=== PATIENT | male | born 1930 | race Caucasian/White ===

== ENCOUNTER 2018-11-22 23:44 | Emergency (ER) | payer OTHER, BC ==
[2018-11-22 23:51] VITALS: BP 132/62; PULSE 66; TEMP 97.7; BMI 22.1
[2018-11-23] MEDS ORDERED: BACITRACIN 0.9 GM PACKET ONE (00:47)
--- NOTE | 2018-11-23 00:58 | PDOC ---
Attending Attestation - Resident Resident Name: ByrondinaLan - ED Attending Attestation I have performed the following: I have examined & evaluated the patient, The case was reviewed & discussed with the resident, I agree w/resident's findings & plan, Exceptions are as noted - HPI HPI: 11/23/18 00:57 88-year-old male with a history of peripheral vascular disease who is followed by Dr. Dumont for wound care presents with bleeding to his chronic left medial -This evening he started to have bleeding at the site and a pressure dressing was applied, and called for an ambulance -There was no active bleeding at the site when the dressing was removed. The dressing was replaced and patient will follow-up at the wound care - Physicial Exam PE: 11/23/18 00:58 tall thin 88 yo male BIBA for bleeding at the site of a chronic wound head ncat neck supple lungs cta b/l cvs [id number] abd flat extremity: right leg has chronic edema( referred to wound care notes from Dr Dumont) ,no deformity ,there is small wound at medial malleolus neuro alert and conversant - Medical Decision Making 11/23/18 01:16 the wound was dressed, the bleeding stopped, no sign of local infection pt d/c home to follow up with wound care
--- NOTE | 2018-11-23 00:59 | PDOC ---
History of Present Illness - General Chief Complaint: Wound Stated Complaint: HEMORRAHAGE Time Seen by Provider: 11/23/18 00:21 History Source: Patient, Family Exam Limitations: No Limitations - History of Present Illness Initial Comments: 11/23/18 00:54 The patient is an 88M with a PMH of CHF and chronic R LE wound who presents to the ER after having bleeding from his wound. The patient states that he was sitting down watching tv when his wound started "shooting blood". He called EMS. He currently complains of shooting pain in his R leg. Past History - Past Medical History Allergies/Adverse Reactions: Allergies Allergy/AdvReac Type Severity Reaction Status Date / Time No Known Allergies Allergy Verified 01/14/18 18:32 Home Medications: Ambulatory Orders Metoprolol Succinate [Toprol XL] 50 mg PO BID 12/31/11 Warfarin Na [Coumadin] 5 mg PO HS 12/31/11 Ranitidine [Zantac -] 150 mg PO DAILY #0 tablet 08/23/13 Cholecalciferol (Vitamin D3) [Vitamin D3] 2,000 unit PO DAILY 10/31/13 Digoxin 125 mcg PO DAILY 11/02/13 Furosemide [Lasix -] 60 mg PO DAILY 01/14/18 Atorvastatin Ca [Lipitor] 10 mg PO HS 08/04/18 Cyclobenzaprine HCl 5 mg PO DAILY 08/04/18 Gabapentin 100 mg PO DAILY 08/04/18 Spironolactone 25 mg PO DAILY 08/04/18 Anemia: No Asthma: No Cancer: No Cardiac Disorders: Yes (IRREGULAR HEARTBEAT, PACEMAKER IN PLACE) 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) COPD: No CHF: No Dementia: No Diabetes: No GI Disorders: Yes (CONSTIPATION) Disorders: No HTN: Yes Hypercholesterolemia: Yes Liver Disease: No Seizures: No Thyroid Disease: No - Surgical History Abdominal Surgery: Yes (RIGHT INGUINAL HERNIA REPAIR) Appendectomy: No Cardiac Surgery: Yes (aortic valve replacement, single bypass 1999) Cholecystectomy: No Lung Surgery: No Neurologic Surgery: No Orthopedic Surgery: Yes (BILATERAL HAND SURGERY) - Immunization History Immunization Up to Date: Yes - Suicide/Smoking/Psychosocial Hx Smoking Status: Yes Smoking History: Unknown if ever smoked Have you smoked in the past 12 months: No Number of Cigarettes Smoked Daily: 0 If you are a former smoker, when did you quit?: 40-50yr ago Information on smoking cessation initiated: No Hx Alcohol Use: No Drug/Substance Use Hx: No Substance Use Type: None Hx Substance Use Treatment: No Review of Systems - Review of Systems Able to Perform ROS?: Yes Is the patient limited Yi proficient: No Constitutional: No: Chills, Fever Cardiac (ROS): No: Chest Pain Musculoskeletal: Yes: Other (R leg pain) Integumentary: Yes: Other (1cm wound on medial aspect of R malleolus) *Physical Exam - Vital Signs Last Vital Signs Temp Pulse Resp BP Pulse Ox 97.7 F 66 20 132/62 100 11/22/18 23:47 11/22/18 23:47 11/22/18 23:47 11/22/18 23:47 11/22/18 23:47 - Physical Exam General Appearance: Yes: Nourished, Appropriately Dressed HEENT: positive: Normal Voice, Hearing Grossly Normal Integumentary: positive: Other (1cm nonbleeding chronic wound on R medial malleolus) Moderate Sedation - Procedure Monitoring Vital Signs: Procedure Monitoring Vital Signs Temperature 97.7 F 11/22/18 23:47 Pulse Rate 66 11/22/18 23:47 Respiratory Rate 20 11/22/18 23:47 Blood Pressure 132/62 11/22/18 23:47 O2 Sat by Pulse Oximetry (%) 100 11/22/18 23:47 Medical Decision Making - Medical Decision Making 11/23/18 00:57 The patient is an 88M with a PMH of chronic R LE wound seen by Dr. Dumont. Wound was not bleeding on my examination. Wound covered with pressure dressing. Will give instructions for f/u with wound clinic. *DC/Admit/Observation/Transfer Diagnosis at time of Disposition: Bleeding from wound - Discharge Dispostion Disposition: HOME Condition at time of disposition: Stable Decision to Admit order: No - Referrals - Patient Instructions Printed Discharge Instructions: Skin Wound Additional Instructions: Please follow up with Dr. Dumont in 1-2 days for your wound. Please return to the ER if you have any signs or symptoms of chest pain, shortness of breath, uncontrollable fever, chills, nausea, vomiting, numbness, tingling, or weakness in any part of your body, changes in vision, or slurred speech. Please take your medications as prescribed. Please return to the ER if symptoms persist, worsen, or new symptoms arise. - Post Discharge Activity
== END 2018-11-23 01:29 | disposition home or self-care (01) ==
LOC: JER 23:44
DX: S91.001A Unspecified open wound, right ankle, initial encounter (principal); S81.801A Unspecified open wound, right lower leg, initial encounter; I25.10 Atherosclerotic heart disease of native coronary artery without angina pectoris; I11.0 Hypertensive heart disease with heart failure; Z95.1 Presence of aortocoronary bypass graft; Z79.01 Long term (current) use of anticoagulants; Z95.2 Presence of prosthetic heart valve; Z95.0 Presence of cardiac pacemaker; E78.00 Pure hypercholesterolemia, unspecified; I69.854 Hemiplegia and hemiparesis following other cerebrovascular disease affecting left non-dominant side; Z87.19 Personal history of other diseases of the digestive system
CPT/HCPCS: 99281-25

== ENCOUNTER 2019-02-13 22:02 | Inpatient (IN) | payer OTHER, BC ==
[2019-02-13 23:59] LABS: BASO % 0.6 % (0-2.0); EOS % 4.5 % (0-4.5); HEMATOCRIT 27.7 % (35.4-49); HEMOGLOBIN 9.1 GM/dL (11.7-16.9); LYMPH % 19.3 % (8-40); MCH 29.2 pg (25.7-33.7); MCHC 32.7 g/dl (32.0-35.9); MEAN CELL VOLUME 89.4 fl (80-96); MEAN PLT VOLUME 9.8 fl (7.5-11.1); NEUT % 61.6 % (42.8-82.8); PLATELET COUNT 55 K/MM3 (134-434); RDW 16.9 % (11.9-15.9)
--- NOTE | 2019-02-14 00:12 | PDOC ---
History of Present Illness - General Chief Complaint: Revisit, Lab Variance Stated Complaint: ABNORMAL LIVER ENZYMES Time Seen by Provider: 02/13/19 22:30 - History of Present Illness Initial Comments: 02/14/19 00:04 Jero Melchor is an 88yo man with a PMH of CHF, s/p pacemaker, s/p cardiac valve replacement, ?a-fib?, on warfarin, and recent ICU admission who presents with report of significantly elevated BUN, Cr and potassium on morning labs today. Per his daughter, Mr Melchor was recently admitted to [place] for evaluatation of groin pain. His hospital course was c/b aspiration pneumonia, he required intubation and transfer to ICU. He went to rehab for a month following his discharge and recently returned home on Wednesday. He is now significantly decontitioned and has a 24hr caregiver for help with ADL's. Per his daughter, he had labs through [facility] today for his INR check and routine tests. They were called this afternoon with the report that his BUN was 129, potassium was 7.4, Cr was also elevated, and they were told to present to the hospital for evaluation. Mr Melchor denies any recent symptoms including chest pain, SOB, nausea/vomiting , or diarrhea. He has been taking his meds with assistance of the home health nurse licensed practical. His daughter reports that he has not been eating much, and he seems sort of "dazed" and not at his baseline mental status. Past History - Past Medical History Allergies/Adverse Reactions: Allergies Allergy/AdvReac Type Severity Reaction Status Date / Time No Known Allergies Allergy Verified 02/13/19 22:12 Home Medications: Ambulatory Orders Metoprolol Succinate [Toprol XL] 50 mg PO BID 12/31/11 Warfarin Na [Coumadin] 5 mg PO HS 12/31/11 Ranitidine [Zantac -] 150 mg PO DAILY #0 tablet 08/23/13 Cholecalciferol (Vitamin D3) [Vitamin D3] 2,000 unit PO DAILY 10/31/13 Digoxin 125 mcg PO DAILY 11/02/13 Atorvastatin Ca [Lipitor] 10 mg PO HS 08/04/18 Cyclobenzaprine HCl 5 mg PO DAILY 08/04/18 Gabapentin 100 mg PO DAILY 08/04/18 Spironolactone 25 mg PO DAILY 08/04/18 Ferrous Sulfate 325 mg PO DAILY 11/29/18 Sacubitril/Valsartan [Entresto 24 mg-26 mg Tablet] 1 tab PO BID 11/29/18 Torsemide 20 mg PO BID 11/29/18 Anemia: No Asthma: No Cancer: No Cardiac Disorders: Yes (IRREGULAR HEARTBEAT, PACEMAKER IN PLACE) 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) COPD: No CHF: No Dementia: No Diabetes: No GI Disorders: Yes (CONSTIPATION) Disorders: No HTN: Yes Hypercholesterolemia: Yes Liver Disease: No Seizures: No Thyroid Disease: No - Surgical History Abdominal Surgery: Yes (RIGHT INGUINAL HERNIA REPAIR) Appendectomy: No Cardiac Surgery: Yes (aortic valve replacement, single bypass 1999) Cholecystectomy: No Lung Surgery: No Neurologic Surgery: No Orthopedic Surgery: Yes (BILATERAL HAND SURGERY) - Immunization History Immunization Up to Date: Yes - Suicide/Smoking/Psychosocial Hx Smoking Status: Yes Smoking History: Never smoked Have you smoked in the past 12 months: No Number of Cigarettes Smoked Daily: 0 If you are a former smoker, when did you quit?: 40-50yr ago Information on smoking cessation initiated: No Hx Alcohol Use: Yes (social) Drug/Substance Use Hx: No Substance Use Type: None Hx Substance Use Treatment: No Review of Systems - Review of Systems Comments:: Could not obtain *Physical Exam - Vital Signs Last Vital Signs Temp Pulse Resp BP Pulse Ox 97.7 F 67 16 116/71 97 02/13/19 22:08 02/13/19 22:08 02/13/19 22:08 02/13/19 22:08 02/13/19 22:08 - Physical Exam Comments: General: In no acute distress HEENT: Atraumatic, PERRL, EOMI, dry mouth. Cards: RRR, no murmur appreciated Pulm: Comfortable on room air, clear to auscultation bilaterally Abd: Soft, nontender, nondistended Ext: Atraumatic. 2+ pitting edema, R>L. Multiple small wound c/w chronic vascular disease on BLE; no significant drainage or erythema appreciated. Moves all extremities Neuro: A&Ox3 but slow to respond, CN grossly intact, normal speech, motor/ sensory grossly intact and symmetric Psych: Flattened affect; staring off, not attending conversation ED Treatment Course - LABORATORY CBC & Chemistry Diagram: 02/13/19 23:45 02/13/19 23:45 - ADDITIONAL ORDERS Additional order review: 02/13/19 23:45 RBC 3.10 L MCV 89.4 MCHC 32.7 RDW 16.9 H MPV 9.8 Neutrophils % 61.6 Lymphocytes % 19.3 Monocytes % 14.0 H Eosinophils % 4.5 D Basophils % 0.6 - RADIOLOGY Radiology Studies Ordered: Category Date Time Status CHEST X-RAY PORTABLE* [RAD] Stat Radiology 02/13/19 23:22 Ordered Medical Decision Making - Medical Decision Making 02/14/19 00:04 Jero Melchor is an 88yo man with a PMH of CHF, s/p pacemaker, s/p cardiac valve replacement, ?a-fib?, on warfarin, and recent ICU admission who presents with report of significantly elevated BUN, Cr and potassium on morning labs today. Per his daughter, Mr Melchor was recently admitted to [place] for evaluation of groin pain. His hospital course was c/b aspiration pneumonia, he required intubation and transfer to ICU. He went to rehab for a month following his discharge and recently returned home on Wednesday. He is now significantly decontitioned and has a 24hr caregiver for help with ADL's. Per his daughter, he had labs through [facility] today for his INR check and routine tests. They were called this afternoon with the report that his BUN was 129, potassium was 7.4, Cr was also elevated, and they were told to present to the hospital for evaluation. Mr Melchor denies any recent symptoms including chest pain, SOB, nausea/vomiting , or diarrhea. He has been taking his meds with assistance of the home health nurse licensed practical. His daughter reports that he has not been eating much, and he seems sort of "dazed" and not at his baseline mental status. - CBC, CMP, mag, phos, trop, EKG, CXR, cardiac monitoring, UA ordered - Starting IVF. Given CHF will not bolus; 1L to run over several hours - Will evaluate current kidney function and potassium. Will treat as indicated 02/14/19 00:12 - EKG with ventricular paced rhythm, HR 70. Nonspecific t-wave changes. No ST elevations. No grossly peaked t-waves - Pt signed out to Dr West for the remainder of his ED management. Seen with Dr Muro. Araceli Ruiz PGY1 *DC/Admit/Observation/Transfer Diagnosis at time of Disposition: SANDIE (acute kidney injury), Altered mental status - Discharge Dispostion Condition at time of disposition: Fair - Referrals Referrals: Carrillo Roldan MD [Primary Care Provider] - - Patient Instructions - Post Discharge Activity
[2019-02-14 00:47] LABS: ALBUMIN 2.8 g/dl (3.4-5.0); ALK PHOS 118 U/L (45-117); ANION GAP 8 MMOL/L (8-16); BILIRUBIN,TOTAL 0.4 mg/dL (0.2-1); BLOOD UREA NITROGEN 104 mg/dL (7-18); CALCIUM 8.4 mg/dL (8.5-10.1); CHLORIDE 100 mmol/L (98-107); CO2 21 mmol/L (21-32); CREATININE 3.6 mg/dL (0.55-1.3); GLUCOSE,RANDOM 92 mg/dL (74-106); MAGNESIUM 2.9 mg/dL (1.8-2.4); PHOSPHOROUS 4.6 mg/dL (2.5-4.9); SGOT/AST 18 U/L (15-37); SGPT/ALT 21 U/L (13-61); SODIUM 130 mmol/L (136-145); TOT PROT 6.5 g/dl (6.4-8.2)
[2019-02-14] MEDS ORDERED: SODIUM BICARBONATE 8.4% 50 MEQ/50 ML DISP.SYRIN IVPUSH ONE (00:47)
[2019-02-14] MEDS ORDERED: DEXTROSE 50%-WATER - 25 GM/50 ML VIAL IVPUSH ONE (00:47)
[2019-02-14] MEDS ORDERED: SODIUM POLYSTYRENE SULFONATE 15 GM/60 ML BOTTLE PO ONE (00:47)
[2019-02-14 00:51] LABS: POTASSIUM 7.2 mmol/L (3.5-5.1)
[2019-02-14] MEDS ORDERED: ALBUTEROL SO4 0.083% IH SOL 2.5 MG/3 ML VIAL.NEB. NEB ONE (00:59)
[2019-02-14] MEDS ORDERED: INSULIN REGULAR HUMAN 100 UNITS/ML *VIAL IVPUSH ONE (00:59)
[2019-02-14] MEDS ORDERED: CALCIUM GLUCONATE 10% - 1,000 MG/10 ML VIAL IVPUSH ONE (01:04)
--- NOTE | 2019-02-14 01:06 | PDOC ---
Documentation entered by Serg Toledo SCRIBE, acting as scribe for Laure Muro DO. Laure Muro DO: This documentation has been prepared by the Ter rizo Daniel, SCRIBE, under my direction and personally reviewed by me in its entirety. I confirm that the documentation accurately reflects all work , treatment, procedures, and medical decision making performed by me. Attending Attestation - Resident Resident Name: Araceli Ruiz - ED Attending Attestation I have performed the following: I have examined & evaluated the patient, The case was reviewed & discussed with the resident, I agree w/resident's findings & plan - HPI HPI: 02/13/19 23:31 The patient is an 88 year old male with a past medical history of CHF and peripheral vascular disease here today for evaluation of abnormal lab values. Patient reports that he was recently discharged from the ICU at [facility]. He was called today and was told that his BUN was 129 and his potassium was 7.4. Patient denies headache, lightheadedness. Denies fever, chills. Denies chest pain, shortness of breath. Denies nausea, vomiting, diarrhea, abdominal pain. Allergies: NKA PCP: Carrillo Roldan - Physicial Exam PE: 02/13/19 23:32 Agree with patient's physical exam. - Medical Decision Making 02/14/19 01:05 80-year-old male told to come in due to abnormal labs on outpatient testing Blood chemistries reviewed and are consistent with acute renal failure with a markedly elevated BUN creatinine and potassium Insulin, sodium bicarbonate, D50 as well as Kayexalate and calcium gluconate have been ordered Call placed for stat nephrology consult Patient to be admitted for further management
[2019-02-14] MEDS ORDERED: CALCIUM GLUCONATE 10% - 1,000 MG/10 ML VIAL ONE (01:30)
[2019-02-14] MEDS ORDERED: FUROSEMIDE 40 MG/4 ML INJECTABLE VIAL IVPUSH ONE (01:30)
[2019-02-14] MEDS ORDERED: DEXTROSE 50%-WATER 25 GM/50 ML DISP.SYRIN ONE ×2 (01:31→08:08)
[2019-02-14] MEDS ORDERED: SODIUM POLYSTYRENE SULFONATE 15 GM/60 ML BOTTLE ONE ×2 (01:32→08:41)
[2019-02-14] MEDS ORDERED: INSULIN REGULAR HUMAN 100 UNITS/ML *VIAL ONE (01:32)
--- NOTE | 2019-02-14 01:41 | PDOC ---
*Physical Exam - Vital Signs Last Vital Signs Temp Pulse Resp BP Pulse Ox 97.7 F 67 16 116/71 97 02/13/19 22:08 02/13/19 22:08 02/13/19 22:08 02/13/19 22:08 02/13/19 22:08 ED Treatment Course - LABORATORY CBC & Chemistry Diagram: 02/13/19 23:45 02/13/19 23:45 - ADDITIONAL ORDERS Additional order review: Laboratory Results 02/13/19 23:45 Sodium 130 L Potassium 7.2 H* Chloride 100 Carbon Dioxide 21 Anion Gap 8 BUN 104 H Creatinine 3.6 H Creat Clearance w eGFR 16.08 Random Glucose 92 Calcium 8.4 L Phosphorus 4.6 Magnesium 2.9 H Total Bilirubin 0.4 AST 18 ALT 21 Alkaline Phosphatase 118 H Creatine Kinase 57 Troponin I < 0.02 Total Protein 6.5 Albumin 2.8 L 02/13/19 23:45 RBC 3.10 L MCV 89.4 MCHC 32.7 RDW 16.9 H MPV 9.8 Neutrophils % 61.6 Lymphocytes % 19.3 Monocytes % 14.0 H Eosinophils % 4.5 D Basophils % 0.6 - RADIOLOGY Radiology Studies Ordered: Category Date Time Status KIDNEY / RENAL US [US] Stat Ultrasound 02/14/19 01:31 Ordered Medical Decision Making - Medical Decision Making 02/14/19 01:[address] Curran, renal US, lasix 40 mg IV, hold spironolactone and entresto. Monitor Is and Os, baltazar admit for SANDIE, elevated K, BUN, CR and low Ca 02/14/19 02:23 Hospitalist *DC/Admit/Observation/Transfer Diagnosis at time of Disposition: Altered mental status, SANDIE (acute kidney injury) - Discharge Dispostion Condition at time of disposition: Fair Decision to Admit order: Yes - Referrals - Patient Instructions - Post Discharge Activity
--- NOTE | 2019-02-14 02:14 | PN ---
Teaching Attending Note Name of Resident: Dwain Goodrich ATTENDING PHYSICIAN STATEMENT I saw and evaluated the patient. I reviewed the resident's note and discussed the case with the resident. I agree with the resident's findings and plan as documented. SUBJECTIVE: Seen and examined; please refer to resident note for further historical information. Briefly, this is a 88 y/o male with a PMH as documented who presents to the hospital today due to hyperkalemia and SANDIE. He was recently admitted to [facility] in their ICU for what their daughter describes to be Aspiration PNA, etc. and he went to rehab for a month following his discharge and recently returned home on Wednesday. He is now significantly decontitioned and has a 24hr caregiver for help with ADL's. Per his daughter, he had labs through [facility] today for his INR check and routine tests. They were called this afternoon with the report that his BUN was 129, potassium was 7.4, Cr was also elevated, and they were told to present to the hospital for evaluation. No EKG or tele changes. K did go down after treatment; ER spoke with Dr. Curran after treating the hyperK and he recommended holding spironolactone, entresto, and giving lasix. He will be monitored on telemetry on the medicine service. 10 sys ROS done and negative aside from HPI PMH, PSH, FH, SH reviewed Home Medications Medication Instructions Recorded Metoprolol Succinate [Toprol XL] 50 mg PO BID 12/31/11 Warfarin Na [Coumadin] 5 mg PO HS 12/31/11 Ranitidine [Zantac -] 150 mg PO DAILY #0 tablet 08/23/13 Cholecalciferol (Vitamin D3) 2,000 unit PO DAILY 10/31/13 [Vitamin D3] Digoxin 125 mcg PO DAILY 11/02/13 Atorvastatin Ca [Lipitor] 10 mg PO HS 08/04/18 Cyclobenzaprine HCl 5 mg PO DAILY 08/04/18 Gabapentin 100 mg PO DAILY 08/04/18 Spironolactone 25 mg PO DAILY 08/04/18 Ferrous Sulfate 325 mg PO DAILY 11/29/18 Sacubitril/Valsartan [Entresto 24 1 tab PO BID 11/29/18 mg-26 mg Tablet] Torsemide 20 mg PO BID 11/29/18 OBJECTIVE: VS, labs, imaging reviewed NAD, AAO, resting comfortably in bed NC AT EOMI PERRLA RRR s1/2 no mgr Lungs CTAB, w/ sym exp NT ND +BS CN2-12 wnl, no fnd Normal mood, appropriate affect EKG reviewed Telemetry reviewed ASSESSMENT AND PLAN: Patient presents with acute hyperkalemia and SANDIE; Dr. Curran is following. 1) Hyperkalemia -Dr. Curran consulted; ER events noted. Repeat still mid-6 range so will repeat insulin/D50 and monitor for improvement. -Montioring on telemetry; will defer further management to nephrology 2) SANIDE -Will call pharmacy to verify his diuretics as there was a question. Furthermore, holding spironolactone and entresto. Will resume when clinically appropriate. We will monitor BMP and UOP and followup FeUrea and LEONARD. Would like to get the recent trend of his creatinine from [facility], etc. 3) Hx CHF; echo unknown -Will call [facility] in AM for DC summary and any studies; holding SL and entresto. Got 40 IV lasix; doesn't appear to be in any exacerbation with no acute cardiopulmonary complaints. Will renew his meds when clinically appropriate. Would like to get his DC weight, etc. from their facility as well. 4) Hx Afib on Warfarin -Continue metoprolol, dig (checking level) -Pharmacy to dose warfarin 5) Hx HLD -Continue statin 6) Recent ICU admission/deconditioning -Consider prealbumin -Was just DC from rehab but if family has any concern can call PT
--- NOTE | 2019-02-14 02:42 | HP ---
CHIEF COMPLAINT: abnormal labs PCP: Dr. Roldan HISTORY OF PRESENT ILLNESS: Patient is an 88 yo M with a PMHx of CHF, A-fib (on coumadin), s/p pacemaker, s/p cardiac valve replacement, recent admission (@ [facility] , complicated by Asp PNA, intubated), was sent by his PCP because of abnormal lab work. Per his daughter, he had labs through [facility] today for his INR check and routine tests. They were called this afternoon with the report that his BUN was 129, potassium was 7.4, Cr was also elevated, and they were told to present to the hospital for evaluation. Patient says he has no history of kidney disease. 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 He has no complaints. He denies SOB, chest pain , nausea, vomiting, abdominal pain, urinary changes, diarrhea, dizziness. ER course was notable for: (1) K 7.2, 104 BUN, 3.6 Cr. (2) d50, insulin, calcium given in ER (3) 1x 40mg IV lasix per nephro request Recent Travel: denies PAST MEDICAL HISTORY: per HPI Social History: Smoking: denies Alcohol: denies Drugs: denies Family History: Allergies No Known Allergies Allergy (Verified 02/13/19 22:12) HOME MEDICATIONS: Home Medications Medication Instructions Recorded Metoprolol Succinate [Toprol XL] 50 mg PO BID 12/31/11 Warfarin Na [Coumadin] 5 mg PO HS 12/31/11 Ranitidine [Zantac -] 150 mg PO DAILY #0 tablet 08/23/13 Cholecalciferol (Vitamin D3) 2,000 unit PO DAILY 10/31/13 [Vitamin D3] Digoxin 125 mcg PO DAILY 11/02/13 Atorvastatin Ca [Lipitor] 10 mg PO HS 08/04/18 Cyclobenzaprine HCl 5 mg PO DAILY 08/04/18 Gabapentin 100 mg PO DAILY 08/04/18 Spironolactone 25 mg PO DAILY 08/04/18 Ferrous Sulfate 325 mg PO DAILY 11/29/18 Sacubitril/Valsartan [Entresto 24 1 tab PO BID 11/29/18 mg-26 mg Tablet] Torsemide 20 mg PO BID 11/29/18 REVIEW OF SYSTEMS CONSTITUTIONAL: Absent: fever, chills, diaphoresis, generalized weakness, malaise, loss of appetite, weight change HEENT: Absent: rhinorrhea, nasal congestion, throat pain, throat swelling, difficulty swallowing, mouth swelling, ear pain, eye pain, visual changes CARDIOVASCULAR: Absent: chest pain, syncope, palpitations, irregular heart rate, lightheadedness , peripheral edema RESPIRATORY: Absent: cough, shortness of breath, dyspnea with exertion, orthopnea, wheezing, stridor, hemoptysis GASTROINTESTINAL: Absent: abdominal pain, abdominal distension, nausea, vomiting, diarrhea, constipation, melena, hematochezia GENITOURINARY: Absent: dysuria, frequency, urgency, hesitancy, hematuria, flank pain, genital pain MUSCULOSKELETAL: Absent: myalgia, arthralgia, joint swelling, back pain, neck pain SKIN: Absent: rash, itching, pallor HEMATOLOGIC/IMMUNOLOGIC: Absent: easy bleeding, easy bruising, lymphadenopathy, frequent infections ENDOCRINE: Absent: unexplained weight gain, unexplained weight loss, heat intolerance, cold intolerance NEUROLOGIC: Absent: headache, focal weakness or paresthesias, dizziness, unsteady gait, seizure, mental status changes, bladder or bowel incontinence PSYCHIATRIC: Absent: anxiety, depression, suicidal or homicidal ideation, hallucinations. PHYSICAL EXAMINATION Vital Signs - 24 hr 02/13/19 22:08 Temperature 97.7 F Pulse Rate 67 Respiratory 16 Rate Blood Pressure 116/71 O2 Sat by Pulse 97 Oximetry (%) GENERAL: A/o x 3, comfortable HEAD: Normal with no signs of trauma. EYES: Pupils equal, round and reactive to light, extraocular movements intact, sclera anicteric, conjunctiva clear. EARS, NOSE, THROAT: oropharynx clear without exudates. Moist mucous membranes. NECK: supple without lymphadenopathy, JVD, or masses. LUNGS: Breath sounds equal, clear to auscultation bilaterally. No wheezes, and no crackles. HEART: RRR, S1, s2, no murmurs appreciated ABDOMEN: Soft, nontender, not distended, normoactive bowel sounds, no guarding, no rebound, no masses. LOWER EXTREMITIES: 2+ pulses, 2+ pitting edema b/l. multiple small wounds, no discarge, erythema NEUROLOGICAL: Cranial nerves II-XII intact Laboratory Results - last 24 hr 02/13/19 02/13/19 23:45 23:45 WBC 6.0 RBC 3.10 L Hgb 9.1 L Hct 27.7 L MCV 89.4 MCH 29.2 MCHC 32.7 RDW 16.9 H Plt Count 55 L D MPV 9.8 Absolute Neuts (auto) 3.7 Neutrophils % 61.6 Lymphocytes % 19.3 Monocytes % 14.0 H Eosinophils % 4.5 D Basophils % 0.6 Nucleated RBC % 0 Sodium 130 L Potassium 7.2 H* Chloride 100 Carbon Dioxide 21 Anion Gap 8 BUN 104 H Creatinine 3.6 H Creat Clearance w eGFR 16.08 Random Glucose 92 Calcium 8.4 L Phosphorus 4.6 Magnesium 2.9 H Total Bilirubin 0.4 AST 18 ALT 21 Alkaline Phosphatase 118 H Creatine Kinase 57 Troponin I < 0.02 Total Protein 6.5 Albumin 2.8 L ASSESSMENT/PLAN: 88 yo M with a PMHx of CHF, A-fib (on coumadin), s/p pacemaker, s/p cardiac valve replacement, recent admission (@ [facility], complicated by Asp PNA, intubated), was sent by his PCP because of abnormal lab work. #SANDIE -etiology unknown at this time -Renal U/S -urine electrolytes -Hold Torsemide, Entresto, Spironolactone -Neprho consulted: Dr. Curran -1x 40mg IV lasix -I/O's -monitor BMP #Hyperkalemia -likely from SANDIE -D50, calcium gluc, insulin given in ED -Follow BMP -EKG: paced rhythm, no peaked T waves -Spironolactone Held #CHF -echo ordered -BNP -entresto held #Hx of A-fib -on coumadin, held -FU PT/INR -Digoxin -FU dig level -Toprol 50mg BID #Thrombocytopenia -Platelet 55 -Repeat in AM -transfuse <10,000 #FEN -no iv fluids -monitor BMP -sodium controlled #Dvt -no AC. low platelets Tele Obs Visit type - Emergency Visit Emergency Visit: Yes ED Registration Date: 02/14/19 Care time: The patient presented to the Emergency Department on the above date and was hospitalized for further evaluation of their emergent condition. - New Patient This patient is new to me today: Yes Date on this admission: 02/14/19 - Critical Care Critical Care patient: No
[2019-02-14] MEDS ORDERED: SODIUM BICARBONATE 8.4% 50 MEQ/50 ML VIAL ONE (03:09)
[2019-02-14 03:14] LABS: INR 2.93 (0.83-1.09)
[2019-02-14 03:58] LABS: ALBUMIN 2.5 g/dl (3.4-5.0); ALK PHOS 106 U/L (45-117); ANION GAP 7 MMOL/L (8-16); BILIRUBIN,TOTAL 0.3 mg/dL (0.2-1); BLOOD UREA NITROGEN 98 mg/dL (7-18); CALCIUM 7.9 mg/dL (8.5-10.1); CHLORIDE 104 mmol/L (98-107); CO2 22 mmol/L (21-32); CREATININE 3.4 mg/dL (0.55-1.3); GLUCOSE,RANDOM 86 mg/dL (74-106); SGOT/AST 18 U/L (15-37); SGPT/ALT 19 U/L (13-61); SODIUM 132 mmol/L (136-145); TOT PROT 5.9 g/dl (6.4-8.2)
[2019-02-14 04:00] LABS: POTASSIUM 6.6 mmol/L (3.5-5.1)
[2019-02-14] MEDS ORDERED: FUROSEMIDE 40 MG/4 ML INJECTABLE VIAL ONE (06:12)
[2019-02-14 06:29] LABS: HEMOGLOBIN 7.6 GM/dL (11.7-16.9); MCH 29.5 pg (25.7-33.7); MCHC 33.2 g/dl (32.0-35.9); MEAN CELL VOLUME 88.8 fl (80-96); MEAN PLT VOLUME 9.1 fl (7.5-11.1); PLATELET COUNT 43 K/MM3 (134-434); RBC 2.59 M/mm3 (4.00-5.60); RDW 16.5 % (11.9-15.9); WHITE BLOOD COUNT 4.5 K/mm3 (4.0-10.0)
[2019-02-14 07:34] LABS: ALBUMIN 2.3 g/dl (3.4-5.0); ALK PHOS 97 U/L (45-117); ANION GAP 7 MMOL/L (8-16); BILIRUBIN,TOTAL 0.3 mg/dL (0.2-1); BLOOD UREA NITROGEN 94 mg/dL (7-18); CALCIUM 8.2 mg/dL (8.5-10.1); CHLORIDE 104 mmol/L (98-107); CO2 22 mmol/L (21-32); CREATININE 3.3 mg/dL (0.55-1.3); GLUCOSE,RANDOM 68 mg/dL (74-106); MAGNESIUM 2.8 mg/dL (1.8-2.4); PHOSPHOROUS 4.2 mg/dL (2.5-4.9); SGOT/AST 17 U/L (15-37); SGPT/ALT 17 U/L (13-61); SODIUM 133 mmol/L (136-145); TOT PROT 5.4 g/dl (6.4-8.2)
[2019-02-14 07:37] LABS: POTASSIUM 6.2 mmol/L (3.5-5.1)
[2019-02-14 08:14] LABS: URINE APPEARANCE CLEAR; URINE BILIRUBIN NEGATIVE (NEGATIVE); URINE COLOR YELLOW; URINE GLUCOSE (UA) NEGATIVE (NEGATIVE); URINE KETONE NEGATIVE (NEGATIVE); URINE LEUK ESTERASE NEGATIVE (NEGATIVE); URINE NITRITE NEGATIVE (NEGATIVE); URINE PROTEIN NEGATIVE (NEGATIVE); URINE UROBILINOGEN 0.2 mg/dL (0.2-1.0)
[2019-02-14] MEDS: ALBUTEROL SO4 0.083% IH SOL 2.5 MG/3 ML VIAL.NEB. NEB ONE ×2 (08:19→08:20)
[2019-02-14] MEDS: INSULIN REGULAR HUMAN 100 UNITS/ML *VIAL IVPUSH ONE ×2 (08:19→08:20)
[2019-02-14] MEDS: DEXTROSE 50%-WATER - 25 GM/50 ML VIAL IVPUSH ONE ×2 (08:19→08:20)
[2019-02-14 09:34] LABS: BASO % 0.7 % (0-2.0); EOS % 3.6 % (0-4.5); HEMATOCRIT 24.7 % (35.4-49); HEMOGLOBIN 8.1 GM/dL (11.7-16.9); LYMPH % 28.4 % (8-40); MCH 29.4 pg (25.7-33.7); MCHC 32.6 g/dl (32.0-35.9); MEAN CELL VOLUME 90.2 fl (80-96); MEAN PLT VOLUME 8.9 fl (7.5-11.1); MONO % 14.6 % (3.8-10.2); NEUT % 52.7 % (42.8-82.8); PLATELET COUNT 45 K/MM3 (134-434); RBC 2.74 M/mm3 (4.00-5.60); RDW 16.6 % (11.9-15.9)
[2019-02-14] MEDS ORDERED: SODIUM CHLORIDE 1,000 ML IV SCH (10:00)
[2019-02-14] MEDS: CHOLECALCIFEROL (VITAMIN D3) 1,000 UNIT TABLET (FP) PO SCH (10:04)
[2019-02-14] MEDS: metoPROLOL SUCCINATE 25 MG TAB.SR.24H (FP) PO SCH ×2 (10:04→10:19)
[2019-02-14] MEDS: FERROUS SO4 325 MG TABLET (FP) PO SCH (10:05)
[2019-02-14 10:42] LABS: ANION GAP 8 MMOL/L (8-16); BLOOD UREA NITROGEN 92 mg/dL (7-18); CALCIUM 8.5 mg/dL (8.5-10.1); CHLORIDE 105 mmol/L (98-107); CO2 24 mmol/L (21-32); CREATININE 3.5 mg/dL (0.55-1.3); GLUCOSE,RANDOM 76 mg/dL (74-106); POTASSIUM 5.6 mmol/L (3.5-5.1); SODIUM 136 mmol/L (136-145)
--- NOTE | 2019-02-14 10:44 | PN ---
Teaching Attending Note Name of Resident: Brandon Dumont ATTENDING PHYSICIAN STATEMENT I saw and evaluated the patient. I reviewed the resident's note and discussed the case with the resident. I agree with the resident's findings and plan as documented. SUBJECTIVE: Mr Melchor complains of bilateral heel burning. Denies cp, sob, n/v. Had decreased intake since home from SNF. OBJECTIVE: Last Vital Signs Temp Pulse Resp BP Pulse Ox 36.7 C 70 16 93/48 L 98 02/14/19 09:21 02/14/19 10:20 02/14/19 10:20 02/14/19 10:20 02/14/19 10:20 Gen: nad, slow speech Pulm: ctab w/o w/r/r CV: rrr w/o m/r/g Abd: +bs, s/nt/nd Ext: no edema, changes of chronic venous stasis CBC, BMP 02/14/19 09:18 ASSESSMENT AND PLAN: Problem List - Problems (1) Hyperkalemia Assessment/Plan: -secondary to dehydration from poor po intake and medication -hold aldactone and entresto -case d/w Dr Curran -medical treatment, does not need HD -telemetry monitoring -currently improving Code(s): E87.5 - HYPERKALEMIA (2) SANDIE (acute kidney injury) Assessment/Plan: -secondary to dehydration and multiple diuretics -hold diuretics -gentle hydration -close monitoring as has significant valvular disease Code(s): N17.9 - ACUTE KIDNEY FAILURE, UNSPECIFIED (3) Toxic metabolic encephalopathy Assessment/Plan: -improving with hydration and potassium control -will also renally dose gabapentin while with SANDIE Code(s): G92 - TOXIC ENCEPHALOPATHY (4) Valvular heart disease Assessment/Plan: -severe -d/w cardiology who will see in consultation since he will be receiving IVF Code(s): I38 - ENDOCARDITIS, VALVE UNSPECIFIED (5) Atrial fibrillation Assessment/Plan: -continue anticoagulation -continue toprol xl with hold parameters Code(s): I48.91 - UNSPECIFIED ATRIAL FIBRILLATION Qualifiers: Atrial fibrillation type: chronic Qualified Code(s): I48.2 - Chronic atrial fibrillation (6) Neuropathy Assessment/Plan: -continue gabapentin, renal dosing Code(s): G62.9 - POLYNEUROPATHY, UNSPECIFIED
--- NOTE | 2019-02-14 11:37 | EKG ---
Test Reason : Blood Pressure : / mmHG Vent. Rate : 070 BPM Atrial Rate : 077 BPM P-R Int : 000 ms QRS Dur : 196 ms QT Int : 444 ms P-R-T Axes : 000 268 055 degrees QTc Int : 479 ms Ventricular-paced rhythm ABNORMAL ECG Confirmed by Pawan eL MD ([id number]) on 02/14/2019 11:37:28 AM Referred By: Confirmed By:Pawan Le MD
--- NOTE | 2019-02-14 11:47 | CON.CARD ---
Consult Consult Specialty:: Cardiology Referred by:: Medicine Reason for Consultation:: CHF - History of Present Illness Chief Complaint: hyperkalemia History of Present Illness: 88M h/o afib on coumadin, s/p PPM, s/p valve replacement p/w abnormal labs. Recently admitted to [facility], had aspiration PNA and was intubated. Has a history of systolic HF, sees Dr. Wayne for CHF at [facility]. Recently spironolactone may have been stopped and entresto dose was lowered, but family not sure. These changes were made during his prior admission at [facility]. Reportedly has been stable from cardiac perspective, has not had recent HF admission. Was not feeling well yesterday, labs done which showed K 7.4, BUN 129, Cr 4. No h/o CKD. No chest pain, palps, edema, dyspnea. - Alcohol/Substance Use Hx Alcohol Use: Yes (social) - Smoking History Smoking history: Never smoked Have you smoked in the past 12 months: No Aproximately how many cigarettes per day: 0 If you are a former smoker, when did you quit?: 40-50yr ago Home Medications - Allergies Allergies/Adverse Reactions: Allergies Allergy/AdvReac Type Severity Reaction Status Date / Time No Known Allergies Allergy Verified 02/13/19 22:12 - Home Medications Home Medications: Ambulatory Orders Metoprolol Succinate [Toprol XL] 25 mg PO DAILY 12/31/11 Warfarin Na [Coumadin] 5 mg PO HS 12/31/11 Cholecalciferol (Vitamin D3) [Vitamin D3] 1,000 unit PO DAILY 10/31/13 Gabapentin 200 mg PO BID 08/04/18 Spironolactone 25 mg PO DAILY 08/04/18 Ferrous Sulfate 325 mg PO DAILY 11/29/18 Sacubitril/Valsartan [Entresto 24 mg-26 mg Tablet] 1 tab PO DAILY 11/29/18 Torsemide 20 mg PO DAILY 11/29/18 Acetaminophen 650 mg PO Q6H PRN 02/14/19 Atorvastatin Ca [Lipitor] 10 mg PO DAILY 02/14/19 Cyclobenzaprine HCl 5 mg PO DAILY 02/14/19 Digoxin [Lanoxin -] 0.125 mg PO DAILY 02/14/19 Metolazone 2.5 mg PO DAILY PRN 02/14/19 Oxycodone HCl/Acetaminophen [Percocet 5-325 mg Tablet] 1 tab PO Q4H PRN Ranitidine [Zantac -] 150 mg PO DAILY 02/14/19 Family Disease History - Family Disease History Family History: Unremarkable Review of Systems - Review of Systems Constitutional: reports: No Symptoms Eyes: reports: No Symptoms HENT: reports: No Symptoms Neck: reports: No Symptoms Cardiovascular: reports: No Symptoms Respiratory: reports: No Symptoms Gastrointestinal: reports: No Symptoms Genitourinary: reports: No Symptoms Musculoskeletal: reports: No Symptoms Integumentary: reports: No Symptoms Neurological: reports: No Symptoms Endocrine: reports: No Symptoms Hematology/Lymphatic: reports: No Symptoms Psychiatric: reports: No Symptoms Vital Signs: Vital Signs Temperature 98.0 F 02/14/19 09:21 Pulse Rate 70 02/14/19 10:20 Respiratory Rate 16 02/14/19 10:20 Blood Pressure 93/48 L 02/14/19 10:20 O2 Sat by Pulse Oximetry (%) 98 02/14/19 10:20 Constitutional: Yes: No Distress, Calm Eyes: Yes: Conjunctiva Clear, EOM Intact HENT: Yes: Atraumatic, Normocephalic Neck: Yes: Supple, Trachea Midline Respiratory: Yes: Regular, CTA Bilaterally Gastrointestinal: Yes: Normal Bowel Sounds, Soft Cardiovascular: Yes: Regular Rate and Rhythm JVD: No Carotid Bruit: No PMI: Non-Displaced Heart Sounds: Yes: S1, S2 Musculoskeletal: No: Back Pain Extremities: No: Cold Edema: No Peripheral Pulses WNL: Yes Peripheral Pulses: 2+ Left Doralis Pedis, 2+ Right Dorsalis Pedis Integumentary: No: Jaundice Neurological: Yes: Alert, Oriented Psychiatric: No: Agitated - Other Data Labs, Other Data: CBC, BMP 02/14/19 09:18 02/14/19 09:18 INR, PTT INR 2.93 (0.83-1.09) H 02/14/19 02:35 Troponin, BNP 02/13/19 02/14/19 23:45 05:30 Troponin I < 0.02 B-Natriuretic Peptide 3315.5 H Troponin, BNP 02/13/19 02/14/19 23:45 05:30 Troponin I < 0.02 B-Natriuretic Peptide 3315.5 H Assessment/Plan EKG: [employer] CXR: no acute process tele: [employer] SANDIE, hyperkalemia - received D50, calcium gluconate, insulin, lasix - nephrology following - holding torsemide, entresto, spironolactone Chronic systolic HF, h/o bioprosthetic valve - echo pending - holding entresto, torsemide, spironolactone as above - appears euvolemic, holding diuresis (received lasix and IVF for hyperkalemia) - continue metoprolol Afib - holding coumadin in setting of thrombocytopenia - continue digoxin, toprol, monitoring digoxin level in setting of SANDIE s/p PPM - stable on EKG, outpatient monitoring h/o cardiac valve - patient not sure which valve, bioprosthetic - echo pending HLD - cont statin
--- NOTE | 2019-02-14 12:26 | CONSULT ---
Admitting History and Physical - Primary Care Physician PCP: Abhijit Gomez - Admission History of Present Illness: 88 yo M with a PMHx of CHF, A-fib (on coumadin), s/p pacemaker, s/p cardiac valve replacement, recent admission @ [facility], initially admitted for groin pain, complicated by Asp PNA. @ [facility] exams revealed aspiration and pt was d/c'd to [facility] rehab on puree/honey thick liquid. At [facility], pt was upgraded to nectar thick liquids with a few isolated soft solids allows such as albanian toast and blackberries. Pt was referred for an opd MBS, pending the test. Pt has a h/o a cva with left sided weakness x 20 years ago. His daughter said his speech was generally clear and he always tolerated a reg diet/thin liquids. She noticed recently some gurgly wet voice while eating, before [facility] admission. Pt's daughter also reports some cough/congestion at NH and at home while eating. Family deny that he was intubated at [facility] but say he aspirated while eating there and needed w/u by [facility] and downgraded diet. This is my first consult with this pt. History Source: Patient, Family Member Limitations to Obtaining History: No Limitations, Clinical Condition - Smoking History Smoking history: Never smoked Have you smoked in the past 12 months: No Aproximately how many cigarettes per day: 0 If you are a former smoker, when did you quit?: 40-50yr ago - Alcohol/Substance Use Hx Alcohol Use: Yes (social) History - Admission Reason For Visit: ACUTE KIDNEY INJURY - Diagnostics X-ray: Report Reviewed - General Mental Status: Alert and Oriented, Awake and Alert, Able to Follow Commands Attention: Intact Ability to Follow Directions: Good Head/Neck Control: Good - Hearing Hearing: Impaired Speech Evaluation - Communication Primary Language: TURKMEN Oral Expression Ability: Yes: Mild Impairment - Speech Production Able to Make Needs Known: Yes: WNL Intelligibility: Yes: Mildly Impaired - Speech Characteristics Voice Loudness: Normal Voice Pitch: Yes: Normal Voice Phonatory-based Quality: Yes: Normal Nasal Resonance: Normal Articulation: Yes: Imprecise (mild. Missing dentition. Mild left facial) - Language/Auditory Comprehension Follows: Yes: 2 Stage Simple Commands Observation: Able to respond to yes/no queries: Yes, Yes/No Confusion: No, Comprehends Conversational Speech: Yes - Language/Verbal Expression Able to Respond to Simple Queries: Yes: WNL Able to Communicate Wants and Needs: Yes: WNL - Swallow Evaluation/Bedside Assessment Dentition: Yes: Missing Teeth Facial Symmetry at Rest: Facial Droop Left Facial Symmetry on Retraction: Symmetrical Against Resistance Opening: Normal Against Resistance Closing: Normal Pucker Lips: Normal Lingual Movement: Normal, Symmetric Lingual Speed of Movement: Normal Lingual Movement Strgth Against Opposition: Normal Lingual Movement Characteristics: Normal Laryngeal Movement: Able to Palpate, Labored,delay initiation Rate of Intake: WFL Labial Seal: WFL Oral Prep Time: WFL A-P Transit: WFL Pocketing: None Timing of Swallow: Delayed Coughing/Throat Clear: No (with puree/nectar. Thin liquid not assessed) Recommendations - Speech Evaluation, Impression/Plan Impression: Pt with recent dx of aspiration at [facility], received swallowing tx at [facility], d/c'd of puree/nectar, some soft solids. Weight loss.Quite weak.Language/cognition intact. Recent intermittent cough/congestion while eating. - Dysphagia Impressions/Plan Swallowing Skills: Impaired Dysphagia Impressions: Risk of Aspiration, Ongoing Evaluation *Silent aspiration: cannot be R/O at bedside Dysphagia Treatment Plan: Small Bites, Chin Tuck/Down, Safe Rate, 1/2 tsp. at a time, Elevate HOB during feed Recommendations: MBS w Esophagus - Recommendations Diet Consistency: Dysphagia Pureed Medication Administration: Crushed with applesauce Liquids: [place] Thick Supplement: Magic Cup, Ensure Pudding, Other (2 lynda hn)
--- NOTE | 2019-02-14 12:44 | PN ---
Progress Note (short form) - Note Progress Note: Patient admitted with tremors, myoclonus type tremors left side and acute on chronic heart failure. 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 Hypertension Patient wants all supportive care.
--- NOTE | 2019-02-14 13:05 | PN ---
Physical Exam: SUBJECTIVE: Patient seen and examined at bedside. According to daughter at bedside he came back from SNF (s/p hospitalization at [facility]) on Wednesday. He has been deconditioned and has difficulty walking and was able to walk before he went to the hospital and he can fall asleep more easily than before. The pt reports feeling well currently though. No CP, SOB, muscle pain. Has some soreness at his L heel. OBJECTIVE: Vital Signs Temperature 98.0 F 02/14/19 09:21 Pulse Rate 70 02/14/19 11:43 Respiratory Rate 16 02/14/19 11:43 Blood Pressure 124/51 L 02/14/19 11:43 O2 Sat by Pulse Oximetry (%) 98 02/14/19 11:43 GENERAL: The patient is awake, alert, and fully oriented, in no acute distress. EYES: extraocular movements intact, sclera anicteric, conjunctiva clear. LUNGS: Breath sounds equal, clear to auscultation bilaterally HEART: Regular rate and rhythm, S1, S2 ABDOMEN: Soft, nontender, nondistended, normoactive bowel sounds. +Abdominal bruit. EXTREMITIES: warm, well-perfused, no edema. No ulceration or erythema or skin breaks noted on L heel. NEUROLOGICAL: Cranial nerves II through XII grossly intact. Normal speech, gait not observed. PSYCH: Normal mood, normal affect. SKIN: Warm, dry Laboratory Results - last 24 hr 02/13/19 02/13/19 02/14/19 23:45 23:45 02:35 WBC 6.0 RBC 3.10 L Hgb 9.1 L Hct 27.7 L MCV 89.4 MCH 29.2 MCHC 32.7 RDW 16.9 H Plt Count 55 L D MPV 9.8 Absolute Neuts (auto) 3.7 Neutrophils % 61.6 Lymphocytes % 19.3 Monocytes % 14.0 H Eosinophils % 4.5 D Basophils % 0.6 Nucleated RBC % 0 PT with INR INR PTT (Actin FS) 54.0 H Sodium 130 L Potassium 7.2 H* Chloride 100 Carbon Dioxide 21 Anion Gap 8 BUN 104 H Creatinine 3.6 H Creat Clearance w eGFR 16.08 POC Glucometer Random Glucose 92 Calcium 8.4 L Phosphorus 4.6 Magnesium 2.9 H Total Bilirubin 0.4 AST 18 ALT 21 Alkaline Phosphatase 118 H Creatine Kinase 57 Troponin I < 0.02 B-Natriuretic Peptide Total Protein 6.5 Albumin 2.8 L Urine Color Urine Appearance Urine pH Ur Specific [place] Urine Protein Urine Glucose (UA) Urine Ketones Urine Blood Urine Nitrite Urine Bilirubin Urine Urobilinogen Ur Leukocyte Esterase Ur Random Creatinine Ur Random Sodium Ur Random Potassium Ur Random Chloride Digoxin 02/14/19 02/14/19 02/14/19 02:35 02:35 05:30 WBC RBC Hgb Hct MCV MCH MCHC RDW Plt Count MPV Absolute Neuts (auto) Neutrophils % Lymphocytes % Monocytes % Eosinophils % Basophils % Nucleated RBC % PT with INR 35.00 H INR 2.93 H PTT (Actin FS) Sodium 132 L 133 L Potassium 6.6 H* 6.2 H* Chloride 104 104 Carbon Dioxide 22 22 Anion Gap 7 L 7 L BUN 98 H 94 H Creatinine 3.4 H 3.3 H Creat Clearance w eGFR 17.18 17.78 POC Glucometer Random Glucose 86 68 L Calcium 7.9 L 8.2 L Phosphorus 4.2 Magnesium 2.8 H Total Bilirubin 0.3 0.3 AST 18 17 ALT 19 17 Alkaline Phosphatase 106 97 Creatine Kinase Troponin I B-Natriuretic Peptide Total Protein 5.9 L 5.4 L Albumin 2.5 L 2.3 L Urine Color Urine Appearance Urine pH Ur Specific [place] Urine Protein Urine Glucose (UA) Urine Ketones Urine Blood Urine Nitrite Urine Bilirubin Urine Urobilinogen Ur Leukocyte Esterase Ur Random Creatinine Ur Random Sodium Ur Random Potassium Ur Random Chloride Digoxin 1.52 02/14/19 02/14/19 02/14/19 05:30 05:30 07:20 WBC 4.5 RBC 2.59 L Hgb 7.6 L Hct 23.0 L D MCV 88.8 MCH 29.5 MCHC 33.2 RDW 16.5 H Plt Count 43 L D MPV 9.1 Absolute Neuts (auto) Neutrophils % Lymphocytes % Monocytes % Eosinophils % Basophils % Nucleated RBC % PT with INR INR PTT (Actin FS) Sodium Potassium Chloride Carbon Dioxide Anion Gap BUN Creatinine Creat Clearance w eGFR POC Glucometer Random Glucose Calcium Phosphorus Magnesium Total Bilirubin AST ALT Alkaline Phosphatase Creatine Kinase Troponin I B-Natriuretic Peptide 3315.5 H Total Protein Albumin Urine Color Yellow Urine Appearance Clear Urine pH 7.0 D Ur Specific [place] 1.013 Urine Protein Negative Urine Glucose (UA) Negative Urine Ketones Negative Urine Blood Negative Urine Nitrite Negative Urine Bilirubin Negative Urine Urobilinogen 0.2 Ur Leukocyte Esterase Negative Ur Random Creatinine Ur Random Sodium Ur Random Potassium Ur Random Chloride Digoxin 02/14/19 02/14/19 02/14/19 07:20 07:20 07:52 WBC RBC Hgb Hct MCV MCH MCHC RDW Plt Count MPV Absolute Neuts (auto) Neutrophils % Lymphocytes % Monocytes % Eosinophils % Basophils % Nucleated RBC % PT with INR INR PTT (Actin FS) Sodium Potassium Chloride Carbon Dioxide Anion Gap BUN Creatinine Creat Clearance w eGFR POC Glucometer 74 Random Glucose Calcium Phosphorus Magnesium Total Bilirubin AST ALT Alkaline Phosphatase Creatine Kinase Troponin I B-Natriuretic Peptide Total Protein Albumin Urine Color Urine Appearance Urine pH Ur Specific [place] Urine Protein Urine Glucose (UA) Urine Ketones Urine Blood Urine Nitrite Urine Bilirubin Urine Urobilinogen Ur Leukocyte Esterase Ur Random Creatinine 58.0 Ur Random Sodium 35 L Ur Random Potassium 49.8 Ur Random Chloride 34 L Digoxin 02/14/19 02/14/19 09:18 09:18 WBC 5.0 RBC 2.74 L Hgb 8.1 L Hct 24.7 L MCV 90.2 MCH 29.4 MCHC 32.6 RDW 16.6 H Plt Count 45 L MPV 8.9 Absolute Neuts (auto) 2.6 Neutrophils % 52.7 Lymphocytes % 28.4 D Monocytes % 14.6 H Eosinophils % 3.6 Basophils % 0.7 Nucleated RBC % 0 PT with INR INR PTT (Actin FS) Sodium 136 Potassium 5.6 H Chloride 105 Carbon Dioxide 24 Anion Gap 8 BUN 92 H Creatinine 3.5 H Creat Clearance w eGFR 16.61 POC Glucometer Random Glucose 76 Calcium 8.5 Phosphorus Magnesium Total Bilirubin AST ALT Alkaline Phosphatase Creatine Kinase Troponin I B-Natriuretic Peptide Total Protein Albumin Urine Color Urine Appearance Urine pH Ur Specific [place] Urine Protein Urine Glucose (UA) Urine Ketones Urine Blood Urine Nitrite Urine Bilirubin Urine Urobilinogen Ur Leukocyte Esterase Ur Random Creatinine Ur Random Sodium Ur Random Potassium Ur Random Chloride Digoxin Active Medications Generic Name Dose Route Start Last Admin Trade Name Freq PRN Reason Stop Dose Admin Atorvastatin Calcium 10 mg 02/14/19 22:00 Lipitor - PO [facility] Cholecalciferol 2,000 unit 02/14/19 10:00 02/14/19 10:04 Vitamin D3 - PO 2,000 unit DAILY COUNTS INCLUDE 234 BEDS AT THE [facility] Administration Digoxin 0.125 mg 02/15/19 10:00 Lanoxin - PO MoWeFr COUNTS INCLUDE 234 BEDS AT THE [facility] Ferrous Sulfate 325 mg 02/14/19 10:00 02/14/19 10:05 Feosol - PO 325 mg DAILY DARSHAN Administration Sodium Chloride 1,000 mls @ 50 mls/hr 02/14/19 10:00 02/14/19 10:04 Normal Saline - IV 02/15/19 09:50 50 mls/hr ASDIR DARSHAN Administration Metoprolol Succinate 50 mg 02/14/19 10:41 Toprol Xl - PO DAILY DARSHAN ASSESSMENT/PLAN: 88 y/o M w/PMH of CHF, AFib on coumadin, s/p pacemaker placement, s/p cardiac valve replacement and recently discharged from [facility] with complicated hospital course and recently came home from SNF s/p hospitalization at [facility] presented to ER for abnormal labs from PCPs office. He was found to have elevated BUN/Cr and K+. -Hyperkalemia -Improving. Likely secondary to SANDIE from dehydration compounded with use diuretics. -Spironolactone and entresto held. -given insulin, albuterol, kayexelate. Has not had BM yet. -NS @ 50 ml/hr -Will continue to monitor -SANDIE on CKD -likely secondary to dehydration further worsened with diuretic medication use -baseline Cr 1.6, currently 3.5 -Torsemide held -IVF NS @ 50 ml/hr -CK 57 -CHF -does not appear to be in acute exacerbation -dig levels 1.52. c/w digoxin, toprol xl -torsemide held with kidney failure -Afib -c/w coumadin, toprol xl -Thrombocytopenia -has a history of chronic thrombocytopenia -FEN -NS @ 50ml/hr -Hyperkalemia. Trending down. Continue to monitor -Speech and swallow eval -Dispo: Monitor on tele Visit type - Emergency Visit Emergency Visit: Yes ED Registration Date: 02/14/19 Care time: The patient presented to the Emergency Department on the above date and was hospitalized for further evaluation of their emergent condition. - New Patient This patient is new to me today: Yes Date on this admission: 02/14/19 - Critical Care Critical Care patient: No
--- NOTE | 2019-02-14 14:25 | CONSULT ---
Consult Consult Specialty:: Nephrology Reason for Consultation:: SANDIE and hypernatremia - History of Present Illness Chief Complaint: sent in for abnormal labs History of Present Illness: Pt is an 88 year old male with pmhx of CHF, a-fib, and CAD who was sent in for abnormal labs. He was found to be in SANDIE and found to be hyperkalemic. I was called to evaluate him. He was recently in [facility] for aspiration PNA. He was intubated. He was sent to rehab after that. He was on entresto and spironolactone for CHF. He denies shortness of breath. He feels that his lower extremities are not swollen. He normally has much more edema. He denies palpitations. His potassium responded to medical therapy. - History Source History Provided By: Patient, Family Member, Medical Record - Past Medical History Cardio/Vascular: Yes: CHF, HTN, Hyperlipdemia Renal/: Yes: Renal Inusuff - Alcohol/Substance Use Hx Alcohol Use: Yes (social) - Smoking History Smoking history: Never smoked Have you smoked in the past 12 months: No Aproximately how many cigarettes per day: 0 If you are a former smoker, when did you quit?: 40-50yr ago Home Medications - Allergies Allergies/Adverse Reactions: Allergies Allergy/AdvReac Type Severity Reaction Status Date / Time No Known Allergies Allergy Verified 02/13/19 22:12 - Home Medications Home Medications: Ambulatory Orders Metoprolol Succinate [Toprol XL] 25 mg PO DAILY 12/31/11 Warfarin Na [Coumadin] 5 mg PO HS 12/31/11 Cholecalciferol (Vitamin D3) [Vitamin D3] 1,000 unit PO DAILY 10/31/13 Gabapentin 200 mg PO BID 08/04/18 Spironolactone 25 mg PO DAILY 08/04/18 Ferrous Sulfate 325 mg PO DAILY 11/29/18 Sacubitril/Valsartan [Entresto 24 mg-26 mg Tablet] 1 tab PO DAILY 11/29/18 Torsemide 20 mg PO DAILY 11/29/18 Acetaminophen 650 mg PO Q6H PRN 02/14/19 Atorvastatin Ca [Lipitor] 10 mg PO DAILY 02/14/19 Cyclobenzaprine HCl 5 mg PO DAILY 02/14/19 Digoxin [Lanoxin -] 0.125 mg PO DAILY 02/14/19 Metolazone 2.5 mg PO DAILY PRN 02/14/19 Oxycodone HCl/Acetaminophen [Percocet 5-325 mg Tablet] 1 tab PO Q4H PRN Ranitidine [Zantac -] 150 mg PO DAILY 02/14/19 Family Disease History - Family Disease History Family History: Denies Review of Systems - Review of Systems Constitutional: reports: Malaise. denies: Chills, Fever Eyes: reports: No Symptoms HENT: reports: No Symptoms Neck: reports: No Symptoms Cardiovascular: reports: Edema Respiratory: reports: SOB on Exertion Gastrointestinal: reports: No Symptoms Genitourinary: reports: Incontinence Musculoskeletal: reports: Muscle Weakness Neurological: reports: No Symptoms Endocrine: reports: No Symptoms Hematology/Lymphatic: reports: No Symptoms Psychiatric: reports: No Symptoms Physical Exam Vital Signs: Vital Signs Temperature 98.4 F 02/14/19 13:59 Pulse Rate 72 02/14/19 13:59 Respiratory Rate 16 02/14/19 13:59 Blood Pressure 122/57 L 02/14/19 13:59 O2 Sat by Pulse Oximetry (%) 98 02/14/19 13:59 Constitutional: Yes: Calm Eyes: Yes: Conjunctiva Clear HENT: Yes: Atraumatic Neck: Yes: Supple Cardiovascular: Yes: S1, S2 Respiratory: Yes: CTA Bilaterally Gastrointestinal: Yes: Normal Bowel Sounds, Soft Renal/: Yes: Elise Present Musculoskeletal: Yes: Muscle Weakness Edema: No Integumentary: Yes: Venous Stasis Changes Neurological: Yes: Oriented Psychiatric: Yes: Oriented Labs: CBC, BMP 02/14/19 09:18 02/14/19 09:18 Laboratory Tests 02/13/19 02/13/19 02/14/19 23:45 23:45 02:35 Hgb 9.1 L Sodium Potassium 7.2 H* 6.6 H* Creatinine 3.4 H Urine Protein Urine Blood Ur Random Sodium Digoxin 1.52 02/14/19 02/14/19 02/14/19 05:30 05:30 07:20 Hgb 7.6 L Sodium 133 L Potassium 6.2 H* Creatinine 3.3 H Urine Protein Negative Urine Blood Negative Ur Random Sodium Digoxin 02/14/19 02/14/19 02/14/19 07:20 09:18 09:18 Hgb 8.1 L Sodium 136 Potassium 5.6 H Creatinine 3.5 H Urine Protein Urine Blood Ur Random Sodium 35 L Digoxin Imaging - Results Chest X-ray: Report Reviewed Ultrasound: Report Reviewed Problem List - Problems (1) SANDIE (acute kidney injury) Code(s): N17.9 - ACUTE KIDNEY FAILURE, UNSPECIFIED (2) Atrial fibrillation Code(s): I48.91 - UNSPECIFIED ATRIAL FIBRILLATION (3) Hyperkalemia Code(s): E87.5 - HYPERKALEMIA Assessment/Plan Current Medications Generic Name Dose Route Start Last Admin Trade Name Freq PRN Reason Stop Dose Admin Atorvastatin Calcium 10 mg 02/14/19 22:00 Lipitor - PO HS DARSHAN Cholecalciferol 2,000 unit 02/14/19 10:00 02/14/19 10:04 Vitamin D3 - PO 2,000 unit DAILY DARSHAN Administration Digoxin 0.125 mg 02/15/19 10:00 Lanoxin - PO MoWeFr DARSHAN Ferrous Sulfate 325 mg 02/14/19 10:00 02/14/19 10:05 Feosol - PO 325 mg DAILY DARSHAN Administration Sodium Chloride 1,000 mls @ 50 mls/hr 02/14/19 10:00 02/14/19 10:04 Normal Saline - IV 02/15/19 09:50 50 mls/hr ASDIR DARSHAN Administration Metoprolol Succinate 50 mg 02/14/19 10:41 Toprol Xl - PO DAILY DARSHAN Impression 1. SANDIE 2. hyperkalemia 3. CHF 4. anemia 5. a-fib Plan - potassium is improving - hold entresto - hold aldactone - torsemide on hold as well - cont to monitor renal function - likely sandie from volume contraction - discussed with medical team Dr Curran
[2019-02-14] MEDS ORDERED: ACETAMINOPHEN 325 MG TABLET (FP) PO ONE (21:52)
[2019-02-14] MEDS: ATORVASTATIN CA 10 MG TABLET (FP) PO SCH (22:40)
[2019-02-14 22:42] LABS: ANION GAP 8 MMOL/L (8-16); BLOOD UREA NITROGEN 85 mg/dL (7-18); CALCIUM 8.2 mg/dL (8.5-10.1); CHLORIDE 105 mmol/L (98-107); CO2 24 mmol/L (21-32); CREATININE 2.9 mg/dL (0.55-1.3); GLUCOSE,RANDOM 115 mg/dL (74-106); POTASSIUM 5.3 mmol/L (3.5-5.1); SODIUM 137 mmol/L (136-145)
[2019-02-15 06:40] LABS: HEMOGLOBIN 7.6 GM/dL (11.7-16.9); MCH 29.7 pg (25.7-33.7); MCHC 33.3 g/dl (32.0-35.9); MEAN CELL VOLUME 89.2 fl (80-96); MEAN PLT VOLUME 9.3 fl (7.5-11.1); PLATELET COUNT 45 K/MM3 (134-434); RBC 2.58 M/mm3 (4.00-5.60); RDW 16.9 % (11.9-15.9); WHITE BLOOD COUNT 4.4 K/mm3 (4.0-10.0)
[2019-02-15 08:21] LABS: CALCIUM 8.1 mg/dL (8.5-10.1); MAGNESIUM 2.6 mg/dL (1.8-2.4); PHOSPHOROUS 3.9 mg/dL (2.5-4.9); POTASSIUM 4.9 mmol/L (3.5-5.1)
--- NOTE | 2019-02-15 08:55 | PN ---
Progress Note (short form) - Note Progress Note: Hospitalist to document today. Lab much improved except for Hb 7.6. For modified barium swallow. PT ordered. Baseline BUN 50; Creatinine 1.5 Will need some orf his heart/CHF Meds when those levels are reached. Also I reviewed office notes yesterday; he saw Dr. Gaitan who also dxed ; Neuropathy
--- NOTE | 2019-02-15 09:05 | PN ---
Progress Note, MEDICAL FRONT DESK SPECIALIST - Note Progress Note: Selected Entries 02/13/19 02/14/19 02/14/19 22:08 08:30 09:21 Temperature 97.7 F 98.6 F 98.0 F 02/14/19 02/14/19 02/14/19 13:59 18:00 20:41 Temperature 98.4 F 98 F 98.1 F 02/15/19 02/15/19 01:00 05:00 Temperature 98 F 98.2 F Laboratory Tests 02/13/19 02/14/19 02/14/19 23:45 02:35 05:30 WBC 6.0 4.5 BUN 98 H 02/15/19 05:30 WBC 4.4 BUN Dys puree/nectar ordered. H/o dysphagia/aspiration For MBS today.
[2019-02-15] MEDS: FERROUS SO4 325 MG TABLET (FP) PO SCH (09:34)
[2019-02-15] MEDS: DIGOXIN 0.125 MG TABLET (FP) PO SCH (09:34)
[2019-02-15] MEDS: CHOLECALCIFEROL (VITAMIN D3) 1,000 UNIT TABLET (FP) PO SCH (09:35)
--- NOTE | 2019-02-15 09:38 | PN ---
Teaching Attending Note Name of Resident: Brandon Dumont ATTENDING PHYSICIAN STATEMENT I saw and evaluated the patient. I reviewed the resident's note and discussed the case with the resident. I agree with the resident's findings and plan as documented with exceptions below. SUBJECTIVE: Patient seen and examined. Denies any dyspnea, abdominal or urinary symptoms. OBJECTIVE: Vital Signs Period Temp Pulse Resp BP Sys/Real Pulse Ox Last 24 Hr 98 F-98.4 F 70-73 16-20 93-124/40-57 96-99 Intake & Output 02/12/19 02/13/19 02/14/19 02/15/19 23:59 23:59 23:59 23:59 Intake Total 550 900 Output Total 2900 1250 Balance -2350 -350 Weight 150 lb General: lying in bed in no acute distress CVS: S1S2 regular Chest: decreased effort, no rales or wheezing appreciated Abdomen: soft, NT, ND, positive bowel sounds Extremities: trace pedal edema Home Medications Medication Instructions Recorded Metoprolol Succinate [Toprol XL] 25 mg PO DAILY 12/31/11 Warfarin Na [Coumadin] 5 mg PO HS 12/31/11 Cholecalciferol (Vitamin D3) 1,000 unit PO DAILY 10/31/13 [Vitamin D3] Gabapentin 200 mg PO BID 08/04/18 Spironolactone 25 mg PO DAILY 08/04/18 Ferrous Sulfate 325 mg PO DAILY 11/29/18 Sacubitril/Valsartan [Entresto 24 1 tab PO DAILY 11/29/18 mg-26 mg Tablet] Torsemide 20 mg PO DAILY 11/29/18 Acetaminophen 650 mg PO Q6H PRN 02/14/19 Atorvastatin Ca [Lipitor] 10 mg PO DAILY 02/14/19 Cyclobenzaprine HCl 5 mg PO DAILY 02/14/19 Digoxin [Lanoxin -] 0.125 mg PO DAILY 02/14/19 Metolazone 2.5 mg PO DAILY PRN 02/14/19 Oxycodone HCl/Acetaminophen 1 tab PO Q4H PRN 02/14/19 [Percocet 5-325 mg Tablet] Ranitidine [Zantac -] 150 mg PO DAILY 02/14/19 Active Medications Atorvastatin Calcium (Lipitor -) 10 mg PO HS [facility] Last Admin: 02/14/19 22:40 Dose: 10 mg Cholecalciferol (Vitamin D3 -) 2,000 unit PO DAILY [facility] Last Admin: 02/14/19 10:04 Dose: 2,000 unit Digoxin (Lanoxin -) 0.125 mg PO MoWeFr [facility] Ferrous Sulfate (Feosol -) 325 mg PO DAILY [facility] Last Admin: 02/14/19 10:05 Dose: 325 mg Sodium Chloride (Normal Saline -) 1,000 mls @ 50 mls/hr IV ASDIR [facility] Stop: 02/15/19 09:50 Last Admin: 02/14/19 10:04 Dose: 50 mls/hr Metoprolol Succinate (Toprol Xl -) 50 mg PO DAILY [facility] Laboratory Results - last 24 hr 02/14/19 02/14/19 02/14/19 07:20 07:20 09:18 WBC 5.0 RBC 2.74 L Hgb 8.1 L Hct 24.7 L MCV 90.2 MCH 29.4 MCHC 32.6 RDW 16.6 H Plt Count 45 L MPV 8.9 Absolute Neuts (auto) 2.6 Neutrophils % 52.7 Lymphocytes % 28.4 D Monocytes % 14.6 H Eosinophils % 3.6 Basophils % 0.7 Nucleated RBC % 0 Sodium Potassium Chloride Carbon Dioxide Anion Gap BUN Creatinine Creat Clearance w eGFR Est GFR (CKD-EPI)AfAm Est GFR (CKD-EPI)NonAf Random Glucose Calcium Phosphorus Magnesium Albumin Ur Random Creatinine 58.0 Ur Random Sodium 35 L Ur Random Chloride 34 L Digoxin 02/14/19 02/14/19 02/15/19 09:18 21:30 05:30 WBC RBC Hgb Hct MCV MCH MCHC RDW Plt Count MPV Absolute Neuts (auto) Neutrophils % Lymphocytes % Monocytes % Eosinophils % Basophils % Nucleated RBC % Sodium 136 137 137 Potassium 5.6 H 5.3 H 4.9 Chloride 105 105 108 H Carbon Dioxide 24 24 23 Anion Gap 8 8 6 L BUN 92 H 85 H 74 H Creatinine 3.5 H 2.9 H 2.5 H Creat Clearance w eGFR 16.61 Est GFR (CKD-EPI)AfAm No Result Required. Est GFR (CKD-EPI)NonAf 18.47 Random Glucose 76 115 H 81 Calcium 8.5 8.2 L 8.1 L Phosphorus 3.9 Magnesium 2.6 H Albumin Ur Random Creatinine Ur Random Sodium Ur Random Chloride Digoxin 1.05 02/15/19 02/15/19 05:30 05:30 WBC 4.4 RBC 2.58 L Hgb 7.6 L Hct 23.0 L MCV 89.2 MCH 29.7 MCHC 33.3 RDW 16.9 H Plt Count 45 L MPV 9.3 Absolute Neuts (auto) Neutrophils % Lymphocytes % Monocytes % Eosinophils % Basophils % Nucleated RBC % Sodium Potassium Chloride Carbon Dioxide Anion Gap BUN Creatinine Creat Clearance w eGFR Est GFR (CKD-EPI)AfAm Est GFR (CKD-EPI)NonAf Random Glucose Calcium Phosphorus Magnesium Albumin 2.3 L Ur Random Creatinine Ur Random Sodium Ur Random Chloride Digoxin ASSESSMENT AND PLAN: 88 yom with PMHx of Chronic systolic HF, Afib on coumadin, s/p PPM, bioprosthetic valve (?Aortic), CKD (baseline Cr 1.6), reported recent admission with Aspiration PNA requrinng intubation sent in with abnormal Labs, K 7.6 -SANDIE, suspect from aggressive diuresis/continuation of entresto/aldactone -Hyperkalemia, likely from above -Chronic systolic Heart failure -Acute on ?chronic thrombocytopenia -Atrial fibrillation on coumadin/s/p PPM -Bioprosthetic valve, ?Aortic -CKD stage II (baseline cr around 1.6) -Reported recent Aspiration PNA requiring intubation Plan: Nephrology input appreciated. K normalized. Lasix/entresto/aldactone on hold. Off IVF. Monitor volume status, will likely need to resume meds slowly as tolerated Coumadin on hold given thrombocytopenia/anemia, resume per cardiology. Speech/swallow input noted. Follow up MBS. Dysphagia pureed /nectar thick. Aspiration precautions PT eval Dispo pending clinical improvement. ?SNF, will follow up.
[2019-02-15 09:52] LABS: CREATININE 2.5 mg/dL (0.55-1.3)
--- NOTE | 2019-02-15 10:55 | PN ---
Progress Note (short form) - Note Progress Note: s: no chest pain, palps, dizziness Current Medications Atorvastatin Calcium (Lipitor -) 10 mg PO HS [facility] Last Admin: 02/14/19 22:40 Dose: 10 mg Cholecalciferol (Vitamin D3 -) 2,000 unit PO DAILY [facility] Last Admin: 02/15/19 09:35 Dose: 2,000 unit Digoxin (Lanoxin -) 0.125 mg PO MoWeFr [facility] Last Admin: 02/15/19 09:34 Dose: 0.125 mg Ferrous Sulfate (Feosol -) 325 mg PO DAILY [facility] Last Admin: 02/15/19 09:34 Dose: 325 mg Metoprolol Succinate (Toprol Xl -) 50 mg PO DAILY [facility] Last Admin: 02/15/19 09:34 Dose: 50 mg Vital Signs Period Temp Pulse Resp BP Sys/Real Pulse Ox Last 24 Hr 98 F-98.4 F 70-81 16-20 105-124/40-57 98-99 Constitutional: Yes: No Distress, Calm Eyes: Yes: Conjunctiva Clear, EOM Intact HENT: Yes: Atraumatic, Normocephalic Neck: Yes: Supple, Trachea Midline Respiratory: Yes: Regular, CTA Bilaterally Gastrointestinal: Yes: Normal Bowel Sounds, Soft Cardiovascular: Yes: Regular Rate and Rhythm JVD: No Carotid Bruit: No PMI: Non-Displaced Heart Sounds: Yes: S1, S2 Musculoskeletal: No: Back Pain Extremities: No: Cold Edema: No Peripheral Pulses WNL: Yes Peripheral Pulses: 2+ Left Doralis Pedis, 2+ Right Dorsalis Pedis Integumentary: No: Jaundice Neurological: Yes: Alert, Oriented Psychiatric: No: Agitated Assessment/Plan 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: CLOTH CLASSER CXR: no acute process tele: CLOTH CLASSER, PVCs SANDIE, hyperkalemia - received D50, calcium gluconate, insulin, lasix - nephrology following - holding torsemide, entresto, spironolactone Chronic systolic HF - holding entresto, torsemide, spironolactone as above - restart when able - appears euvolemic, holding diuresis - continue metoprolol Afib - holding coumadin in setting of thrombocytopenia, anemia - continue digoxin, toprol, monitoring digoxin level in setting of SANDIE CAD s/p CABG - continue statin, metoprolol s/p PPM - stable on EKG, outpatient monitoring h/o bioprosthetic MVR - outpatient follow up HLD - cont statin CVA - L hemiparesis - cont statin
--- NOTE | 2019-02-15 12:20 | PN ---
Physical Exam: SUBJECTIVE: Patient seen and examined at bedside. Appears more energetic today. He reports feeling well and offers no complaints. OBJECTIVE: Vital Signs Temperature 98.3 F 02/15/19 09:00 Pulse Rate 81 02/15/19 09:34 Respiratory Rate 20 02/15/19 09:00 Blood Pressure 115/86 02/15/19 09:00 O2 Sat by Pulse Oximetry (%) 98 02/14/19 20:44 GENERAL: The patient is awake, alert, and fully oriented, in no acute distress. EYES: extraocular movements intact, sclera anicteric, conjunctiva clear. LUNGS: Breath sounds equal, clear to auscultation bilaterally HEART: Regular rate and rhythm, S1, S2 ABDOMEN: Soft, nontender, nondistended, normoactive bowel sounds. +Abdominal bruit. EXTREMITIES: warm, well-perfused, no edema. No ulceration or erythema or skin breaks noted on L heel. NEUROLOGICAL: Cranial nerves II through XII grossly intact. Normal speech, gait not observed. PSYCH: Normal mood, normal affect. SKIN: Warm, dry Laboratory Results - last 24 hr 02/14/19 02/15/19 02/15/19 21:30 05:30 05:30 WBC 4.4 RBC 2.58 L Hgb 7.6 L Hct 23.0 L MCV 89.2 MCH 29.7 MCHC 33.3 RDW 16.9 H Plt Count 45 L MPV 9.3 Sodium 137 137 Potassium 5.3 H 4.9 Chloride 105 108 H Carbon Dioxide 24 23 Anion Gap 8 6 L BUN 85 H 74 H Creatinine 2.9 H 2.5 H Est GFR (CKD-EPI)AfAm No Result Required. 25.61 Est GFR (CKD-EPI)NonAf 18.47 22.10 Random Glucose 115 H 81 Calcium 8.2 L 8.1 L Phosphorus 3.9 Magnesium 2.6 H Albumin Digoxin 1.05 02/15/19 05:30 WBC RBC Hgb Hct MCV MCH MCHC RDW Plt Count MPV Sodium Potassium Chloride Carbon Dioxide Anion Gap BUN Creatinine Est GFR (CKD-EPI)AfAm Est GFR (CKD-EPI)NonAf Random Glucose Calcium Phosphorus Magnesium Albumin 2.3 L Digoxin Active Medications Generic Name Dose Route Start Last Admin Trade Name Freq PRN Reason Stop Dose Admin Atorvastatin Calcium 10 mg 02/14/19 22:00 02/14/19 22:40 Lipitor - PO 10 mg HS DARSHAN Administration Cholecalciferol 2,000 unit 02/14/19 10:00 02/15/19 09:35 Vitamin D3 - PO 2,000 unit DAILY DARSHAN Administration Digoxin 0.125 mg 02/15/19 10:00 02/15/19 09:34 Lanoxin - PO 0.125 mg MoWeFr DARSHAN Administration Ferrous Sulfate 325 mg 02/14/19 10:00 02/15/19 09:34 Feosol - PO 325 mg DAILY DARSHAN Administration Metoprolol Succinate 50 mg 02/14/19 10:41 02/15/19 09:34 Toprol Xl - PO 50 mg DAILY DARSHAN Administration ASSESSMENT/PLAN: 88 y/o M w/PMH of CHF, AFib on coumadin, s/p pacemaker placement, s/p cardiac valve replacement and recently discharged from [facility] with complicated hospital course and recently came home from SNF s/p hospitalization at [facility] presented to ER for abnormal labs from PCPs office. He was found to have elevated BUN/Cr and K+. -Hyperkalemia -Improving. Likely secondary to SANDIE from dehydration compounded with use diuretics. -Spironolactone and entresto held. -Will continue to monitor -SANDIE on CKD -likely secondary to dehydration further worsened with diuretic medication use -baseline Cr 1.5, currently 2.5, improving -Torsemide held -CHF -does not appear to be in acute exacerbation -dig levels 1.05. c/w digoxin, toprol xl -torsemide held with kidney failure -Afib -toprol xl -coumadin held as per cardio -Thrombocytopenia -has a history of chronic thrombocytopenia -FEN -NS @ 50ml/hr -Hyperkalemia. Trending down. Continue to monitor -For MBS -Dispo: Monitor on tele Visit type - Emergency Visit Emergency Visit: Yes ED Registration Date: 02/14/19 Care time: The patient presented to the Emergency Department on the above date and was hospitalized for further evaluation of their emergent condition. - New Patient This patient is new to me today: No - Critical Care Critical Care patient: No
--- NOTE | 2019-02-15 12:24 | PN ---
Progress Note, Physician History of Present Illness: Pt seen and examined at bedside. He is awake and alert. He denies shortness of breath. - Current Medication List Current Medications: Active Medications Atorvastatin Calcium (Lipitor -) 10 mg PO HS [facility] Last Admin: 02/14/19 22:40 Dose: 10 mg Cholecalciferol (Vitamin D3 -) 2,000 unit PO DAILY [facility] Last Admin: 02/15/19 09:35 Dose: 2,000 unit Digoxin (Lanoxin -) 0.125 mg PO MoWeFr [facility] Last Admin: 02/15/19 09:34 Dose: 0.125 mg Ferrous Sulfate (Feosol -) 325 mg PO DAILY [facility] Last Admin: 02/15/19 09:34 Dose: 325 mg Metoprolol Succinate (Toprol Xl -) 50 mg PO DAILY [facility] Last Admin: 02/15/19 09:34 Dose: 50 mg - Objective Vital Signs: Vital Signs Temperature 98.3 F 02/15/19 09:00 Pulse Rate 81 02/15/19 09:34 Respiratory Rate 20 02/15/19 09:00 Blood Pressure 115/86 02/15/19 09:00 O2 Sat by Pulse Oximetry (%) 98 02/14/19 20:44 Constitutional: Yes: Calm Eyes: Yes: Conjunctiva Clear HENT: Yes: Atraumatic Neck: Yes: Supple Cardiovascular: Yes: S1, S2 Respiratory: Yes: CTA Bilaterally Gastrointestinal: Yes: Soft Musculoskeletal: Yes: WNL Edema: No Integumentary: Yes: Venous Stasis Changes Neurological: Yes: Oriented Psychiatric: Yes: Oriented Labs: CBC, BMP 02/15/19 05:30 02/15/19 05:30 INR, PTT INR 2.93 (0.83-1.09) H 02/14/19 02:35 Problem List - Problems (1) SANDIE (acute kidney injury) Code(s): N17.9 - ACUTE KIDNEY FAILURE, UNSPECIFIED (2) Atrial fibrillation Code(s): I48.91 - UNSPECIFIED ATRIAL FIBRILLATION Qualifiers: Atrial fibrillation type: chronic Qualified Code(s): I48.2 - Chronic atrial fibrillation (3) Hyperkalemia Code(s): E87.5 - HYPERKALEMIA Assessment/Plan Current Medications Generic Name Dose Route Start Last Admin Trade Name Freq PRN Reason Stop Dose Admin Atorvastatin Calcium 10 mg 02/14/19 22:00 02/14/19 22:40 Lipitor - PO 10 mg HS DARSHAN Administration Cholecalciferol 2,000 unit 02/14/19 10:00 02/15/19 09:35 Vitamin D3 - PO 2,000 unit DAILY DARSHAN Administration Digoxin 0.125 mg 02/15/19 10:00 02/15/19 09:34 Lanoxin - PO 0.125 mg MoWeFr DARSHAN Administration Ferrous Sulfate 325 mg 02/14/19 10:00 02/15/19 09:34 Feosol - PO 325 mg DAILY DARSHAN Administration Metoprolol Succinate 50 mg 02/14/19 10:41 02/15/19 09:34 Toprol Xl - PO 50 mg DAILY DARSHAN Administration Impression 1. SANDIE 2. hyperkalemia 3. CHF 4. anemia 5. a-fib Plan - renal function is improving - potassium stable - hold entresto and aldactone - will assess for diuretics daily - discussed with cardio Dr Curran
--- NOTE | 2019-02-15 14:10 | CONSULT ---
Consult Consult Specialty:: PM&R Dr Pompa for Dr Fernandes Reason for Consultation:: PT program - History of Present Illness History of Present Illness: This is an 88 year old man with a medical history of CHF, A fib s/p PPM, s/p cardiac valve replacement, recent admission to [facility] c/b aspiration PNA, who was sent to the ED 02/13/19 with abnormal lab results including BUN 129 and K 7.4. CXR showed no change from prior 01/14/18, and he received fluids (D50) as well as Ca gluconate and insulin with improvement in K. Cardiology was consulted for CHF, who adjusted medications and recommended echo. Renal was consulted for SANDIE / hyperK, who felt SANDIE was due to volume contraction. Physiatry is being consulted for further recommendations. - Past Medical History Cardio/Vascular: Yes: CHF, HTN, Hyperlipdemia Renal/: Yes: Renal Inusuff - Alcohol/Substance Use Hx Alcohol Use: Yes (social) - Smoking History Smoking history: Never smoked Have you smoked in the past 12 months: No Aproximately how many cigarettes per day: 0 If you are a former smoker, when did you quit?: 40-50yr ago - Social History Usual Living Arrangement: With Spouse (house with 2 steps to enter then 1st floor set-up) ADL: Support Services (has 24 hour x 7 day [employer]IXER, ambulated with walker/ w/c) Home Medications - Allergies Allergies/Adverse Reactions: Allergies Allergy/AdvReac Type Severity Reaction Status Date / Time No Known Allergies Allergy Verified 02/13/19 22:12 - Home Medications Home Medications: Ambulatory Orders Metoprolol Succinate [Toprol XL] 25 mg PO DAILY 12/31/11 Warfarin Na [Coumadin] 5 mg PO HS 12/31/11 Cholecalciferol (Vitamin D3) [Vitamin D3] 1,000 unit PO DAILY 10/31/13 Gabapentin 200 mg PO BID 08/04/18 Spironolactone 25 mg PO DAILY 08/04/18 Ferrous Sulfate 325 mg PO DAILY 11/29/18 Sacubitril/Valsartan [Entresto 24 mg-26 mg Tablet] 1 tab PO DAILY 11/29/18 Torsemide 20 mg PO DAILY 11/29/18 Acetaminophen 650 mg PO Q6H PRN 02/14/19 Atorvastatin Ca [Lipitor] 10 mg PO DAILY 02/14/19 Cyclobenzaprine HCl 5 mg PO DAILY 02/14/19 Digoxin [Lanoxin -] 0.125 mg PO DAILY 02/14/19 Metolazone 2.5 mg PO DAILY PRN 02/14/19 Oxycodone HCl/Acetaminophen [Percocet 5-325 mg Tablet] 1 tab PO Q4H PRN Ranitidine [Zantac -] 150 mg PO DAILY 02/14/19 Review of Systems Findings/Remarks: Denies fevers, chills, changes in vision/ hearing/ mood, CP, SOB, abdominal pain , nausea, vomiting, constipation, diarrhea, numbness/ paresthesias. Notes Elise in place, chronic LBP into L hip unchanged Physical Exam Vital Signs: Vital Signs Temperature 98.3 F 02/15/19 09:00 Pulse Rate 81 02/15/19 09:34 Respiratory Rate 20 02/15/19 09:00 Blood Pressure 115/86 02/15/19 09:00 O2 Sat by Pulse Oximetry (%) 98 02/15/19 12:00 Musculoskeletal: Yes: Other (General: calm elderly M lying in bed NAD , AAO x3 N/M: B shoulder flexion to 140 degrees, 4/5 B HF then 5-/5 BUE/ BLE; Pinprick Intact BUE/ BLE Extremities: no BLE pitting edema, no B calf tenderness , +palpation over L GT reproduces his back pain) Labs: CBC, BMP 02/15/19 05:30 02/15/19 05:30 Imaging - Results Chest X-ray: Report Reviewed (as per HPI) Assessment/Plan Impression: 1) Deficits mobility/ ADLs 2) Gait abnormality 3) SANDIE, improving 4) HyperK, resolved 5) CHF, A fib s/p PPM, s/p cardiac valve replacement 6) BMI WNL 7) No documented flu shot/ pneumovax 8) Anemia 9) Thrombocytopenia 10) L GT bursitis Recommendations: 1) PT for stretching (especially L lateral hip) strengthening ROM and functional mobility 2) Falls, safety precautions 3) Cardiac precautions 4) Heat L hip prn 5) Monitor CBC given anemia/ thrombocytopenia 6) Monitor BMP given renal function 7) DVT ppx: off AC due to thrombocytopenia 8) Denies constipation on current bowel regimen 9) Skin protection: heel protectors in place 10) Discharge planning: depending on his progress with therapy, he may need to return to inpatient rehabilitation versus returning home with home services Thank you for this referral.
[2019-02-15] MEDS: ATORVASTATIN CA 10 MG TABLET (FP) PO SCH (21:29)
[2019-02-16] MEDS ORDERED: ACETAMINOPHEN 325 MG TABLET (FP) PO ONE (00:17)
[2019-02-16] MEDS ORDERED: traMADol HCL 50 MG TABLET PO ONE (03:48)
[2019-02-16 07:01] LABS: HEMATOCRIT 24.6 % (35.4-49); HEMOGLOBIN 8.2 GM/dL (11.7-16.9); MCH 29.7 pg (25.7-33.7); MCHC 33.2 g/dl (32.0-35.9); MEAN CELL VOLUME 89.6 fl (80-96); MEAN PLT VOLUME 9.6 fl (7.5-11.1); PLATELET COUNT 47 K/MM3 (134-434); RBC 2.75 M/mm3 (4.00-5.60); RDW 16.5 % (11.9-15.9); WHITE BLOOD COUNT 4.9 K/mm3 (4.0-10.0)
[2019-02-16 07:16] LABS: ALBUMIN 2.4 g/dl (3.4-5.0); CALCIUM 8.1 mg/dL (8.5-10.1); MAGNESIUM 2.3 mg/dL (1.8-2.4); PHOSPHOROUS 2.7 mg/dL (2.5-4.9); POTASSIUM 4.5 mmol/L (3.5-5.1)
[2019-02-16 07:37] LABS: INR 2.18 (0.83-1.09); PROTHROMBIN TIME (PATIENT) 25.9 SEC (9.7-13.0)
[2019-02-16] MEDS ORDERED: ONDANSETRON 4 MG/2 ML VIAL IVPB PRN ×2 (08:50→11:44)
--- NOTE | 2019-02-16 08:55 | PN ---
Progress Note (short form) - Note Progress Note: Hospitalist to document today. Periumbical abdominal pain and nausea today. Abd Xray; No acute finding. ABD: Markedly increased bowel sounds but soft. Dig level WNL; Renal lab much better. Zofran; Mylicon and observe.
[2019-02-16] MEDS: SIMETHICONE 80 MG TAB.CHEW (FP) PO PRN ×2 (09:04→21:40)
--- NOTE | 2019-02-16 10:33 | PN ---
Physical Exam: SUBJECTIVE: Patient seen and examined at bedside. Had difficulty sleeping last night due to "stomach pain" and has been dry heaving this AM. He denies any radiation of the pain or fevers or chills or having emesis. OBJECTIVE: Vital Signs Period Temp Pulse Resp BP Sys/Real Pulse Ox Last 24 Hr 98 F-98.6 F 70-80 18-20 109-149/46-72 97-98 GENERAL: The patient is awake, alert, and fully oriented, in no acute distress. EYES: extraocular movements intact, sclera anicteric, conjunctiva clear. LUNGS: Breath sounds equal, clear to auscultation bilaterally HEART: Regular rate and rhythm, S1, S2 ABDOMEN: Soft, nontender, nondistended, normoactive bowel sounds. EXTREMITIES: warm, well-perfused, no edema. NEUROLOGICAL: Cranial nerves II through XII grossly intact. Normal speech, gait not observed. PSYCH: Normal mood, normal affect. SKIN: Warm, dry Laboratory Results - last 24 hr 02/16/19 02/16/19 02/16/19 05:30 05:30 05:30 WBC 4.9 RBC 2.75 L Hgb 8.2 L Hct 24.6 L MCV 89.6 MCH 29.7 MCHC 33.2 RDW 16.5 H Plt Count 47 L MPV 9.6 PT with INR 25.90 H INR 2.18 H Sodium 138 Potassium 4.5 Chloride 110 H Carbon Dioxide 24 Anion Gap 5 L BUN 56 H Creatinine 2.0 H Est GFR (CKD-EPI)AfAm 33.54 Est GFR (CKD-EPI)NonAf 28.94 Random Glucose 80 Calcium 8.1 L Phosphorus 2.7 Magnesium 2.3 Albumin 2.4 L Blood Type Antibody Screen 02/16/19 05:30 WBC RBC Hgb Hct MCV MCH MCHC RDW Plt Count MPV PT with INR INR Sodium Potassium Chloride Carbon Dioxide Anion Gap BUN Creatinine Est GFR (CKD-EPI)AfAm Est GFR (CKD-EPI)NonAf Random Glucose Calcium Phosphorus Magnesium Albumin Blood Type A POSITIVE Antibody Screen Negative Active Medications Generic Name Dose Route Start Last Admin Trade Name Freq PRN Reason Stop Dose Admin Atorvastatin Calcium 10 mg 02/14/19 22:00 02/15/19 21:29 Lipitor - PO 10 mg HS DARSHAN Administration Cholecalciferol 2,000 unit 02/14/19 10:00 02/15/19 09:35 Vitamin D3 - PO 2,000 unit DAILY DARSHAN Administration Digoxin 0.125 mg 02/15/19 10:00 02/15/19 09:34 Lanoxin - PO 0.125 mg MoWeFr DARSHAN Administration Ferrous Sulfate 325 mg 02/14/19 10:00 02/15/19 09:34 Feosol - PO 325 mg DAILY DARSHAN Administration Metoprolol Succinate 50 mg 02/14/19 10:41 02/15/19 09:34 Toprol Xl - PO 50 mg DAILY DARSHAN Administration Ondansetron HCl 8 mg 02/16/19 08:50 02/16/19 09:04 Zofran Injection IVPB 8 mg Q8H PRN Administration NAUSEA Simethicone 80 mg 02/16/19 08:51 02/16/19 09:04 Mylicon - PO 80 mg QID PRN Administration DYSPEPSIA ASSESSMENT/PLAN: 88 y/o M w/PMH of CHF, AFib on coumadin, s/p pacemaker placement, s/p cardiac valve replacement and recently discharged from [facility] with complicated hospital course and recently came home from SNF s/p hospitalization at [facility] presented to ER for abnormal labs from PCPs office. He was found to have elevated BUN/Cr and K+. -Hyperkalemia -Improved. Likely secondary to SANDIE from dehydration compounded with use diuretics. -Spironolactone and entresto held. Nephrology on board. Recs on restarting diuretics/entresto appreciated. -Will continue to monitor -Abdominal pain and nausea -given zofran and mylicon by Dr. Roldan -will observe after medications -SANDIE on CKD -likely secondary to dehydration further worsened with diuretic medication use -baseline Cr 1.5, currently 2.0, improving -Torsemide held -Nephrology on board -CHF -does not appear to be in acute exacerbation -dig levels 1.05. c/w digoxin, toprol xl -torsemide held with kidney failure -Afib -toprol xl -coumadin held as per cardio -Thrombocytopenia -has a history of chronic thrombocytopenia -FEN -No fluids -Hyperkalemia. Trending down. Continue to monitor -Dysphagia puree w/nectar thickened liquids -Dispo: Monitor on tele Visit type - Emergency Visit Emergency Visit: Yes ED Registration Date: 02/14/19 Care time: The patient presented to the Emergency Department on the above date and was hospitalized for further evaluation of their emergent condition. - New Patient This patient is new to me today: No - Critical Care Critical Care patient: No
[2019-02-16] MEDS: CHOLECALCIFEROL (VITAMIN D3) 1,000 UNIT TABLET (FP) PO SCH (10:34)
[2019-02-16] MEDS: FERROUS SO4 325 MG TABLET (FP) PO SCH (10:34)
--- NOTE | 2019-02-16 12:19 | PN ---
Progress Note, [employer] AUDIT CLERK - Note Progress Note: Selected Entries 02/16/19 10:17 Breakfast 100% Pt reported dry heaves, unable to eat. He says he had 1 BM. MBS reviewed.
--- NOTE | 2019-02-16 12:25 | PN ---
Progress Note (short form) - Note Progress Note: s: no chest pain, palps, dizziness. n/v overnight, better now Current Medications Generic Name Dose Route Start Last Admin Trade Name Jose PRN Reason Stop Dose Admin Atorvastatin Calcium 10 mg 02/14/19 22:00 02/15/19 21:29 Lipitor - PO 10 mg HS DARSHAN Administration Cholecalciferol 2,000 unit 02/14/19 10:00 02/16/19 10:34 Vitamin D3 - PO 2,000 unit DAILY DARSHAN Administration Digoxin 0.125 mg 02/15/19 10:00 02/15/19 09:34 Lanoxin - PO 0.125 mg MoWeFr DARSHAN Administration Ferrous Sulfate 325 mg 02/14/19 10:00 02/16/19 10:34 Feosol - PO 325 mg DAILY DARSHAN Administration Metoprolol Succinate 50 mg 02/14/19 10:41 02/16/19 10:34 Toprol Xl - PO 50 mg DAILY DARSHAN Administration Ondansetron HCl 4 mg 02/16/19 11:44 Zofran Injection IVPB Q6H PRN NAUSEA Simethicone 80 mg 02/16/19 08:51 02/16/19 09:04 Mylicon - PO 80 mg QID PRN Administration DYSPEPSIA Vital Signs Period Temp Pulse Resp BP Sys/Real Pulse Ox Last 24 Hr 98 F-98.6 F 70-80 18-20 109-149/46-72 97-97 Constitutional: Yes: No Distress, Calm Eyes: Yes: Conjunctiva Clear, Respiratory: Yes: Regular, CTA Bilaterally Gastrointestinal: Yes: Normal Bowel Sounds, Soft Cardiovascular: Yes: Regular Rate and Rhythm JVD: No Carotid Bruit: No PMI: Non-Displaced Heart Sounds: Yes: S1, S2 Extremities: No: Cold Edema: No Peripheral Pulses: 2+ Left Doralis Pedis, 2+ Right Dorsalis Pedis Integumentary: No: Jaundice Neurological: Yes: Alert, Oriented Psychiatric: No: Agitated CBC, BMP 02/16/19 05:30 02/16/19 05:30 Assessment/Plan EKG: [employer]IATE CXR: no acute process tele: [employer]IATE, PVCs SANDIE, hyperkalemia - received D50, calcium gluconate, insulin, lasix - nephrology following - holding torsemide, entresto, spironolactone. - cr improving Chronic systolic HF - holding entresto, torsemide, spironolactone as above - restart when able - appears euvolemic, holding diuresis - continue metoprolol Afib - holding coumadin in setting of thrombocytopenia, anemia - continue digoxin, toprol, monitoring digoxin level in setting of SANDIE CAD s/p CABG - continue statin, metoprolol s/p PPM - stable on EKG, outpatient monitoring h/o bioprosthetic MVR - outpatient follow up HLD - cont statin CVA - L hemiparesis - cont statin
--- NOTE | 2019-02-16 14:16 | PN ---
Teaching Attending Note Name of Resident: Brandon Dumont ATTENDING PHYSICIAN STATEMENT I saw and evaluated the patient. I reviewed the resident's note and discussed the case with the resident. I agree with the resident's findings and plan as documented with exceptions below. SUBJECTIVE: Patient seen and examined. Working with PT, no nausea/vomiting currently. OBJECTIVE: Vital Signs Period Temp Pulse Resp BP Sys/Real Pulse Ox Last 24 Hr 98.1 F-98.6 F 70-80 18-20 111-149/46-72 97-97 Intake & Output 02/13/19 02/14/19 02/15/19 02/16/19 23:59 23:59 23:59 23:59 Intake Total 550 1380 Output Total 2900 2550 450 Balance -2350 -1170 -450 Weight 150 lb General: sitting at edge of bed, attempting to get up with PT Chest: decreased breath sounds at bases Abdomen;SOft, NT, positive bowel sounds Extremities: trace pedal edema Home Medications Medication Instructions Recorded Metoprolol Succinate [Toprol XL] 25 mg PO DAILY 12/31/11 Warfarin Na [Coumadin] 5 mg PO HS 12/31/11 Cholecalciferol (Vitamin D3) 1,000 unit PO DAILY 10/31/13 [Vitamin D3] Gabapentin 200 mg PO BID 08/04/18 Spironolactone 25 mg PO DAILY 08/04/18 Ferrous Sulfate 325 mg PO DAILY 11/29/18 Sacubitril/Valsartan [Entresto 24 1 tab PO DAILY 11/29/18 mg-26 mg Tablet] Torsemide 20 mg PO DAILY 11/29/18 Acetaminophen 650 mg PO Q6H PRN 02/14/19 Atorvastatin Ca [Lipitor] 10 mg PO DAILY 02/14/19 Cyclobenzaprine HCl 5 mg PO DAILY 02/14/19 Digoxin [Lanoxin -] 0.125 mg PO DAILY 02/14/19 Metolazone 2.5 mg PO DAILY PRN 02/14/19 Oxycodone HCl/Acetaminophen 1 tab PO Q4H PRN 02/14/19 [Percocet 5-325 mg Tablet] Ranitidine [Zantac -] 150 mg PO DAILY 02/14/19 Active Medications Atorvastatin Calcium (Lipitor -) 10 mg PO HS [facility] Last Admin: 02/15/19 21:29 Dose: 10 mg Cholecalciferol (Vitamin D3 -) 2,000 unit PO DAILY [facility] Last Admin: 02/16/19 10:34 Dose: 2,000 unit Digoxin (Lanoxin -) 0.125 mg PO MoWeFr [facility] Last Admin: 02/15/19 09:34 Dose: 0.125 mg Ferrous Sulfate (Feosol -) 325 mg PO DAILY [facility] Last Admin: 02/16/19 10:34 Dose: 325 mg Metoprolol Succinate (Toprol Xl -) 50 mg PO DAILY [facility] Last Admin: 02/16/19 10:34 Dose: 50 mg Ondansetron HCl (Zofran Injection) 4 mg IVPB Q6H PRN PRN Reason: NAUSEA Simethicone (Mylicon -) 80 mg PO QID PRN PRN Reason: DYSPEPSIA Last Admin: 02/16/19 09:04 Dose: 80 mg ASSESSMENT AND PLAN: 88 yom with PMHx of Chronic systolic HF, Afib on coumadin, s/p PPM, bioprosthetic valve (?Aortic), CKD (baseline Cr 1.6), reported recent admission with Aspiration PNA requrinng intubation sent in with abnormal Labs, K 7.6 -SANDIE, suspect from aggressive diuresis/continuation of entresto/aldactone -Hyperkalemia, likely from above -Nausea/vomiting this AM, resolved -Chronic systolic Heart failure -Acute on ?chronic thrombocytopenia -Atrial fibrillation on coumadin/s/p PPM -Bioprosthetic valve, ?Aortic -CKD stage II (baseline cr around 1.6) -Reported recent Aspiration PNA requiring intubation Plan: Nephrology input appreciated. K normalized. Lasix/entresto/aldactone on hold. Off IVF. Monitor volume status, will likely need to resume meds slowly as tolerated Coumadin on hold given thrombocytopenia/anemia, resume per cardiology. Speech/swallow input noted. Follow up MBS. Dysphagia pureed /nectar thick. Aspiration precautions N/v improved. Abdominal xray noted. Supportive treatment. PT eval Dispo plan for SNF in 24-48 hours if continues to improve and GI symptoms resolved.
--- NOTE | 2019-02-16 14:24 | PN ---
Progress Note, Physician History of Present Illness: Pt seen and examined at bedside. He is awake and alert. He denies shortness of breath. - Current Medication List Current Medications: Active Medications Atorvastatin Calcium (Lipitor -) 10 mg PO HS [facility] Last Admin: 02/15/19 21:29 Dose: 10 mg Cholecalciferol (Vitamin D3 -) 2,000 unit PO DAILY [facility] Last Admin: 02/16/19 10:34 Dose: 2,000 unit Digoxin (Lanoxin -) 0.125 mg PO MoWeFr [facility] Last Admin: 02/15/19 09:34 Dose: 0.125 mg Ferrous Sulfate (Feosol -) 325 mg PO DAILY [facility] Last Admin: 02/16/19 10:34 Dose: 325 mg Metoprolol Succinate (Toprol Xl -) 50 mg PO DAILY [facility] Last Admin: 02/16/19 10:34 Dose: 50 mg Ondansetron HCl (Zofran Injection) 4 mg IVPB Q6H PRN PRN Reason: NAUSEA Simethicone (Mylicon -) 80 mg PO QID PRN PRN Reason: DYSPEPSIA Last Admin: 02/16/19 09:04 Dose: 80 mg - Objective Vital Signs: Vital Signs Temperature 98.5 F 02/16/19 13:29 Pulse Rate 70 02/16/19 13:29 Respiratory Rate 18 02/16/19 13:29 Blood Pressure 111/53 L 02/16/19 13:29 O2 Sat by Pulse Oximetry (%) 97 02/16/19 12:00 Constitutional: Yes: Calm Eyes: Yes: Conjunctiva Clear HENT: Yes: Atraumatic Cardiovascular: Yes: S1, S2 Respiratory: Yes: CTA Bilaterally Gastrointestinal: Yes: Soft Genitourinary: Yes: Elise Present Musculoskeletal: Yes: WNL Edema: No Neurological: Yes: Oriented Psychiatric: Yes: Oriented Labs: CBC, BMP 02/16/19 05:30 02/16/19 05:30 INR, PTT INR 2.18 (0.83-1.09) H 02/16/19 05:30 Problem List - Problems (1) SANDIE (acute kidney injury) Code(s): N17.9 - ACUTE KIDNEY FAILURE, UNSPECIFIED (2) Atrial fibrillation Code(s): I48.91 - UNSPECIFIED ATRIAL FIBRILLATION Qualifiers: Atrial fibrillation type: chronic Qualified Code(s): I48.2 - Chronic atrial fibrillation (3) Hyperkalemia Code(s): E87.5 - HYPERKALEMIA Assessment/Plan Current Medications Generic Name Dose Route Start Last Admin Trade Name Freq PRN Reason Stop Dose Admin Atorvastatin Calcium 10 mg 02/14/19 22:00 02/15/19 21:29 Lipitor - PO 10 mg HS DARSHAN Administration Cholecalciferol 2,000 unit 02/14/19 10:00 02/16/19 10:34 Vitamin D3 - PO 2,000 unit DAILY DARSHAN Administration Digoxin 0.125 mg 02/15/19 10:00 02/15/19 09:34 Lanoxin - PO 0.125 mg MoWeFr DARSHAN Administration Ferrous Sulfate 325 mg 02/14/19 10:00 02/16/19 10:34 Feosol - PO 325 mg DAILY DARSHAN Administration Metoprolol Succinate 50 mg 02/14/19 10:41 02/16/19 10:34 Toprol Xl - PO 50 mg DAILY DARSHAN Administration Ondansetron HCl 4 mg 02/16/19 11:44 Zofran Injection IVPB Q6H PRN NAUSEA Simethicone 80 mg 02/16/19 08:51 02/16/19 09:04 Mylicon - PO 80 mg QID PRN Administration DYSPEPSIA Impression 1. SANDIE 2. hyperkalemia 3. CHF 4. anemia 5. a-fib Plan - potassium is normal - renal function improved - hold diuretics for now - cardiology follow up - entresto is still on hold Dr Curran
[2019-02-16] MEDS: ATORVASTATIN CA 10 MG TABLET (FP) PO SCH (21:45)
[2019-02-17 07:19] LABS: HEMATOCRIT 27.4 % (35.4-49); HEMOGLOBIN 8.9 GM/dL (11.7-16.9); MCH 29.6 pg (25.7-33.7); MCHC 32.7 g/dl (32.0-35.9); MEAN CELL VOLUME 90.6 fl (80-96); MEAN PLT VOLUME 9.4 fl (7.5-11.1); PLATELET COUNT 58 K/MM3 (134-434); RBC 3.02 M/mm3 (4.00-5.60); RDW 16.8 % (11.9-15.9); WHITE BLOOD COUNT 6.1 K/mm3 (4.0-10.0)
[2019-02-17 08:15] LABS: CALCIUM 8.6 mg/dL (8.5-10.1); CREATININE 1.8 mg/dL (0.55-1.3); MAGNESIUM 2.3 mg/dL (1.8-2.4); PHOSPHOROUS 2.4 mg/dL (2.5-4.9); POTASSIUM 4.8 mmol/L (3.5-5.1)
--- NOTE | 2019-02-17 09:55 | PN ---
Progress Note (short form) - Note Progress Note: Hospitalist to document today. Awful dry heaves continue. CT (No ciontrast) : No acute finding. Pancreas lesion not ruled out without contrast which he cant have. I would hold Atorvastatin, Vitamin D and Ferrous Sulfate for a few days AND add a CA 19.9
[2019-02-17] MEDS: FERROUS SO4 325 MG TABLET (FP) PO SCH (10:01)
[2019-02-17] MEDS: CHOLECALCIFEROL (VITAMIN D3) 1,000 UNIT TABLET (FP) PO SCH (10:01)
[2019-02-17] MEDS: DIGOXIN 0.125 MG TABLET (FP) PO SCH (10:01)
--- NOTE | 2019-02-17 10:16 | PN ---
Teaching Attending Note Name of Resident: Brandon Dumont ATTENDING PHYSICIAN STATEMENT I saw and evaluated the patient. I reviewed the resident's note and discussed the case with the resident. I agree with the resident's findings and plan as documented with exceptions below. SUBJECTIVE: Patient seen and examined. reports heaves "all night" and vague abdominal pain. No other complaints. OBJECTIVE: Vital Signs Period Temp Pulse Resp BP Sys/Real Pulse Ox Last 24 Hr 97.9 F-98.8 F 70-71 16-18 111-118/48-70 97-98 Intake & Output 02/14/19 02/15/19 02/16/19 02/17/19 23:59 23:59 23:59 23:59 Intake Total 550 1380 360 150 Output Total 2900 2550 850 Balance -2350 -1170 -490 150 General: sitting in bed in no acute distress Chest: decreased effort, decreased breath sounds at bases Abdomen:soft, mild vague per-umbilical tenderness, not appreciated when distracted, positive bowel sounds, no voluntary or involuntary guarding or rigidity Extremities: no edema Home Medications Medication Instructions Recorded Metoprolol Succinate [Toprol XL] 25 mg PO DAILY 12/31/11 Warfarin Na [Coumadin] 5 mg PO HS 12/31/11 Cholecalciferol (Vitamin D3) 1,000 unit PO DAILY 10/31/13 [Vitamin D3] Gabapentin 200 mg PO BID 08/04/18 Spironolactone 25 mg PO DAILY 08/04/18 Ferrous Sulfate 325 mg PO DAILY 11/29/18 Sacubitril/Valsartan [Entresto 24 1 tab PO DAILY 11/29/18 mg-26 mg Tablet] Torsemide 20 mg PO DAILY 11/29/18 Acetaminophen 650 mg PO Q6H PRN 02/14/19 Atorvastatin Ca [Lipitor] 10 mg PO DAILY 02/14/19 Cyclobenzaprine HCl 5 mg PO DAILY 02/14/19 Digoxin [Lanoxin -] 0.125 mg PO DAILY 02/14/19 Metolazone 2.5 mg PO DAILY PRN 02/14/19 Oxycodone HCl/Acetaminophen 1 tab PO Q4H PRN 02/14/19 [Percocet 5-325 mg Tablet] Ranitidine [Zantac -] 150 mg PO DAILY 02/14/19 Active Medications Atorvastatin Calcium (Lipitor -) 10 mg PO HS [facility] Last Admin: 02/16/19 21:45 Dose: 10 mg Cholecalciferol (Vitamin D3 -) 2,000 unit PO DAILY [facility] Last Admin: 02/17/19 10:01 Dose: 2,000 unit Digoxin (Lanoxin -) 0.125 mg PO MoWeFr [facility] Last Admin: 02/17/19 10:01 Dose: 0.125 mg Ferrous Sulfate (Feosol -) 325 mg PO DAILY [facility] Last Admin: 02/17/19 10:01 Dose: 325 mg Metoclopramide HCl (Reglan -) 10 mg PO TIDAC [facility] Metoprolol Succinate (Toprol Xl -) 50 mg PO DAILY [facility] Last Admin: 02/17/19 10:01 Dose: 50 mg Simethicone (Mylicon -) 80 mg PO QID PRN PRN Reason: DYSPEPSIA Last Admin: 02/16/19 21:40 Dose: 80 mg Laboratory Results - last 24 hr 02/17/19 02/17/19 06:00 06:00 WBC 6.1 RBC 3.02 L Hgb 8.9 L Hct 27.4 L MCV 90.6 MCH 29.6 MCHC 32.7 RDW 16.8 H Plt Count 58 L D MPV 9.4 Sodium 143 Potassium 4.8 Chloride 113 H Carbon Dioxide 21 Anion Gap 9 BUN 49 H Creatinine 1.8 H Est GFR (CKD-EPI)AfAm 38.10 Est GFR (CKD-EPI)NonAf 32.87 Random Glucose 84 Calcium 8.6 Phosphorus 2.4 L Magnesium 2.3 Digoxin 0.89 Microbiology 02/14/19 07:20 Urine - Urine Clean Catch Urine Culture - Final CT A/p results reviewed ASSESSMENT AND PLAN: 88 yom with PMHx of Chronic systolic HF, Afib on coumadin, s/p PPM, bioprosthetic valve (?Aortic), CKD (baseline Cr 1.6), reported recent admission with Aspiration PNA requrinng intubation sent in with abnormal Labs, K 7.6 -SANDIE, suspect from aggressive diuresis/continuation of entresto/aldactone -Hyperkalemia, likely from above -Nausea/heaving -Chronic systolic Heart failure -Acute on ?chronic thrombocytopenia -Atrial fibrillation on coumadin/s/p PPM -Bioprosthetic valve, ?Aortic -CKD stage II (baseline cr around 1.6) -Reported recent Aspiration PNA requiring intubation Plan: Ongoing heaving, tolerating diet, CT A/P. Add standing premeal reglan. Continue simethicone prn. Nephrology input appreciated. K normalized. Lasix/entresto/aldactone on hold. Off IVF. Monitor volume status, will likely need to resume meds slowly as tolerated Coumadin on hold given thrombocytopenia/anemia, resume per cardiology. Speech/swallow input noted. Dysphagia pureed /nectar thick. Aspiration precautions PT eval noted Dispo plan for SNF in 24 hours if continues to improve and GI symptoms resolved. Plan discussed with patient and nursing.
[2019-02-17] MEDS: METOCLOPRAMIDE HCL 10 MG TABLET (FP) PO SCH ×2 (11:37→17:44)
--- NOTE | 2019-02-17 12:00 | PN ---
Progress Note, Physician Chief Complaint: seen and examined on tele + Nausea TELE: V-paced, rare VPCs - Current Medication List Current Medications: Active Medications Atorvastatin Calcium (Lipitor -) 10 mg PO HS [facility] Last Admin: 02/16/19 21:45 Dose: 10 mg Cholecalciferol (Vitamin D3 -) 2,000 unit PO DAILY [facility] Last Admin: 02/17/19 10:01 Dose: 2,000 unit Digoxin (Lanoxin -) 0.125 mg PO MoWeFr [facility] Last Admin: 02/17/19 10:01 Dose: 0.125 mg Ferrous Sulfate (Feosol -) 325 mg PO DAILY [facility] Last Admin: 02/17/19 10:01 Dose: 325 mg Metoclopramide HCl (Reglan -) 10 mg PO TIDAC [facility] Last Admin: 02/17/19 11:37 Dose: 10 mg Metoprolol Succinate (Toprol Xl -) 50 mg PO DAILY [facility] Last Admin: 02/17/19 10:01 Dose: 50 mg Simethicone (Mylicon -) 80 mg PO QID PRN PRN Reason: DYSPEPSIA Last Admin: 02/16/19 21:40 Dose: 80 mg - Objective Vital Signs: Vital Signs Temperature 97.9 F 02/17/19 06:00 Pulse Rate 71 02/17/19 10:01 Respiratory Rate 18 02/17/19 06:00 Blood Pressure 115/56 L 02/17/19 06:00 O2 Sat by Pulse Oximetry (%) 98 02/17/19 04:00 Constitutional: Yes: Calm Eyes: Yes: Conjunctiva Clear Cardiovascular: Yes: Regular Rate and Rhythm Respiratory: Yes: CTA Bilaterally Gastrointestinal: Yes: Soft (nontender) Edema: No Neurological: Yes: Alert, Oriented Labs: CBC, BMP 02/17/19 06:00 02/17/19 06:00 INR, PTT INR 2.18 (0.83-1.09) H 02/16/19 05:30 Laboratory Tests 02/16/19 02/17/19 02/17/19 05:30 06:00 06:00 WBC 6.1 Hgb 8.9 L Plt Count 58 L D INR 2.18 H Sodium 143 Potassium 4.8 BUN 49 H Creatinine 1.8 H Magnesium 2.3 Digoxin 0.89 - ....Imaging EKG: Image Reviewed Assessment/Plan 1. SANDIE, hyperkalemia: - received D50, calcium gluconate, insulin, lasix - nephrology following - holding torsemide, entresto, spironolactone. - cr continues to improve 2. Chronic systolic HF: - holding entresto, torsemide, spironolactone as above - restart when able/ creatinine stable - appears euvolemic, holding diuresis - continue metoprolol 3. Afib: - holding coumadin in setting of thrombocytopenia, anemia - continue digoxin, toprol, monitoring digoxin level in setting of SANDIE (last level ok) 4. CAD s/p CABG : - continue statin, metoprolol 5. s/p PPM: - stable on EKG, outpatient monitoring 6. h/o bioprosthetic MVR: - outpatient follow up -ASA 7. HLD: - cont statin 8 CVA: - L hemiparesis - cont statin
--- NOTE | 2019-02-17 13:42 | PN ---
Physical Exam: SUBJECTIVE: Patient seen and examined at bedside. Continues to have dry heaving , nausea, and inability to tolerate food despite zofran and reglan trials. OBJECTIVE: Vital Signs Temperature 97.8 F 02/17/19 10:00 Pulse Rate 71 02/17/19 10:01 Respiratory Rate 18 02/17/19 12:00 Blood Pressure 142/64 02/17/19 10:00 O2 Sat by Pulse Oximetry (%) 98 02/17/19 12:00 GENERAL: The patient is awake, alert, and fully oriented, in no acute distress. EYES: extraocular movements intact, sclera anicteric, conjunctiva clear. LUNGS: Breath sounds equal, clear to auscultation bilaterally HEART: Regular rate and rhythm, S1, S2 ABDOMEN: Soft, nontender, nondistended, normoactive bowel sounds. EXTREMITIES: warm, well-perfused, no edema. NEUROLOGICAL: Cranial nerves II through XII grossly intact. Normal speech, gait not observed. PSYCH: Normal mood, normal affect. SKIN: Warm, dry Laboratory Results - last 24 hr 02/17/19 02/17/19 06:00 06:00 WBC 6.1 RBC 3.02 L Hgb 8.9 L Hct 27.4 L MCV 90.6 MCH 29.6 MCHC 32.7 RDW 16.8 H Plt Count 58 L D MPV 9.4 Sodium 143 Potassium 4.8 Chloride 113 H Carbon Dioxide 21 Anion Gap 9 BUN 49 H Creatinine 1.8 H Est GFR (CKD-EPI)AfAm 38.10 Est GFR (CKD-EPI)NonAf 32.87 Random Glucose 84 Calcium 8.6 Phosphorus 2.4 L Magnesium 2.3 Digoxin 0.89 Active Medications Generic Name Dose Route Start Last Admin Trade Name Freq PRN Reason Stop Dose Admin Atorvastatin Calcium 10 mg 02/14/19 22:00 02/16/19 21:45 Lipitor - PO 10 mg HS DARSHAN Administration Cholecalciferol 2,000 unit 02/14/19 10:00 02/17/19 10:01 Vitamin D3 - PO 2,000 unit DAILY DARSHAN Administration Digoxin 0.125 mg 02/15/19 10:00 02/17/19 10:01 Lanoxin - PO 0.125 mg MoWeFr DARSHAN Administration Ferrous Sulfate 325 mg 02/14/19 10:00 02/17/19 10:01 Feosol - PO 325 mg DAILY DARSHAN Administration Metoclopramide HCl 10 mg 02/17/19 11:00 02/17/19 11:37 Reglan - PO 10 mg TIDAC DARSHAN Administration Metoprolol Succinate 50 mg 02/14/19 10:41 02/17/19 10:01 Toprol Xl - PO 50 mg DAILY DARSHAN Administration Simethicone 80 mg 02/16/19 08:51 02/16/19 21:40 Mylicon - PO 80 mg QID PRN Administration DYSPEPSIA ASSESSMENT/PLAN: 88 y/o M w/PMH of CHF, AFib on coumadin, s/p pacemaker placement, s/p cardiac valve replacement and recently discharged from [facility] with complicated hospital course and recently came home from SNF s/p hospitalization at [facility] presented to ER for abnormal labs from PCPs office. He was found to have elevated BUN/Cr and K+. -Abdominal pain and nausea -given zofran and mylicon, reglan, no improvement. -CT abd/pelvis with no acute pathology in abdomen. -will get GI consult -SANDIE on CKD -likely secondary to dehydration further worsened with diuretic medication use -baseline Cr 1.5, currently 1.8, improving -Torsemide held -Nephrology on board -CHF -does not appear to be in acute exacerbation -dig levels 0.8. c/w digoxin, toprol xl -torsemide held with kidney failure -Afib -toprol xl -coumadin held as per cardio -Thrombocytopenia -has a history of chronic thrombocytopenia -FEN -No fluids -Monitor electrolytes -Dysphagia puree w/nectar thickened liquids -Dispo: Monitor on tele Visit type - Emergency Visit Emergency Visit: Yes ED Registration Date: 02/14/19 Care time: The patient presented to the Emergency Department on the above date and was hospitalized for further evaluation of their emergent condition. - New Patient This patient is new to me today: No - Critical Care Critical Care patient: No
--- NOTE | 2019-02-17 15:06 | PN ---
Progress Note, Physician History of Present Illness: Pt seen and examined at bedside. He is awake and alert. He denies shortness of breath. - Current Medication List Current Medications: Active Medications Atorvastatin Calcium (Lipitor -) 10 mg PO HS [facility] Last Admin: 02/16/19 21:45 Dose: 10 mg Cholecalciferol (Vitamin D3 -) 2,000 unit PO DAILY [facility] Last Admin: 02/17/19 10:01 Dose: 2,000 unit Digoxin (Lanoxin -) 0.125 mg PO MoWeFr [facility] Last Admin: 02/17/19 10:01 Dose: 0.125 mg Ferrous Sulfate (Feosol -) 325 mg PO DAILY [facility] Last Admin: 02/17/19 10:01 Dose: 325 mg Metoclopramide HCl (Reglan -) 10 mg PO TIDAC [facility] Last Admin: 02/17/19 11:37 Dose: 10 mg Metoprolol Succinate (Toprol Xl -) 50 mg PO DAILY [facility] Last Admin: 02/17/19 10:01 Dose: 50 mg Simethicone (Mylicon -) 80 mg PO QID PRN PRN Reason: DYSPEPSIA Last Admin: 02/16/19 21:40 Dose: 80 mg - Objective Vital Signs: Vital Signs Temperature 97.8 F 02/17/19 10:00 Pulse Rate 71 02/17/19 10:01 Respiratory Rate 18 02/17/19 12:00 Blood Pressure 142/64 02/17/19 10:00 O2 Sat by Pulse Oximetry (%) 98 02/17/19 12:00 Constitutional: Yes: Calm Eyes: Yes: Conjunctiva Clear HENT: Yes: Atraumatic Neck: Yes: Supple Cardiovascular: Yes: S1, S2 Respiratory: Yes: CTA Bilaterally Gastrointestinal: Yes: WNL, Soft Genitourinary: Yes: WNL Musculoskeletal: Yes: WNL Edema: No Integumentary: Yes: Venous Stasis Changes Neurological: Yes: Oriented Psychiatric: Yes: Oriented Labs: CBC, BMP 02/17/19 06:00 02/17/19 06:00 INR, PTT INR 2.18 (0.83-1.09) H 02/16/19 05:30 Problem List - Problems (1) SANDIE (acute kidney injury) Code(s): N17.9 - ACUTE KIDNEY FAILURE, UNSPECIFIED (2) Atrial fibrillation Code(s): I48.91 - UNSPECIFIED ATRIAL FIBRILLATION Qualifiers: Atrial fibrillation type: chronic Qualified Code(s): I48.2 - Chronic atrial fibrillation (3) Hyperkalemia Code(s): E87.5 - HYPERKALEMIA Assessment/Plan Current Medications Generic Name Dose Route Start Last Admin Trade Name Freq PRN Reason Stop Dose Admin Atorvastatin Calcium 10 mg 02/14/19 22:00 02/16/19 21:45 Lipitor - PO 10 mg HS DARSHAN Administration Cholecalciferol 2,000 unit 02/14/19 10:00 02/17/19 10:01 Vitamin D3 - PO 2,000 unit DAILY DARSHAN Administration Digoxin 0.125 mg 02/15/19 10:00 02/17/19 10:01 Lanoxin - PO 0.125 mg MoWeFr DARSHAN Administration Ferrous Sulfate 325 mg 02/14/19 10:00 02/17/19 10:01 Feosol - PO 325 mg DAILY [facility]AN Administration Metoclopramide HCl 10 mg 02/17/19 11:00 02/17/19 11:37 Reglan - PO 10 mg TIDAC [facility] Administration Metoprolol Succinate 50 mg 02/14/19 10:41 02/17/19 10:01 Toprol Xl - PO 50 mg DAILY [facility] Administration Simethicone 80 mg 02/16/19 08:51 02/16/19 21:40 Mylicon - PO 80 mg QID PRN Administration DYSPEPSIA Impression 1. SANDIE 2. hyperkalemia 3. CHF 4. anemia 5. a-fib Plan - renal function is stabilizng - cont to monitor lytes - repeat labs in am - diuretics on hold - entresto on hold for now - cardiology follow up Dr Curran
--- NOTE | 2019-02-17 15:17 | CON.GI ---
Consult Consult Specialty:: GI Referred by:: Hospitalist Service Reason for Consultation:: Nausea - History of Present Illness Chief Complaint: Nausea, dry heaves History of Present Illness: 88M Admitted to [facility] 02/13 after spending prolonged hospitalization at [facility]. Noted to be in renal failure. evaluated by renal and has a baltazar catheter. Called to evaluated dry heaves and nausea. He does not want to eat. He had a modified barium swallow that revealed brisk emptying of the esophagus and the patient denies abdominal pain or dysphagia. he had a colonosocpy in 2013 for follow-up of diverticulitis that led to the removal of 2 5mm polyps. There has been no vomiting today. He had an unrevealing CT scan of the A/P. on review it did reveal a significant amount of stool in the rectum. 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) History of Substance Use: reports: None - Smoking History Smoking history: Former smoker Have you smoked in the past 12 months: No Aproximately how many cigarettes per day: 0 If you are a former smoker, when did you quit?: 40-50yr ago - Social History Usual Living Arrangement: With Spouse (house with 2 steps to enter then 1st floor set-up) 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: 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, 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 with walker/ w/c) Place of : [facility] History of Recent Travel: No Home Medications - Allergies Allergies/Adverse Reactions: Allergies Allergy/AdvReac Type Severity Reaction Status Date / Time No Known Allergies Allergy Verified 02/13/19 22:12 - Home Medications Home Medications: Ambulatory Orders Metoprolol Succinate [Toprol XL] 25 mg PO DAILY 12/31/11 Warfarin Na [Coumadin] 5 mg PO HS 12/31/11 Cholecalciferol (Vitamin D3) [Vitamin D3] 1,000 unit PO DAILY 10/31/13 Gabapentin 200 mg PO BID 08/04/18 Spironolactone 25 mg PO DAILY 08/04/18 Ferrous Sulfate 325 mg PO DAILY 11/29/18 Sacubitril/Valsartan [Entresto 24 mg-26 mg Tablet] 1 tab PO DAILY 11/29/18 Torsemide 20 mg PO DAILY 11/29/18 Acetaminophen 650 mg PO Q6H PRN 02/14/19 Atorvastatin Ca [Lipitor] 10 mg PO DAILY 02/14/19 Cyclobenzaprine HCl 5 mg PO DAILY 02/14/19 Digoxin [Lanoxin -] 0.125 mg PO DAILY 02/14/19 Metolazone 2.5 mg PO DAILY PRN 02/14/19 Oxycodone HCl/Acetaminophen [Percocet 5-325 mg Tablet] 1 tab PO Q4H PRN Ranitidine [Zantac -] 150 mg PO DAILY 02/14/19 Family Disease History - Family Disease History Other Family History: No family history of colorectal cancer or other GI malignancy Review of Systems - Review of Systems Constitutional: reports: Unintentional Wgt. Loss. denies: Chills, Fever Cardiovascular: denies: Chest Pain Respiratory: denies: Cough Physical Exam-GI Vital Signs: Vital Signs Temperature 97.8 F 02/17/19 10:00 Pulse Rate 71 02/17/19 10:01 Respiratory Rate 18 02/17/19 12:00 Blood Pressure 142/64 02/17/19 10:00 O2 Sat by Pulse Oximetry (%) 98 02/17/19 12:00 Constitutional: Yes: Calm Eyes: No: Sclera Icterus Cardiovascular: Yes: Regular Rate and Rhythm, Murmur Respiratory: Yes: CTA Bilaterally Gastrointestinal Inspection: Yes: Scars (ruq). No: Distention ...Auscultate: Yes: Normoactive Bowel Sounds ...Palpate: Yes: Soft. No: Hepatomegaly, Splenomegaly, Tenderness Labs: CBC, BMP 02/17/19 06:00 02/17/19 06:00 INR, PTT INR 2.18 (0.83-1.09) H 02/16/19 05:30 Problem List - Problems (1) Nausea Assessment/Plan: Unclear etiology Benign abdominal exam today Spoke with Kristen Santillan: made recommendations regarding swallowing modifications given component of oropharyngeal dysphagia, however, that does not exaplin his nausea complaints. we discussed formal upper GI series but she felt he would be at a risk to aspirate the barium. Discontinued reglan as it would need to be dose adjusted anyways given renal insufficiency Zofran 4mg IVPB q 8 hours for nausea Medication elimination as feasible. Unclear if lipitor is essential. ? if digoxin can be discontinued to assess if Mr. Banerjee's complaints are medication related. If symptoms persist and patient amenable, EGD with coumadin held Code(s): R11.0 - NAUSEA
[2019-02-17] MEDS ORDERED: MINERAL OIL ENEMA 133 ML ENEMA PR ONE (15:21)
[2019-02-17] MEDS: POLYETHYLENE GLYCOL 3350 119 GM BTL PO SCH (17:44)
[2019-02-17] MEDS: ATORVASTATIN CA 10 MG TABLET (FP) PO SCH (22:25)
[2019-02-18] MEDS: METOCLOPRAMIDE HCL 10 MG TABLET (FP) PO SCH ×3 (06:17→17:13)
[2019-02-18 08:03] LABS: INR 2.05 (0.83-1.09); PROTHROMBIN TIME (PATIENT) 24.4 SEC (9.7-13.0)
[2019-02-18 08:04] LABS: HEMATOCRIT 30.8 % (35.4-49); HEMOGLOBIN 9.9 GM/dL (11.7-16.9); MCH 29.4 pg (25.7-33.7); MCHC 32.3 g/dl (32.0-35.9); MEAN CELL VOLUME 91.1 fl (80-96); MEAN PLT VOLUME 9.4 fl (7.5-11.1); PLATELET COUNT 75 K/MM3 (134-434); RBC 3.38 M/mm3 (4.00-5.60); RDW 16.9 % (11.9-15.9); WHITE BLOOD COUNT 7.9 K/mm3 (4.0-10.0)
[2019-02-18 08:13] LABS: ALBUMIN 2.7 g/dl (3.4-5.0); CALCIUM 8.6 mg/dL (8.5-10.1); CREATININE 1.8 mg/dL (0.55-1.3); MAGNESIUM 2.3 mg/dL (1.8-2.4); PHOSPHOROUS 2.5 mg/dL (2.5-4.9); POTASSIUM 4.2 mmol/L (3.5-5.1)
--- NOTE | 2019-02-18 09:35 | PN ---
Progress Note (short form) - Note Progress Note: RENAL Pt is awake and alert comfortable Last Vital Signs Temp Pulse Resp BP Pulse Ox 98.2 F 82 16 119/54 L 97 02/18/19 08:54 02/18/19 08:54 02/18/19 08:54 02/18/19 08:54 02/17/19 21:00 lugs clear cvs s1s2 rr pacemaker palpable abd soft ext no edema neuro a+ox3 CBC, BMP 02/18/19 05:15 02/18/19 05:15 Current Medications Generic Name Dose Route Start Last Admin Trade Name Freq PRN Reason Stop Dose Admin Atorvastatin Calcium 10 mg 02/14/19 22:00 02/17/19 22:25 Lipitor - PO Not Given HS DARSHAN Cholecalciferol 2,000 unit 02/14/19 10:00 02/17/19 10:01 Vitamin D3 - PO 2,000 unit DAILY DARSHAN Administration Digoxin 0.125 mg 02/15/19 10:00 02/17/19 10:01 Lanoxin - PO 0.125 mg MoWeFr DARSHAN Administration Ferrous Sulfate 325 mg 02/14/19 10:00 02/17/19 10:01 Feosol - PO 325 mg DAILY DARSHAN Administration Metoclopramide HCl 10 mg 02/17/19 11:00 02/18/19 06:17 Reglan - PO 10 mg TIDAC DARSHAN Administration Metoprolol Succinate 50 mg 02/14/19 10:41 02/17/19 10:01 Toprol Xl - PO 50 mg DAILY DARSHAN Administration Polyethylene Glycol 17 gm 02/17/19 15:30 02/17/19 17:44 Miralax (For Daily Use) - PO Not Given DAILY DARSHAN Impression 1. SANDIE 2. hyperkalemia 3. CHF 4. anemia 5. a-fib Plan - renal function is stabilizng - cont to monitor lytes - repeat labs in am - diuretics on hold - entresto on hold for now - cardiology follow up -anemia work up MV
[2019-02-18] MEDS: POLYETHYLENE GLYCOL 3350 119 GM BTL PO SCH (10:11)
[2019-02-18] MEDS: CHOLECALCIFEROL (VITAMIN D3) 1,000 UNIT TABLET (FP) PO SCH (10:11)
[2019-02-18] MEDS: FERROUS SO4 325 MG TABLET (FP) PO SCH (10:11)
--- NOTE | 2019-02-18 10:23 | PN ---
Progress Note (short form) - Note Progress Note: s: no chest pain, palps, dizziness. Current Medications Generic Name Dose Route Start Last Admin Trade Name Jose PRN Reason Stop Dose Admin Atorvastatin Calcium 10 mg 02/14/19 22:00 02/17/19 22:25 Lipitor - PO Not Given HS DARSHAN Cholecalciferol 2,000 unit 02/14/19 10:00 02/18/19 10:11 Vitamin D3 - PO 2,000 unit DAILY DARSHAN Administration Digoxin 0.125 mg 02/15/19 10:00 02/17/19 10:01 Lanoxin - PO 0.125 mg MoWeFr DARSHAN Administration Ferrous Sulfate 325 mg 02/14/19 10:00 02/18/19 10:11 Feosol - PO 325 mg DAILY DARSHAN Administration Metoclopramide HCl 10 mg 02/17/19 11:00 02/18/19 06:17 Reglan - PO 10 mg TIDAC DARSHAN Administration Metoprolol Succinate 50 mg 02/14/19 10:41 02/18/19 10:11 Toprol Xl - PO 50 mg DAILY DARSHAN Administration Polyethylene Glycol 17 gm 02/17/19 15:30 02/18/19 10:11 Miralax (For Daily Use) - PO 17 units DAILY DARSHAN Administration Vital Signs Period Temp Pulse Resp BP Sys/Real Pulse Ox Last 24 Hr 97.9 F-99.2 F 71-84 16-20 118-134/54-74 97-98 Constitutional: Yes: No Distress, Calm Eyes: Yes: Conjunctiva Clear, Respiratory: Yes: Regular, CTA Bilaterally Gastrointestinal: Yes: Normal Bowel Sounds, Soft Cardiovascular: Yes: Regular Rate and Rhythm JVD: No Carotid Bruit: No PMI: Non-Displaced Heart Sounds: Yes: S1, S2 Extremities: No: Cold Edema: No Peripheral Pulses: 2+ Left Doralis Pedis, 2+ Right Dorsalis Pedis Integumentary: No: Jaundice Neurological: Yes: Alert, Oriented Psychiatric: No: Agitated CBC, BMP 02/18/19 05:15 02/18/19 05:15 Assessment/Plan 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 - cr improving Chronic systolic HF - holding entresto, torsemide, spironolactone as above - restart when able - appears euvolemic, holding diuresis - continue metoprolol Afib - holding coumadin in setting of thrombocytopenia, anemia - continue digoxin, toprol CAD s/p CABG - continue statin, metoprolol s/p PPM - stable on EKG, outpatient monitoring h/o bioprosthetic MVR - outpatient follow up HLD - cont statin CVA - L hemiparesis - cont statin dc tele
--- NOTE | 2019-02-18 11:29 | PN ---
Physical Exam: SUBJECTIVE: Patient seen and examined, reports heaves but having breakfast currently, no new complaints. OBJECTIVE: Vital Signs Period Temp Pulse Resp BP Sys/Real Pulse Ox Last 24 Hr 97.9 F-99.2 F 71-84 16-20 118-134/54-74 96-98 Intake & Output 02/15/19 02/16/19 02/17/19 02/18/19 23:59 23:59 23:59 23:59 Intake Total 1380 360 270 250 Output Total 2550 850 400 250 Balance -1170 -490 -130 0 Weight 150 lb GENERAL: awake, oriented to self, place, no acute distress Chest: decreased breath sounds at bases, no rales or wheezing Abdomen:soft, NT throughout, nD, positive bowel sounds Extremities: no edema Neck: soft, supple, no JVD Laboratory Results - last 24 hr 02/18/19 02/18/19 02/18/19 02:00 05:15 05:15 WBC 7.9 RBC 3.38 L Hgb 9.9 L Hct 30.8 L MCV 91.1 MCH 29.4 MCHC 32.3 RDW 16.9 H Plt Count 75 L D MPV 9.4 PT with INR 24.40 H INR 2.05 H Sodium Potassium Chloride Carbon Dioxide Anion Gap BUN Creatinine Est GFR (CKD-EPI)AfAm Est GFR (CKD-EPI)NonAf Random Glucose Calcium Phosphorus Magnesium Albumin Stool Occult Blood Negative 02/18/19 05:15 WBC RBC Hgb Hct MCV MCH MCHC RDW Plt Count MPV PT with INR INR Sodium 146 H Potassium 4.2 Chloride 116 H Carbon Dioxide 21 Anion Gap 9 BUN 50 H Creatinine 1.8 H Est GFR (CKD-EPI)AfAm 38.10 Est GFR (CKD-EPI)NonAf 32.87 Random Glucose 91 Calcium 8.6 Phosphorus 2.5 Magnesium 2.3 Albumin 2.7 L Stool Occult Blood Active Medications Generic Name Dose Route Start Last Admin Trade Name Freq PRN Reason Stop Dose Admin Atorvastatin Calcium 10 mg 02/14/19 22:00 02/17/19 22:25 Lipitor - PO Not Given HS [facility] Cholecalciferol 2,000 unit 02/14/19 10:00 02/18/19 10:11 Vitamin D3 - PO 2,000 unit DAILY [facility] Administration Digoxin 0.125 mg 02/15/19 10:00 02/17/19 10:01 Lanoxin - PO 0.125 mg MoWeFr DARSHAN Administration Ferrous Sulfate 325 mg 02/14/19 10:00 02/18/19 10:11 Feosol - PO 325 mg DAILY [facility] Administration Metoclopramide HCl 10 mg 02/17/19 11:00 02/18/19 06:17 Reglan - PO 10 mg TIDAC DARSHAN Administration Metoprolol Succinate 50 mg 02/14/19 10:41 02/18/19 10:11 Toprol Xl - PO 50 mg DAILY D[facility] Administration Polyethylene Glycol 17 gm 02/17/19 15:30 02/18/19 10:11 Miralax (For Daily Use) - PO 17 units DAILY DARSHAN Administration CT A/P results reviewed ASSESSMENT/PLAN: 88 yom with PMHx of Chronic systolic HF, Afib on coumadin, s/p PPM, bioprosthetic valve (?Aortic), CKD (baseline Cr 1.6), reported recent admission with Aspiration PNA requrinng intubation sent in with abnormal Labs, K 7.6 -SANDIE, suspect from aggressive diuresis/continuation of entresto/aldactone -Hyperkalemia, likely from above -Nausea/heaving -Hypernatremia, suspect from poor free water intake -Chronic systolic Heart failure -Acute on ?chronic thrombocytopenia -Atrial fibrillation on coumadin/s/p PPM -Bioprosthetic valve, ?Aortic -CKD stage II (baseline cr around 1.6) -Reported recent Aspiration PNA requiring intubation Plan: GI symptoms better, PO as tolerated. CT A/P results reviewed. GI input noted. EGD if family agreable and patient fails to improve with conservative management. Simethicone/zofran prn. Nephrology input appreciated. K normalized. Lasix/entresto/aldactone on hold. Off IVF. Monitor volume status, will likely need to resume meds slowly as tolerated Coumadin on hold given thrombocytopenia/anemia, resume per cardiology. Speech/swallow input noted. Dysphagia pureed /nectar thick. Aspiration precautions Discuss with Speech/swallow if able to start some free water. PT eval noted Dispo plan for SNF if no concerns, in 24-48 hours if improved and family not wanting to pursue intervention. Plan discussed with nursing. Visit type - Emergency Visit Emergency Visit: Yes ED Registration Date: 02/14/19 Care time: The patient presented to the Emergency Department on the above date and was hospitalized for further evaluation of their emergent condition. - New Patient This patient is new to me today: No - Critical Care Critical Care patient: No - Discharge Referral Referred to [facility] No
[2019-02-18] MEDS ORDERED: ONDANSETRON 4 MG/2 ML VIAL IVPUSH ONE (21:37)
--- NOTE | 2019-02-18 21:40 | PN ---
Progress Note (short form) - Note Progress Note: Paged for Pt. noted to be nauseous despite Reglan therapy. GI latest note reviewed, advised the discontinuation of Reglan and advised Zofran. last EKG noted to have QTc of 478. Will order Zofran 4mg IV Once and order EKG after for QTc assessment.
[2019-02-18] MEDS: ATORVASTATIN CA 10 MG TABLET (FP) PO SCH (22:08)
[2019-02-19] MEDS: METOCLOPRAMIDE HCL 10 MG TABLET (FP) PO SCH ×3 (06:14→17:41)
[2019-02-19] MEDS ORDERED: ONDANSETRON 4 MG/2 ML VIAL IVPUSH PRN (07:33)
[2019-02-19 07:39] LABS: BASO % 0.7 % (0-2.0); EOS % 1.1 % (0-4.5); HEMATOCRIT 29.8 % (35.4-49); HEMOGLOBIN 9.7 GM/dL (11.7-16.9); LYMPH % 15.9 % (8-40); MCH 29.4 pg (25.7-33.7); MCHC 32.4 g/dl (32.0-35.9); MEAN CELL VOLUME 90.6 fl (80-96); MEAN PLT VOLUME 8.6 fl (7.5-11.1); NEUT % 71.3 % (42.8-82.8); PLATELET COUNT 96 K/MM3 (134-434); RBC 3.29 M/mm3 (4.00-5.60); RDW 16.7 % (11.9-15.9); WHITE BLOOD COUNT 7.9 K/mm3 (4.0-10.0)
[2019-02-19 07:53] LABS: INR 2.2 (0.83-1.09); PROTHROMBIN TIME (PATIENT) 26.2 SEC (9.7-13.0)
[2019-02-19 08:50] LABS: ALBUMIN 2.6 g/dl (3.4-5.0); BILIRUBIN,TOTAL 0.5 mg/dL (0.2-1); CALCIUM 8.8 mg/dL (8.5-10.1); CREATININE 1.8 mg/dL (0.55-1.3); TOT PROT 6.3 g/dl (6.4-8.2)
[2019-02-19] MEDS: FERROUS SO4 325 MG TABLET (FP) PO SCH (09:41)
[2019-02-19] MEDS: CHOLECALCIFEROL (VITAMIN D3) 1,000 UNIT TABLET (FP) PO SCH (09:41)
[2019-02-19] MEDS: POLYETHYLENE GLYCOL 3350 119 GM BTL PO SCH (09:42)
[2019-02-19 10:26] LABS: HEMATOCRIT 29.8 % (35.4-49); HEMOGLOBIN 9.7 GM/dL (11.7-16.9); MCH 29.5 pg (25.7-33.7); MCHC 32.5 g/dl (32.0-35.9); MEAN CELL VOLUME 90.8 fl (80-96); MEAN PLT VOLUME 8.9 fl (7.5-11.1); PLATELET COUNT 93 K/MM3 (134-434); RBC 3.29 M/mm3 (4.00-5.60); RDW 16.4 % (11.9-15.9); WHITE BLOOD COUNT 7.9 K/mm3 (4.0-10.0)
--- NOTE | 2019-02-19 10:36 | PN ---
Progress Note (short form) - Note Progress Note: RENAL Pt is awake and alert comfortable denies complaints had breakfast Last Vital Signs Temp Pulse Resp BP Pulse Ox 97.7 F 72 18 130/60 100 02/19/19 09:51 02/19/19 09:51 02/19/19 09:51 02/19/19 09:51 02/19/19 09:52 lugs clear cvs s1s2 rr pacemaker palpable abd soft ext no edema neuro a+ox3 CBC, BMP 02/18/19 05:15 02/18/19 05:15 Current Medications Generic Name Dose Route Start Last Admin Trade Name Freq PRN Reason Stop Dose Admin Atorvastatin Calcium 10 mg 02/14/19 22:00 02/18/19 22:08 Lipitor - PO 10 mg HS DARSHAN Administration Cholecalciferol 2,000 unit 02/14/19 10:00 02/19/19 09:41 Vitamin D3 - PO 2,000 unit DAILY [facility] Administration Digoxin 0.125 mg 02/15/19 10:00 02/17/19 10:01 Lanoxin - PO 0.125 mg MoWeFr DARSHAN Administration Ferrous Sulfate 325 mg 02/14/19 10:00 02/19/19 09:41 Feosol - PO 325 mg DAILY [facility] Administration Metoclopramide HCl 10 mg 02/17/19 11:00 02/19/19 06:14 Reglan - PO 10 mg TIDAC DARSHAN Administration Metoprolol Succinate 50 mg 02/14/19 10:41 02/19/19 09:41 Toprol Xl - PO 50 mg DAILY [facility] Administration Ondansetron HCl 4 mg 02/19/19 07:33 Zofran Injection IVPUSH Q8H PRN NAUSEA Polyethylene Glycol 17 gm 02/17/19 15:30 02/19/19 09:42 Miralax (For Daily Use) - PO Not Given DAILY D[facility] Impression 1. SANDIE 2. hyperkalemia 3. CHF 4. anemia 5. a-fib Plan - renal function is stabilizng - cont to monitor lytes - repeat labs in am - diuretics on hold - entresto on hold for now - cardiology follow up -anemia work up MV
--- NOTE | 2019-02-19 11:03 | PN ---
Physical Exam: SUBJECTIVE: Patient seen and examined, nausea better this AM. Eating breakfast. No abdominal pain, dyspnea or complaints otherwise. OBJECTIVE: Vital Signs Period Temp Pulse Resp BP Sys/Real Pulse Ox Last 24 Hr 97.7 F-98.8 F 72-99 15-18 115-154/51-71 95-100 Intake & Output 02/16/19 02/17/19 02/18/19 02/19/19 23:59 23:59 23:59 23:59 Intake Total 360 270 490 250 Output Total 850 400 650 300 Balance -490 -130 -160 -50 Weight 150 lb 133 lb GENERAL: The patient is awake, alert, no acute distress Neck; Soft, supple, no JVD Chest: decreased breath sounds as bases Abdomen:soft, NT throughout, ND, positive bowel souds Extremities: no edema Psych; appropriate, co-operative SKIN: Warm, dry, normal turgor, no rashes or lesions noted Laboratory Results - last 24 hr 02/19/19 02/19/19 02/19/19 07:00 07:00 07:00 WBC 7.9 RBC 3.29 L Hgb 9.7 L Hct 29.8 L MCV 90.6 MCH 29.4 MCHC 32.4 RDW 16.7 H Plt Count 96 L D MPV 8.6 Absolute Neuts (auto) 5.7 Neutrophils % 71.3 D Lymphocytes % 15.9 D Monocytes % 11.0 H Eosinophils % 1.1 Basophils % 0.7 Nucleated RBC % 0 PT with INR 26.20 H INR 2.20 H Sodium 148 H Potassium 4.0 Chloride 120 H Carbon Dioxide 21 Anion Gap 8 BUN 51 H Creatinine 1.8 H Est GFR (CKD-EPI)AfAm 38.10 Est GFR (CKD-EPI)NonAf 32.87 Random Glucose 113 H Calcium 8.8 Total Bilirubin 0.5 AST 21 ALT 18 Alkaline Phosphatase 114 Total Protein 6.3 L Albumin 2.6 L 02/19/19 09:55 WBC 7.9 RBC 3.29 L Hgb 9.7 L Hct 29.8 L MCV 90.8 MCH 29.5 MCHC 32.5 RDW 16.4 H Plt Count 93 L MPV 8.9 Absolute Neuts (auto) Neutrophils % Lymphocytes % Monocytes % Eosinophils % Basophils % Nucleated RBC % PT with INR INR Sodium Potassium Chloride Carbon Dioxide Anion Gap BUN Creatinine Est GFR (CKD-EPI)AfAm Est GFR (CKD-EPI)NonAf Random Glucose Calcium Total Bilirubin AST ALT Alkaline Phosphatase Total Protein Albumin Active Medications Generic Name Dose Route Start Last Admin Trade Name Jose PRN Reason Stop Dose Admin Atorvastatin Calcium 10 mg 02/14/19 22:00 02/18/19 22:08 Lipitor - PO 10 mg HS DARSHAN Administration Cholecalciferol 2,000 unit 02/14/19 10:00 02/19/19 09:41 Vitamin D3 - PO 2,000 unit DAILY [facility] Administration Digoxin 0.125 mg 02/15/19 10:00 02/17/19 10:01 Lanoxin - PO 0.125 mg MoWeFr DARSHAN Administration Ferrous Sulfate 325 mg 02/14/19 10:00 02/19/19 09:41 Feosol - PO 325 mg DAILY [facility] Administration Metoclopramide HCl 10 mg 02/17/19 11:00 02/19/19 06:14 Reglan - PO 10 mg TIDAC DARSHAN Administration Metoprolol Succinate 50 mg 02/14/19 10:41 02/19/19 09:41 Toprol Xl - PO 50 mg DAILY [facility] Administration Ondansetron HCl 4 mg 02/19/19 07:33 Zofran Injection IVPUSH Q8H PRN NAUSEA Polyethylene Glycol 17 gm 02/17/19 15:30 02/19/19 09:42 Miralax (For Daily Use) - PO Not Given DAILY [facility] Microbiology 02/14/19 07:20 Urine - Urine Clean Catch Urine Culture - Final ASSESSMENT/PLAN: 88 yom with PMHx of Chronic systolic HF, Afib on coumadin, s/p PPM, bioprosthetic valve (?Aortic), CKD (baseline Cr 1.6), reported recent admission with Aspiration PNA requrinng intubation sent in with abnormal Labs, K 7.6 -SANDIE, suspect from aggressive diuresis/continuation of entresto/aldactone -Hyperkalemia, likely from above -Nausea/heaving -Hypernatremia, suspect from poor free water intake -Chronic systolic Heart failure -Acute on ?chronic thrombocytopenia -Atrial fibrillation on coumadin/s/p PPM -Bioprosthetic valve, ?Aortic -CKD stage II (baseline cr around 1.6) -Reported recent Aspiration PNA requiring intubation Plan: Intermittent nausea with overall poor oral intake. Improved today. Detailed discussion with Daughter Abena, hesitant about EGD unless absolutely indicated. Per her, symptoms onset after MBS. Reports patient does not like the food and has been asking to bring 'oatmeal' from home. Advised family to encourage oral intake as able. Address EGD if symptomatic and PO intake fails to improve. Free water with thickener today, discussed with nursing. monitor Na levels. Aspiration precautions. Dietary consult. CT A/p Neg. Simethicone/Zofran prn. GI input noted. Nephrology input appreciated. K normalized. Lasix/entresto/aldactone on hold. Off IVF. Monitor volume status, will need hypotonic fluids if Na continues to rise. Anemia stable, platelets improved. Family concerned about resuming coumadin. INR therapeutic off coumadin,?Nutritional Discuss with cardiology. Speech/swallow input noted. Dysphagia pureed /nectar thick. Aspiration precautions PT eval noted Dispo plan for SNF when clinically improved and tolerating diet better. Plan discussed with nursing and daughter Abena on phone in detail, all questions answered. Care co-ordinated with CM. Visit type - Emergency Visit Emergency Visit: Yes ED Registration Date: 02/14/19 Care time: The patient presented to the Emergency Department on the above date and was hospitalized for further evaluation of their emergent condition. - New Patient This patient is new to me today: No - Critical Care Critical Care patient: No - Discharge Referral Referred to [facility] No
--- NOTE | 2019-02-19 11:26 | PN ---
Progress Note (short form) - Note Progress Note: s: no chest pain, palps, dizziness. Current Medications Generic Name Dose Route Start Last Admin Trade Name Freq PRN Reason Stop Dose Admin Atorvastatin Calcium 10 mg 02/14/19 22:00 02/18/19 22:08 Lipitor - PO 10 mg HS DARSHAN Administration Cholecalciferol 2,000 unit 02/14/19 10:00 02/19/19 09:41 Vitamin D3 - PO 2,000 unit DAILY DARSHAN Administration Digoxin 0.125 mg 02/15/19 10:00 02/17/19 10:01 Lanoxin - PO 0.125 mg MoWeFr DARSHAN Administration Ferrous Sulfate 325 mg 02/14/19 10:00 02/19/19 09:41 Feosol - PO 325 mg DAILY DARSHAN Administration Metoclopramide HCl 10 mg 02/17/19 11:00 02/19/19 06:14 Reglan - PO 10 mg TIDAC DARSHAN Administration Metoprolol Succinate 50 mg 02/14/19 10:41 02/19/19 09:41 Toprol Xl - PO 50 mg DAILY DARSHAN Administration Ondansetron HCl 4 mg 02/19/19 07:33 Zofran Injection IVPUSH Q8H PRN NAUSEA Polyethylene Glycol 17 gm 02/17/19 15:30 02/19/19 09:42 Miralax (For Daily Use) - PO Not Given DAILY [facility] Vital Signs Period Temp Pulse Resp BP Sys/Real Pulse Ox Last 24 Hr 97.7 F-98.8 F 72-99 15-18 115-154/51-71 95-100 Constitutional: Yes: No Distress, Calm Eyes: Yes: Conjunctiva Clear, Respiratory: Yes: Regular, CTA Bilaterally Gastrointestinal: Yes: Normal Bowel Sounds, Soft Cardiovascular: Yes: Regular Rate and Rhythm JVD: No Carotid Bruit: No PMI: Non-Displaced Heart Sounds: Yes: S1, S2 Extremities: No: Cold Edema: No Peripheral Pulses: 2+ Left Doralis Pedis, 2+ Right Dorsalis Pedis Integumentary: No: Jaundice Neurological: Yes: Alert, Oriented Psychiatric: No: Agitated CBC, BMP 02/19/19 09:55 02/19/19 07:00 Assessment/Plan 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 - cr improving Chronic systolic HF - holding entresto, torsemide, spironolactone as above - restart when able - appears euvolemic, holding diuresis - continue metoprolol Afib - have been holding coumadin in setting of thrombocytopenia, anemia, these have now improved so can resume coumadin per INR (has been therapeutic). - continue digoxin, toprol CAD s/p CABG - continue statin, metoprolol s/p PPM - stable on EKG, outpatient monitoring h/o bioprosthetic MVR - outpatient follow up HLD - cont statin CVA - L hemiparesis - cont statin dc tele
--- NOTE | 2019-02-19 12:25 | EKG ---
Test Reason : Blood Pressure : / mmHG Vent. Rate : 075 BPM Atrial Rate : 069 BPM P-R Int : 000 ms QRS Dur : 174 ms QT Int : 444 ms P-R-T Axes : 000 261 062 degrees QTc Int : 495 ms Ventricular-paced rhythm ABNORMAL ECG WHEN COMPARED WITH ECG OF 13-FEB-2019 23:56, VENT. RATE HAS INCREASED BY 5 BPM Confirmed by KIARA FUENTES MD ([id number]) on 02/19/2019 12:25:02 PM Referred By: Confirmed By:KIARA FUENTES MD
[2019-02-19] MEDS: ATORVASTATIN CA 10 MG TABLET (FP) PO SCH (21:39)
[2019-02-20] MEDS: METOCLOPRAMIDE HCL 10 MG TABLET (FP) PO SCH ×3 (06:04→17:17)
[2019-02-20 07:47] LABS: BASO % 0.8 % (0-2.0); EOS % 1.4 % (0-4.5); HEMATOCRIT 29.9 % (35.4-49); HEMOGLOBIN 9.8 GM/dL (11.7-16.9); LYMPH % 19.9 % (8-40); MCH 29.6 pg (25.7-33.7); MCHC 32.6 g/dl (32.0-35.9); MEAN CELL VOLUME 90.9 fl (80-96); MEAN PLT VOLUME 8.8 fl (7.5-11.1); MONO % 10.9 % (3.8-10.2); PLATELET COUNT 98 K/MM3 (134-434); RBC 3.29 M/mm3 (4.00-5.60); RDW 16.8 % (11.9-15.9)
[2019-02-20 08:06] LABS: ALBUMIN 2.7 g/dl (3.4-5.0); BILIRUBIN,TOTAL 0.6 mg/dL (0.2-1); CALCIUM 8.9 mg/dL (8.5-10.1); CREATININE 1.7 mg/dL (0.55-1.3); INR 2.06 (0.83-1.09); MAGNESIUM 2.5 mg/dL (1.8-2.4); PHOSPHOROUS 2.7 mg/dL (2.5-4.9); POTASSIUM 3.9 mmol/L (3.5-5.1); PROTHROMBIN TIME (PATIENT) 24.5 SEC (9.7-13.0); TOT PROT 6.2 g/dl (6.4-8.2)
--- NOTE | 2019-02-20 09:49 | PN ---
Teaching Attending Note Name of Resident: Brandon Dumont ATTENDING PHYSICIAN STATEMENT I saw and evaluated the patient. I reviewed the resident's note and discussed the case with the resident. I agree with the resident's findings and plan as documented with exceptions below. SUBJECTIVE: Patient seen and examined, no further nausea, tolerating PO but reports does not like food. Asking nurse for 'real water'. No complaints otherwise. OBJECTIVE: Vital Signs Period Temp Pulse Resp BP Sys/Real Pulse Ox Last 24 Hr 97.5 F-98.1 F 72-92 16-20 120-130/48-77 98-100 Intake & Output 02/17/19 02/18/19 02/19/19 02/20/19 23:59 23:59 23:59 23:59 Intake Total 270 490 820 120 Output Total 698 474 8861 Balance -130 -160 -380 120 Weight 150 lb 133 lb 133 lb General: sitting in bed in no acute distress Neck: soft, supple, no JVD Chest: decreased air entry bases, no wheezing Abdomen;Soft, NT throughout, ND Extremities: no edema Home Medications Medication Instructions Recorded Metoprolol Succinate [Toprol XL] 25 mg PO DAILY 12/31/11 Warfarin Na [Coumadin] 5 mg PO HS 12/31/11 Cholecalciferol (Vitamin D3) 1,000 unit PO DAILY 10/31/13 [Vitamin D3] Gabapentin 200 mg PO BID 08/04/18 Spironolactone 25 mg PO DAILY 08/04/18 Ferrous Sulfate 325 mg PO DAILY 11/29/18 Sacubitril/Valsartan [Entresto 24 1 tab PO DAILY 11/29/18 mg-26 mg Tablet] Torsemide 20 mg PO DAILY 11/29/18 Acetaminophen 650 mg PO Q6H PRN 02/14/19 Atorvastatin Ca [Lipitor] 10 mg PO DAILY 02/14/19 Cyclobenzaprine HCl 5 mg PO DAILY 02/14/19 Digoxin [Lanoxin -] 0.125 mg PO DAILY 02/14/19 Metolazone 2.5 mg PO DAILY PRN 02/14/19 Oxycodone HCl/Acetaminophen 1 tab PO Q4H PRN 02/14/19 [Percocet 5-325 mg Tablet] Ranitidine [Zantac -] 150 mg PO DAILY 02/14/19 Active Medications Atorvastatin Calcium (Lipitor -) 10 mg PO HS [facility] Last Admin: 02/19/19 21:39 Dose: 10 mg Cholecalciferol (Vitamin D3 -) 2,000 unit PO DAILY [facility] Last Admin: 02/19/19 09:41 Dose: 2,000 unit Digoxin (Lanoxin -) 0.125 mg PO MoWeFr [facility] Last Admin: 02/17/19 10:01 Dose: 0.125 mg Ferrous Sulfate (Feosol -) 325 mg PO DAILY [facility] Last Admin: 02/19/19 09:41 Dose: 325 mg Metoclopramide HCl (Reglan -) 10 mg PO TIDAC [facility] Last Admin: 02/20/19 06:04 Dose: 10 mg Metoprolol Succinate (Toprol Xl -) 50 mg PO DAILY [facility] Last Admin: 02/19/19 09:41 Dose: 50 mg Ondansetron HCl (Zofran Injection) 4 mg IVPUSH Q8H PRN PRN Reason: NAUSEA Polyethylene Glycol (Miralax (For Daily Use) -) 17 gm PO DAILY [facility] Last Admin: 02/19/19 09:42 Dose: Not Given Warfarin Sodium (Coumadin -) 2.5 mg PO DAILY@1800 [facility] Laboratory Results - last 24 hr 02/19/19 02/20/19 02/20/19 09:55 06:30 06:30 WBC 7.9 8.0 RBC 3.29 L 3.29 L Hgb 9.7 L 9.8 L Hct 29.8 L 29.9 L MCV 90.8 90.9 MCH 29.5 29.6 MCHC 32.5 32.6 RDW 16.4 H 16.8 H Plt Count 93 L 98 L MPV 8.9 8.8 Absolute Neuts (auto) 5.4 Neutrophils % 67.0 Lymphocytes % 19.9 D Monocytes % 10.9 H Eosinophils % 1.4 Basophils % 0.8 Nucleated RBC % 0 PT with INR 24.50 H INR 2.06 H Sodium Potassium Chloride Carbon Dioxide Anion Gap BUN Creatinine Est GFR (CKD-EPI)AfAm Est GFR (CKD-EPI)NonAf Random Glucose Calcium Phosphorus Magnesium Total Bilirubin AST ALT Alkaline Phosphatase Total Protein Albumin 02/20/19 06:30 WBC RBC Hgb Hct MCV MCH MCHC RDW Plt Count MPV Absolute Neuts (auto) Neutrophils % Lymphocytes % Monocytes % Eosinophils % Basophils % Nucleated RBC % PT with INR INR Sodium 151 H Potassium 3.9 Chloride 122 H Carbon Dioxide 22 Anion Gap 7 L BUN 52 H Creatinine 1.7 H Est GFR (CKD-EPI)AfAm 40.82 Est GFR (CKD-EPI)NonAf 35.22 Random Glucose 105 Calcium 8.9 Phosphorus 2.7 Magnesium 2.5 H Total Bilirubin 0.6 AST 21 ALT 19 Alkaline Phosphatase 113 Total Protein 6.2 L Albumin 2.7 L ASSESSMENT AND PLAN: 88 yom with PMHx of Chronic systolic HF, Afib on coumadin, s/p PPM, bioprosthetic valve (?Aortic), CKD (baseline Cr 1.6), reported recent admission with Aspiration PNA requrinng intubation sent in with abnormal Labs, K 7.6 -SANDIE, suspect from aggressive diuresis/continuation of entresto/aldactone and associated poor oral intake due to dietary restrictions/modified consistency. -Hyperkalemia, likely from above -Nausea/heaving -Hypernatremia, suspect from poor free water intake -Chronic systolic Heart failure -Acute on ?chronic thrombocytopenia -Atrial fibrillation on coumadin/s/p PPM -Bioprosthetic valve, ?Aortic -CKD stage II (baseline cr around 1.6) -Reported recent Aspiration PNA requiring intubation Plan: GI symptoms resolved. Oral intake variable due to patient preference. Could have contributed to his SANDIE on admission. Family advised to bring food as able. Dietary consult for pureed/low K diet. Na rising. Discussed with Kristen Santillan, start free water protocol, to encourage water intake between meals, discussed with nursing. Discuss with renal short trial of hypotonic fluids. Family hesitant about EGD unless absolutely indicated. Dietary restrictions and preference seem more contributory to his symptoms. No further nausea. Monitor clinically. GI input apprecited. CT A/p Neg. Simethicone/Zofran prn. Lasix/entresto/aldactone on hold. Anemia stable, platelets improved. Family concerned about resuming coumadin. Cardiology input appreciated. resume coumadin at 2.5 mg daily with INR checks. PT eval noted Dispo plan for SNF when Na improved if no concerns, in 24-48 hours. Plan discussed with patient and nursing in detail, all questions answered.
--- NOTE | 2019-02-20 10:08 | PN ---
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 Villegas with plan to initiate pt/family/staff education and implementation of free Water Protocol with involes scrupulous mouthcare followed by careful single sips of thin water BETWEEN meals only. Pt's daughter discussed concern over risk of aspiration, weight loss down to 133 , and that she said he will "be next." We reviewed that he has been on honey thickened liquids since aspiration event at [facility],upgraded at [facility] to nectar and that this is not new to him. Per MBS, pt did tolerate thin liquid during MBS, however, risk is present with 1 instance of SILENT aspiration on thin Barium with impaired sensation demonstrated. Weight loss has been progressive, per pt's daughter, but now possibly exacerbated by recent nausea which has improved. Per pt's nurse, pt fed himself independently with good intake of diet and nectar thick mealtime, with denial of nausea at this time. We discussed the option of supplemental tube feeding if weight loss is the concern.Pt needs continued encouragement to accept 2 lynda HN (nectar) and nectar thick with meals. Pt and family agreed to trial of Free Water Protocol. Educated pt/daughter on free water protocol, chin tuck, hard swallow x2, cough reswallow, check vocal quality. Reviewed with PMD/nursing. Pending d/c to [facility] for STR. Suggest intensive swallowing tx / use of compensatory strategies based on results of MBS. Consider PEG in future for supplemental nutrition/hdration, if neccessary.
--- NOTE | 2019-02-20 10:26 | PN ---
Progress Note, Physician Chief Complaint: seen and examined. No distress sitting in chair Daughter at bedside. - Current Medication List Current Medications: Active Medications Atorvastatin Calcium (Lipitor -) 10 mg PO HS [facility] Last Admin: 02/19/19 21:39 Dose: 10 mg Cholecalciferol (Vitamin D3 -) 2,000 unit PO DAILY [facility] Last Admin: 02/19/19 09:41 Dose: 2,000 unit Digoxin (Lanoxin -) 0.125 mg PO MoWeFr [facility] Last Admin: 02/17/19 10:01 Dose: 0.125 mg Ferrous Sulfate (Feosol -) 325 mg PO DAILY [facility] Last Admin: 02/19/19 09:41 Dose: 325 mg Metoclopramide HCl (Reglan -) 10 mg PO TIDAC [facility] Last Admin: 02/20/19 06:04 Dose: 10 mg Metoprolol Succinate (Toprol Xl -) 50 mg PO DAILY [facility] Last Admin: 02/19/19 09:41 Dose: 50 mg Ondansetron HCl (Zofran Injection) 4 mg IVPUSH Q8H PRN PRN Reason: NAUSEA Polyethylene Glycol (Miralax (For Daily Use) -) 17 gm PO DAILY [facility] Last Admin: 02/19/19 09:42 Dose: Not Given Warfarin Sodium (Coumadin -) 2.5 mg PO DAILY@1800 [facility] - Objective Vital Signs: Vital Signs Temperature 98 F 02/20/19 07:45 Pulse Rate 92 H 02/20/19 07:45 Respiratory Rate 20 02/20/19 07:45 Blood Pressure 129/77 02/20/19 07:45 O2 Sat by Pulse Oximetry (%) 98 02/19/19 21:00 Constitutional: Yes: No Distress Eyes: Yes: Conjunctiva Clear Cardiovascular: Yes: Pulse Irregular Respiratory: Yes: CTA Bilaterally (no wheezing or rales.) Gastrointestinal: Yes: Soft Edema: No Neurological: Yes: Alert ...Motor Strength: WNL Labs: CBC, BMP 02/20/19 06:30 02/20/19 06:30 INR, PTT INR 2.06 (0.83-1.09) H 02/20/19 06:30 Laboratory Tests 02/20/19 02/20/19 02/20/19 06:30 06:30 06:30 WBC 8.0 Hgb 9.8 L Hct 29.9 L Plt Count 98 L INR 2.06 H Sodium 151 H Potassium 3.9 BUN 52 H Creatinine 1.7 H - ....Imaging EKG: Image Reviewed Assessment/Plan Assessment/Plan 1. SANDIE, hyperkalemia: - received D50, calcium gluconate, insulin, lasix - nephrology following - holding torsemide, entresto, spironolactone. - cr improving 2. Chronic systolic HF: - holding entresto, torsemide, spironolactone as above. Would prob stop Aldactone permanently. - appears euvolemic, holding diuresis for now but will likely need to resume stable PO dose prior to discharge - continue metoprolol 3. Afib: - Platelets improved, warfarin resumed. - continue digoxin, toprol 3.CAD s/p CABG: - continue statin, metoprolol 4. s/p PPM: - stable on EKG, outpatient monitoring 5. h/o bioprosthetic MVR: - outpatient follow up 6. HLD: - cont statin 7. CVA: - L hemiparesis - cont statin
--- NOTE | 2019-02-20 11:35 | PN ---
Physical Exam: SUBJECTIVE: Patient seen and examined at bedside. States he feels better and no longer has nausea and vomiting. Is tolerating diet a little better today. OBJECTIVE: Vital Signs Temperature 98 F 02/20/19 07:45 Pulse Rate 92 H 02/20/19 07:45 Respiratory Rate 20 02/20/19 07:45 Blood Pressure 129/77 02/20/19 07:45 O2 Sat by Pulse Oximetry (%) 98 02/19/19 21:00 GENERAL: The patient is awake, alert, and fully oriented, in no acute distress. EYES: extraocular movements intact, sclera anicteric, conjunctiva clear. LUNGS: Breath sounds equal, clear to auscultation bilaterally HEART: Regular rate and rhythm, S1, S2 ABDOMEN: Soft, nontender, nondistended, normoactive bowel sounds. EXTREMITIES: warm, well-perfused, no edema. NEUROLOGICAL: Cranial nerves II through XII grossly intact. Normal speech, gait not observed. PSYCH: Normal mood, normal affect. SKIN: Warm, dry Laboratory Results - last 24 hr 02/20/19 02/20/19 02/20/19 06:30 06:30 06:30 WBC 8.0 RBC 3.29 L Hgb 9.8 L Hct 29.9 L MCV 90.9 MCH 29.6 MCHC 32.6 RDW 16.8 H Plt Count 98 L MPV 8.8 Absolute Neuts (auto) 5.4 Neutrophils % 67.0 Lymphocytes % 19.9 D Monocytes % 10.9 H Eosinophils % 1.4 Basophils % 0.8 Nucleated RBC % 0 PT with INR 24.50 H INR 2.06 H Sodium 151 H Potassium 3.9 Chloride 122 H Carbon Dioxide 22 Anion Gap 7 L BUN 52 H Creatinine 1.7 H Est GFR (CKD-EPI)AfAm 40.82 Est GFR (CKD-EPI)NonAf 35.22 Random Glucose 105 Calcium 8.9 Phosphorus 2.7 Magnesium 2.5 H Total Bilirubin 0.6 AST 21 ALT 19 Alkaline Phosphatase 113 Total Protein 6.2 L Albumin 2.7 L Active Medications Generic Name Dose Route Start Last Admin Trade Name Freq PRN Reason Stop Dose Admin Atorvastatin Calcium 10 mg 02/14/19 22:00 02/19/19 21:39 Lipitor - PO 10 mg HS DARSHAN Administration Cholecalciferol 2,000 unit 02/14/19 10:00 02/19/19 09:41 Vitamin D3 - PO 2,000 unit DAILY DARSHAN Administration Digoxin 0.125 mg 02/15/19 10:00 02/17/19 10:01 Lanoxin - PO 0.125 mg MoWeFr DARSHAN Administration Ferrous Sulfate 325 mg 02/14/19 10:00 02/19/19 09:41 Feosol - PO 325 mg DAILY DARSHAN Administration Dextrose 1,000 mls @ 42 mls/hr 02/20/19 10:30 D5w - IV ASDIR DARSHAN Metoclopramide HCl 10 mg 02/17/19 11:00 02/20/19 06:04 Reglan - PO 10 mg TIDAC DARHSAN Administration Metoprolol Succinate 50 mg 02/14/19 10:41 02/19/19 09:41 Toprol Xl - PO 50 mg DAILY DARSHAN Administration Ondansetron HCl 4 mg 02/19/19 07:33 Zofran Injection IVPUSH Q8H PRN NAUSEA Polyethylene Glycol 17 gm 02/17/19 15:30 02/19/19 09:42 Miralax (For Daily Use) - PO Not Given DAILY [facility] Warfarin Sodium 2.5 mg 02/20/19 18:00 Coumadin - PO DAILY@1800 [facility] ASSESSMENT/PLAN: 88 y/o M w/PMH of CHF, AFib on coumadin, s/p pacemaker placement, s/p cardiac valve replacement and recently discharged from [facility] with complicated hospital course and recently came home from SNF s/p hospitalization at [facility] presented to ER for abnormal labs from PCPs office. He was found to have elevated BUN/Cr and K+. -Abdominal pain and nausea -improving -continue PO trial -CT abd/pelvis with no acute pathology in abdomen. -GI following -SANDIE on CKD -likely secondary to dehydration further worsened with diuretic medication use -baseline Cr 1.5, currently 1.7, -D5W @ 42ml/hr started. Monitor fluid status. -Torsemide held -Nephrology on board -CHF -does not appear to be in acute exacerbation -c/w digoxin, toprol xl -torsemide held with kidney failure -Afib -toprol xl -coumadin restarted at 2.5mg po -monitor INR -Thrombocytopenia -has a history of chronic thrombocytopenia -FEN -D5W @ 42ml/hr -Hypernatremia - D5W @ 42ml/hr. Increase free water intake. Free water protocol. Monitor lytes. -Dysphagia puree w/nectar thickened liquids w/Free water protocol -Dispo: Monitor on tele Visit type - Emergency Visit Emergency Visit: Yes ED Registration Date: 02/14/19 Care time: The patient presented to the Emergency Department on the above date and was hospitalized for further evaluation of their emergent condition. - New Patient This patient is new to me today: No - Critical Care Critical Care patient: No
[2019-02-20] MEDS: FERROUS SO4 325 MG TABLET (FP) PO SCH (12:06)
[2019-02-20] MEDS: POLYETHYLENE GLYCOL 3350 119 GM BTL PO SCH (12:07)
[2019-02-20] MEDS: CHOLECALCIFEROL (VITAMIN D3) 1,000 UNIT TABLET (FP) PO SCH (12:07)
[2019-02-20] MEDS: DEXTROSE 5%-WATER - 1,000 ML IV SCH (12:07)
--- NOTE | 2019-02-20 12:07 | PN ---
Progress Note, Physician History of Present Illness: Pt seen and examined at bedside. He is awake and alert. He has poor PO intake. He is not drinking much fluids. - Current Medication List Current Medications: Active Medications Atorvastatin Calcium (Lipitor -) 10 mg PO HS [facility] Last Admin: 02/19/19 21:39 Dose: 10 mg Cholecalciferol (Vitamin D3 -) 2,000 unit PO DAILY [facility] Last Admin: 02/19/19 09:41 Dose: 2,000 unit Digoxin (Lanoxin -) 0.125 mg PO MoWeFr [facility] Last Admin: 02/17/19 10:01 Dose: 0.125 mg Ferrous Sulfate (Feosol -) 325 mg PO DAILY [facility] Last Admin: 02/19/19 09:41 Dose: 325 mg Dextrose (D5w -) 1,000 mls @ 42 mls/hr IV ASDIR [facility] Metoclopramide HCl (Reglan -) 10 mg PO TIDAC [facility] Last Admin: 02/20/19 06:04 Dose: 10 mg Metoprolol Succinate (Toprol Xl -) 50 mg PO DAILY [facility] Last Admin: 02/19/19 09:41 Dose: 50 mg Ondansetron HCl (Zofran Injection) 4 mg IVPUSH Q8H PRN PRN Reason: NAUSEA Polyethylene Glycol (Miralax (For Daily Use) -) 17 gm PO DAILY [facility] Last Admin: 02/19/19 09:42 Dose: Not Given Warfarin Sodium (Coumadin -) 2.5 mg PO DAILY@1800 [facility] - Objective Vital Signs: Vital Signs Temperature 98 F 02/20/19 07:45 Pulse Rate 92 H 02/20/19 07:45 Respiratory Rate 20 02/20/19 07:45 Blood Pressure 129/77 02/20/19 07:45 O2 Sat by Pulse Oximetry (%) 98 02/19/19 21:00 Constitutional: Yes: Calm Eyes: Yes: Conjunctiva Clear HENT: Yes: Atraumatic Cardiovascular: Yes: S1, S2 Respiratory: Yes: CTA Bilaterally Gastrointestinal: Yes: Soft Genitourinary: Yes: WNL Musculoskeletal: Yes: WNL Edema: No Integumentary: Yes: Venous Stasis Changes Neurological: Yes: Oriented Psychiatric: Yes: Oriented Labs: CBC, BMP 02/20/19 06:30 02/20/19 06:30 INR, PTT INR 2.06 (0.83-1.09) H 02/20/19 06:30 Problem List - Problems (1) SANDIE (acute kidney injury) Code(s): N17.9 - ACUTE KIDNEY FAILURE, UNSPECIFIED (2) Atrial fibrillation Code(s): I48.91 - UNSPECIFIED ATRIAL FIBRILLATION Qualifiers: Atrial fibrillation type: chronic Qualified Code(s): I48.2 - Chronic atrial fibrillation (3) Hyperkalemia Code(s): E87.5 - HYPERKALEMIA Assessment/Plan Current Medications Generic Name Dose Route Start Last Admin Trade Name Freq PRN Reason Stop Dose Admin Atorvastatin Calcium 10 mg 02/14/19 22:00 02/19/19 21:39 Lipitor - PO 10 mg HS DARSHAN Administration Cholecalciferol 2,000 unit 02/14/19 10:00 02/19/19 09:41 Vitamin D3 - PO 2,000 unit DAILY DARSHAN Administration Digoxin 0.125 mg 02/15/19 10:00 02/17/19 10:01 Lanoxin - PO 0.125 mg MoWeFr DARSHAN Administration Ferrous Sulfate 325 mg 02/14/19 10:00 02/19/19 09:41 Feosol - PO 325 mg DAILY DARSHAN Administration Dextrose 1,000 mls @ 42 mls/hr 02/20/19 10:30 D5w - IV ASDIR DARSHAN Metoclopramide HCl 10 mg 02/17/19 11:00 02/20/19 06:04 Reglan - PO 10 mg TIDAC DARSHAN Administration Metoprolol Succinate 50 mg 02/14/19 10:41 02/19/19 09:41 Toprol Xl - PO 50 mg DAILY DARSHAN Administration Ondansetron HCl 4 mg 02/19/19 07:33 Zofran Injection IVPUSH Q8H PRN NAUSEA Polyethylene Glycol 17 gm 02/17/19 15:30 02/19/19 09:42 Miralax (For Daily Use) - PO Not Given DAILY DARSHAN Warfarin Sodium 2.5 mg 02/20/19 18:00 Coumadin - PO DAILY@1800 DARSHAN Impression 1. SANDIE 2. hyperkalemia 3. CHF 4. anemia 5. a-fib 6. hypernatremia Plan - encourage free thickened water intake - pt getting another swallow eval - d5w at 42 cc started, monitor volume status closely while on fluids - keep diuretics on hold - cardio follow up, entresto has been on hold as well - potassium stable Dr Curran
[2019-02-20] MEDS: DIGOXIN 0.125 MG TABLET (FP) PO SCH (12:15)
--- NOTE | 2019-02-20 15:45 | PN ---
Progress Note (short form) - Note Progress Note: Patient seen and examined Labs reviewed Poor PO intake of solids and liquids noted Daughter at bedside very concerned Patient reports he does not like this food, does not want pureed food and is afraid it will come back up No abdominal pain, does not fear abdominal pain Getting fluids as Na is rising Vital Signs Temp 97.8 F 02/20/19 14:00 Pulse 83 02/20/19 14:00 Resp 18 02/20/19 14:00 BP 129/63 02/20/19 14:00 Pulse Ox 98 02/19/19 21:00 NAD, chronically ill appearing CBC, BMP 02/20/19 06:30 02/20/19 06:30 Impression: malnutrition. Goals of care need to be addressed -- whether that be with calorie counts to document poor intake, vs feeding tube vs hospice. Daughter at bedside requesting that PMD have this discussion with the patient.
[2019-02-20] MEDS ORDERED: WARFARIN NA 2.5 MG TABLET (FP) PO SCH (18:00)
[2019-02-20] MEDS ORDERED: ACETAMINOPHEN 325 MG TABLET (FP) PO ONE (19:09)
[2019-02-20] MEDS ORDERED: traMADol HCL 50 MG TABLET PO ONE (20:49)
[2019-02-20] MEDS: ATORVASTATIN CA 10 MG TABLET (FP) PO SCH (22:00)
[2019-02-21] MEDS: METOCLOPRAMIDE HCL 10 MG TABLET (FP) PO SCH ×3 (06:46→17:17)
[2019-02-21 07:07] LABS: EOS % 2.6 % (0-4.5); HEMATOCRIT 29.2 % (35.4-49); HEMOGLOBIN 9.4 GM/dL (11.7-16.9); LYMPH % 16.3 % (8-40); MCH 29.3 pg (25.7-33.7); MCHC 32.3 g/dl (32.0-35.9); MEAN CELL VOLUME 90.8 fl (80-96); MEAN PLT VOLUME 8.5 fl (7.5-11.1); MONO % 11.2 % (3.8-10.2); NEUT % 68.9 % (42.8-82.8); PLATELET COUNT 96 K/MM3 (134-434); RBC 3.21 M/mm3 (4.00-5.60); RDW 16.9 % (11.9-15.9); WHITE BLOOD COUNT 6.2 K/mm3 (4.0-10.0)
[2019-02-21 07:37] LABS: CALCIUM 8.3 mg/dL (8.5-10.1); CREATININE 1.7 mg/dL (0.55-1.3); MAGNESIUM 2.3 mg/dL (1.8-2.4); PHOSPHOROUS 2.8 mg/dL (2.5-4.9); POTASSIUM 3.5 mmol/L (3.5-5.1)
[2019-02-21 07:44] LABS: INR 2.18 (0.83-1.09); PROTHROMBIN TIME (PATIENT) 25.9 SEC (9.7-13.0)
--- NOTE | 2019-02-21 10:18 | PN ---
Progress Note (short form) - Note Progress Note: s: no chest pain, palps, dizziness, dypsnea Current Medications Atorvastatin Calcium (Lipitor -) 10 mg PO HS [facility] Last Admin: 02/20/19 22:00 Dose: 10 mg Cholecalciferol (Vitamin D3 -) 2,000 unit PO DAILY [facility] Last Admin: 02/20/19 12:07 Dose: 2,000 unit Digoxin (Lanoxin -) 0.125 mg PO MoWeFr [facility] Last Admin: 02/20/19 12:15 Dose: 0.125 mg Ferrous Sulfate (Feosol -) 325 mg PO DAILY [facility] Last Admin: 02/20/19 12:06 Dose: 325 mg Dextrose (D5w -) 1,000 mls @ 42 mls/hr IV ASDIR [facility] Last Admin: 02/20/19 12:07 Dose: 42 mls/hr Metoclopramide HCl (Reglan -) 10 mg PO TIDAC [facility] Last Admin: 02/21/19 06:46 Dose: 10 mg Metoprolol Succinate (Toprol Xl -) 50 mg PO DAILY [facility] Last Admin: 02/20/19 12:06 Dose: 50 mg Ondansetron HCl (Zofran Injection) 4 mg IVPUSH Q8H PRN PRN Reason: NAUSEA Polyethylene Glycol (Miralax (For Daily Use) -) 17 gm PO DAILY [facility] Last Admin: 02/20/19 12:07 Dose: Not Given Warfarin Sodium (Coumadin -) 2.5 mg PO DAILY@1800 [facility] Last Admin: 02/20/19 17:18 Dose: 2.5 mg Vital Signs Period Temp Pulse Resp BP Sys/Real Pulse Ox Last 24 Hr 97.7 F-98.3 F 77-88 16-18 118-129/52-65 98 Constitutional: Yes: No Distress Eyes: Yes: Conjunctiva Clear Cardiovascular: Yes: Pulse Irregular Respiratory: Yes: CTA Bilaterally (no wheezing or rales.) Gastrointestinal: Yes: Soft Edema: No Neurological: Yes: Alert ...Motor Strength: WNL EKG: Image Reviewed Assessment/Plan 1. SANDIE, hyperkalemia, hypernatremia - received D50, calcium gluconate, insulin, lasix - hyperkalemia resolved - manage per nephrology - holding torsemide, entresto, spironolactone - cr improving 2. Chronic systolic HF: - holding entresto, torsemide, spironolactone as above. Likely stop Aldactone permanently. - appears euvolemic, holding diuresis for now but will likely need to resume stable PO dose prior to discharge - continue metoprolol 3. Afib: - Platelets improved, warfarin resumed. - continue digoxin, toprol 3.CAD s/p CABG: - continue statin, metoprolol 4. s/p PPM: - stable on EKG, outpatient monitoring 5. h/o bioprosthetic MVR: - outpatient follow up 6. HLD: - cont statin 7. CVA: - L hemiparesis - cont statin
[2019-02-21] MEDS: CHOLECALCIFEROL (VITAMIN D3) 1,000 UNIT TABLET (FP) PO SCH (11:06)
[2019-02-21] MEDS: FERROUS SO4 325 MG TABLET (FP) PO SCH (11:07)
--- NOTE | 2019-02-21 11:09 | PN ---
Teaching Attending Note Name of Resident: Brandon Dumont ATTENDING PHYSICIAN STATEMENT I saw and evaluated the patient. I reviewed the resident's note and discussed the case with the resident. I agree with the resident's findings and plan as documented with exceptions below. SUBJECTIVE: Patient seen and examined. Requesting to wanting to be sent to rehab and agreable to do anything to get out of the hospital. OBJECTIVE: Vital Signs Period Temp Pulse Resp BP Sys/Real Pulse Ox Last 24 Hr 97.7 F-98.3 F 77-88 16-18 118-129/52-65 98 Intake & Output 02/18/19 02/19/19 02/20/19 02/21/19 23:59 23:59 23:59 23:59 Intake Total 490 820 670 50 Output Total 650 1200 Balance -160 -380 670 50 Weight 133 lb 133 lb 131 lb General: sitting in bed, cachectic, no acute distress Chest: Decreased breath sounds at bases Abdomen:soft, NT, ND Extremities: no edema Neck: soft, supple, no JVD Home Medications Medication Instructions Recorded Metoprolol Succinate [Toprol XL] 25 mg PO DAILY 12/31/11 Warfarin Na [Coumadin] 5 mg PO HS 12/31/11 Cholecalciferol (Vitamin D3) 1,000 unit PO DAILY 10/31/13 [Vitamin D3] Gabapentin 200 mg PO BID 08/04/18 Spironolactone 25 mg PO DAILY 08/04/18 Ferrous Sulfate 325 mg PO DAILY 11/29/18 Sacubitril/Valsartan [Entresto 24 1 tab PO DAILY 11/29/18 mg-26 mg Tablet] Torsemide 20 mg PO DAILY 11/29/18 Acetaminophen 650 mg PO Q6H PRN 02/14/19 Atorvastatin Ca [Lipitor] 10 mg PO DAILY 02/14/19 Cyclobenzaprine HCl 5 mg PO DAILY 02/14/19 Digoxin [Lanoxin -] 0.125 mg PO DAILY 02/14/19 Metolazone 2.5 mg PO DAILY PRN 02/14/19 Oxycodone HCl/Acetaminophen 1 tab PO Q4H PRN 02/14/19 [Percocet 5-325 mg Tablet] Ranitidine [Zantac -] 150 mg PO DAILY 02/14/19 Active Medications Atorvastatin Calcium (Lipitor -) 10 mg PO HS [facility] Last Admin: 02/20/19 22:00 Dose: 10 mg Cholecalciferol (Vitamin D3 -) 2,000 unit PO DAILY [facility] Last Admin: 02/20/19 12:07 Dose: 2,000 unit Digoxin (Lanoxin -) 0.125 mg PO MoWeFr [facility] Last Admin: 02/20/19 12:15 Dose: 0.125 mg Ferrous Sulfate (Feosol -) 325 mg PO DAILY [facility] Last Admin: 02/20/19 12:06 Dose: 325 mg Dextrose (D5w -) 1,000 mls @ 42 mls/hr IV ASDIR [facility] Last Admin: 02/20/19 12:07 Dose: 42 mls/hr Metoclopramide HCl (Reglan -) 10 mg PO TIDAC [facility] Last Admin: 02/21/19 06:46 Dose: 10 mg Metoprolol Succinate (Toprol Xl -) 50 mg PO DAILY [facility] Last Admin: 02/20/19 12:06 Dose: 50 mg Ondansetron HCl (Zofran Injection) 4 mg IVPUSH Q8H PRN PRN Reason: NAUSEA Polyethylene Glycol (Miralax (For Daily Use) -) 17 gm PO DAILY [facility] Last Admin: 02/20/19 12:07 Dose: Not Given Warfarin Sodium (Coumadin -) 2.5 mg PO DAILY@1800 [facility] Last Admin: 02/20/19 17:18 Dose: 2.5 mg Laboratory Results - last 24 hr 02/21/19 02/21/19 02/21/19 06:00 06:00 06:00 WBC 6.2 RBC 3.21 L Hgb 9.4 L Hct 29.2 L MCV 90.8 MCH 29.3 MCHC 32.3 RDW 16.9 H Plt Count 96 L MPV 8.5 Absolute Neuts (auto) 4.3 Neutrophils % 68.9 Lymphocytes % 16.3 Monocytes % 11.2 H Eosinophils % 2.6 D Basophils % 1.0 Nucleated RBC % 0 PT with INR 25.90 H INR 2.18 H Sodium 153 H Potassium 3.5 Chloride 122 H Carbon Dioxide 24 Anion Gap 7 L BUN 52 H Creatinine 1.7 H Est GFR (CKD-EPI)AfAm 40.82 Est GFR (CKD-EPI)NonAf 35.22 Random Glucose 112 H Calcium 8.3 L Phosphorus 2.8 Magnesium 2.3 Microbiology 02/14/19 07:20 Urine - Urine Clean Catch Urine Culture - Final ASSESSMENT AND PLAN: 88 yom with PMHx of Chronic systolic HF, Afib on coumadin, s/p PPM, bioprosthetic valve (?Aortic), CKD (baseline Cr 1.6), reported recent admission with Aspiration PNA requrinng intubation sent in with abnormal Labs, K 7.6 -SANDIE, suspect from aggressive diuresis/continuation of entresto/aldactone and associated poor oral intake due to dietary restrictions/modified consistency. -Hyperkalemia, likely from above -Nausea/heaving -Hypernatremia, suspect from poor free water intake -Chronic systolic Heart failure -Acute on ?chronic thrombocytopenia -Atrial fibrillation on coumadin/s/p PPM -Bioprosthetic valve, ?Aortic -CKD stage II (baseline cr around 1.6) -Reported recent Aspiration PNA requiring intubation Plan: PO intake continues to be poor, Na rising. GI/Speech/swallow and dietary input noted. Patient high risk for recurrent hospitalizations and ongoing malnutrition. ?PEG for nutritional supplementation. Family requests PCP input Discussed with Dr. Prakash, will follow up. Palliative care input to address goals of care. Trial with hypotonic fluids, monitor volume status closely. CT A/p Neg. Simethicone/Zofran prn. Lasix/entresto/aldactone on hold. Anemia stable, platelets improved. Family concerned about resuming coumadin. Cardiology input appreciated. Ok to resume coumadin. Will hold for now pending possible PEG/additional intervention decision made. PT waleska noted Dispo plan for SNF when medical issues improve. Plan discussed with patient and nursing in detail, all questions answered. Care co-ordinated with PCP.
[2019-02-21] MEDS: POLYETHYLENE GLYCOL 3350 119 GM BTL PO SCH (11:29)
--- NOTE | 2019-02-21 11:38 | PN ---
Progress Note, [employer]AM[employer]ER - Note Progress Note: Case reviewed with Dr. Roldan and Dr. Villegas, nursing, Renal, pt and daughter. Pt is considering PEG insertion. Educated pt/staff again regarding compensatory swallowing strategies, free water protocol. Careful monitoring for fever, congestion,WBC, signs of aspiration. If noted, d/c thin water. Counseled pt on risks and benefits of PEG insertion. Ideally PEG should be used for nocturnal feedings to increase nutrition, hydration, for meds. Continue PO intake with intensive swallowing tx with goal to possibly reduce/eliminate PEG feedings once pt is stronger, better nourished, after weight gain, following swallowing improvement on repeat MBS. Provide extra nectar cranberry juice at bedside for improved hydration.
[2019-02-21] MEDS: DEXTROSE 5%-WATER - 1,000 ML IV SCH (11:43)
--- NOTE | 2019-02-21 12:36 | PN ---
Progress Note, Physician History of Present Illness: Pt seen and examined at bedside. He is awake and alert. He has poor PO intake. - Current Medication List Current Medications: Active Medications Atorvastatin Calcium (Lipitor -) 10 mg PO HS [facility] Last Admin: 02/20/19 22:00 Dose: 10 mg Cholecalciferol (Vitamin D3 -) 2,000 unit PO DAILY [facility] Last Admin: 02/21/19 11:06 Dose: 2,000 unit Digoxin (Lanoxin -) 0.125 mg PO MoWeFr [facility] Last Admin: 02/20/19 12:15 Dose: 0.125 mg Ferrous Sulfate (Feosol -) 325 mg PO DAILY [facility] Last Admin: 02/21/19 11:07 Dose: 325 mg Dextrose (D5w -) 1,000 mls @ 42 mls/hr IV ASDIR [facility] Last Admin: 02/21/19 11:43 Dose: 42 mls/hr Metoclopramide HCl (Reglan -) 10 mg PO TIDAC [facility] Last Admin: 02/21/19 11:07 Dose: 10 mg Metoprolol Succinate (Toprol Xl -) 50 mg PO DAILY [facility] Last Admin: 02/21/19 11:07 Dose: 50 mg Ondansetron HCl (Zofran Injection) 4 mg IVPUSH Q8H PRN PRN Reason: NAUSEA Polyethylene Glycol (Miralax (For Daily Use) -) 17 gm PO DAILY [facility] Last Admin: 02/21/19 11:29 Dose: Not Given Warfarin Sodium (Coumadin -) 2.5 mg PO DAILY@1800 [facility] Last Admin: 02/20/19 17:18 Dose: 2.5 mg - Objective Vital Signs: Vital Signs Temperature 98.3 F 02/21/19 06:00 Pulse Rate 80 02/21/19 06:00 Respiratory Rate 18 02/21/19 06:00 Blood Pressure 124/65 02/21/19 06:00 O2 Sat by Pulse Oximetry (%) 98 02/20/19 20:26 Constitutional: Yes: Calm Eyes: Yes: Conjunctiva Clear HENT: Yes: Atraumatic Cardiovascular: Yes: S1, S2 Respiratory: Yes: CTA Bilaterally Gastrointestinal: Yes: Soft Genitourinary: Yes: WNL Musculoskeletal: Yes: WNL Edema: No Integumentary: Yes: Venous Stasis Changes Neurological: Yes: Oriented Labs: CBC, BMP 02/21/19 06:00 05/14/19 06:00 INR, PTT INR 2.18 (0.83-1.09) H 02/21/19 06:00 Problem List - Problems (1) SANDIE (acute kidney injury) Code(s): N17.9 - ACUTE KIDNEY FAILURE, UNSPECIFIED (2) Atrial fibrillation Code(s): I48.91 - UNSPECIFIED ATRIAL FIBRILLATION Qualifiers: Atrial fibrillation type: chronic Qualified Code(s): I48.2 - Chronic atrial fibrillation (3) Hyperkalemia Code(s): E87.5 - HYPERKALEMIA Assessment/Plan Current Medications Generic Name Dose Route Start Last Admin Trade Name Freq PRN Reason Stop Dose Admin Atorvastatin Calcium 10 mg 02/14/19 22:00 02/20/19 22:00 Lipitor - PO 10 mg HS DARSHAN Administration Cholecalciferol 2,000 unit 02/14/19 10:00 02/21/19 11:06 Vitamin D3 - PO 2,000 unit DAILY DARSHAN Administration Digoxin 0.125 mg 02/15/19 10:00 02/20/19 12:15 Lanoxin - PO 0.125 mg MoWeFr DARSHAN Administration Ferrous Sulfate 325 mg 02/14/19 10:00 02/21/19 11:07 Feosol - PO 325 mg DAILY DARSHAN Administration Dextrose 1,000 mls @ 42 mls/hr 02/20/19 10:30 02/21/19 11:43 D5w - IV 42 mls/hr ASDIR DARSHAN Administration Metoclopramide HCl 10 mg 02/17/19 11:00 02/21/19 11:07 Reglan - PO 10 mg TIDAC DARSHAN Administration Metoprolol Succinate 50 mg 02/14/19 10:41 02/21/19 11:07 Toprol Xl - PO 50 mg DAILY DARSHAN Administration Ondansetron HCl 4 mg 02/19/19 07:33 Zofran Injection IVPUSH Q8H PRN NAUSEA Polyethylene Glycol 17 gm 02/17/19 15:30 02/21/19 11:29 Miralax (For Daily Use) - PO Not Given DAILY DARSHAN Warfarin Sodium 2.5 mg 02/20/19 18:00 02/20/19 17:18 Coumadin - PO 2.5 mg DAILY@1800 DARSHAN Administration Impression 1. SANDIE 2. hyperkalemia 3. CHF 4. anemia 5. a-fib 6. hypernatremia Plan - will increase rate of d5w - pt with poor intake - family considering feeding tube - keep diuretics on hold - entresto has been on hold as well - potassium stable Dr Curran
--- NOTE | 2019-02-21 13:44 | PN ---
Physical Exam: SUBJECTIVE: Patient seen and examined at bedside. Would like to leave hospital and go to rehab. Is considering having PEG tube for decreased PO intake. OBJECTIVE: Vital Signs Temperature 98.3 F 02/21/19 06:00 Pulse Rate 80 02/21/19 06:00 Respiratory Rate 18 02/21/19 06:00 Blood Pressure 124/65 02/21/19 06:00 O2 Sat by Pulse Oximetry (%) 98 02/20/19 20:26 GENERAL: The patient is awake, alert, and fully oriented, in no acute distress. Frail, thin. EYES: extraocular movements intact, sclera anicteric, conjunctiva clear. LUNGS: Breath sounds equal, clear to auscultation bilaterally HEART: Regular rate and rhythm, S1, S2 ABDOMEN: Soft, nontender, nondistended, normoactive bowel sounds. EXTREMITIES: warm, well-perfused, no edema. NEUROLOGICAL: Cranial nerves II through XII grossly intact. Normal speech, gait not observed. PSYCH: Normal mood, normal affect. SKIN: Warm, dry Laboratory Results - last 24 hr 02/21/19 02/21/19 02/21/19 06:00 06:00 06:00 WBC 6.2 RBC 3.21 L Hgb 9.4 L Hct 29.2 L MCV 90.8 MCH 29.3 MCHC 32.3 RDW 16.9 H Plt Count 96 L MPV 8.5 Absolute Neuts (auto) 4.3 Neutrophils % 68.9 Lymphocytes % 16.3 Monocytes % 11.2 H Eosinophils % 2.6 D Basophils % 1.0 Nucleated RBC % 0 PT with INR 25.90 H INR 2.18 H Sodium 153 H Potassium 3.5 Chloride 122 H Carbon Dioxide 24 Anion Gap 7 L BUN 52 H Creatinine 1.7 H Est GFR (CKD-EPI)AfAm 40.82 Est GFR (CKD-EPI)NonAf 35.22 Random Glucose 112 H Calcium 8.3 L Phosphorus 2.8 Magnesium 2.3 Active Medications Generic Name Dose Route Start Last Admin Trade Name Freq PRN Reason Stop Dose Admin Atorvastatin Calcium 10 mg 02/14/19 22:00 02/20/19 22:00 Lipitor - PO 10 mg HS DARSHAN Administration Cholecalciferol 2,000 unit 02/14/19 10:00 02/21/19 11:06 Vitamin D3 - PO 2,000 unit DAILY DARSHAN Administration Digoxin 0.125 mg 02/15/19 10:00 02/20/19 12:15 Lanoxin - PO 0.125 mg MoWeFr DARSHAN Administration Ferrous Sulfate 325 mg 02/14/19 10:00 02/21/19 11:07 Feosol - PO 325 mg DAILY DARSHAN Administration Dextrose 1,000 mls @ 65 mls/hr 02/21/19 12:36 D5w - IV ASDIR DARSHAN Metoclopramide HCl 10 mg 02/17/19 11:00 02/21/19 11:07 Reglan - PO 10 mg TIDAC DARSHAN Administration Metoprolol Succinate 50 mg 02/14/19 10:41 02/21/19 11:07 Toprol Xl - PO 50 mg DAILY DARSHAN Administration Ondansetron HCl 4 mg 02/19/19 07:33 Zofran Injection IVPUSH Q8H PRN NAUSEA Polyethylene Glycol 17 gm 02/17/19 15:30 02/21/19 11:29 Miralax (For Daily Use) - PO Not Given DAILY DARSHAN Warfarin Sodium 2.5 mg 02/20/19 18:00 02/20/19 17:18 Coumadin - PO 2.5 mg DAILY@1800 DARSHAN Administration ASSESSMENT/PLAN: 88 y/o M w/PMH of CHF, AFib on coumadin, s/p pacemaker placement, s/p cardiac valve replacement and recently discharged from [facility] with complicated hospital course and recently came home from SNF s/p hospitalization at [facility] presented to ER for abnormal labs from PCPs office. He was found to have elevated BUN/Cr and K+. -Abdominal pain and nausea -Pt is considering PEG. Family would like to PMD and discuss. -continue PO trial -CT abd/pelvis with no acute pathology in abdomen. -GI following -SANDIE on CKD -near baseline of 1.5 at 1.7 currently -D5W @ 65ml/hr. Monitor fluid status. -Torsemide held -Nephrology on board -CHF -does not appear to be in acute exacerbation -c/w digoxin, toprol xl -torsemide held with kidney failure -Afib -toprol xl -coumadin restarted at 2.5mg po -monitor INR -Thrombocytopenia -has a history of chronic thrombocytopenia -FEN -D5W @ 65 ml/hr -Hypernatremia - D5W @ 65 ml/hr. Increase free water intake. Free water protocol. Monitor lytes. -Dysphagia puree w/nectar thickened liquids w/Free water protocol -Dispo: Monitor on tele Visit type - Emergency Visit Emergency Visit: Yes ED Registration Date: 02/14/19 Care time: The patient presented to the Emergency Department on the above date and was hospitalized for further evaluation of their emergent condition. - New Patient This patient is new to me today: No - Critical Care Critical Care patient: No
--- NOTE | 2019-02-21 14:23 | PN ---
Progress Note (short form) - Note Progress Note: Hospitalist will document today The patient was made aware that his body electrolytes are not improving in spite of IV fluids and that he is losing weight. He tells me he just does not like to drink the thickened liquid and has no desire to try the pured food. I told him that we have several choices. One is to go home and just be kept on comfort care or hospice. The other choice is to see if the SNF would accept you in your current condition which I am believe is not likely unless it was on comfort care. The other choice is to have a feeding tube placed. This would require a surgical procedure and there are many risks many of which I named for him and his daughter Abena. I included infection, bleeding, surgical complication, aspiration and dislodgment. In addition if he is in the anorexia-cachexia syndrome the feeding tube may not maintain his weight or well being. He could also have a cardiac event or neurological compromise as a result. In spite of all the above the patient kept repeating that he wants the feeding tube. GI informed.
--- NOTE | 2019-02-21 17:16 | PN ---
Progress Note (short form) - Note Progress Note: Had discussion with Dr. Roldan today regarding possible feeding tube as a means of bolstering Mr. Melchor's nutritional status. He is malnourished and becoming hypernatremic. Hehas been evaluated by S/S therapist Kristen Santillan who did discuss things with Mr. Melchor and his family. I had a long discussion with Mr. Melchor and his family who were present at [facility]. I discussed PEG as an option to both exclude upper GI pathology contributing to his food aversion and for placement of gastrostomy. We discussed potential risks of the procedure like but not limited to bleeding, perforation requiring surgery to repair, infection, sedation medication effects, perotinitis if the tube is prematurely dislodged, all of which could be potentially life threatening. We discussed longer term complication of PEG tube such as site infections, malfunctioing of the G-Tube requiring need for replacement, aspiration risk. I also explained that G-Tube feeding will not change his aversion to eating. We discussed alternatives such as radiographically placed G-Tube. Mr. Melchor expressed wish to proceed. he also expressed wishes to suspend DNR/DNI status during the procedure. Advise: Cardiac clearance for proposed procedure. If high risk for sedation, radiographically placed G-tube may be the better option for him as opposed to PEG. This approach would also require NGT. Consider NGT placement for enteral nutrition and hydration in the interim Hold A/C for proposed procedures and bridging A/C as deemed necessary by cardiology / PMD Problem List - Problems (1) Nausea Code(s): R11.0 - NAUSEA
[2019-02-21] MEDS: ATORVASTATIN CA 10 MG TABLET (FP) PO SCH (21:44)
[2019-02-22 06:33] LABS: HEMATOCRIT 28.6 % (35.4-49); HEMOGLOBIN 9.2 GM/dL (11.7-16.9); MCH 29.5 pg (25.7-33.7); MCHC 32.2 g/dl (32.0-35.9); MEAN CELL VOLUME 91.5 fl (80-96); MEAN PLT VOLUME 9.3 fl (7.5-11.1); PLATELET COUNT 81 K/MM3 (134-434); RBC 3.12 M/mm3 (4.00-5.60); RDW 17.5 % (11.9-15.9); WHITE BLOOD COUNT 7.7 K/mm3 (4.0-10.0)
[2019-02-22] MEDS: METOCLOPRAMIDE HCL 10 MG TABLET (FP) PO SCH ×3 (06:34→17:32)
[2019-02-22 06:56] LABS: INR 2.57 (0.83-1.09); PROTHROMBIN TIME (PATIENT) 30.6 SEC (9.7-13.0)
[2019-02-22 07:06] LABS: ALBUMIN 2.6 g/dl (3.4-5.0); BILIRUBIN,TOTAL 0.5 mg/dL (0.2-1); CALCIUM 8.2 mg/dL (8.5-10.1); CREATININE 1.6 mg/dL (0.55-1.3); MAGNESIUM 2.4 mg/dL (1.8-2.4); PHOSPHOROUS 2.5 mg/dL (2.5-4.9); POTASSIUM 3.5 mmol/L (3.5-5.1); TOT PROT 5.8 g/dl (6.4-8.2)
--- NOTE | 2019-02-22 08:32 | PN ---
Progress Note (short form) - Note Progress Note: Hospitalist to document today. Patient still agreeable to have feeding tube placed in order to enable SNF rehab and gain weight and hydration. Dr. Ambreen Blakely note appreciated. If Cardiology deems him a high risk then IR placement of G tube was advised but he would need NG tube prior. INR 2.47; To D/C Coumadin and with INR 2.47 he may require Vit K dose of 2.5 mg or 5mg to ensure his levels are acceptable.
--- NOTE | 2019-02-22 09:13 | PN.GI ---
GI Progress Note Subjective: Pt seen/examined at bedside, sitting in chair, continues to report poor appetite , denies abdominal pain, n/v. Pt wanting to proceed with PEG. - Objective Vital Signs: Vital Signs Temperature 98.3 F 02/22/19 06:00 Pulse Rate 79 02/22/19 06:00 Respiratory Rate 18 02/22/19 06:00 Blood Pressure 122/68 02/22/19 06:00 O2 Sat by Pulse Oximetry (%) 97 02/21/19 20:19 Constitutional: No Distress, Calm Cardiovascular: Yes: WNL, Regular Rate and Rhythm Respiratory: Yes: WNL, CTA Bilaterally ...Palpate: Yes: Other (Abd soft, nt, nd) Labs: CBC, BMP 02/22/19 06:00 02/22/19 06:00 INR, PTT INR 2.57 (0.83-1.09) H 02/22/19 06:00 Problem List - Problems (1) Poor appetite Assessment/Plan: 88yo male h/o CHF, A fib, AVR on coumadin with poor po intake agreeable to proceed with PEG for nutritional support. Hypernatremia improving. Currently on pureed diet with minimal intake. -As noted yesterday, can tentatively plan for EGD/PEG on Wednesday pending correction in coagulopathy and cardiac clearance -If deemed high risk, IR consult for gastrostomy can be pursued -Continue to hold coumadin and monitor INR. Can bridge with heparin gtt if deemed necessary per primary team and cardiology (would need to be held 6 hours pre procedure once timing confirmed) -Continue pureed diet for now as deemed appropriate per DISABILITY COUNSELOR - NG feeds can be considered in the interim Code(s): R63.0 - ANOREXIA
[2019-02-22] MEDS: DEXTROSE 5%-WATER - 1,000 ML IV SCH ×2 (10:12→12:16)
[2019-02-22] MEDS: CHOLECALCIFEROL (VITAMIN D3) 1,000 UNIT TABLET (FP) PO SCH (10:13)
[2019-02-22] MEDS: FERROUS SO4 325 MG TABLET (FP) PO SCH (10:13)
[2019-02-22] MEDS: POLYETHYLENE GLYCOL 3350 119 GM BTL PO SCH (10:13)
[2019-02-22] MEDS: DIGOXIN 0.125 MG TABLET (FP) PO SCH (10:14)
--- NOTE | 2019-02-22 11:28 | PN ---
Progress Note, Physician History of Present Illness: Pt seen and examined at bedside. He is awake and alert. He denies shortness of breath. - Current Medication List Current Medications: Active Medications Atorvastatin Calcium (Lipitor -) 10 mg PO HS [facility] Last Admin: 02/21/19 21:44 Dose: 10 mg Cholecalciferol (Vitamin D3 -) 2,000 unit PO DAILY [facility] Last Admin: 02/22/19 10:13 Dose: 2,000 unit Digoxin (Lanoxin -) 0.125 mg PO MoWeFr [facility] Last Admin: 02/22/19 10:14 Dose: 0.125 mg Ferrous Sulfate (Feosol -) 325 mg PO DAILY [facility] Last Admin: 02/22/19 10:13 Dose: 325 mg Dextrose (D5w -) 1,000 mls @ 65 mls/hr IV ASDIR [facility] Last Admin: 02/22/19 10:12 Dose: 65 mls/hr Metoclopramide HCl (Reglan -) 10 mg PO TIDAC [facility] Last Admin: 02/22/19 06:34 Dose: 10 mg Metoprolol Succinate (Toprol Xl -) 50 mg PO DAILY [facility] Last Admin: 02/21/19 11:07 Dose: 50 mg Ondansetron HCl (Zofran Injection) 4 mg IVPUSH Q8H PRN PRN Reason: NAUSEA Polyethylene Glycol (Miralax (For Daily Use) -) 17 gm PO DAILY [facility] Last Admin: 02/22/19 10:13 Dose: Not Given - Objective Vital Signs: Vital Signs Temperature 97.9 F 02/22/19 10:00 Pulse Rate 82 02/22/19 10:14 Respiratory Rate 18 02/22/19 10:00 Blood Pressure 121/52 L 02/22/19 10:00 O2 Sat by Pulse Oximetry (%) 97 02/21/19 20:19 Constitutional: Yes: Calm Eyes: Yes: Conjunctiva Clear HENT: Yes: Atraumatic Cardiovascular: Yes: S1, S2 Respiratory: Yes: CTA Bilaterally Gastrointestinal: Yes: Soft Genitourinary: Yes: WNL Musculoskeletal: Yes: WNL Edema: No Integumentary: Yes: Venous Stasis Changes Neurological: Yes: Oriented Psychiatric: Yes: Oriented Labs: CBC, BMP 02/22/19 06:00 02/22/19 06:00 INR, PTT INR 2.57 (0.83-1.09) H 02/22/19 06:00 Problem List - Problems (1) SANDIE (acute kidney injury) Code(s): N17.9 - ACUTE KIDNEY FAILURE, UNSPECIFIED (2) Atrial fibrillation Code(s): I48.91 - UNSPECIFIED ATRIAL FIBRILLATION Qualifiers: Atrial fibrillation type: chronic Qualified Code(s): I48.2 - Chronic atrial fibrillation (3) Hyperkalemia Code(s): E87.5 - HYPERKALEMIA Assessment/Plan Current Medications Generic Name Dose Route Start Last Admin Trade Name Freq PRN Reason Stop Dose Admin Atorvastatin Calcium 10 mg 02/14/19 22:00 02/21/19 21:44 Lipitor - PO 10 mg HS DARSHAN Administration Cholecalciferol 2,000 unit 02/14/19 10:00 02/22/19 10:13 Vitamin D3 - PO 2,000 unit DAILY DARSHAN Administration Digoxin 0.125 mg 02/15/19 10:00 02/22/19 10:14 Lanoxin - PO 0.125 mg MoWeFr DARSHAN Administration Ferrous Sulfate 325 mg 02/14/19 10:00 02/22/19 10:13 Feosol - PO 325 mg DAILY DARSHAN Administration Dextrose 1,000 mls @ 65 mls/hr 02/21/19 12:36 02/22/19 10:12 D5w - IV 65 mls/hr ASDIR DARSHAN Administration Metoclopramide HCl 10 mg 02/17/19 11:00 02/22/19 06:34 Reglan - PO 10 mg TIDAC DARSHAN Administration Metoprolol Succinate 50 mg 02/14/19 10:41 02/21/19 11:07 Toprol Xl - PO 50 mg DAILY DARSHAN Administration Ondansetron HCl 4 mg 02/19/19 07:33 Zofran Injection IVPUSH Q8H PRN NAUSEA Polyethylene Glycol 17 gm 02/17/19 15:30 02/22/19 10:13 Miralax (For Daily Use) - PO Not Given DAILY DARSHAN Impression 1. SANDIE 2. hyperkalemia 3. CHF 4. anemia 5. a-fib 6. hypernatremia Plan - cont with d5w - po intake remains poor - diuretics on hold - monitor jemma Curran
--- NOTE | 2019-02-22 11:42 | PN ---
Progress Note (short form) - Note Progress Note: s: no chest pain, palps, dizziness, dypsnea. planned G tube placement Current Medications Atorvastatin Calcium (Lipitor -) 10 mg PO HS [facility] Last Admin: 02/21/19 21:44 Dose: 10 mg Cholecalciferol (Vitamin D3 -) 2,000 unit PO DAILY [facility] Last Admin: 02/22/19 10:13 Dose: 2,000 unit Digoxin (Lanoxin -) 0.125 mg PO MoWeFr [facility] Last Admin: 02/22/19 10:14 Dose: 0.125 mg Ferrous Sulfate (Feosol -) 325 mg PO DAILY [facility] Last Admin: 02/22/19 10:13 Dose: 325 mg Dextrose (D5w -) 1,000 mls @ 65 mls/hr IV ASDIR [facility] Last Admin: 02/22/19 10:12 Dose: 65 mls/hr Metoclopramide HCl (Reglan -) 10 mg PO TIDAC [facility] Last Admin: 02/22/19 06:34 Dose: 10 mg Metoprolol Succinate (Toprol Xl -) 50 mg PO DAILY [facility] Last Admin: 02/21/19 11:07 Dose: 50 mg Ondansetron HCl (Zofran Injection) 4 mg IVPUSH Q8H PRN PRN Reason: NAUSEA Polyethylene Glycol (Miralax (For Daily Use) -) 17 gm PO DAILY [facility] Last Admin: 02/22/19 10:13 Dose: Not Given Vital Signs Period Temp Pulse Resp BP Sys/Real Pulse Ox Last 24 Hr 97.8 F-98.7 F 70-82 18-20 115-122/49-68 97 Constitutional: Yes: No Distress Eyes: Yes: Conjunctiva Clear Cardiovascular: Yes: Pulse Irregular Respiratory: Yes: CTA Bilaterally (no wheezing or rales.) Gastrointestinal: Yes: Soft Edema: No Neurological: Yes: Alert ...Motor Strength: WNL EKG: Image Reviewed Assessment/Plan 1. SANDIE, hyperkalemia, hypernatremia - received D50, calcium gluconate, insulin, lasix - hyperkalemia resolved - manage per nephrology - holding torsemide, entresto, spironolactone - cr improving 2. Chronic systolic HF: - holding entresto, torsemide, spironolactone as above. Likely stop Aldactone permanently. - appears euvolemic, holding diuresis for now but will likely need to resume stable PO dose prior to discharge - continue metoprolol - change to metoprolol tartrate 25 mg BID, can be crushed. 3. Afib - continue digoxin, toprol - holding warfarin for planned PEG tube placement 3.CAD s/p CABG: - continue statin, metoprolol 4. s/p PPM: - stable on EKG, outpatient monitoring 5. h/o bioprosthetic MVR: - outpatient follow up 6. HLD: - cont statin 7. CVA: - L hemiparesis - cont statin 8. Preoperative evaluation - patient is asymptomatic, euvolemic - he is at acceptable risk for PEG tube placement under sedation with GI, no further testing prior to procedure - holding coumadin, does not need bridging anticoagulation. restart AC when able after PEG tube placement
--- NOTE | 2019-02-22 12:05 | PN ---
Progress Note, CULINARY ARTS TEACHER - Note Progress Note: Pt pending GT insertion via IR. Pt c/o headache. He does not want to eat or drink. He is comfortable, verbal. Selected Entries 02/22/19 02/22/19 02/22/19 02:00 06:00 10:00 Breakfast Diet Tolerated Fair Temperature 98.7 F 98.3 F 97.9 F 02/22/19 11:40 Breakfast 25% Diet Tolerated Fair Temperature Laboratory Tests 02/22/19 06:00 WBC 7.7 Pt counseled on need to continue eating by mouth to maintain swallowing function. Intensive swallowing tx at [facility]. Swallowing exercises performed this morning.
[2019-02-22] MEDS: METOPROLOL TARTRATE 25 MG TABLET (FP) PO SCH ×2 (12:16→22:24)
--- NOTE | 2019-02-22 16:33 | PN ---
Teaching Attending Note Name of Resident: Brandon Dumont ATTENDING PHYSICIAN STATEMENT I saw and evaluated the patient. I reviewed the resident's note and discussed the case with the resident. I agree with the resident's findings and plan as documented. SUBJECTIVE: Mr Melchor complains of a headache but otherwise is without complaint. Denies cp, sob, n/v. OBJECTIVE: Last Vital Signs Temp Pulse Resp BP Pulse Ox 36.8 C 69 18 119/46 L 97 02/22/19 14:00 02/22/19 14:00 02/22/19 14:00 02/22/19 14:00 02/22/19 10:00 Gen: nad Pulm: ctab w/o w/r/r CV: irreg irreg w/o m/r/g Abd: +bs, s/nt/nd Ext: no c/c/e CBC, BMP 02/22/19 06:00 02/22/19 06:00 ASSESSMENT AND PLAN: 1) Hypernatremia Assessment/Plan: -improving -appreciate nephrology assistance -continue D5W -will need PEG tube placement Code(s): (2) SANDIE (acute kidney injury) Assessment/Plan: -much improved -monitor Code(s): N17.9 - ACUTE KIDNEY FAILURE, UNSPECIFIED (3) Toxic metabolic encephalopathy Assessment/Plan: -resolved Code(s): G92 - TOXIC ENCEPHALOPATHY (4) Valvular heart disease Assessment/Plan: -severe -d/w cardiology -currently does not need diuretics Code(s): I38 - ENDOCARDITIS, VALVE UNSPECIFIED (5) Atrial fibrillation Assessment/Plan: -holding coumadin for PEG placement -continue toprol xl with hold parameters Code(s): I48.91 - UNSPECIFIED ATRIAL FIBRILLATION Qualifiers: Atrial fibrillation type: chronic Qualified Code(s): I48.2 - Chronic atrial fibrillation (6) Neuropathy Assessment/Plan: -continue gabapentin Code(s): G62.9 - POLYNEUROPATHY, UNSPECIFIED (7) Dysphagia -appreciate speech therapy assistance -PEG tube placement -will need aggressive speech therapy at [facility] -cleared by cardiology for PEG tube Problem List - Problems (1) Hyperkalemia Code(s): E87.5 - HYPERKALEMIA (2) SANDIE (acute kidney injury) Code(s): N17.9 - ACUTE KIDNEY FAILURE, UNSPECIFIED (3) Toxic metabolic encephalopathy Code(s): G92 - TOXIC ENCEPHALOPATHY (4) Valvular heart disease Code(s): I38 - ENDOCARDITIS, VALVE UNSPECIFIED (5) Atrial fibrillation Code(s): I48.91 - UNSPECIFIED ATRIAL FIBRILLATION Qualifiers: Atrial fibrillation type: chronic Qualified Code(s): I48.2 - Chronic atrial fibrillation (6) Neuropathy Code(s): G62.9 - POLYNEUROPATHY, UNSPECIFIED (7) Dysphagia Code(s): R13.10 - DYSPHAGIA, UNSPECIFIED (8) Hypernatremia Code(s): E87.0 - HYPEROSMOLALITY AND HYPERNATREMIA
--- NOTE | 2019-02-22 17:21 | PN ---
Physical Exam: SUBJECTIVE: Patient seen and examined at bedside today. Sitting in chair today. Says he still cannot tolerate PO. OBJECTIVE: Vital Signs Temperature 98.3 F 02/22/19 14:00 Pulse Rate 69 02/22/19 14:00 Respiratory Rate 18 02/22/19 14:00 Blood Pressure 119/46 L 02/22/19 14:00 O2 Sat by Pulse Oximetry (%) 97 02/22/19 10:00 GENERAL: The patient is awake, alert, and fully oriented, in no acute distress. Frail, thin. EYES: extraocular movements intact, sclera anicteric, conjunctiva clear. LUNGS: Breath sounds equal, clear to auscultation bilaterally HEART: Regular rate and rhythm, S1, S2 ABDOMEN: Soft, nontender, nondistended, normoactive bowel sounds. EXTREMITIES: warm, well-perfused, no edema. NEUROLOGICAL: Cranial nerves II through XII grossly intact. Normal speech, gait not observed. PSYCH: Normal mood, normal affect. SKIN: Warm, dry Laboratory Results - last 24 hr 02/22/19 02/22/19 02/22/19 06:00 06:00 06:00 WBC 7.7 RBC 3.12 L Hgb 9.2 L Hct 28.6 L MCV 91.5 MCH 29.5 MCHC 32.2 RDW 17.5 H Plt Count 81 L MPV 9.3 PT with INR 30.60 H INR 2.57 H Sodium 147 H Potassium 3.5 Chloride 120 H Carbon Dioxide 22 Anion Gap 6 L BUN 47 H Creatinine 1.6 H Est GFR (CKD-EPI)AfAm 43.93 Est GFR (CKD-EPI)NonAf 37.90 Random Glucose 94 Calcium 8.2 L Phosphorus 2.5 Magnesium 2.4 Total Bilirubin 0.5 AST 20 ALT 17 Alkaline Phosphatase 103 Total Protein 5.8 L Albumin 2.6 L Active Medications Generic Name Dose Route Start Last Admin Trade Name Freq PRN Reason Stop Dose Admin Atorvastatin Calcium 10 mg 02/14/19 22:00 02/21/19 21:44 Lipitor - PO 10 mg HS DARSHAN Administration Cholecalciferol 2,000 unit 02/14/19 10:00 02/22/19 10:13 Vitamin D3 - PO 2,000 unit DAILY DARSHAN Administration Digoxin 0.125 mg 02/15/19 10:00 02/22/19 10:14 Lanoxin - PO 0.125 mg MoWeFr DARSHAN Administration Ferrous Sulfate 325 mg 02/14/19 10:00 02/22/19 10:13 Feosol - PO 325 mg DAILY DARSHAN Administration Dextrose 1,000 mls @ 65 mls/hr 02/21/19 12:36 02/22/19 12:16 D5w - IV 65 mls/hr ASDIR DARSHAN Administration Metoclopramide HCl 10 mg 02/17/19 11:00 02/22/19 12:16 Reglan - PO 10 mg TIDAC DARSHAN Administration Metoprolol Tartrate 25 mg 02/22/19 11:45 02/22/19 12:16 Lopressor - PO 25 mg BID DARSHAN Administration Ondansetron HCl 4 mg 02/19/19 07:33 Zofran Injection IVPUSH Q8H PRN NAUSEA Polyethylene Glycol 17 gm 02/17/19 15:30 02/22/19 10:13 Miralax (For Daily Use) - PO Not Given DAILY DARSHAN ASSESSMENT/PLAN: 88 y/o M w/PMH of CHF, AFib on coumadin, s/p pacemaker placement, s/p cardiac valve replacement and recently discharged from [facility] with complicated hospital course and recently came home from SNF s/p hospitalization at [facility] presented to ER for abnormal labs from PCPs office. He was found to have elevated BUN/Cr and K+. -Decreased ability to tolerate PO -Pt is agreeable to PEG. Scheduled for Wednesday. -Off coumadin, will start heparin drip once he is subtherapeutic with INR -continue PO trial -CT abd/pelvis with no acute pathology in abdomen. -GI following -SANDIE on CKD -at baseline, Cr currently 1.6 -D5W @ 65ml/hr. Monitor fluid status. -Torsemide held -Nephrology on board -CHF -does not appear to be in acute exacerbation -c/w digoxin, toprol xl -torsemide held with kidney failure -Afib -toprol xl -hold coumadin; start on heparin drip once INR is subtherapeutic -monitor INR -Thrombocytopenia -has a history of chronic thrombocytopenia -FEN -D5W @ 65 ml/hr -Hypernatremia - D5W @ 65 ml/hr. Increase free water intake. Free water protocol. Monitor lytes. -Dysphagia puree w/nectar thickened liquids w/Free water protocol -Dispo: Monitor on tele Visit type - Emergency Visit Emergency Visit: Yes ED Registration Date: 02/14/19 Care time: The patient presented to the Emergency Department on the above date and was hospitalized for further evaluation of their emergent condition. - New Patient This patient is new to me today: No - Critical Care Critical Care patient: No
[2019-02-22] MEDS: ATORVASTATIN CA 10 MG TABLET (FP) PO SCH (22:24)
[2019-02-23] MEDS: METOCLOPRAMIDE HCL 10 MG TABLET (FP) PO SCH ×3 (06:35→16:55)
[2019-02-23 06:48] LABS: INR 2.47 (0.83-1.09); PROTHROMBIN TIME (PATIENT) 29.4 SEC (9.7-13.0)
[2019-02-23 06:58] LABS: HEMATOCRIT 25.1 % (35.4-49); HEMOGLOBIN 8.1 GM/dL (11.7-16.9); MCH 29.5 pg (25.7-33.7); MCHC 32.4 g/dl (32.0-35.9); MEAN CELL VOLUME 91.2 fl (80-96); MEAN PLT VOLUME 9.3 fl (7.5-11.1); PLATELET COUNT 66 K/MM3 (134-434); RBC 2.75 M/mm3 (4.00-5.60); RDW 17.5 % (11.9-15.9); WHITE BLOOD COUNT 5.8 K/mm3 (4.0-10.0)
[2019-02-23 06:59] LABS: ALBUMIN 2.3 g/dl (3.4-5.0); CALCIUM 7.8 mg/dL (8.5-10.1); CREATININE 1.3 mg/dL (0.55-1.3); MAGNESIUM 2.2 mg/dL (1.8-2.4); PHOSPHOROUS 2.3 mg/dL (2.5-4.9); POTASSIUM 3.3 mmol/L (3.5-5.1)
--- NOTE | 2019-02-23 08:40 | PN ---
Progress Note (short form) - Note Progress Note: Hospitalist to document today. Plan for PEG Wednesday. Will need Vit K as INR still 2.47: 2.5 mg ordered PO. K 3.3 Hb lower at 8.1 GM. due to markedly improved renal function due to IV fluids.
[2019-02-23] MEDS ORDERED: PHYTONADIONE 5 MG TABLET PO ONE (09:00)
[2019-02-23] MEDS ORDERED: POTASSIUM CHLORIDE TABS 20 MEQ TABLET.ER (FP) PO ONE (09:15)
[2019-02-23] MEDS ORDERED: PT OWN MED DRAWER 7, Y5N ONE (09:24)
[2019-02-23] MEDS: METOPROLOL TARTRATE 25 MG TABLET (FP) PO SCH ×2 (09:47→22:21)
[2019-02-23] MEDS: FERROUS SO4 325 MG TABLET (FP) PO SCH (09:47)
[2019-02-23] MEDS: CHOLECALCIFEROL (VITAMIN D3) 1,000 UNIT TABLET (FP) PO SCH (09:47)
[2019-02-23] MEDS: POLYETHYLENE GLYCOL 3350 119 GM BTL PO SCH (09:53)
[2019-02-23] MEDS: DEXTROSE 5%-WATER - 1,000 ML IV SCH ×2 (10:02→13:16)
--- NOTE | 2019-02-23 10:58 | PN ---
Progress Note, CHEMICAL RADIATION TECHNICIAN - Note Progress Note: Pt had yogurt this am. Presently, he does not want to eat or drink with me. c/ o bitter taste from PO meds, crushed and given in applesauce. He is OOB,comfortable, verbal. Selected Entries 02/22/19 02/22/19 02/22/19 02:00 06:00 10:00 Breakfast Diet Tolerated Fair Temperature 98.7 F 98.3 F 97.9 F 02/22/19 11:40 Breakfast 25% Diet Tolerated Fair Temperature Laboratory Tests 02/22/19 06:00 WBC 7.7 Selected Entries 02/22/19 02/22/19 02/22/19 02:00 06:00 10:00 Breakfast Lunch Supper Temperature 98.7 F 98.3 F 97.9 F 02/22/19 02/22/19 02/22/19 11:40 14:00 18:00 Breakfast 25% Lunch 25% Supper 25% Temperature 98.3 F 97.8 F 02/22/19 02/23/19 02/23/19 22:00 06:00 08:30 Breakfast 25% Lunch Supper Temperature 98.3 F 98.0 F Laboratory Tests 02/23/19 06:00 WBC 5.8 Pt counseled on need to continue eating by mouth to maintain swallowing function. Intensive swallowing tx at [facility]. Educated pt and his daughter re: mouth care, various resistance and BOT/ laryngeal exercises. Pt pending GT insertion via IR.
[2019-02-23] MEDS: POTASSIUM CHLORIDE ORAL LIQUID 20 MEQ/15 ML PO ONE ×2 (11:16→11:21)
--- NOTE | 2019-02-23 11:33 | PN ---
Progress Note (short form) - Note Progress Note: s: no chest pain, palps, dizziness. Current Medications Generic Name Dose Route Start Last Admin Trade Name Freq PRN Reason Stop Dose Admin Atorvastatin Calcium 10 mg 02/14/19 22:00 02/22/19 22:24 Lipitor - PO 10 mg HS DARSHAN Administration Cholecalciferol 2,000 unit 02/14/19 10:00 02/23/19 09:47 Vitamin D3 - PO 2,000 unit DAILY DARSHAN Administration Digoxin 0.125 mg 02/15/19 10:00 02/22/19 10:14 Lanoxin - PO 0.125 mg MoWeFr DARSHAN Administration Ferrous Sulfate 325 mg 02/14/19 10:00 02/23/19 09:47 Feosol - PO 325 mg DAILY DARSHAN Administration Dextrose 1,000 mls @ 65 mls/hr 02/21/19 12:36 02/23/19 10:02 D5w - IV 65 mls/hr ASDIR DARSHAN Administration Metoclopramide HCl 10 mg 02/17/19 11:00 02/23/19 10:03 Reglan - PO 10 mg TIDAC DARSHAN Administration Metoprolol Tartrate 25 mg 02/22/19 11:45 02/23/19 09:47 Lopressor - PO 25 mg BID DARSHAN Administration Ondansetron HCl 4 mg 02/19/19 07:33 Zofran Injection IVPUSH Q8H PRN NAUSEA Polyethylene Glycol 17 gm 02/17/19 15:30 02/23/19 09:53 Miralax (For Daily Use) - PO Not Given DAILY DARSHAN Vital Signs Period Temp Pulse Resp BP Sys/Real Pulse Ox Last 24 Hr 97.8 F-98.3 F 69-86 16-18 119-136/46-79 96-97 Constitutional: Yes: No Distress, Calm Eyes: Yes: Conjunctiva Clear, Respiratory: Yes: Regular, CTA Bilaterally Gastrointestinal: Yes: Normal Bowel Sounds, Soft Cardiovascular: Yes: Regular Rate and Rhythm JVD: No Carotid Bruit: No PMI: Non-Displaced Heart Sounds: Yes: S1, S2 Extremities: No: Cold Edema: No Integumentary: No: Jaundice Neurological: Yes: Alert, Oriented Psychiatric: No: Agitated CBC, BMP 02/23/19 06:00 02/23/19 06:00 Assessment/Plan EKG: [facility] [employer] CXR: no acute process 1. SANDIE, hyperkalemia, hypernatremia - received D50, calcium gluconate, insulin, lasix - hyperkalemia resolved - manage per nephrology - holding torsemide, entresto, spironolactone - cr improving 2. Chronic systolic HF: - holding entresto, torsemide, spironolactone as above. Likely stop Aldactone permanently. - appears euvolemic, holding diuresis for now but will likely need to resume stable PO dose prior to discharge - continue metoprolol - changed to metoprolol tartrate 25 mg BID, can be crushed. 3. Afib - continue digoxin, toprol - holding warfarin for planned PEG tube placement 3.CAD s/p CABG: - continue statin, metoprolol 4. s/p PPM: - stable on EKG, outpatient monitoring 5. h/o bioprosthetic MVR: - outpatient follow up 6. HLD: - cont statin 7. CVA: - L hemiparesis - cont statin 8. Preoperative evaluation - patient is asymptomatic, euvolemic - he is at acceptable risk for PEG tube placement under sedation, no further testing prior to procedure - holding coumadin, does not need bridging anticoagulation. restart AC when able after PEG tube placement
--- NOTE | 2019-02-23 11:39 | PN ---
Physical Exam: SUBJECTIVE: Patient seen and examined at bedside. Still not eating much. No abd pain, fevers, chills. OBJECTIVE: Vital Signs Temperature 98.1 F 02/23/19 10:00 Pulse Rate 86 02/23/19 10:00 Respiratory Rate 16 02/23/19 10:00 Blood Pressure 136/79 02/23/19 10:00 O2 Sat by Pulse Oximetry (%) 96 02/23/19 09:00 GENERAL: The patient is awake, alert, and fully oriented, in no acute distress. Frail, thin. EYES: extraocular movements intact, sclera anicteric, conjunctiva clear. LUNGS: Breath sounds equal, clear to auscultation bilaterally HEART: Regular rate and rhythm, S1, S2 ABDOMEN: Soft, nontender, nondistended, normoactive bowel sounds. EXTREMITIES: warm, well-perfused, no edema. NEUROLOGICAL: Cranial nerves II through XII grossly intact. Normal speech, gait not observed. PSYCH: Normal mood, normal affect. SKIN: Warm, dry Laboratory Results - last 24 hr 02/23/19 02/23/19 02/23/19 06:00 06:00 06:00 WBC 5.8 RBC 2.75 L Hgb 8.1 L Hct 25.1 L MCV 91.2 MCH 29.5 MCHC 32.4 RDW 17.5 H Plt Count 66 L MPV 9.3 PT with INR 29.40 H INR 2.47 H Sodium 145 Potassium 3.3 L Chloride 118 H Carbon Dioxide 20 L Anion Gap 7 L BUN 39 H Creatinine 1.3 Est GFR (CKD-EPI)AfAm 56.46 Est GFR (CKD-EPI)NonAf 48.72 Random Glucose 96 Calcium 7.8 L Phosphorus 2.3 L Magnesium 2.2 Albumin 2.3 L Active Medications Generic Name Dose Route Start Last Admin Trade Name Freq PRN Reason Stop Dose Admin Atorvastatin Calcium 10 mg 02/14/19 22:00 02/22/19 22:24 Lipitor - PO 10 mg HS DARSHAN Administration Cholecalciferol 2,000 unit 02/14/19 10:00 02/23/19 09:47 Vitamin D3 - PO 2,000 unit DAILY DARSHAN Administration Digoxin 0.125 mg 02/15/19 10:00 02/22/19 10:14 Lanoxin - PO 0.125 mg MoWeFr DARSHAN Administration Ferrous Sulfate 325 mg 02/14/19 10:00 02/23/19 09:47 Feosol - PO 325 mg DAILY DARSHAN Administration Dextrose 1,000 mls @ 65 mls/hr 02/21/19 12:36 02/23/19 10:02 D5w - IV 65 mls/hr ASDIR DARSHAN Administration Metoclopramide HCl 10 mg 02/17/19 11:00 02/23/19 10:03 Reglan - PO 10 mg TIDAC DARSHAN Administration Metoprolol Tartrate 25 mg 02/22/19 11:45 02/23/19 09:47 Lopressor - PO 25 mg BID DARSHAN Administration Ondansetron HCl 4 mg 02/19/19 07:33 Zofran Injection IVPUSH Q8H PRN NAUSEA Polyethylene Glycol 17 gm 02/17/19 15:30 02/23/19 09:53 Miralax (For Daily Use) - PO Not Given DAILY DARSHAN ASSESSMENT/PLAN: 88 y/o M w/PMH of CHF, AFib on coumadin, s/p pacemaker placement, s/p cardiac valve replacement and recently discharged from [facility] with complicated hospital course and recently came home from SNF s/p hospitalization at [facility] presented to ER for abnormal labs from PCPs office. He was found to have elevated BUN/Cr and K+. -Decreased ability to tolerate PO -Pt is agreeable to PEG. Scheduled for Wednesday. -Off coumadin, will start heparin drip once he is subtherapeutic with INR -Vit K PO 2.5mg once given. -continue PO trial -CT abd/pelvis with no acute pathology in abdomen. -GI following -Hypernatremia -likely secondary to decreased PO intake -Na at 145, improving -D5W @ 65ml/hr -SANDIE on CKD -at baseline, Cr currently 1.3 -D5W @ 65ml/hr. Monitor fluid status. -Torsemide held -Nephrology on board -CHF -does not appear to be in acute exacerbation -c/w digoxin, toprol xl -torsemide held with kidney failure -Afib -toprol xl -hold coumadin; start on heparin drip once INR is subtherapeutic -monitor INR -Thrombocytopenia -has a history of chronic thrombocytopenia -FEN -D5W @ 65 ml/hr -Hypernatremia - D5W @ 65 ml/hr. Increase free water intake. Free water protocol. Monitor lytes. -Dysphagia puree w/nectar thickened liquids w/Free water protocol -Dispo: Monitor on tele Visit type - Emergency Visit Emergency Visit: Yes ED Registration Date: 02/14/19 Care time: The patient presented to the Emergency Department on the above date and was hospitalized for further evaluation of their emergent condition. - New Patient This patient is new to me today: No - Critical Care Critical Care patient: No
[2019-02-23] MEDS: KCL 10 MEQ IVPB 10 MEQ/100 ML INFUS.BAG IVPB SCH ×3 (13:46→16:12)
--- NOTE | 2019-02-23 15:05 | PN ---
Progress Note, Physician History of Present Illness: Pt seen and examined at bedside. He is awake and alert. - Current Medication List Current Medications: Active Medications Atorvastatin Calcium (Lipitor -) 10 mg PO HS [facility] Last Admin: 02/22/19 22:24 Dose: 10 mg Cholecalciferol (Vitamin D3 -) 2,000 unit PO DAILY [facility] Last Admin: 02/23/19 09:47 Dose: 2,000 unit Digoxin (Lanoxin -) 0.125 mg PO MoWeFr [facility] Last Admin: 02/22/19 10:14 Dose: 0.125 mg Ferrous Sulfate (Feosol -) 325 mg PO DAILY [facility] Last Admin: 02/23/19 09:47 Dose: 325 mg Dextrose (D5w -) 1,000 mls @ 65 mls/hr IV ASDIR [facility] Last Admin: 02/23/19 13:16 Dose: Not Given Potassium Chloride (Potassium Chloride 10 Meq Premix Ivpb -) 10 meq in 100 mls @ 100 mls/hr IVPB Q60M [facility] Stop: 02/23/19 15:59 Last Admin: 02/23/19 14:29 Dose: 100 mls/hr Metoclopramide HCl (Reglan -) 10 mg PO TIDAC [facility] Last Admin: 02/23/19 10:03 Dose: 10 mg Metoprolol Tartrate (Lopressor -) 25 mg PO BID [facility] Last Admin: 02/23/19 09:47 Dose: 25 mg Ondansetron HCl (Zofran Injection) 4 mg IVPUSH Q8H PRN PRN Reason: NAUSEA Polyethylene Glycol (Miralax (For Daily Use) -) 17 gm PO DAILY [facility] Last Admin: 02/23/19 09:53 Dose: Not Given - Objective Vital Signs: Vital Signs Temperature 97.7 F 02/23/19 13:35 Pulse Rate 69 02/23/19 13:35 Respiratory Rate 16 02/23/19 13:35 Blood Pressure 121/54 L 02/23/19 13:35 O2 Sat by Pulse Oximetry (%) 96 02/23/19 09:00 Constitutional: Yes: Calm Eyes: Yes: Conjunctiva Clear HENT: Yes: Atraumatic Neck: Yes: Supple Cardiovascular: Yes: S1, S2 Respiratory: Yes: CTA Bilaterally Gastrointestinal: Yes: Soft Genitourinary: Yes: WNL Edema: No Integumentary: Yes: Venous Stasis Changes Neurological: Yes: Oriented Psychiatric: Yes: Oriented Labs: CBC, BMP 02/23/19 06:00 02/23/19 06:00 INR, PTT INR 2.47 (0.83-1.09) H 02/23/19 06:00 Problem List - Problems (1) SANDIE (acute kidney injury) Code(s): N17.9 - ACUTE KIDNEY FAILURE, UNSPECIFIED (2) Atrial fibrillation Code(s): I48.91 - UNSPECIFIED ATRIAL FIBRILLATION Qualifiers: Atrial fibrillation type: chronic Qualified Code(s): I48.2 - Chronic atrial fibrillation (3) Hyperkalemia Code(s): E87.5 - HYPERKALEMIA Assessment/Plan Current Medications Generic Name Dose Route Start Last Admin Trade Name Freq PRN Reason Stop Dose Admin Atorvastatin Calcium 10 mg 02/14/19 22:00 02/22/19 22:24 Lipitor - PO 10 mg HS DARSHAN Administration Cholecalciferol 2,000 unit 02/14/19 10:00 02/23/19 09:47 Vitamin D3 - PO 2,000 unit DAILY DARSHAN Administration Digoxin 0.125 mg 02/15/19 10:00 02/22/19 10:14 Lanoxin - PO 0.125 mg MoWeFr DARSHAN Administration Ferrous Sulfate 325 mg 02/14/19 10:00 02/23/19 09:47 Feosol - PO 325 mg DAILY DARSHAN Administration Dextrose 1,000 mls @ 65 mls/hr 02/21/19 12:36 02/23/19 13:16 D5w - IV Not Given ASDIR DARSHAN Potassium Chloride 10 meq in 100 mls @ 100 mls/hr 02/23/19 13:00 02/23/19 14: 29 Potassium Chloride 10 Meq Premix Ivpb - IVPB 02/23/19 15:59 100 mls/hr Q60M DARSHAN Administration Metoclopramide HCl 10 mg 02/17/19 11:00 02/23/19 10:03 Reglan - PO 10 mg TIDAC DARSHAN Administration Metoprolol Tartrate 25 mg 02/22/19 11:45 02/23/19 09:47 Lopressor - PO 25 mg BID DARSHAN Administration Ondansetron HCl 4 mg 02/19/19 07:33 Zofran Injection IVPUSH Q8H PRN NAUSEA Polyethylene Glycol 17 gm 02/17/19 15:30 02/23/19 09:53 Miralax (For Daily Use) - PO Not Given DAILY DARSHAN Impression 1. SANDIE 2. hyperkalemia 3. CHF 4. anemia 5. a-fib 6. hypernatremia Plan - replace phos - replace potassium - renal function is improving - diuretics on hold - monitor jemma Curran
--- NOTE | 2019-02-23 16:59 | PN ---
Teaching Attending Note Name of Resident: Brandon Dumont ATTENDING PHYSICIAN STATEMENT I saw and evaluated the patient. I reviewed the resident's note and discussed the case with the resident. I agree with the resident's findings and plan as documented. SUBJECTIVE: Mr Melchor says he does not feel well because he does not like the taste of the potassium replacement. Otherwise he is without complaint and denies cp, sob, n/v. OBJECTIVE: Last Vital Signs Temp Pulse Resp BP Pulse Ox 36.5 C 69 16 121/54 L 96 02/23/19 13:35 02/23/19 13:35 02/23/19 13:35 02/23/19 13:35 02/23/19 09:00 Gen: nad Pulm: ctab w/o w/r/r CV: rrr w/o m/r/g Abd: +bs, s/nt/nd Ext: no c/c/e CBC, BMP 02/23/19 06:00 02/23/19 06:00 ASSESSMENT AND PLAN: 1) Hypernatremia Assessment/Plan: -resolved -case d/w Dr Curran -continue D5W -plan for PEG tube placement if INR is subtherapeutic Code(s): (2) SANDIE (acute kidney injury) Assessment/Plan: -resolved Code(s): N17.9 - ACUTE KIDNEY FAILURE, UNSPECIFIED (3) Toxic metabolic encephalopathy Assessment/Plan: -resolved Code(s): G92 - TOXIC ENCEPHALOPATHY (4) Valvular heart disease Assessment/Plan: -severe -d/w cardiology -currently does not need diuretics Code(s): I38 - ENDOCARDITIS, VALVE UNSPECIFIED (5) Atrial fibrillation Assessment/Plan: -holding coumadin for PEG placement -continue toprol xl with hold parameters Code(s): I48.91 - UNSPECIFIED ATRIAL FIBRILLATION Qualifiers: Atrial fibrillation type: chronic Qualified Code(s): I48.2 - Chronic atrial fibrillation (6) Neuropathy Assessment/Plan: -continue gabapentin Code(s): G62.9 - POLYNEUROPATHY, UNSPECIFIED (7) Dysphagia -case d/w speech therapy -planning for PEG tube placement -will need aggressive speech therapy on discharge Problem List - Problems (1) Hyperkalemia Code(s): E87.5 - HYPERKALEMIA (2) SANDIE (acute kidney injury) Code(s): N17.9 - ACUTE KIDNEY FAILURE, UNSPECIFIED (3) Toxic metabolic encephalopathy Code(s): G92 - TOXIC ENCEPHALOPATHY (4) Valvular heart disease Code(s): I38 - ENDOCARDITIS, VALVE UNSPECIFIED (5) Atrial fibrillation Code(s): I48.91 - UNSPECIFIED ATRIAL FIBRILLATION Qualifiers: Atrial fibrillation type: chronic Qualified Code(s): I48.2 - Chronic atrial fibrillation (6) Neuropathy Code(s): G62.9 - POLYNEUROPATHY, UNSPECIFIED (7) Dysphagia Code(s): R13.10 - DYSPHAGIA, UNSPECIFIED (8) Hypernatremia Code(s): E87.0 - HYPEROSMOLALITY AND HYPERNATREMIA
[2019-02-23] MEDS: NAPH,MB-DB/K PH,MBDB POWDER PACKET PO SCH (22:21)
[2019-02-23] MEDS: ATORVASTATIN CA 10 MG TABLET (FP) PO SCH (22:21)
[2019-02-24] MEDS: METOCLOPRAMIDE HCL 10 MG TABLET (FP) PO SCH ×2 (06:02→11:56)
[2019-02-24 06:35] LABS: BASO % 0.4 % (0-2.0); EOS % 1.8 % (0-4.5); HEMATOCRIT 26.8 % (35.4-49); HEMOGLOBIN 8.6 GM/dL (11.7-16.9); LYMPH % 22.1 % (8-40); MCH 29.5 pg (25.7-33.7); MCHC 32.3 g/dl (32.0-35.9); MEAN CELL VOLUME 91.6 fl (80-96); MEAN PLT VOLUME 9.3 fl (7.5-11.1); NEUT % 62.7 % (42.8-82.8); PLATELET COUNT 61 K/MM3 (134-434); RBC 2.93 M/mm3 (4.00-5.60); RDW 17.7 % (11.9-15.9); WHITE BLOOD COUNT 7.6 K/mm3 (4.0-10.0)
[2019-02-24 07:02] LABS: INR 1.31 (0.83-1.09); PROTHROMBIN TIME (PATIENT) 15.5 SEC (9.7-13.0)
[2019-02-24 07:15] LABS: CALCIUM 7.9 mg/dL (8.5-10.1); CREATININE 1.3 mg/dL (0.55-1.3); MAGNESIUM 2.3 mg/dL (1.8-2.4); PHOSPHOROUS 2.2 mg/dL (2.5-4.9); POTASSIUM 3.8 mmol/L (3.5-5.1)
[2019-02-24] MEDS: FERROUS SO4 325 MG TABLET (FP) PO SCH (09:12)
[2019-02-24] MEDS: NAPH,MB-DB/K PH,MBDB POWDER PACKET PO SCH ×2 (09:13→22:21)
[2019-02-24] MEDS: POLYETHYLENE GLYCOL 3350 119 GM BTL PO SCH (09:13)
[2019-02-24] MEDS: CHOLECALCIFEROL (VITAMIN D3) 1,000 UNIT TABLET (FP) PO SCH (09:13)
--- NOTE | 2019-02-24 09:58 | PN ---
Progress Note (short form) - Note Progress Note: Hospitalist to document today. Lab stable; INR 1.3 Would not transfer back to his [facility] over weekend .
--- NOTE | 2019-02-24 10:10 | PN ---
Progress Note, Physician Chief Complaint: no CP, SOB - Current Medication List Current Medications: Active Medications Atorvastatin Calcium (Lipitor -) 10 mg PO HS [facility] Last Admin: 02/23/19 22:21 Dose: 10 mg Cholecalciferol (Vitamin D3 -) 2,000 unit PO DAILY [facility] Last Admin: 02/24/19 09:13 Dose: Not Given Digoxin (Lanoxin -) 0.125 mg PO MoWeFr [facility] Last Admin: 02/22/19 10:14 Dose: 0.125 mg Ferrous Sulfate (Feosol -) 325 mg PO DAILY [facility] Last Admin: 02/24/19 09:12 Dose: Not Given Dextrose (D5w -) 1,000 mls @ 65 mls/hr IV ASDIR [facility] Last Admin: 02/23/19 13:16 Dose: Not Given Metoclopramide HCl (Reglan -) 10 mg PO TIDAC [facility] Last Admin: 02/24/19 06:02 Dose: 10 mg Metoprolol Tartrate (Lopressor -) 25 mg PO BID [facility] Last Admin: 02/23/19 22:21 Dose: 25 mg Ondansetron HCl (Zofran Injection) 4 mg IVPUSH Q8H PRN PRN Reason: NAUSEA Polyethylene Glycol (Miralax (For Daily Use) -) 17 gm PO DAILY [facility] Last Admin: 02/24/19 09:13 Dose: Not Given Potassium Phos/Sodium Phos (Phos-Nak Packet -) 1 packet PO BID [facility] Stop: 02/26/19 10:01 Last Admin: 02/24/19 09:13 Dose: Not Given Vancomycin HCl (Vancomycin (Pre-Docked)) 1,000 mg IVPB ONCE ONE; Protocol Stop: 02/24/19 12:01 - Objective Vital Signs: Vital Signs Temperature 98.6 F 02/24/19 06:00 Pulse Rate 70 02/24/19 06:00 Respiratory Rate 18 02/24/19 06:00 Blood Pressure 111/45 L 02/24/19 06:00 O2 Sat by Pulse Oximetry (%) 97 02/23/19 21:00 Constitutional: Yes: Calm Cardiovascular: Yes: Regular Rate and Rhythm Respiratory: Yes: CTA Bilaterally Gastrointestinal: Yes: Soft Edema: No Neurological: Yes: Alert, Oriented Labs: CBC, BMP 02/24/19 06:00 02/24/19 06:00 INR, PTT INR 1.31 (0.83-1.09) H 02/24/19 06:00 Laboratory Tests 02/24/19 02/24/19 02/24/19 06:00 06:00 06:00 WBC 7.6 Hgb 8.6 L Plt Count 61 L INR 1.31 H Sodium 143 Potassium 3.8 Creatinine 1.3 Phosphorus 2.2 L Assessment/Plan Assessment/Plan EKG: [employer] CXR: no acute process 1. SANDIE, hyperkalemia, hypernatremia - received D50, calcium gluconate, insulin, lasix - hyperkalemia resolved - manage per nephrology - holding torsemide, entresto, spironolactone - cr improving 2. Chronic systolic HF: - holding entresto, torsemide, spironolactone as above. Likely stop Aldactone permanently. - appears euvolemic, holding diuresis for now but will likely need to resume stable PO dose prior to discharge - continue metoprolol - changed to metoprolol tartrate 25 mg BID, can be crushed. 3. Afib - continue digoxin, toprol - holding warfarin for planned PEG tube placement 3.CAD s/p CABG: - continue statin, metoprolol 4. s/p PPM: - stable on EKG, outpatient monitoring 5. h/o bioprosthetic MVR: - outpatient follow up 6. HLD: - cont statin 7. CVA: - L hemiparesis - cont statin 8. Preoperative evaluation - patient is asymptomatic, euvolemic - he is at acceptable risk for PEG tube placement under sedation, no further testing prior to procedure - holding coumadin, does not need bridging anticoagulation. restart AC when able after PEG tube placement
--- NOTE | 2019-02-24 11:44 | PN ---
Progress Note, [employer] - Note Progress Note: Selected Entries 02/24/19 02/24/19 02/24/19 02:00 06:00 10:00 Breakfast NPO Lunch NPO Skin Risk Level High Risk Temperature 98.8 F 98.6 F 98.4 F 02/24/19 10:01 Breakfast NPO Lunch NPO Skin Risk Level Temperature Laboratory Tests 02/24/19 06:00 WBC 7.6 Seen bedside, family present, pending PEG insertion today. Continue swallow exercises daily. For intensive swallowing tx at [facility].
[2019-02-24] MEDS: METOPROLOL TARTRATE 25 MG TABLET (FP) PO SCH ×2 (11:56→22:21)
[2019-02-24] MEDS ORDERED: VANCOMYCIN 1 GM in D5W (PRE-DOCKED) 1,000 MG/250 ML IVPB ONE (12:00)
--- NOTE | 2019-02-24 13:22 | PN ---
Progress Note, Physician Chief Complaint: Mr Melchor is without complaint. Denies cp, sob, n/v. - Current Medication List Current Medications: Active Medications Atorvastatin Calcium (Lipitor -) 10 mg PO HS [facility] Last Admin: 02/23/19 22:21 Dose: 10 mg Cholecalciferol (Vitamin D3 -) 2,000 unit PO DAILY [facility] Last Admin: 02/24/19 09:13 Dose: Not Given Digoxin (Lanoxin -) 0.125 mg PO MoWeFr [facility] Last Admin: 02/22/19 10:14 Dose: 0.125 mg Ferrous Sulfate (Feosol -) 325 mg PO DAILY [facility] Last Admin: 02/24/19 09:12 Dose: Not Given Dextrose (D5w -) 1,000 mls @ 65 mls/hr IV ASDIR [facility] Last Admin: 02/23/19 13:16 Dose: Not Given Metoclopramide HCl (Reglan -) 10 mg PO TIDAC [facility] Last Admin: 02/24/19 11:56 Dose: Not Given Metoprolol Tartrate (Lopressor -) 25 mg PO BID [facility] Last Admin: 02/24/19 11:56 Dose: Not Given Ondansetron HCl (Zofran Injection) 4 mg IVPUSH Q8H PRN PRN Reason: NAUSEA Polyethylene Glycol (Miralax (For Daily Use) -) 17 gm PO DAILY [facility] Last Admin: 02/24/19 09:13 Dose: Not Given Potassium Phos/Sodium Phos (Phos-Nak Packet -) 1 packet PO BID [facility] Stop: 02/26/19 10:01 Last Admin: 02/24/19 09:13 Dose: Not Given - Objective Vital Signs: Vital Signs Temperature 36.9 C 02/24/19 10:00 Pulse Rate 70 02/24/19 10:00 Respiratory Rate 18 02/24/19 10:00 Blood Pressure 112/48 L 02/24/19 10:00 O2 Sat by Pulse Oximetry (%) 97 02/24/19 10:00 Constitutional: Yes: No Distress, Calm, Thin Cardiovascular: Yes: Pulse Irregular. No: Tachycardia, Gallop, Murmur, Rub Respiratory: Yes: Regular, CTA Bilaterally. No: Rales, Rhonchi, Wheezes Gastrointestinal: Yes: Normal Bowel Sounds, Soft. No: Distention, Tenderness Extremities: Yes: WNL Edema: No Labs: CBC, BMP 02/24/19 06:00 02/24/19 06:00 INR, PTT INR 1.31 (0.83-1.09) H 02/24/19 06:00 Problem List - Problems (1) Hyperkalemia Code(s): E87.5 - HYPERKALEMIA (2) SANDIE (acute kidney injury) Code(s): N17.9 - ACUTE KIDNEY FAILURE, UNSPECIFIED (3) Toxic metabolic encephalopathy Code(s): G92 - TOXIC ENCEPHALOPATHY (4) Valvular heart disease Code(s): I38 - ENDOCARDITIS, VALVE UNSPECIFIED (5) Atrial fibrillation Code(s): I48.91 - UNSPECIFIED ATRIAL FIBRILLATION Qualifiers: Atrial fibrillation type: chronic Qualified Code(s): I48.2 - Chronic atrial fibrillation (6) Neuropathy Code(s): G62.9 - POLYNEUROPATHY, UNSPECIFIED (7) Dysphagia Code(s): R13.10 - DYSPHAGIA, UNSPECIFIED (8) Hypernatremia Code(s): E87.0 - HYPEROSMOLALITY AND HYPERNATREMIA Assessment/Plan 1) Hypernatremia Assessment/Plan: -resolved -case d/w Dr Curran -continue D5W -once PEG tube is placed, can start giving free water per PEG tube when safe Code(s): (2) SANDIE (acute kidney injury) Assessment/Plan: -resolved Code(s): N17.9 - ACUTE KIDNEY FAILURE, UNSPECIFIED (3) Toxic metabolic encephalopathy Assessment/Plan: -resolved Code(s): G92 - TOXIC ENCEPHALOPATHY (4) Valvular heart disease Assessment/Plan: -severe -will need to d/w cardiology what diuretics patient can be placed on prior to discharge -agree with not restarting aldactone Code(s): I38 - ENDOCARDITIS, VALVE UNSPECIFIED (5) Atrial fibrillation Assessment/Plan: -holding coumadin for PEG placement -continue toprol xl with hold parameters -can restart coumadin without bridge per cardiology when safe Code(s): I48.91 - UNSPECIFIED ATRIAL FIBRILLATION Qualifiers: Atrial fibrillation type: chronic Qualified Code(s): I48.2 - Chronic atrial fibrillation (6) Neuropathy Assessment/Plan: -continue gabapentin Code(s): G62.9 - POLYNEUROPATHY, UNSPECIFIED (7) Dysphagia -PEG tube placement today Dispo -if PEG tube placement is successful and remains medically stable, possible discharge to SNF tomorrow -explained to family that if patient is not medically stable patient will not be discharged -family is concerned about discharge to SNF tomorrow, would prefer patient to be monitored in the hospital over the weekend to make sure there is no fevers and tolerates TF -went over all concerns and discussed all options including disputing the discharge if it occurs, they expressed understanding -reassured family that I will be evaluating patient again tomorrow to see if medically stable
[2019-02-24 13:31] VITALS: BMI 17.1
[2019-02-24] MEDS ORDERED: POTASSIUM PHOSPHATE 15 MM in DEXTROSE 5%-WATER - 250 ML IVPB ONE (13:42)
--- NOTE | 2019-02-24 13:42 | PN ---
Progress Note, Physician History of Present Illness: Pt seen and examined at bedside. He denies shortness of breath. - Current Medication List Current Medications: Active Medications Atorvastatin Calcium (Lipitor -) 10 mg PO HS [facility] Last Admin: 02/23/19 22:21 Dose: 10 mg Cholecalciferol (Vitamin D3 -) 2,000 unit PO DAILY [facility] Last Admin: 02/24/19 09:13 Dose: Not Given Digoxin (Lanoxin -) 0.125 mg PO MoWeFr [facility] Last Admin: 02/22/19 10:14 Dose: 0.125 mg Ferrous Sulfate (Feosol -) 325 mg PO DAILY [facility] Last Admin: 02/24/19 09:12 Dose: Not Given Dextrose (D5w -) 1,000 mls @ 65 mls/hr IV ASDIR [facility] Last Admin: 02/23/19 13:16 Dose: Not Given Metoclopramide HCl (Reglan -) 10 mg PO TIDAC [facility] Last Admin: 02/24/19 11:56 Dose: Not Given Metoprolol Tartrate (Lopressor -) 25 mg PO BID [facility] Last Admin: 02/24/19 11:56 Dose: Not Given Ondansetron HCl (Zofran Injection) 4 mg IVPUSH Q8H PRN PRN Reason: NAUSEA Polyethylene Glycol (Miralax (For Daily Use) -) 17 gm PO DAILY [facility] Last Admin: 02/24/19 09:13 Dose: Not Given Potassium Phos/Sodium Phos (Phos-Nak Packet -) 1 packet PO BID [facility] Stop: 02/26/19 10:01 Last Admin: 02/24/19 09:13 Dose: Not Given - Objective Vital Signs: Vital Signs Temperature 98.4 F 02/24/19 10:00 Pulse Rate 70 02/24/19 10:00 Respiratory Rate 18 02/24/19 10:00 Blood Pressure 112/48 L 02/24/19 10:00 O2 Sat by Pulse Oximetry (%) 97 02/24/19 10:00 Constitutional: Yes: Calm Eyes: Yes: Conjunctiva Clear HENT: Yes: Atraumatic Cardiovascular: Yes: S1, S2 Respiratory: Yes: CTA Bilaterally Gastrointestinal: Yes: Soft Genitourinary: Yes: WNL Musculoskeletal: Yes: WNL Edema: No Integumentary: Yes: Venous Stasis Changes Psychiatric: Yes: Oriented Labs: CBC, BMP 02/24/19 06:00 02/24/19 06:00 INR, PTT INR 1.31 (0.83-1.09) H 02/24/19 06:00 Problem List - Problems (1) SANDIE (acute kidney injury) Code(s): N17.9 - ACUTE KIDNEY FAILURE, UNSPECIFIED (2) Atrial fibrillation Code(s): I48.91 - UNSPECIFIED ATRIAL FIBRILLATION Qualifiers: Atrial fibrillation type: chronic Qualified Code(s): I48.2 - Chronic atrial fibrillation (3) Hyperkalemia Code(s): E87.5 - HYPERKALEMIA Assessment/Plan Current Medications Generic Name Dose Route Start Last Admin Trade Name Freq PRN Reason Stop Dose Admin Atorvastatin Calcium 10 mg 02/14/19 22:00 02/23/19 22:21 Lipitor - PO 10 mg HS DARSHAN Administration Cholecalciferol 2,000 unit 02/14/19 10:00 02/24/19 09:13 Vitamin D3 - PO Not Given DAILY [facility] Digoxin 0.125 mg 02/15/19 10:00 02/22/19 10:14 Lanoxin - PO 0.125 mg MoWeFr DARSHAN Administration Ferrous Sulfate 325 mg 02/14/19 10:00 02/24/19 09:12 Feosol - PO Not Given DAILY [facility] Dextrose 1,000 mls @ 65 mls/hr 02/21/19 12:36 02/23/19 13:16 D5w - IV Not Given ASDIR [facility] Metoclopramide HCl 10 mg 02/17/19 11:00 02/24/19 11:56 Reglan - PO Not Given TIDAC [facility] Metoprolol Tartrate 25 mg 02/22/19 11:45 02/24/19 11:56 Lopressor - PO Not Given BID [facility] Ondansetron HCl 4 mg 02/19/19 07:33 Zofran Injection IVPUSH Q8H PRN NAUSEA Polyethylene Glycol 17 gm 02/17/19 15:30 02/24/19 09:13 Miralax (For Daily Use) - PO Not Given DAILY [facility] Potassium Phos/Sodium Phos 1 packet 02/23/19 22:00 02/24/19 09:13 Phos-Nak Packet - PO 02/26/19 10:01 Not Given BID [facility] Laboratory Tests 02/13/19 02/13/19 02/14/19 23:45 23:45 02:35 Hgb 9.1 L Plt Count 55 L D Sodium Potassium 7.2 H* 6.6 H* Chloride Carbon Dioxide Anion Gap BUN Creatinine 3.6 H 3.4 H Calcium Phosphorus B-Natriuretic Peptide Ur Random Sodium Digoxin 1.52 02/14/19 02/14/19 02/14/19 05:30 05:30 05:30 Hgb 7.6 L Plt Count 43 L D Sodium Potassium 6.2 H* Chloride Carbon Dioxide Anion Gap BUN Creatinine 3.3 H Calcium 8.2 L Phosphorus B-Natriuretic Peptide 3315.5 H Ur Random Sodium Digoxin 02/14/19 02/14/19 02/14/19 07:20 09:18 09:18 Hgb 8.1 L Plt Count 45 L Sodium 136 Potassium 5.6 H Chloride 105 Carbon Dioxide 24 Anion Gap 8 BUN 92 H Creatinine 3.5 H Calcium Phosphorus B-Natriuretic Peptide Ur Random Sodium 35 L Digoxin 02/24/19 06:00 Hgb Plt Count Sodium Potassium Chloride Carbon Dioxide Anion Gap BUN Creatinine Calcium 7.9 L Phosphorus 2.2 L B-Natriuretic Peptide Ur Random Sodium Digoxin Impression 1. SANDIE 2. hyperkalemia 3. CHF 4. anemia 5. a-fib 6. hypernatremia Plan - renal function is stable - will give phos - cont fluids until peg placed and feeds started - diuretics on hold - monitor jemma Curran
[2019-02-24] MEDS: DIGOXIN 0.125 MG TABLET (FP) PO SCH (14:24)
[2019-02-24] MEDS ORDERED: CEFAZOLIN 1 GM/D5W 2 GM/100 ML BAG ONE (14:26)
[2019-02-24] MEDS ORDERED: PT OWN MED DRAWER 7, Y5N ONE ×3 (14:51→21:06)
[2019-02-24] MEDS: DEXTROSE 5%-WATER - 1,000 ML IV SCH (14:54)
--- NOTE | 2019-02-24 15:04 | PN ---
Progress Note (short form) - Note Progress Note: EGD/PEG compelte. Report placed in procedural section of physical chart and to be scanned into meditech. Post PEG orders placed in meditech. Problem List - Problems (1) Nausea Code(s): R11.0 - NAUSEA
[2019-02-24] MEDS: PANTOPRAZOLE SODIUM 40 MG VIAL IVPUSH SCH (16:16)
[2019-02-24] MEDS ORDERED: ACETAMINOPHEN 325 MG TABLET (FP) PO PRN (19:58)
[2019-02-24] MEDS: ACETAMINOPHEN 325 MG TABLET (FP) PO PRN (20:35)
[2019-02-24] MEDS: BACITRACIN 15 GM TUBE TOPICAL OINTMENT TP SCH (22:21)
[2019-02-24] MEDS: ATORVASTATIN CA 10 MG TABLET (FP) PO SCH (22:21)
[2019-02-24] MEDS: RANITIDINE HCL 150 MG/10 ML UNIT-DOSE GT SCH (22:21)
[2019-02-25] MEDS ORDERED: traMADol HCL 50 MG TABLET PEG ONE (03:39)
[2019-02-25 07:38] LABS: BASO % 0.5 % (0-2.0); EOS % 1.5 % (0-4.5); HEMATOCRIT 25.4 % (35.4-49); HEMOGLOBIN 8.3 GM/dL (11.7-16.9); MCH 29.8 pg (25.7-33.7); MCHC 32.9 g/dl (32.0-35.9); MEAN CELL VOLUME 90.6 fl (80-96); MEAN PLT VOLUME 10.3 fl (7.5-11.1); MONO % 12.5 % (3.8-10.2); NEUT % 68.5 % (42.8-82.8); PLATELET COUNT 56 K/MM3 (134-434); RDW 17.7 % (11.9-15.9); WHITE BLOOD COUNT 7.4 K/mm3 (4.0-10.0)
[2019-02-25 07:53] LABS: INR 1.23 (0.83-1.09); PROTHROMBIN TIME (PATIENT) 14.6 SEC (9.7-13.0)
[2019-02-25 08:01] LABS: CALCIUM 7.4 mg/dL (8.5-10.1); CREATININE 1.2 mg/dL (0.55-1.3); PHOSPHOROUS 2.9 mg/dL (2.5-4.9); POTASSIUM 3.5 mmol/L (3.5-5.1)
[2019-02-25] MEDS: CHOLECALCIFEROL (VITAMIN D3) 1,000 UNIT TABLET (FP) PO SCH (09:01)
[2019-02-25] MEDS: FERROUS SO4 325 MG TABLET (FP) PO SCH (09:01)
[2019-02-25] MEDS: BACITRACIN 15 GM TUBE TOPICAL OINTMENT TP SCH ×2 (09:02→21:27)
[2019-02-25] MEDS: PANTOPRAZOLE SODIUM 40 MG VIAL IVPUSH SCH (09:02)
[2019-02-25] MEDS: NAPH,MB-DB/K PH,MBDB POWDER PACKET PO SCH ×2 (09:02→21:28)
[2019-02-25] MEDS: METOPROLOL TARTRATE 25 MG TABLET (FP) PO SCH ×2 (09:02→21:27)
--- NOTE | 2019-02-25 09:48 | PN ---
Progress Note, Physician Chief Complaint: s/p PEG No CP or SOB - Current Medication List Current Medications: Active Medications Acetaminophen (Tylenol -) 650 mg PO Q6H PRN PRN Reason: PAIN Last Admin: 02/24/19 20:35 Dose: 650 mg Atorvastatin Calcium (Lipitor -) 10 mg PO HS [facility] Last Admin: 02/24/19 22:21 Dose: 10 mg Bacitracin (Bacitracin -) 1 applic TP BID [facility] Stop: 03/01/19 21:59 Last Admin: 02/25/19 09:02 Dose: 1 applic Cholecalciferol (Vitamin D3 -) 2,000 unit PO DAILY [facility] Last Admin: 02/25/19 09:01 Dose: 2,000 unit Digoxin (Lanoxin -) 0.125 mg PO MoWeFr [facility] Last Admin: 02/24/19 14:24 Dose: Not Given Ferrous Sulfate (Feosol -) 325 mg PO DAILY [facility] Last Admin: 02/25/19 09:01 Dose: 325 mg Dextrose (D5w -) 1,000 mls @ 65 mls/hr IV ASDIR [facility] Last Admin: 02/24/19 14:54 Dose: Not Given Metoprolol Tartrate (Lopressor -) 25 mg PO BID [facility] Last Admin: 02/25/19 09:02 Dose: 25 mg Ondansetron HCl (Zofran Injection) 4 mg IVPUSH Q8H PRN PRN Reason: NAUSEA Pantoprazole Sodium (Protonix Iv) 40 mg IVPUSH DAILY [facility] Last Admin: 02/25/19 09:02 Dose: 40 mg Polyethylene Glycol (Miralax (For Daily Use) -) 17 gm PO DAILY [facility] Last Admin: 02/24/19 09:13 Dose: Not Given Potassium Phos/Sodium Phos (Phos-Nak Packet -) 1 packet PO BID [facility] Stop: 02/26/19 10:01 Last Admin: 02/25/19 09:02 Dose: 1 packet Ranitidine HCl (Zantac Oral Solution -) 150 mg GT [facility] Last Admin: 02/24/19 22:21 Dose: 150 mg - Objective Vital Signs: Vital Signs Temperature 98.5 F 02/25/19 06:00 Pulse Rate 70 02/25/19 06:00 Respiratory Rate 16 02/25/19 06:00 Blood Pressure 111/48 L 02/25/19 06:00 O2 Sat by Pulse Oximetry (%) 96 02/24/19 21:00 Constitutional: Yes: No Distress Cardiovascular: Yes: Regular Rate and Rhythm Respiratory: Yes: CTA Bilaterally Gastrointestinal: Yes: Soft Edema: No Neurological: Yes: Alert Labs: CBC, BMP 02/25/19 06:00 02/25/19 06:00 INR, PTT INR 1.23 (0.83-1.09) H 02/25/19 06:00 Laboratory Tests 02/25/19 02/25/19 02/25/19 06:00 06:00 06:00 WBC 7.4 Hgb 8.3 L Plt Count 56 L INR 1.23 H Sodium 142 Potassium 3.5 BUN 26 H Creatinine 1.2 Magnesium 2.0 Assessment/Plan 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 SANDIE, hyperkalemia, hypernatremia - received D50, calcium gluconate, insulin, lasix - hyperkalemia resolved - manage per nephrology - holding torsemide, entresto, spironolactone - cr improving 2. Chronic systolic HF: - holding entresto, torsemide, spironolactone as above. Likely stop Aldactone permanently. - appears euvolemic, holding diuresis for now but will likely need to resume stable PO dose prior to discharge - continue metoprolol - changed to metoprolol tartrate 25 mg BID, can be crushed. 3. Afib - continue digoxin, toprol - Resume AC when safe from GI perspective 3.CAD s/p CABG: - continue statin, metoprolol 4. s/p PPM: - stable on EKG, outpatient monitoring 5. h/o bioprosthetic MVR: - outpatient follow up 6. HLD: - cont statin 7. CVA: - L hemiparesis - cont statin
--- NOTE | 2019-02-25 10:25 | PN ---
Progress Note (short form) - Note Progress Note: PEG site and abdomen examined: abdomen soft, +BS, non-dystended PEG dressing removed. scant amount of dried blood noted under external bolster. cleaned with gauze. The bolster was at the 1.5cm tye. It was loosened to the 2cm tye. It was rotating freely. There was mild periper tenderness. there was no erythema/induration and it flushed without difficulty OK to use PEG for meds Follow PEG instructions as outlined in procedure report and in meditech. Continue Ranitidine 150mg once nightly through G-tube and Protonix 40mg once daily Evaluation of worsening therombocytopenia per primary team prior to reinitiating A/C Problem List - Problems (1) Nausea Code(s): R11.0 - NAUSEA
[2019-02-25] MEDS: POLYETHYLENE GLYCOL 3350 119 GM BTL PO SCH (11:42)
--- NOTE | 2019-02-25 15:16 | PN ---
Progress Note, Physician Chief Complaint: Mr Melchor says he is having some pain at the PEG tube site but otherwise is without complaint. No cp, sob, n/v. - Current Medication List Current Medications: Active Medications Acetaminophen (Tylenol -) 650 mg PO Q6H PRN PRN Reason: PAIN Last Admin: 02/24/19 20:35 Dose: 650 mg Atorvastatin Calcium (Lipitor -) 10 mg PO HS [facility] Last Admin: 02/24/19 22:21 Dose: 10 mg Bacitracin (Bacitracin -) 1 applic TP BID [facility] Stop: 03/01/19 21:59 Last Admin: 02/25/19 09:02 Dose: 1 applic Cholecalciferol (Vitamin D3 -) 2,000 unit PO DAILY [facility] Last Admin: 02/25/19 09:01 Dose: 2,000 unit Digoxin (Lanoxin -) 0.125 mg PO MoWeFr [facility] Last Admin: 02/24/19 14:24 Dose: Not Given Ferrous Sulfate (Feosol -) 325 mg PO DAILY [facility] Last Admin: 02/25/19 09:01 Dose: 325 mg Dextrose (D5w -) 1,000 mls @ 65 mls/hr IV ASDIR [facility] Last Admin: 02/24/19 14:54 Dose: Not Given Metoprolol Tartrate (Lopressor -) 25 mg PO BID [facility] Last Admin: 02/25/19 09:02 Dose: 25 mg Ondansetron HCl (Zofran Injection) 4 mg IVPUSH Q8H PRN PRN Reason: NAUSEA Pantoprazole Sodium (Protonix Iv) 40 mg IVPUSH DAILY [facility] Last Admin: 02/25/19 09:02 Dose: 40 mg Polyethylene Glycol (Miralax (For Daily Use) -) 17 gm PO DAILY [facility] Last Admin: 02/25/19 11:42 Dose: Not Given Potassium Phos/Sodium Phos (Phos-Nak Packet -) 1 packet PO BID [facility] Stop: 02/26/19 10:01 Last Admin: 02/25/19 09:02 Dose: 1 packet Ranitidine HCl (Zantac Oral Solution -) 150 mg GT HS [facility] Last Admin: 02/24/19 22:21 Dose: 150 mg Warfarin Sodium (Coumadin -) 5 mg PO DAILY@1800 [facility] - Objective Vital Signs: Vital Signs Temperature 36.6 C 05/18/19 14:20 Pulse Rate 70 02/25/19 14:20 Respiratory Rate 18 02/25/19 14:20 Blood Pressure 112/53 L 02/25/19 14:20 O2 Sat by Pulse Oximetry (%) 96 02/25/19 10:00 Constitutional: Yes: No Distress, Calm, Thin Cardiovascular: Yes: Pulse Irregular. No: Tachycardia, Gallop, Murmur, Rub Respiratory: Yes: Regular, CTA Bilaterally. No: Rales, Rhonchi, Wheezes Gastrointestinal: Yes: Normal Bowel Sounds, Soft. No: Distention, Tenderness Extremities: Yes: WNL Edema: No Labs: CBC, BMP 02/25/19 06:00 02/25/19 06:00 INR, PTT INR 1.23 (0.83-1.09) H 02/25/19 06:00 Problem List - Problems (1) Hyperkalemia Code(s): E87.5 - HYPERKALEMIA (2) SANDIE (acute kidney injury) Code(s): N17.9 - ACUTE KIDNEY FAILURE, UNSPECIFIED (3) Toxic metabolic encephalopathy Code(s): G92 - TOXIC ENCEPHALOPATHY (4) Valvular heart disease Code(s): I38 - ENDOCARDITIS, VALVE UNSPECIFIED (5) Atrial fibrillation Code(s): I48.91 - UNSPECIFIED ATRIAL FIBRILLATION Qualifiers: Atrial fibrillation type: chronic Qualified Code(s): I48.2 - Chronic atrial fibrillation (6) Neuropathy Code(s): G62.9 - POLYNEUROPATHY, UNSPECIFIED (7) Dysphagia Code(s): R13.10 - DYSPHAGIA, UNSPECIFIED (8) Hypernatremia Code(s): E87.0 - HYPEROSMOLALITY AND HYPERNATREMIA Assessment/Plan 1) Hypernatremia Assessment/Plan: -resolved -start free water -if tolerates PEG tube, will stop D5W Code(s): (2) SANDIE (acute kidney injury) Assessment/Plan: -resolved Code(s): N17.9 - ACUTE KIDNEY FAILURE, UNSPECIFIED (3) Toxic metabolic encephalopathy Assessment/Plan: -resolved Code(s): G92 - TOXIC ENCEPHALOPATHY (4) Valvular heart disease Assessment/Plan: -severe -will need to d/w cardiology what diuretics patient can be placed on prior to discharge -agree with not restarting aldactone Code(s): I38 - ENDOCARDITIS, VALVE UNSPECIFIED (5) Atrial fibrillation Assessment/Plan: -holding coumadin secondary to thrombocytopenia -continue toprol xl with hold parameters Code(s): I48.91 - UNSPECIFIED ATRIAL FIBRILLATION Qualifiers: Atrial fibrillation type: chronic Qualified Code(s): I48.2 - Chronic atrial fibrillation (6) Neuropathy Assessment/Plan: -continue gabapentin Code(s): G62.9 - POLYNEUROPATHY, UNSPECIFIED (7) Dysphagia -PEG tube placement today (8) Duodenal ulcers -continue IV protonix currently
--- NOTE | 2019-02-25 17:55 | PN ---
Progress Note (short form) - Note Progress Note: 1. SANDIE 2. hyperkalemia 3. CHF 4. anemia 5. a-fib 6. hypernatremia Current Medications Acetaminophen (Tylenol -) 650 mg PO Q6H PRN PRN Reason: PAIN Last Admin: 02/24/19 20:35 Dose: 650 mg Atorvastatin Calcium (Lipitor -) 10 mg PO HS [facility] Last Admin: 02/24/19 22:21 Dose: 10 mg Bacitracin (Bacitracin -) 1 applic TP BID [facility] Stop: 03/01/19 21:59 Last Admin: 02/25/19 09:02 Dose: 1 applic Cholecalciferol (Vitamin D3 -) 2,000 unit PO DAILY [facility] Last Admin: 02/25/19 09:01 Dose: 2,000 unit Digoxin (Lanoxin -) 0.125 mg PO MoWeFr [facility] Last Admin: 02/24/19 14:24 Dose: Not Given Ferrous Sulfate (Feosol -) 325 mg PO DAILY [facility] Last Admin: 02/25/19 09:01 Dose: 325 mg Dextrose (D5w -) 1,000 mls @ 65 mls/hr IV ASDIR [facility] Last Admin: 02/24/19 14:54 Dose: Not Given Metoprolol Tartrate (Lopressor -) 25 mg PO BID [facility] Last Admin: 02/25/19 09:02 Dose: 25 mg Ondansetron HCl (Zofran Injection) 4 mg IVPUSH Q8H PRN PRN Reason: NAUSEA Pantoprazole Sodium (Protonix Iv) 40 mg IVPUSH DAILY [facility] Last Admin: 02/25/19 09:02 Dose: 40 mg Polyethylene Glycol (Miralax (For Daily Use) -) 17 gm PO DAILY [facility] Last Admin: 02/25/19 11:42 Dose: Not Given Potassium Phos/Sodium Phos (Phos-Nak Packet -) 1 packet PO BID [facility] Stop: 02/26/19 10:01 Last Admin: 02/25/19 09:02 Dose: 1 packet Ranitidine HCl (Zantac Oral Solution -) 150 mg GT HS [facility] Last Admin: 02/24/19 22:21 Dose: 150 mg Last Vital Signs Temp Pulse Resp BP Pulse Ox 97.8 F 70 18 112/53 L 96 02/25/19 14:20 02/25/19 14:20 02/25/19 14:20 02/25/19 14:20 02/25/19 10:00 not very verbal but responds to his name when called Lungs clear Heart reg Abd soft nontender Ext no edema CBC, BMP 02/25/19 06:00 02/25/19 06:00 IMP- s/p SANDIE with hyperkalemia and hypernatremia 2. Chronic systolic HF: 3. Afib 3.CAD s/p CAB. s/p PPM: 5. h/o bioprosthetic MVR: 6. HLD: 7. CVA:- L hemiparesis Plan- monitor renal function
[2019-02-25] MEDS ORDERED: WARFARIN NA 5 MG TABLET (UD) PO SCH (18:00)
[2019-02-25] MEDS: DEXTROSE 5%-WATER - 1,000 ML IV SCH (20:00)
[2019-02-25] MEDS: ATORVASTATIN CA 10 MG TABLET (FP) PO SCH (21:27)
[2019-02-25] MEDS: RANITIDINE HCL 150 MG/10 ML UNIT-DOSE GT SCH (21:28)
[2019-02-26] MEDS: ACETAMINOPHEN 325 MG TABLET (FP) PO PRN ×2 (04:36→22:00)
[2019-02-26 07:13] LABS: BASO % 0.6 % (0-2.0); EOS % 2.2 % (0-4.5); HEMATOCRIT 24.4 % (35.4-49); HEMOGLOBIN 8.1 GM/dL (11.7-16.9); LYMPH % 21.2 % (8-40); MCH 29.9 pg (25.7-33.7); MCHC 33.2 g/dl (32.0-35.9); MEAN CELL VOLUME 90.1 fl (80-96); MEAN PLT VOLUME 10.6 fl (7.5-11.1); MONO % 13.7 % (3.8-10.2); NEUT % 62.3 % (42.8-82.8); PLATELET COUNT 45 K/MM3 (134-434); RBC 2.71 M/mm3 (4.00-5.60); WHITE BLOOD COUNT 6.4 K/mm3 (4.0-10.0)
[2019-02-26 07:51] LABS: CALCIUM 7.4 mg/dL (8.5-10.1); MAGNESIUM 2.2 mg/dL (1.8-2.4); PHOSPHOROUS 2.9 mg/dL (2.5-4.9); POTASSIUM 3.7 mmol/L (3.5-5.1)
[2019-02-26 08:22] LABS: INR 1.18 (0.83-1.09)
[2019-02-26] MEDS: NAPH,MB-DB/K PH,MBDB POWDER PACKET PO SCH (09:16)
[2019-02-26] MEDS: FERROUS SO4 325 MG TABLET (FP) PO SCH (09:16)
[2019-02-26] MEDS: CHOLECALCIFEROL (VITAMIN D3) 1,000 UNIT TABLET (FP) PO SCH (09:16)
[2019-02-26] MEDS: METOPROLOL TARTRATE 25 MG TABLET (FP) PO SCH (09:16)
[2019-02-26] MEDS: DEXTROSE 5%-WATER - 1,000 ML IV SCH (09:16)
[2019-02-26] MEDS: BACITRACIN 15 GM TUBE TOPICAL OINTMENT TP SCH ×2 (09:17→22:00)
[2019-02-26] MEDS: PANTOPRAZOLE SODIUM 40 MG VIAL IVPUSH SCH (09:17)
[2019-02-26] MEDS: POLYETHYLENE GLYCOL 3350 119 GM BTL PO SCH (09:17)
--- NOTE | 2019-02-26 09:48 | PN ---
Progress Note, Physician Chief Complaint: Mr Ruiz complains that he does not like the abdominal binder, explained need for it currently. Denies cp, sob, n/v. Says he is tolerating TFs without difficulty. Visibly upset about needing to stay in the hospital. - Current Medication List Current Medications: Active Medications Acetaminophen (Tylenol -) 650 mg PO Q6H PRN PRN Reason: PAIN Last Admin: 02/26/19 04:36 Dose: 650 mg Atorvastatin Calcium (Lipitor -) 10 mg PO HS [facility] Last Admin: 02/25/19 21:27 Dose: 10 mg Bacitracin (Bacitracin -) 1 applic TP BID [facility] Stop: 03/01/19 21:59 Last Admin: 02/26/19 09:17 Dose: 1 applic Cholecalciferol (Vitamin D3 -) 2,000 unit PO DAILY [facility] Last Admin: 02/26/19 09:16 Dose: 2,000 unit Digoxin (Lanoxin -) 0.125 mg PO MoWeFr [facility] Last Admin: 02/24/19 14:24 Dose: Not Given Ferrous Sulfate (Feosol -) 325 mg PO DAILY [facility] Last Admin: 02/26/19 09:16 Dose: 325 mg Metoprolol Tartrate (Lopressor -) 25 mg PO BID [facility] Last Admin: 02/26/19 09:16 Dose: 25 mg Ondansetron HCl (Zofran Injection) 4 mg IVPUSH Q8H PRN PRN Reason: NAUSEA Pantoprazole Sodium (Protonix Iv) 40 mg IVPUSH DAILY [facility] Last Admin: 02/26/19 09:17 Dose: 40 mg Polyethylene Glycol (Miralax (For Daily Use) -) 17 gm PO DAILY [facility] Last Admin: 02/26/19 09:17 Dose: Not Given Potassium Phos/Sodium Phos (Phos-Nak Packet -) 1 packet PO BID [facility] Stop: 02/26/19 10:01 Last Admin: 02/26/19 09:16 Dose: 1 packet Ranitidine HCl (Zantac Oral Solution -) 150 mg GT [facility] Last Admin: 02/25/19 21:28 Dose: 150 mg - Objective Vital Signs: Vital Signs Temperature 37.1 C 02/26/19 09:26 Pulse Rate 75 02/26/19 09:26 Respiratory Rate 20 02/26/19 09:26 Blood Pressure 127/68 02/26/19 09:26 O2 Sat by Pulse Oximetry (%) 100 02/26/19 09:26 Constitutional: Yes: No Distress, Calm, Thin Cardiovascular: Yes: Regular Rate and Rhythm. No: Gallop, Murmur, Rub Respiratory: Yes: Regular, CTA Bilaterally. No: Rales, Rhonchi, Wheezes Gastrointestinal: Yes: Normal Bowel Sounds, Soft. No: Distention, Tenderness Extremities: Yes: WNL Edema: No Labs: CBC, BMP 02/26/19 06:00 02/26/19 06:00 INR, PTT INR 1.18 (0.83-1.09) H 02/26/19 06:00 Problem List - Problems (1) Hyperkalemia Code(s): E87.5 - HYPERKALEMIA (2) SANDIE (acute kidney injury) Code(s): N17.9 - ACUTE KIDNEY FAILURE, UNSPECIFIED (3) Toxic metabolic encephalopathy Code(s): G92 - TOXIC ENCEPHALOPATHY (4) Valvular heart disease Code(s): I38 - ENDOCARDITIS, VALVE UNSPECIFIED (5) Atrial fibrillation Code(s): I48.91 - UNSPECIFIED ATRIAL FIBRILLATION Qualifiers: Atrial fibrillation type: chronic Qualified Code(s): I48.2 - Chronic atrial fibrillation (6) Neuropathy Code(s): G62.9 - POLYNEUROPATHY, UNSPECIFIED (7) Dysphagia Code(s): R13.10 - DYSPHAGIA, UNSPECIFIED (8) Hypernatremia Code(s): E87.0 - HYPEROSMOLALITY AND HYPERNATREMIA Assessment/Plan 1) Hypernatremia Assessment/Plan: -resolved -will stop D5W today since tolerating free water -adjust free water as needed Code(s): (2) SANDIE (acute kidney injury) Assessment/Plan: -resolved Code(s): N17.9 - ACUTE KIDNEY FAILURE, UNSPECIFIED (3) Toxic metabolic encephalopathy Assessment/Plan: -resolved Code(s): G92 - TOXIC ENCEPHALOPATHY (4) Valvular heart disease Assessment/Plan: -severe -will need to d/w cardiology what diuretics patient can be placed on prior to discharge -agree with not restarting aldactone Code(s): I38 - ENDOCARDITIS, VALVE UNSPECIFIED (5) Atrial fibrillation Assessment/Plan: -holding coumadin secondary to thrombocytopenia -continue toprol xl with hold parameters Code(s): I48.91 - UNSPECIFIED ATRIAL FIBRILLATION Qualifiers: Atrial fibrillation type: chronic Qualified Code(s): I48.2 - Chronic atrial fibrillation (6) Neuropathy Assessment/Plan: -continue gabapentin Code(s): G62.9 - POLYNEUROPATHY, UNSPECIFIED (7) Dysphagia -PEG tube placed -tolerating TFs (8) Duodenal ulcers -continue IV protonix and ranitidine per GT currently (9) Thrombocytopenia -worsening -? if can start coumadin safely -consult hematology Dispo -possible discharge in 48-72 hours to SNF. Will need to decide when safe to change to oral protonix, restart diuretics, and coumadin dosing in light of thrombocytopenia
--- NOTE | 2019-02-26 10:00 | PN ---
Progress Note, Physician Chief Complaint: seen and examined. No distress TELE: Paced, VPCs - Current Medication List Current Medications: Active Medications Acetaminophen (Tylenol -) 650 mg PO Q6H PRN PRN Reason: PAIN Last Admin: 02/26/19 04:36 Dose: 650 mg Atorvastatin Calcium (Lipitor -) 10 mg PO HS [facility] Last Admin: 02/25/19 21:27 Dose: 10 mg Bacitracin (Bacitracin -) 1 applic TP BID [facility] Stop: 03/01/19 21:59 Last Admin: 02/26/19 09:17 Dose: 1 applic Cholecalciferol (Vitamin D3 -) 2,000 unit PO DAILY [facility] Last Admin: 02/26/19 09:16 Dose: 2,000 unit Digoxin (Lanoxin -) 0.125 mg PO MoWeFr [facility] Last Admin: 02/24/19 14:24 Dose: Not Given Ferrous Sulfate (Feosol -) 325 mg PO DAILY [facility] Last Admin: 02/26/19 09:16 Dose: 325 mg Metoprolol Tartrate (Lopressor -) 25 mg PO BID [facility] Last Admin: 02/26/19 09:16 Dose: 25 mg Ondansetron HCl (Zofran Injection) 4 mg IVPUSH Q8H PRN PRN Reason: NAUSEA Pantoprazole Sodium (Protonix Iv) 40 mg IVPUSH DAILY [facility] Last Admin: 02/26/19 09:17 Dose: 40 mg Polyethylene Glycol (Miralax (For Daily Use) -) 17 gm PO DAILY [facility] Last Admin: 02/26/19 09:17 Dose: Not Given Potassium Phos/Sodium Phos (Phos-Nak Packet -) 1 packet PO BID [facility] Stop: 02/26/19 10:01 Last Admin: 02/26/19 09:16 Dose: 1 packet Ranitidine HCl (Zantac Oral Solution -) 150 mg GT HS [facility] Last Admin: 02/25/19 21:28 Dose: 150 mg - Objective Vital Signs: Vital Signs Temperature 98.8 F 02/26/19 09:26 Pulse Rate 75 02/26/19 09:26 Respiratory Rate 20 02/26/19 09:26 Blood Pressure 127/68 02/26/19 09:26 O2 Sat by Pulse Oximetry (%) 100 02/26/19 09:26 Constitutional: Yes: No Distress Cardiovascular: Yes: Regular Rate and Rhythm Respiratory: Yes: CTA Bilaterally Gastrointestinal: Yes: Soft Edema: No Neurological: Yes: Alert ...Motor Strength: WNL Labs: CBC, BMP 02/26/19 06:00 02/26/19 06:00 INR, PTT INR 1.18 (0.83-1.09) H 02/26/19 06:00 Laboratory Tests 02/26/19 02/26/19 02/26/19 06:00 06:00 06:00 WBC 6.4 Hgb 8.1 L Hct 24.4 L Plt Count 45 L INR 1.18 H Sodium 143 Potassium 3.7 BUN 23 H Creatinine 1.0 Phosphorus 2.9 Magnesium 2.2 - ....Imaging EKG: Image Reviewed Assessment/Plan 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 SANDIE, hyperkalemia, hypernatremia - received D50, calcium gluconate, insulin, lasix - hyperkalemia resolved - manage per nephrology - holding torsemide, entresto, spironolactone - cr improved 2. Chronic systolic HF: - holding entresto, torsemide, spironolactone as above. Likely stop Aldactone permanently. Will resume Entresto today as BP stable and creat back to baseline (w/ hold parameters) - appears euvolemic, holding diuresis for now but will likely need to resume stable PO dose prior to discharge - continue metoprolol - changed to metoprolol tartrate 25 mg BID, can be crushed. 3. Afib - continue digoxin, toprol -holding AC due to dropping platelet count 3.CAD s/p CABG: - continue statin, metoprolol 4. s/p PPM: - stable on EKG, outpatient monitoring 5. h/o bioprosthetic MVR: - outpatient follow up 6. HLD: - cont statin 7. CVA: - L hemiparesis - cont statin
[2019-02-26] MEDS: SACUBITRIL/VALSARTAN 24 MG-26 MG TABLET PO SCH ×2 (13:58→21:50)
--- NOTE | 2019-02-26 20:26 | PN ---
Progress Note (short form) - Note Progress Note: 1. SANDIE 2. hyperkalemia 3. CHF 4. anemia 5. a-fib 6. hypernatremia Current Medications Acetaminophen (Tylenol -) 650 mg PO Q6H PRN PRN Reason: PAIN Last Admin: 02/26/19 04:36 Dose: 650 mg Atorvastatin Calcium (Lipitor -) 10 mg PO HS [facility] Last Admin: 02/25/19 21:27 Dose: 10 mg Bacitracin (Bacitracin -) 1 applic TP BID [facility] Stop: 03/01/19 21:59 Last Admin: 02/26/19 09:17 Dose: 1 applic Cholecalciferol (Vitamin D3 -) 2,000 unit PO DAILY [facility] Last Admin: 02/26/19 09:16 Dose: 2,000 unit Digoxin (Lanoxin -) 0.125 mg PO MoWeFr [facility] Last Admin: 02/24/19 14:24 Dose: Not Given Ferrous Sulfate (Feosol -) 325 mg PO DAILY [facility] Last Admin: 02/26/19 09:16 Dose: 325 mg Metoprolol Tartrate (Lopressor -) 25 mg PO BID [facility] Last Admin: 02/26/19 09:16 Dose: 25 mg Ondansetron HCl (Zofran Injection) 4 mg IVPUSH Q8H PRN PRN Reason: NAUSEA Pantoprazole Sodium (Protonix Iv) 40 mg IVPUSH DAILY [facility] Last Admin: 02/26/19 09:17 Dose: 40 mg Polyethylene Glycol (Miralax (For Daily Use) -) 17 gm PO DAILY [facility] Last Admin: 02/26/19 09:17 Dose: Not Given Ranitidine HCl (Zantac Oral Solution -) 150 mg GT HS [facility] Last Admin: 02/25/19 21:28 Dose: 150 mg Sacubitril/Valsartan (Entresto 24 Mg-26 Mg Tablet) 1 tab PO BID [facility] Last Admin: 02/26/19 13:58 Dose: 1 tab Last Vital Signs Temp Pulse Resp BP Pulse Ox 98 F 70 18 112/42 L 100 02/26/19 18:00 02/26/19 18:00 02/26/19 18:00 02/26/19 18:00 02/26/19 09:26 arousable c/o abdominal binder bothering him Lungs clear Heart reg Abd soft nontender Ext no edema CBC, BMP 02/26/19 06:00 02/26/19 06:00 CBC, BMP 02/25/19 06:00 02/25/19 06:00 IMP- s/p SANDIE with hyperkalemia and hypernatremia 2. Chronic systolic HF: 3. Afib 3.CAD s/p CAB. s/p PPM: 5. h/o bioprosthetic MVR: 6. HLD: 7. CVA:- L hemiparesis Plan- monitor renal function
--- NOTE | 2019-02-26 21:11 | CONSULT ---
Consult Consult Specialty:: Heme Referred by:: Dr. Gomez Reason for Consultation:: Thrombocytopenia - History of Present Illness History of Present Illness: 88M with A-fib (on coumadin), CHF, s/p pacemaker, s/p bioprosthetic valve replacement, recent admission (@ [facility], complicated by Asp PNA) admitted with SANDIE on 02/14, thought to be 2/2 poor PO intake. Resolved with IVF.PEG placed on 02/24 for dysphagia. Duodenal ulcers were noted. Hematology consulted for thrombocytopenia,. On admission Hgb was 9.1, plt count 55 (113 in 01/2018) improved to 90s and now again downtrending. WBC normal. No heparin exposure on this admission. Pt not aware of previous issues with platelet counts. Denies bleeding including melena, hematochezia, epistaxis, gingival. 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) History of Substance Use: reports: None - Smoking History Smoking history: Former smoker Have you smoked in the past 12 months: No Aproximately how many cigarettes per day: 0 If you are a former smoker, when did you quit?: 40-50yr ago - Social History Usual Living Arrangement: With Spouse (house with 2 steps to enter then 1st floor set-up) ADL: Support Services (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, ambulated with walker/ w/c) History of Recent Travel: No Home Medications - Allergies Allergies/Adverse Reactions: Allergies Allergy/AdvReac Type Severity Reaction Status Date / Time No Known Allergies Allergy Verified 02/13/19 22:12 - Home Medications Home Medications: Ambulatory Orders Metoprolol Succinate [Toprol XL] 25 mg PO DAILY 12/31/11 Warfarin Na [Coumadin] 5 mg PO HS 12/31/11 Cholecalciferol (Vitamin D3) [Vitamin D3] 1,000 unit PO DAILY 10/31/13 Gabapentin 200 mg PO BID 10/25/18 Spironolactone 25 mg PO DAILY 08/04/18 Ferrous Sulfate 325 mg PO DAILY 11/29/18 Sacubitril/Valsartan [Entresto 24 mg-26 mg Tablet] 1 tab PO DAILY 11/29/18 Torsemide 20 mg PO DAILY 11/29/18 Acetaminophen 650 mg PO Q6H PRN 02/14/19 Atorvastatin Ca [Lipitor] 10 mg PO DAILY 02/14/19 Cyclobenzaprine HCl 5 mg PO DAILY 02/14/19 Digoxin [Lanoxin -] 0.125 mg PO DAILY 02/14/19 Metolazone 2.5 mg PO DAILY PRN 02/14/19 Oxycodone HCl/Acetaminophen [Percocet 5-325 mg Tablet] 1 tab PO Q4H PRN Ranitidine [Zantac -] 150 mg PO DAILY 02/14/19 Family Disease History - Family Disease History Other Family History: No family history of colorectal cancer or other GI malignancy Review of Systems - Review of Systems Constitutional: reports: No Symptoms Eyes: reports: No Symptoms Cardiovascular: reports: No Symptoms Respiratory: reports: No Symptoms Gastrointestinal: reports: Other (poor appetite) Integumentary: reports: No Symptoms Hematology/Lymphatic: reports: No Symptoms Physical Exam Vital Signs: Vital Signs Temperature 98 F 02/26/19 18:00 Pulse Rate 70 02/26/19 18:00 Respiratory Rate 18 02/26/19 18:00 Blood Pressure 112/42 L 02/26/19 18:00 O2 Sat by Pulse Oximetry (%) 100 02/26/19 09:26 Constitutional: Yes: No Distress, Calm Eyes: Yes: Conjunctiva Clear Cardiovascular: Yes: Regular Rate and Rhythm Respiratory: Yes: Regular, CTA Bilaterally (PEG in place) Edema: No Labs: CBC, BMP 02/26/19 06:00 02/26/19 06:00 Assessment/Plan Peripheral smear without plt clumps, some giant plts, no schistocytes, elliptocytes/pencil cells noted, no immature cells. Unclear cause of thrombocytopenia. No obvious culprit meds (PPI, H2 adina started after onset) . No documented heparin exposure. Please check retics, b12, folate, iron studies, HBV, HCV, HIV, fibrinogen, PTT, SPEP/FLC. Continue to monitor CBC.
[2019-02-26] MEDS ORDERED: PT OWN MED DRAWER 7, Y5N ONE (21:53)
[2019-02-26] MEDS: ATORVASTATIN CA 10 MG TABLET (FP) PO SCH (21:59)
[2019-02-26] MEDS: RANITIDINE HCL 150 MG/10 ML UNIT-DOSE GT SCH (22:00)
[2019-02-27 06:59] LABS: INR 1.1 (0.83-1.09)
[2019-02-27 07:00] LABS: BASO % 0.6 % (0-2.0); EOS % 2.5 % (0-4.5); HEMATOCRIT 24.3 % (35.4-49); HEMOGLOBIN 7.9 GM/dL (11.7-16.9); LYMPH % 20.6 % (8-40); MCH 29.4 pg (25.7-33.7); MCHC 32.6 g/dl (32.0-35.9); MEAN CELL VOLUME 90.4 fl (80-96); MEAN PLT VOLUME 10.3 fl (7.5-11.1); MONO % 14.3 % (3.8-10.2); PLATELET COUNT 47 K/MM3 (134-434); RBC 2.69 M/mm3 (4.00-5.60); RDW 18.1 % (11.9-15.9); WHITE BLOOD COUNT 5.7 K/mm3 (4.0-10.0)
[2019-02-27 07:34] LABS: CALCIUM 7.2 mg/dL (8.5-10.1); CREATININE 1.1 mg/dL (0.55-1.3); MAGNESIUM 2.2 mg/dL (1.8-2.4); PHOSPHOROUS 1.9 mg/dL (2.5-4.9); POTASSIUM 3.7 mmol/L (3.5-5.1)
--- NOTE | 2019-02-27 08:54 | PN ---
Progress Note, Physician Chief Complaint: SANDIE, hyperK History of Present Illness: feels well except discomfort at PEG site. no sob, orthopnea no cp, palpitations, leg swelling no cigs - Current Medication List Current Medications: Active Medications Acetaminophen (Tylenol -) 650 mg PO Q6H PRN PRN Reason: PAIN Last Admin: 02/26/19 22:00 Dose: 650 mg Atorvastatin Calcium (Lipitor -) 10 mg PO [facility] Last Admin: 02/26/19 21:59 Dose: 10 mg Bacitracin (Bacitracin -) 1 applic TP BID [facility] Stop: 03/01/19 21:59 Last Admin: 02/26/19 22:00 Dose: 1 applic Cholecalciferol (Vitamin D3 -) 2,000 unit PO DAILY [facility] Last Admin: 02/26/19 09:16 Dose: 2,000 unit Digoxin (Lanoxin -) 0.125 mg PO MoWeFr [facility] Last Admin: 02/24/19 14:24 Dose: Not Given Ferrous Sulfate (Feosol -) 325 mg PO DAILY [facility] Last Admin: 02/26/19 09:16 Dose: 325 mg Metoprolol Tartrate (Lopressor -) 25 mg PO BID [facility] Last Admin: 02/26/19 09:16 Dose: 25 mg Ondansetron HCl (Zofran Injection) 4 mg IVPUSH Q8H PRN PRN Reason: NAUSEA Pantoprazole Sodium (Protonix Iv) 40 mg IVPUSH DAILY [facility] Last Admin: 02/26/19 09:17 Dose: 40 mg Polyethylene Glycol (Miralax (For Daily Use) -) 17 gm PO DAILY [facility] Last Admin: 02/26/19 09:17 Dose: Not Given Ranitidine HCl (Zantac Oral Solution -) 150 mg GT HS [facility] Last Admin: 02/26/19 22:00 Dose: 150 mg Sacubitril/Valsartan (Entresto 24 Mg-26 Mg Tablet) 1 tab PO BID [facility] Last Admin: 02/26/19 21:50 Dose: Not Given - Objective Vital Signs: Vital Signs Temperature 98.7 F 02/27/19 06:00 Pulse Rate 74 02/27/19 06:00 Respiratory Rate 16 02/27/19 06:00 Blood Pressure 116/64 02/27/19 06:00 O2 Sat by Pulse Oximetry (%) 98 02/26/19 21:00 Constitutional: Yes: No Distress, Calm Eyes: No: Sclera Icterus HENT: No: Nasal Congestion Cardiovascular: Yes: Regular Rate and Rhythm, S1, S2, S4, Other (PMI non diplaced). No: JVD, Gallop, Murmur Respiratory: Yes: CTA Bilaterally. No: Accessory Muscle Use, Rales (abd binder confounds), Wheezes Gastrointestinal: Yes: Normal Bowel Sounds, Soft. 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 - agree would indefinitely hold spirono, while observe K on Entresto, which was now resumed - appears euvolemic, holding diuresis for now but will likely need to resume stable PO dose prior to discharge or shortly thereafter (pt advised to make f/u with dr wayne within few wks of hosp d/c) - continue metoprolol - changed to metoprolol tartrate 25 mg BID, can be crushed. Afib - continue digoxin, toprol - on warfarin at home. chronic thrombocytopenia ? baseline counts--has run mostly in 40s-50s here. per d/w dr wayne, PLTs 80-100 at baseline. - mildly anemic here with incidental non-bleeding ulcers found on EGD done for PEG insertion--observe counts - will continue holding warfarin while monitor PLTs trend--if recovers to >50- 60K can reintroduce AC at that time if no active bleeding. otherwise will defer consideration of outpatient Watchman implant to f/u with Dr. Wayne CAD s/p CABG: - continue statin, metoprolol s/p PPM: - stable on EKG, outpatient monitoring h/o bioprosthetic MVR: - outpatient follow up HLD: - cont statin CVA: - L hemiparesis - cont statin
--- NOTE | 2019-02-27 09:49 | PN ---
Progress Note (short form) - Note Progress Note: Hospitalist to document today. Previously had W/U for thrombocytopenia with no definitive diagnosis.
[2019-02-27] MEDS ORDERED: PT OWN MED DRAWER 7, Y5N ONE ×3 (10:10→21:11)
[2019-02-27] MEDS ORDERED: ZOLPIDEM TARTRATE 5 MG TABLET PEG PRN (10:17)
--- NOTE | 2019-02-27 10:20 | PN ---
Progress Note, Physician Chief Complaint: Mr Melchor says he did not sleep well last night and is asking for a sleep agent. Denies cp, sob, n/v. Tolerating TF without difficulty. - Current Medication List Current Medications: Active Medications Acetaminophen (Tylenol -) 650 mg PO Q6H PRN PRN Reason: PAIN Last Admin: 02/26/19 22:00 Dose: 650 mg Atorvastatin Calcium (Lipitor -) 10 mg PO HS [facility] Last Admin: 02/26/19 21:59 Dose: 10 mg Bacitracin (Bacitracin -) 1 applic TP BID [facility] Stop: 03/01/19 21:59 Last Admin: 02/26/19 22:00 Dose: 1 applic Cholecalciferol (Vitamin D3 -) 2,000 unit PO DAILY [facility] Last Admin: 02/26/19 09:16 Dose: 2,000 unit Digoxin (Lanoxin -) 0.125 mg PO MoWeFr [facility] Last Admin: 02/24/19 14:24 Dose: Not Given Ferrous Sulfate (Feosol -) 325 mg PO DAILY [facility] Last Admin: 02/26/19 09:16 Dose: 325 mg Metoprolol Tartrate (Lopressor -) 25 mg PO BID [facility] Last Admin: 02/26/19 09:16 Dose: 25 mg Ondansetron HCl (Zofran Injection) 4 mg IVPUSH Q8H PRN PRN Reason: NAUSEA Pantoprazole Sodium (Protonix Iv) 40 mg IVPUSH DAILY [facility] Last Admin: 02/26/19 09:17 Dose: 40 mg Polyethylene Glycol (Miralax (For Daily Use) -) 17 gm PO DAILY [facility] Last Admin: 02/26/19 09:17 Dose: Not Given Potassium Phos/Sodium Phos (Phos-Nak Packet -) 1 packet PEG TID [facility] Ranitidine HCl (Zantac Oral Solution -) 150 mg GT HS [facility] Last Admin: 02/26/19 22:00 Dose: 150 mg Sacubitril/Valsartan (Entresto 24 Mg-26 Mg Tablet) 1 tab PO BID [facility] Last Admin: 02/26/19 21:50 Dose: Not Given Zolpidem Tartrate (Ambien -) 2.5 mg PEG HS PRN PRN Reason: INSOMNIA - Objective Vital Signs: Vital Signs Temperature 37.1 C 02/27/19 08:54 Pulse Rate 82 02/27/19 08:54 Respiratory Rate 18 02/27/19 08:54 Blood Pressure 104/55 L 02/27/19 08:54 O2 Sat by Pulse Oximetry (%) 98 02/26/19 21:00 Constitutional: Yes: No Distress, Calm, Thin Cardiovascular: Yes: Pulse Irregular. No: Tachycardia, Gallop, Murmur, Rub Respiratory: Yes: Regular, CTA Bilaterally. No: Rales, Rhonchi, Wheezes Gastrointestinal: Yes: Normal Bowel Sounds, Soft. No: Distention, Tenderness Extremities: Yes: WNL Edema: No Labs: CBC, BMP 02/27/19 06:00 02/27/19 06:00 INR, PTT INR 1.10 (0.83-1.09) H 02/27/19 06:00 Fibrinogen 415.0 mg/dL (238-498) 02/27/19 06:00 Problem List - Problems (1) Hyperkalemia Code(s): E87.5 - HYPERKALEMIA (2) SANDIE (acute kidney injury) Code(s): N17.9 - ACUTE KIDNEY FAILURE, UNSPECIFIED (3) Toxic metabolic encephalopathy Code(s): G92 - TOXIC ENCEPHALOPATHY (4) Valvular heart disease Code(s): I38 - ENDOCARDITIS, VALVE UNSPECIFIED (5) Atrial fibrillation Code(s): I48.91 - UNSPECIFIED ATRIAL FIBRILLATION Qualifiers: Atrial fibrillation type: chronic Qualified Code(s): I48.2 - Chronic atrial fibrillation (6) Neuropathy Code(s): G62.9 - POLYNEUROPATHY, UNSPECIFIED (7) Dysphagia Code(s): R13.10 - DYSPHAGIA, UNSPECIFIED (8) Hypernatremia Code(s): E87.0 - HYPEROSMOLALITY AND HYPERNATREMIA Assessment/Plan 1) Hypernatremia Assessment/Plan: -resolved -continue free water Code(s): (2) SANDIE (acute kidney injury) Assessment/Plan: -resolved Code(s): N17.9 - ACUTE KIDNEY FAILURE, UNSPECIFIED (3) Toxic metabolic encephalopathy Assessment/Plan: -resolved Code(s): G92 - TOXIC ENCEPHALOPATHY (4) Valvular heart disease Assessment/Plan: -severe -case d/w Dr Gregory -entresto restarted Code(s): I38 - ENDOCARDITIS, VALVE UNSPECIFIED (5) Atrial fibrillation Assessment/Plan: -holding coumadin secondary to thrombocytopenia -continue toprol xl with hold parameters Code(s): I48.91 - UNSPECIFIED ATRIAL FIBRILLATION Qualifiers: Atrial fibrillation type: chronic Qualified Code(s): I48.2 - Chronic atrial fibrillation (6) Neuropathy Assessment/Plan: -continue gabapentin Code(s): G62.9 - POLYNEUROPATHY, UNSPECIFIED (7) Dysphagia -PEG tube placed -tolerating TFs (8) Duodenal ulcers -continue IV protonix and ranitidine per [facility] currently (9) Thrombocytopenia -appreciate hematology assistance -hold coumadin currently, 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
[2019-02-27] MEDS: CHOLECALCIFEROL (VITAMIN D3) 1,000 UNIT TABLET (FP) PO SCH (11:12)
[2019-02-27] MEDS: METOPROLOL TARTRATE 25 MG TABLET (FP) PO SCH ×2 (11:12→21:16)
[2019-02-27] MEDS: PANTOPRAZOLE SODIUM 40 MG VIAL IVPUSH SCH (11:13)
[2019-02-27] MEDS: SACUBITRIL/VALSARTAN 24 MG-26 MG TABLET PO SCH ×2 (11:13→21:16)
[2019-02-27] MEDS: FERROUS SO4 325 MG TABLET (FP) PO SCH (11:13)
[2019-02-27] MEDS: BACITRACIN 15 GM TUBE TOPICAL OINTMENT TP SCH ×2 (11:13→21:16)
[2019-02-27] MEDS: NAPH,MB-DB/K PH,MBDB POWDER PACKET PEG SCH ×3 (11:13→21:16)
[2019-02-27] MEDS: POLYETHYLENE GLYCOL 3350 119 GM BTL PO SCH (11:14)
[2019-02-27] MEDS: DIGOXIN 0.125 MG TABLET (FP) PO SCH (11:18)
--- NOTE | 2019-02-27 11:21 | PN ---
Progress Note, Physician History of Present Illness: Pt seen and examined at bedside. He had a peg tube placed. He is tolerating feeds. - Current Medication List Current Medications: Active Medications Acetaminophen (Tylenol -) 650 mg PO Q6H PRN PRN Reason: PAIN Last Admin: 02/26/19 22:00 Dose: 650 mg Atorvastatin Calcium (Lipitor -) 10 mg PO HS [facility] Last Admin: 02/26/19 21:59 Dose: 10 mg Bacitracin (Bacitracin -) 1 applic TP BID [facility] Stop: 03/01/19 21:59 Last Admin: 02/26/19 22:00 Dose: 1 applic Cholecalciferol (Vitamin D3 -) 2,000 unit PO DAILY [facility] Last Admin: 02/26/19 09:16 Dose: 2,000 unit Digoxin (Lanoxin -) 0.125 mg PO MoWeFr [facility] Last Admin: 02/24/19 14:24 Dose: Not Given Ferrous Sulfate (Feosol -) 325 mg PO DAILY [facility] Last Admin: 02/26/19 09:16 Dose: 325 mg Metoprolol Tartrate (Lopressor -) 25 mg PO BID [facility] Last Admin: 02/26/19 09:16 Dose: 25 mg Ondansetron HCl (Zofran Injection) 4 mg IVPUSH Q8H PRN PRN Reason: NAUSEA Pantoprazole Sodium (Protonix Iv) 40 mg IVPUSH DAILY [facility] Last Admin: 02/26/19 09:17 Dose: 40 mg Polyethylene Glycol (Miralax (For Daily Use) -) 17 gm PO DAILY [facility] Last Admin: 02/26/19 09:17 Dose: Not Given Potassium Phos/Sodium Phos (Phos-Nak Packet -) 1 packet PEG TID [facility] Ranitidine HCl (Zantac Oral Solution -) 150 mg GT HS [facility] Last Admin: 02/26/19 22:00 Dose: 150 mg Sacubitril/Valsartan (Entresto 24 Mg-26 Mg Tablet) 1 tab PO BID [facility] Last Admin: 02/26/19 21:50 Dose: Not Given Zolpidem Tartrate (Ambien -) 2.5 mg PEG HS PRN PRN Reason: INSOMNIA - Objective Vital Signs: Vital Signs Temperature 98.7 F 02/27/19 08:54 Pulse Rate 82 02/27/19 08:54 Respiratory Rate 18 02/27/19 08:54 Blood Pressure 104/55 L 02/27/19 08:54 O2 Sat by Pulse Oximetry (%) 98 02/26/19 21:00 Constitutional: Yes: Calm Eyes: Yes: Conjunctiva Clear HENT: Yes: Atraumatic Neck: Yes: Supple Cardiovascular: Yes: S1, S2 Respiratory: Yes: CTA Bilaterally Gastrointestinal: Yes: Normal Bowel Sounds, Soft Genitourinary: Yes: WNL Musculoskeletal: Yes: Muscle Weakness Edema: No Integumentary: Yes: Venous Stasis Changes Neurological: Yes: Oriented Psychiatric: Yes: Oriented Labs: CBC, BMP 02/27/19 06:00 02/27/19 06:00 INR, PTT INR 1.10 (0.83-1.09) H 02/27/19 06:00 Fibrinogen 415.0 mg/dL (238-498) 02/27/19 06:00 Problem List - Problems (1) SANDIE (acute kidney injury) Code(s): N17.9 - ACUTE KIDNEY FAILURE, UNSPECIFIED (2) Atrial fibrillation Code(s): I48.91 - UNSPECIFIED ATRIAL FIBRILLATION Qualifiers: Atrial fibrillation type: chronic Qualified Code(s): I48.2 - Chronic atrial fibrillation (3) Hyperkalemia Code(s): E87.5 - HYPERKALEMIA Assessment/Plan Current Medications Generic Name Dose Route Start Last Admin Trade Name Freq PRN Reason Stop Dose Admin Acetaminophen 650 mg 02/24/19 20:00 02/26/19 22:00 Tylenol - PO 650 mg Q6H PRN Administration PAIN Atorvastatin Calcium 10 mg 02/14/19 22:00 02/26/19 21:59 Lipitor - PO 10 mg HS [facility] Administration Bacitracin 1 applic 02/24/19 22:00 02/26/19 22:00 Bacitracin - TP 03/01/19 21:59 1 applic BID [facility] Administration Cholecalciferol 2,000 unit 02/14/19 10:00 02/26/19 09:16 Vitamin D3 - PO 2,000 unit DAILY [facility] Administration Digoxin 0.125 mg 02/15/19 10:00 02/24/19 14:24 Lanoxin - PO Not Given MoWeFr [facility] Ferrous Sulfate 325 mg 02/14/19 10:00 02/26/19 09:16 Feosol - PO 325 mg DAILY [facility] Administration Metoprolol Tartrate 25 mg 02/22/19 11:45 02/26/19 09:16 Lopressor - PO 25 mg BID [facility] Administration Ondansetron HCl 4 mg 02/19/19 07:33 Zofran Injection IVPUSH Q8H PRN NAUSEA Pantoprazole Sodium 40 mg 02/24/19 15:15 02/26/19 09:17 Protonix Iv IVPUSH 40 mg DAILY [facility] Administration Polyethylene Glycol 17 gm 02/17/19 15:30 02/26/19 09:17 Miralax (For Daily Use) - PO Not Given DAILY [facility] Potassium Phos/Sodium Phos 1 packet 02/27/19 09:45 Phos-Nak Packet - PEG TID [facility] Ranitidine HCl 150 mg 02/24/19 22:00 02/26/19 22:00 Zantac Oral Solution - GT 150 mg HS [facility] Administration Sacubitril/Valsartan 1 tab 02/26/19 10:15 02/26/19 21:50 Entresto 24 Mg-26 Mg Tablet PO Not Given BID [facility] Zolpidem Tartrate 2.5 mg 02/27/19 10:17 Ambien - PEG HS PRN INSOMNIA Impression 1. SANDIE 2. hyperkalemia 3. CHF 4. anemia 5. a-fib 6. hypernatremia Plan - renal function is stabilizing - entresto resumed, pt tolerating - evaluate for diuretics daily - monitor lytes - pt off of fluids now Dr Curran
--- NOTE | 2019-02-27 13:29 | PN ---
Progress Note, SCRUM MASTER - Note Progress Note: Selected Entries 02/26/19 02/26/19 02/26/19 05:27 09:26 14:00 Temperature 98.0 F 98.8 F 98.8 F Blood Pressure 02/26/19 02/26/19 02/27/19 18:00 21:00 06:00 Temperature 98 F 98.5 F 98.7 F Blood Pressure 116/64 02/27/19 02/27/19 08:54 11:31 Temperature 98.7 F Blood Pressure 104/55 L 115/46 L Laboratory Tests 02/27/19 06:00 WBC 5.7 He had a peg tube placed and he is tolerating feeds. He is refusing most PO trials. Pending d/c to [facility] hpefully tomorrow. He is wide awake, looking stronger. Pt counseled on need to continue eating by mouth to maintain swallowing function. Intensive swallowing tx at [facility]. Continue mouth care, various resistance and BOT/laryngeal exercises
--- NOTE | 2019-02-27 15:15 | PN ---
Physical Exam: SUBJECTIVE: Patient seen and examined patient resting in bed nad. afebrile hemodynamically stable. no acute events. reports frequent and easy bruising denies bleeding episodes. states his platelets have always been up and down. still feels. weak OBJECTIVE: Vital Signs Period Temp Pulse Resp BP Sys/Real Pulse Ox Last 24 Hr 98 F-99.0 F 70-82 16-18 97-116/42-64 98-99 GENERAL: The patient is awake, alert, and fully oriented, in no acute distress. HEAD: Normal with no signs of trauma. EYES: PERRL, extraocular movements intact, sclera anicteric, conjunctiva clear. ENT: moist mucous membranes. NECK: supple. LUNGS: Breath sounds equal, clear to auscultation bilaterally HEART: Regular rate and rhythm, S1, S2 ABDOMEN: Soft, nontender, nondistended, normoactive bowel sounds, no guarding, no rebound EXTREMITIES: no edema. NEUROLOGICAL: Cranial nerves II through XII grossly intact. Normal speech, PSYCH: Normal mood, normal affect. SKIN: Warm, dry Laboratory Results - last 24 hr 02/27/19 02/27/19 02/27/19 06:00 06:00 06:00 WBC 5.7 RBC 2.69 L Hgb 7.9 L Hct 24.3 L MCV 90.4 MCH 29.4 MCHC 32.6 RDW 18.1 H Plt Count 47 L MPV 10.3 Absolute Neuts (auto) 3.5 Neutrophils % 62.0 Lymphocytes % 20.6 Monocytes % 14.3 H Eosinophils % 2.5 Basophils % 0.6 Nucleated RBC % 0 PT with INR 13.00 INR 1.10 H PTT (Actin FS) Fibrinogen Sodium 140 Potassium 3.7 Chloride 111 H Carbon Dioxide 20 L Anion Gap 9 BUN 27 H Creatinine 1.1 Est GFR (CKD-EPI)AfAm 69.10 Est GFR (CKD-EPI)NonAf 59.62 Random Glucose 106 Calcium 7.2 L Phosphorus 1.9 L Magnesium 2.2 Vitamin B12 Serum Folate 20 H 02/27/19 02/27/19 02/27/19 06:00 06:00 06:00 WBC RBC Hgb Hct MCV MCH MCHC RDW Plt Count MPV Absolute Neuts (auto) Neutrophils % Lymphocytes % Monocytes % Eosinophils % Basophils % Nucleated RBC % PT with INR INR PTT (Actin FS) 30.2 Fibrinogen 415.0 Sodium Potassium Chloride Carbon Dioxide Anion Gap BUN Creatinine Est GFR (CKD-EPI)AfAm Est GFR (CKD-EPI)NonAf Random Glucose Calcium Phosphorus Magnesium Vitamin B12 532 Serum Folate Active Medications Generic Name Dose Route Start Last Admin Trade Name Freq PRN Reason Stop Dose Admin Acetaminophen 650 mg 02/24/19 20:00 02/26/19 22:00 Tylenol - PO 650 mg Q6H PRN Administration PAIN Atorvastatin Calcium 10 mg 02/14/19 22:00 02/26/19 21:59 Lipitor - PO 10 mg HS DARSHAN Administration Bacitracin 1 applic 02/24/19 22:00 02/27/19 11:13 Bacitracin - TP 03/01/19 21:59 1 applic BID DARSHAN Administration Cholecalciferol 2,000 unit 02/14/19 10:00 02/27/19 11:12 Vitamin D3 - PO 2,000 unit DAILY DARSHAN Administration Digoxin 0.125 mg 02/15/19 10:00 02/27/19 11:18 Lanoxin - PO 0.125 mg MoWeFr DARSHAN Administration Ferrous Sulfate 325 mg 02/14/19 10:00 02/27/19 11:13 Feosol - PO 325 mg DAILY DARSHAN Administration Metoprolol Tartrate 25 mg 02/22/19 11:45 02/27/19 11:12 Lopressor - PO 25 mg BID DARSHAN Administration Ondansetron HCl 4 mg 02/19/19 07:33 Zofran Injection IVPUSH Q8H PRN NAUSEA Pantoprazole Sodium 40 mg 02/24/19 15:15 02/27/19 11:13 Protonix Iv IVPUSH 40 mg DAILY DARSHAN Administration Polyethylene Glycol 17 gm 02/17/19 15:30 02/27/19 11:14 Miralax (For Daily Use) - PO 17 units DAILY DARSHAN Administration Potassium Phos/Sodium Phos 1 packet 02/27/19 09:45 02/27/19 11:13 Phos-Nak Packet - PEG 1 packet TID DARSHAN Administration Ranitidine HCl 150 mg 02/24/19 22:00 02/26/19 22:00 Zantac Oral Solution - GT 150 mg HS DARSHAN Administration Sacubitril/Valsartan 1 tab 02/26/19 10:15 02/27/19 11:13 Entresto 24 Mg-26 Mg Tablet PO 1 tab BID DARSHAN Administration Zolpidem Tartrate 2.5 mg 02/27/19 10:17 Ambien - PEG HS PRN INSOMNIA ASSESSMENT/PLAN: Patient is an 88 yo M with a PMHx of CHF, A-fib (on coumadin), s/p pacemaker, s/ p cardiac valve replacement, recent admission (@ [facility], complicated by Asp PNA, intubated), was sent by his PCP because of abnormal lab work. Thrombocytopenia -likely due to CHF spleen consumption -resume coum if platelets > 50 -r/o HIT (recent [facility] admission): HIT ab + fred, tfts -flow/fish/cytogenetics for MDS tomorrow -f/y fe studies, hbv, hcv, hiv, spep, flc -lives spleen unremarkable on ct Problem List - Problems (1) Thrombocytopenia Code(s): D69.6 - THROMBOCYTOPENIA, UNSPECIFIED (2) CHF (congestive heart failure) Code(s): I50.9 - HEART FAILURE, UNSPECIFIED (3) SANDIE (acute kidney injury) Code(s): N17.9 - ACUTE KIDNEY FAILURE, UNSPECIFIED (4) Atrial fibrillation Code(s): I48.91 - UNSPECIFIED ATRIAL FIBRILLATION Qualifiers: Atrial fibrillation type: chronic Qualified Code(s): I48.2 - Chronic atrial fibrillation (5) Normocytic anemia Code(s): D64.9 - ANEMIA, UNSPECIFIED Visit type - Emergency Visit Emergency Visit: Yes ED Registration Date: 02/14/19 Care time: The patient presented to the Emergency Department on the above date and was hospitalized for further evaluation of their emergent condition. - New Patient This patient is new to me today: Yes Date on this admission: 02/27/19 - Critical Care Critical Care patient: No - Discharge Referral Referred to [facility] No
[2019-02-27] MEDS: RANITIDINE HCL 150 MG/10 ML UNIT-DOSE GT SCH (21:16)
[2019-02-27] MEDS: ATORVASTATIN CA 10 MG TABLET (FP) PO SCH (21:16)
[2019-02-28] MEDS: NAPH,MB-DB/K PH,MBDB POWDER PACKET PEG SCH ×2 (05:40→14:22)
[2019-02-28 07:44] LABS: BASO % 0.6 % (0-2.0); EOS % 2.4 % (0-4.5); HEMATOCRIT 26.4 % (35.4-49); HEMOGLOBIN 8.6 GM/dL (11.7-16.9); LYMPH % 18.3 % (8-40); MCH 29.4 pg (25.7-33.7); MCHC 32.5 g/dl (32.0-35.9); MEAN CELL VOLUME 90.4 fl (80-96); MEAN PLT VOLUME 10.4 fl (7.5-11.1); MONO % 12.9 % (3.8-10.2); NEUT % 65.8 % (42.8-82.8); PLATELET COUNT 55 K/MM3 (134-434); RBC 2.92 M/mm3 (4.00-5.60); RDW 18.4 % (11.9-15.9)
[2019-02-28 07:53] LABS: CALCIUM 7.3 mg/dL (8.5-10.1); CREATININE 1.1 mg/dL (0.55-1.3); MAGNESIUM 2.2 mg/dL (1.8-2.4); PHOSPHOROUS 2.3 mg/dL (2.5-4.9); POTASSIUM 4.4 mmol/L (3.5-5.1)
[2019-02-28 08:12] LABS: INR 1.04 (0.83-1.09); PROTHROMBIN TIME (PATIENT) 12.3 SEC (9.7-13.0)
--- NOTE | 2019-02-28 10:10 | PN ---
Progress Note, Physician History of Present Illness: Pt seen and examined at bedside. He is awake and alert. He denies shortness of breath. - Current Medication List Current Medications: Active Medications Acetaminophen (Tylenol -) 650 mg PO Q6H PRN PRN Reason: PAIN Last Admin: 02/26/19 22:00 Dose: 650 mg Atorvastatin Calcium (Lipitor -) 10 mg PO HS [facility] Last Admin: 02/27/19 21:16 Dose: 10 mg Bacitracin (Bacitracin -) 1 applic TP BID [facility] Stop: 03/01/19 21:59 Last Admin: 02/27/19 21:16 Dose: 1 applic Cholecalciferol (Vitamin D3 -) 2,000 unit PO DAILY [facility] Last Admin: 02/27/19 11:12 Dose: 2,000 unit Digoxin (Lanoxin -) 0.125 mg PO MoWeFr [facility] Last Admin: 02/27/19 11:18 Dose: 0.125 mg Ferrous Sulfate (Feosol -) 325 mg PO DAILY [facility] Last Admin: 02/27/19 11:13 Dose: 325 mg Metoprolol Tartrate (Lopressor -) 25 mg PO BID [facility] Last Admin: 02/27/19 21:16 Dose: 25 mg Ondansetron HCl (Zofran Injection) 4 mg IVPUSH Q8H PRN PRN Reason: NAUSEA Pantoprazole Sodium (Protonix Iv) 40 mg IVPUSH DAILY [facility] Last Admin: 02/27/19 11:13 Dose: 40 mg Polyethylene Glycol (Miralax (For Daily Use) -) 17 gm PO DAILY [facility] Last Admin: 02/27/19 11:14 Dose: 17 units Potassium Phos/Sodium Phos (Phos-Nak Packet -) 1 packet PEG TID [facility] Last Admin: 02/28/19 05:40 Dose: 1 packet Ranitidine HCl (Zantac Oral Solution -) 150 mg GT HS [facility] Last Admin: 02/27/19 21:16 Dose: 150 mg Sacubitril/Valsartan (Entresto 24 Mg-26 Mg Tablet) 1 tab PO BID [facility] Last Admin: 02/27/19 21:16 Dose: 1 tab Zolpidem Tartrate (Ambien -) 2.5 mg PEG HS PRN PRN Reason: INSOMNIA Last Admin: 02/27/19 21:28 Dose: 2.5 mg - Objective Vital Signs: Vital Signs Temperature 99 F 02/28/19 08:42 Pulse Rate 69 02/28/19 08:42 Respiratory Rate 18 02/28/19 08:42 Blood Pressure 118/52 L 02/28/19 08:42 O2 Sat by Pulse Oximetry (%) 99 02/27/19 20:30 Constitutional: Yes: Calm Eyes: Yes: Conjunctiva Clear HENT: Yes: Atraumatic Neck: Yes: Supple Cardiovascular: Yes: S1, S2 Respiratory: Yes: CTA Bilaterally Gastrointestinal: Yes: Soft Genitourinary: Yes: WNL Musculoskeletal: Yes: Muscle Weakness Edema: No Integumentary: Yes: Venous Stasis Changes Neurological: Yes: Oriented Psychiatric: Yes: Oriented Labs: CBC, BMP 02/28/19 06:30 02/28/19 06:30 INR, PTT INR 1.04 (0.83-1.09) 02/28/19 03:49 Fibrinogen 415.0 mg/dL (238-498) 02/27/19 06:00 Problem List - Problems (1) SANDIE (acute kidney injury) Code(s): N17.9 - ACUTE KIDNEY FAILURE, UNSPECIFIED (2) Atrial fibrillation Code(s): I48.91 - UNSPECIFIED ATRIAL FIBRILLATION Qualifiers: Atrial fibrillation type: chronic Qualified Code(s): I48.2 - Chronic atrial fibrillation (3) Hyperkalemia Code(s): E87.5 - HYPERKALEMIA Assessment/Plan Current Medications Generic Name Dose Route Start Last Admin Trade Name Freq PRN Reason Stop Dose Admin Acetaminophen 650 mg 02/24/19 20:00 02/26/19 22:00 Tylenol - PO 650 mg Q6H PRN Administration PAIN Atorvastatin Calcium 10 mg 02/14/19 22:00 02/27/19 21:16 Lipitor - PO 10 mg HS DARSHAN Administration Bacitracin 1 applic 02/24/19 22:00 02/27/19 21:16 Bacitracin - TP 03/01/19 21:59 1 applic BID DARSHAN Administration Cholecalciferol 2,000 unit 02/14/19 10:00 02/27/19 11:12 Vitamin D3 - PO 2,000 unit DAILY DARSHAN Administration Digoxin 0.125 mg 02/15/19 10:00 02/27/19 11:18 Lanoxin - PO 0.125 mg MoWeFr DARSHAN Administration Ferrous Sulfate 325 mg 02/14/19 10:00 02/27/19 11:13 Feosol - PO 325 mg DAILY DARSHAN Administration Metoprolol Tartrate 25 mg 02/22/19 11:45 02/27/19 21:16 Lopressor - PO 25 mg BID DARSHAN Administration Ondansetron HCl 4 mg 02/19/19 07:33 Zofran Injection IVPUSH Q8H PRN NAUSEA Pantoprazole Sodium 40 mg 02/24/19 15:15 02/27/19 11:13 Protonix Iv IVPUSH 40 mg DAILY DARSHAN Administration Polyethylene Glycol 17 gm 02/17/19 15:30 02/27/19 11:14 Miralax (For Daily Use) - PO 17 units DAILY DARSHAN Administration Potassium Phos/Sodium Phos 1 packet 02/27/19 09:45 02/28/19 05:40 Phos-Nak Packet - PEG 1 packet TID DARSHAN Administration Ranitidine HCl 150 mg 02/24/19 22:00 02/27/19 21:16 Zantac Oral Solution - GT 150 mg HS DARSHAN Administration Sacubitril/Valsartan 1 tab 02/26/19 10:15 02/27/19 21:16 Entresto 24 Mg-26 Mg Tablet PO 1 tab BID DARSHAN Administration Zolpidem Tartrate 2.5 mg 02/27/19 10:17 02/27/19 21:28 Ambien - PEG 2.5 mg HS PRN Administration INSOMNIA Laboratory Tests 02/28/19 06:30 Phosphorus 2.3 L Impression 1. SANDIE 2. hyperkalemia 3. CHF 4. anemia 5. a-fib 6. hypernatremia Plan - replace phos - volume statu stable - will not restart diuretics today - entresto resumed - evaluate for diuretics daily - monitor lytes - pt tolerating tube feeds Dr Curran
[2019-02-28] MEDS ORDERED: PT OWN MED DRAWER 7, Y5N ONE (10:17)
--- NOTE | 2019-02-28 10:29 | PN ---
Progress Note (short form) - Note Progress Note: s: no chest pain, palps, dyspnea, edema Current Medications Acetaminophen (Tylenol -) 650 mg PO Q6H PRN PRN Reason: PAIN Last Admin: 02/26/19 22:00 Dose: 650 mg Atorvastatin Calcium (Lipitor -) 10 mg PO HS [facility] Last Admin: 02/27/19 21:16 Dose: 10 mg Bacitracin (Bacitracin -) 1 applic TP BID [facility] Stop: 03/01/19 21:59 Last Admin: 02/27/19 21:16 Dose: 1 applic Cholecalciferol (Vitamin D3 -) 2,000 unit PO DAILY [facility] Last Admin: 02/27/19 11:12 Dose: 2,000 unit Digoxin (Lanoxin -) 0.125 mg PO MoWeFr [facility] Last Admin: 02/27/19 11:18 Dose: 0.125 mg Ferrous Sulfate (Feosol -) 325 mg PO DAILY [facility] Last Admin: 02/27/19 11:13 Dose: 325 mg Metoprolol Tartrate (Lopressor -) 25 mg PO BID [facility] Last Admin: 02/27/19 21:16 Dose: 25 mg Ondansetron HCl (Zofran Injection) 4 mg IVPUSH Q8H PRN PRN Reason: NAUSEA Pantoprazole Sodium (Protonix Iv) 40 mg IVPUSH DAILY [facility] Last Admin: 02/27/19 11:13 Dose: 40 mg Polyethylene Glycol (Miralax (For Daily Use) -) 17 gm PO DAILY [facility] Last Admin: 02/27/19 11:14 Dose: 17 units Potassium Phos/Sodium Phos (Phos-Nak Packet -) 1 packet PEG TID [facility] Last Admin: 02/28/19 05:40 Dose: 1 packet Ranitidine HCl (Zantac Oral Solution -) 150 mg GT HS [facility] Last Admin: 02/27/19 21:16 Dose: 150 mg Sacubitril/Valsartan (Entresto 24 Mg-26 Mg Tablet) 1 tab PO BID [facility] Last Admin: 02/27/19 21:16 Dose: 1 tab Zolpidem Tartrate (Ambien -) 2.5 mg PEG HS PRN PRN Reason: INSOMNIA Last Admin: 02/27/19 21:28 Dose: 2.5 mg Vital Signs Period Temp Pulse Resp BP Sys/Real Pulse Ox Last 24 Hr 98.4 F-99.0 F 69-71 16-18 104-125/46-52 99 Constitutional: Yes: No Distress, Calm Eyes: No: Sclera Icterus HENT: No: Nasal Congestion Cardiovascular: Yes: Regular Rate and Rhythm, S1, S2, S4, Other (PMI non diplaced). No: JVD, Gallop, Murmur Respiratory: Yes: CTA Bilaterally. No: Accessory Muscle Use, Rales (abd binder confounds), Wheezes Gastrointestinal: Yes: Normal Bowel Sounds, Soft. 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 - initially held entresto, torsemide, spironolactone (severe SANDIE with high K). - would indefinitely hold spirono, while observe K on Entresto, which was now resumed - appears euvolemic, continue holding diuresis for now - likely will need to restart diuresis shortly thereafter (pt advised to make f/u with dr wayne within few wks of hosp d/c) - continue metoprolol - changed to metoprolol tartrate 25 mg BID, can be crushed. Afib - continue digoxin, toprol - on warfarin at home. chronic thrombocytopenia ? baseline counts--has run mostly in 40s-50s here. per d/w dr wayne, PLTs 80-100 at baseline. - mildly anemic here with incidental non-bleeding ulcers found on EGD done for PEG insertion--observe counts - continue holding warfarin while monitor PLTs trend--if recovers to >50-60K can reintroduce AC at that time if no active bleeding - hematology following - will defer consideration of outpatient Watchman implant to f/u with Dr. Wayne CAD s/p CABG: - continue statin, metoprolol s/p PPM: - stable on EKG, outpatient monitoring h/o bioprosthetic MVR: - outpatient follow up HLD: - cont statin CVA: - L hemiparesis - cont statin
[2019-02-28] MEDS: CHOLECALCIFEROL (VITAMIN D3) 1,000 UNIT TABLET (FP) PO SCH (10:43)
[2019-02-28] MEDS: METOPROLOL TARTRATE 25 MG TABLET (FP) PO SCH (10:43)
[2019-02-28] MEDS: PANTOPRAZOLE SODIUM 40 MG VIAL IVPUSH SCH (10:43)
[2019-02-28] MEDS: SACUBITRIL/VALSARTAN 24 MG-26 MG TABLET PO SCH (10:44)
[2019-02-28] MEDS: POLYETHYLENE GLYCOL 3350 119 GM BTL PO SCH (10:45)
[2019-02-28] MEDS: BACITRACIN 15 GM TUBE TOPICAL OINTMENT TP SCH (10:45)
[2019-02-28] MEDS: FERROUS SO4 325 MG TABLET (FP) PO SCH (12:00)
--- NOTE | 2019-02-28 12:40 | PN ---
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 Continue eating by mouth to maintain swallowing function. Intensive swallowing tx at [facility]. Continue mouth care, various resistance and BOT/laryngeal exercises Pending d/c to [facility] .
--- NOTE | 2019-02-28 12:49 | DS ---
Physical Exam: SUBJECTIVE: Patient seen and examined at bedside. Still states he isn't tolerating PO. Otherwise offers no complaints. OBJECTIVE: Vital Signs Period Temp Pulse Resp BP Sys/Real Pulse Ox Last 24 Hr 98.4 F-99.0 F 69-71 16-18 104-125/47-52 99 PHYSICAL EXAM GENERAL: The patient is awake, alert, and fully oriented, in no acute distress. EYES: extraocular movements intact, sclera anicteric, conjunctiva clear. LUNGS: Breath sounds equal, clear to auscultation bilaterally HEART: Regular rate and rhythm, S1, S2 ABDOMEN: Soft, nontender, nondistended, normoactive bowel sounds. PEG tube in place under abdominal binder. EXTREMITIES: warm, well-perfused, no edema. NEUROLOGICAL: Cranial nerves II through XII grossly intact. Normal speech, gait not observed. PSYCH: Normal mood, normal affect. SKIN: Warm, dry LABS Laboratory Results - last 24 hr 02/27/19 02/28/19 02/28/19 06:00 03:49 06:30 WBC 6.0 RBC 2.92 L Hgb 8.6 L Hct 26.4 L MCV 90.4 MCH 29.4 MCHC 32.5 RDW 18.4 H Plt Count 55 L MPV 10.4 Absolute Neuts (auto) 3.9 Neutrophils % 65.8 Lymphocytes % 18.3 Monocytes % 12.9 H Eosinophils % 2.4 Basophils % 0.6 Nucleated RBC % 0 PT with INR 12.30 INR 1.04 Sodium Potassium Chloride Carbon Dioxide Anion Gap BUN Creatinine Est GFR (CKD-EPI)AfAm Est GFR (CKD-EPI)NonAf Random Glucose Calcium Phosphorus Magnesium Iron 20 L TSH Free T4 02/28/19 02/28/19 06:30 06:30 WBC RBC Hgb Hct MCV MCH MCHC RDW Plt Count MPV Absolute Neuts (auto) Neutrophils % Lymphocytes % Monocytes % Eosinophils % Basophils % Nucleated RBC % PT with INR INR Sodium 139 Potassium 4.4 Chloride 109 H Carbon Dioxide 23 Anion Gap 7 L BUN 29 H Creatinine 1.1 Est GFR (CKD-EPI)AfAm 69.10 Est GFR (CKD-EPI)NonAf 59.62 Random Glucose 95 Calcium 7.3 L Phosphorus 2.3 L Magnesium 2.2 Iron TSH 2.51 Free T4 1.22 H HOSPITAL COURSE: Date of Admission:02/14/19 Date of Discharge: 02/28/19 88 y/o M w/PMH of CHF, Afib, s/p pacemaker, s/p cardiac valve replacement, chronic thrombocytopenia who was sent in by his PCP for abnormal labs. He was found to be hyperkalemic (7.2) with SANDIE (Cr 3.6). This was likely due to decreased PO intake as he was switched to thickened liquids and continued use of diuretics for his heart failure. He improved with fluids and kayexelate and with holding of meds (spironolactone, entresto, torsemide). Although labs improved pt was unable to tolerate PO and became hypernatremic during course of hospitalization due to decreased PO intake. He was treated with fluids which improved his hypernatremia and pt elected to have PEG tube placement to help his nutritional status. PEG was placed and pt was restarted on entresto. During the course of his hospitalization pt's warfarin was stopped due to persistent thrombocytopenia as well. Before discharge pt was restarted on his entresto and was doing well with PEG tube. He is to f/u with his tin dipper ( Dr. Wayne) for further assessment of when to restart warfarin and torsemide. He is also to get CBC, BMP, and INR checked twice weekly and to f/u the results with his PCP Dr. Roldan. [facility] Minutes to complete discharge: 65 Discharge Summary Reason For Visit: ACUTE KIDNEY INJURY Current Active Problems SANDIE (acute kidney injury) (Acute) Altered mental status (Acute) Atrial fibrillation (Acute) CHF (congestive heart failure) (Acute) Dysphagia (Acute) Hyperkalemia (Acute) Hypernatremia (Acute) Nausea (Acute) Neuropathy (Acute) Normocytic anemia (Acute) Poor appetite (Acute) Thrombocytopenia (Acute) Toxic metabolic encephalopathy (Acute) Valvular heart disease (Acute) Condition: Fair - Instructions Diet, Activity, Other Instructions: You were admitted for kidney failure and increased potassium both of which were treated and stabilized. During your hospital course you developed increasing levels of sodium from your decrease food and water in take. A PEG tube was placed to help with your nutritional needs. You can still attempt to eat by mouth using techniques shown to you by the speech pathologist here. You will need to eat a puree diet with nectar thickened liquids if you are going to eat by mouth along with your tube feeds through your PEG tube. MEDICATIONS: -Do not take your warfarin (coumadin) at this time as your platelets are low. You will need to follow up with your tin dipper Dr. Wayne to check your platelet count before restarting the warfarin. -Your spironolactone has also been stopped. -Your metoloazone has also been stopped. -Your torsemide is on hold currently and will need to be restarted at the discretion of your tin dipper. -Continue taking your other medications as they were prescribed to you before coming to the hospital. INSTRUCTIONS: You will need to check your blood tests twice a week for CBC, BMP, INR and it is to be faxed to Dr. Roldan at [phone] Please follow up with Dr. Roldan within 1 week. Please follow up with Dr. Wayne, the tin dipper, within 1 week as well. ( Check if you need to restart warfarin and torsemide with Dr. Wayne) If you develop fevers, chills, change in mental status, seizures, infection at PEG tube insertion site, please come back to the ER. Referrals: Carrillo Roldan MD [Primary Care Provider] - Ramiro Wayne MD [Non Staff, Medical] - Disposition: [facility] - Home Medications Comprehensive Discharge Medication List: Ambulatory Orders Metoprolol Succinate [Toprol XL] 25 mg PO DAILY 12/31/11 Warfarin Na [Coumadin] 5 mg PO HS 12/31/11 Cholecalciferol (Vitamin D3) [Vitamin D3] 1,000 unit PO DAILY 10/31/13 Gabapentin 200 mg PO BID 08/04/18 Spironolactone 25 mg PO DAILY 08/04/18 Ferrous Sulfate 325 mg PO DAILY 11/29/18 Sacubitril/Valsartan [Entresto 24 mg-26 mg Tablet] 1 tab PO DAILY 11/29/18 Torsemide 20 mg PO DAILY 11/29/18 Acetaminophen 650 mg PO Q6H PRN 02/14/19 Atorvastatin Ca [Lipitor] 10 mg PO DAILY 02/14/19 Cyclobenzaprine HCl 5 mg PO DAILY 02/14/19 Digoxin [Lanoxin -] 0.125 mg PO DAILY 02/14/19 Metolazone 2.5 mg PO DAILY PRN 02/14/19 Oxycodone HCl/Acetaminophen [Percocet 5-325 mg Tablet] 1 tab PO Q4H PRN Ranitidine [Zantac -] 150 mg PO DAILY 02/14/19 This patient is new to me today: No Emergency Visit: Yes ED Registration Date: 02/14/19 Care time: The patient presented to the Emergency Department on the above date and was hospitalized for further evaluation of their emergent condition. Critical Care patient: No - Discharge Referral Referred to [facility] No
[2019-02-28 14:07] VITALS: BP 117/40; PULSE 70; TEMP 99.3
--- NOTE | 2019-02-28 16:22 | PN ---
Teaching Attending Note Name of Resident: Brandon Dumont ATTENDING PHYSICIAN STATEMENT I saw and evaluated the patient. I reviewed the resident's note and discussed the case with the resident. I agree with the resident's findings and plan as documented. Please review discharge summary by Dr Dumont but in short Mr Melchor is a very pleasant 88 year old male who came in with hyperkalemia and SANDIE. He was admitted to the hospital. His diuretics were held. He was seen by nephrology and cardiology. He was hydrated and his SANDIE and hyperkalemia resolved. He was planned for discharge, however he developed difficulty swallowing. He was seen by GI and had a PEG tube placed. It was noted that he had 2 duodenal ulcers on the EGD. His coumadin was held prior to this, it was continued to be held secondary to duodenal ulcers and thrombocytopenia. He was started on tube feeds and tolerated this without difficulty. 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 His aldactone will be held indefinitely. He will have his CBC followed as an outpatient to see when it is safe to restart his coumadin. He is safe for discharge to SNF today. Problem List - Problems (1) Hyperkalemia Code(s): E87.5 - HYPERKALEMIA (2) SANDIE (acute kidney injury) Code(s): N17.9 - ACUTE KIDNEY FAILURE, UNSPECIFIED (3) Toxic metabolic encephalopathy Code(s): G92 - TOXIC ENCEPHALOPATHY (4) Valvular heart disease Code(s): I38 - ENDOCARDITIS, VALVE UNSPECIFIED (5) Atrial fibrillation Code(s): I48.91 - UNSPECIFIED ATRIAL FIBRILLATION Qualifiers: Atrial fibrillation type: chronic Qualified Code(s): I48.2 - Chronic atrial fibrillation (6) Neuropathy Code(s): G62.9 - POLYNEUROPATHY, UNSPECIFIED (7) Dysphagia Code(s): R13.10 - DYSPHAGIA, UNSPECIFIED (8) Hypernatremia Code(s): E87.0 - HYPEROSMOLALITY AND HYPERNATREMIA
[2019-02-28 18:13] LABS: FREE KAPPA,SERUM 57.4 mg/L (3.3-19.4)
[2019-03-01 14:12] LABS: HEP B CORE AB, IGM Negative (Negative); HEP B CORE AB, TOT Negative (Negative)
--- NOTE | 2019-03-01 15:56 | PATH ---
Surgical Pathology Report Patient Name: MUNA VUONG [facility]. Rec. #: [id number] /Age/Gender: 1930 (Age: 88) / M Account: [id number] Location: [facility] PEDS/ADOL Taken: 02/24/2019 Received: 02/27/2019 Reported: 03/01/2019 Physicians: João Swanson M.D. Specimen(s) Received ANTRUM AND BODY Clinical History Failure to thrive. Post-operative diagnosis: Gastritis, duodenal ulcers Final Diagnosis ANTRUM AND BODY, BIOPSY: MILD CHRONIC GASTRITIS. IMMUNOSTAIN IS NEGATIVE FOR H. PYLORI ORGANISMS. Electronically Signed Samantha Morse M.D. Gross Description Received in formalin, labeled "antrum and body" are three pieces of haywood tissue, ranging from 0.3-0.5 cm in greatest dimension. Entirely submitted in one cassette. AE/02/27/2019 ebram/02/27/2019
== END 2019-02-28 18:35 | DRG 682 ==
LOC: JER 22:02 → JERBED 02-14 01:59 → INTOOBSV 02-14 01:59 → OBSVTOIN 02-14 07:19 → J4W 02-14 18:21 → J4S 02-16 18:58
PROVIDERS: ADMIT Internal Medicine; ATTEND Internal Medicine
PROC: 0DB68ZX Excision of Stomach, Via Natural or Artificial Opening Endoscopic, Diagnostic (ICD-10-PCS; 2019-02-24)
PROC: 0DH68UZ Insertion of Feeding Device into Stomach, Via Natural or Artificial Opening Endoscopic (ICD-10-PCS; principal; 2019-02-24 14:00)
DX: N17.9 Acute kidney failure, unspecified (principal); G93.41 Metabolic encephalopathy; E46 Unspecified protein-calorie malnutrition; I50.22 Chronic systolic (congestive) heart failure; R64 Cachexia; Z68.1 Body mass index [BMI] 19.9 or less, adult; E87.0 Hyperosmolality and hypernatremia; K26.3 Acute duodenal ulcer without hemorrhage or perforation; I69.354 Hemiplegia and hemiparesis following cerebral infarction affecting left non-dominant side; I13.0 Hypertensive heart and chronic kidney disease with heart failure and stage 1 through stage 4 chronic kidney disease, or unspecified chronic kidney disease; E87.5 Hyperkalemia; D64.9 Anemia, unspecified; D69.6 Thrombocytopenia, unspecified; N18.2 Chronic kidney disease, stage 2 (mild); R13.10 Dysphagia, unspecified; I48.2 Chronic atrial fibrillation; G62.9 Polyneuropathy, unspecified; R41.82 Altered mental status, unspecified; I25.10 Atherosclerotic heart disease of native coronary artery without angina pectoris; Z95.1 Presence of aortocoronary bypass graft; E78.5 Hyperlipidemia, unspecified; E86.0 Dehydration; K29.50 Unspecified chronic gastritis without bleeding; R62.7 Adult failure to thrive
CPT/HCPCS: 36415; 71045-TC-FY; 74018-TC-FY; 74176-TC; 74230-TC-FY; 76775-TC; 80048; 80053; 80162; 81003; 82040; 82272; 82436; 82542; 82550; 82565; 82607; 82746; 82784; 82962; 83540; 83735; 83880; 83883; 84100; 84133; 84155; 84165; 84300; 84439; 84443; 84484; 85025; 85027; 85384; 85610; 85730; 86022; 86334; 86704; 86705; 86706; 86707; 86850; 86900; 86901; 87086; 88305-TC; 92611-GN; 93005; 93010; 97116-GP; 97161-GP; 99284-25; G0378; J7030

== ENCOUNTER 2019-03-21 10:58 | Inpatient (IN) | payer OTHER, BC ==
--- NOTE | 2019-03-21 12:31 | PDOC ---
History of Present Illness - General Chief Complaint: Blood Transfusion Stated Complaint: BLOOD TRANSFUSION Time Seen by Provider: 03/21/19 12:08 - History of Present Illness Initial Comments: 03/21/19 12:33 88yo man with a PMH of CHF, s/p pacemaker, s/p porcine cardiac valve replacement , HTN, CKD and , a-fib, currently off warfarin, duodenal ulcers sent from [place] to the emergency department for blood transfusion by Dr. Roldan due to severe anemia (hb:6.4, hc: 20.7) and thrombocytopenia (55) Had 2 transfusions in the past and an endoscopy positive for duodenal ulcers. Patient states that he is asymptomatic and feels fine. Not able to ambulate at baseline. Past History - Past Medical History Allergies/Adverse Reactions: Allergies Allergy/AdvReac Type Severity Reaction Status Date / Time No Known Allergies Allergy Verified 03/21/19 13:43 Home Medications: Ambulatory Orders Acetaminophen 650 mg GT Q6H PRN 03/21/19 Atorvastatin Ca [Lipitor] 10 mg GT HS 03/21/19 Cholecalciferol (Vitamin D3) [Vitamin D3] 2,000 unit GT DAILY 03/21/19 Digoxin [Lanoxin] 125 mcg GT ASDIR 03/21/19 Ferrous Sulfate 220 mg GT BID 03/21/19 Furosemide [Lasix -] 40 mg GT DAILY 03/21/19 Gabapentin [Neurontin -] 200 mg GT BID 03/21/19 Magnesium Hydrox 2400MG/30Ml [Milk of Magnesia -] 30 ml GT PRN PRN 03/21/19 Melatonin 5 mg GT HS 03/21/19 Metoprolol Tartrate [Lopressor -] 25 mg GT BID 03/21/19 Sacubitril/Valsartan [Entresto 24 mg-26 mg Tablet] 1 each GT BID 03/21/19 Anemia: No Asthma: No Cancer: No Cardiac Disorders: Yes (AF) CVA: Yes (L hemiparesis) COPD: No CHF: Yes Dementia: No Diabetes: No GI Disorders: Yes (CONSTIPATION) Disorders: No HTN: Yes Hypercholesterolemia: Yes Liver Disease: No Seizures: No Thyroid Disease: No - Surgical History Abdominal Surgery: Yes (RIGHT INGUINAL HERNIA REPAIR) Appendectomy: No Cardiac Surgery: Yes (aortic valve replacement, single bypass 1999) Cholecystectomy: No Lung Surgery: No Neurologic Surgery: No Orthopedic Surgery: Yes (BILATERAL HAND SURGERY) - Immunization History Immunization Up to Date: Yes - Suicide/Smoking/Psychosocial Hx Smoking Status: Yes Smoking History: Former smoker Have you smoked in the past 12 months: No Number of Cigarettes Smoked Daily: 0 If you are a former smoker, when did you quit?: 40-50yr ago Information on smoking cessation initiated: No Hx Alcohol Use: No Drug/Substance Use Hx: No Substance Use Type: None Hx Substance Use Treatment: No Review of Systems - Review of Systems Able to Perform ROS?: Yes Is the patient limited Belgian proficient: No Constitutional: No: Symptoms Reported HEENTM: No: Symptoms Reported Respiratory: No: Symptoms reported Cardiac (ROS): No: Symptoms Reported ABD/GI: No: Symptoms Reported : No: Symptoms Reported Musculoskeletal: No: Symptoms Reported All Other Systems: Reviewed and Negative *Physical Exam - Vital Signs Last Vital Signs Temp Pulse Resp BP Pulse Ox 97.8 F 80 16 121/50 L 96 03/21/19 11:02 03/21/19 11:02 03/21/19 11:02 03/21/19 11:02 03/21/19 11:02 - Physical Exam General Appearance: Yes: Nourished, Appropriately Dressed. No: Apparent Distress HEENT: positive: EOMI, OVI, Normal ENT Inspection Respiratory/Chest: positive: Lungs Clear, Normal Breath Sounds. negative: Chest Tender, Respiratory Distress Cardiovascular: positive: Regular Rhythm, Regular Rate, S1, S2 Gastrointestinal/Abdominal: positive: Normal Bowel Sounds, Flat, Soft. negative : Tender Rectal Exam: positive: normal exam, normal rectal tone. negative: melena Extremity: positive: Pedal Edema (3+) Integumentary: positive: Normal Color, Dry, Warm Neurologic: positive: Fully Oriented, Alert, Normal Mood/Affect ED Treatment Course - LABORATORY CBC & Chemistry Diagram: 03/21/19 15:30 03/21/19 12:39 Medical Decision Making - Medical Decision Making 03/21/19 15:35 Will assess patient for anemia, guiac for bleeding. This could also be anemia of chronic disease or heme-onc especially in the context of pancytopenia. Hgb 8.4 but positive Guaiac. bnp around 8000's Rest of labs wnl. Will give lasix for new onset pedal edema 4+ Dr. Roldan consulted on the floor, saw the patient and will follow up with him on the floor after admission. Dr. Hemphill with gastroenterology consulted and will come see the patient. We will repeat cbc and trend as hgb is widely differnet than the 6.4 level found today at [place]. Patient admitted to telemetry under hospitalist. EKG: Unchanged from previous. Negative troponin. *DC/Admit/Observation/Transfer Diagnosis at time of Disposition: CHF (congestive heart failure), GI bleed - Discharge Dispostion Condition at time of disposition: Stable Decision to Admit order: Yes - Referrals - Patient Instructions - Post Discharge Activity
[2019-03-21 13:17] LABS: BASO % 0.9 % (0-2.0); EOS % 1.4 % (0-4.5); HEMATOCRIT 25.2 % (35.4-49); HEMOGLOBIN 8.4 GM/dL (11.7-16.9); MCH 30.4 pg (25.7-33.7); MCHC 33.1 g/dl (32.0-35.9); MEAN CELL VOLUME 91.9 fl (80-96); MEAN PLT VOLUME 9.4 fl (7.5-11.1); MONO % 12.1 % (3.8-10.2); NEUT % 62.6 % (42.8-82.8); RBC 2.75 M/mm3 (4.00-5.60); RDW 18.5 % (11.9-15.9); WHITE BLOOD COUNT 6.3 K/mm3 (4.0-10.0)
[2019-03-21 13:21] LABS: PLATELET COUNT 72 K/MM3 (134-434)
[2019-03-21 13:23] LABS: INR 1.06 (0.83-1.09); PROTHROMBIN TIME (PATIENT) 12.5 SEC (9.7-13.0)
[2019-03-21 13:27] LABS: ACTIVATED PTT 33.6 SECONDS (25.2-36.5)
--- NOTE | 2019-03-21 13:31 | PDOC ---
Documentation entered by Chyna Richardson SCRIBE, acting as scribe for Mark Morrow MD. Mark Morrow MD: This documentation has been prepared by the katinaibe, Chyna Richardson SCRIBE, under my direction and personally reviewed by me in its entirety. I confirm that the documentation accurately reflects all work, treatment, procedures, and medical decision making performed by me. Attending Attestation - Resident Resident Name: Danila Maldonado - ED Attending Attestation I have performed the following: I have examined & evaluated the patient, The case was reviewed & discussed with the resident, I agree w/resident's findings & plan, Exceptions are as noted - HPI HPI: 03/21/19 13:03 The patient is an 88 year old male with a past medical history significant for Afib (on Warfarin, D/Pavan for bleeding), CKD, CHF s/p pacemaker, s/p porcine cardiac valve replacement, HTN presents to the emergency department from [facility] for anemia requiring blood transfusion. The patients labs at [facility] were significant for Hgb: 6.4, Hct: 20.7 and platelet: 55. Pt has h /o duodenal ulcers. Allergies: NKDA Social history: Former smoker, no alcohol or recreational drug use reported Surgical history: Right inguinal hernia repair, Aortic valve replacement, bypass (1999), B/l hand surgery. PCP: Dr. Roldan - Physicial Exam PE: 03/21/19 13:03 GENERAL: Awake, alert, and fully oriented, in no acute distress. HEAD: No signs of trauma EYES: PERRLA, EOMI, sclera anicteric, conjunctiva clear ENT: Auricles normal inspection, hearing grossly normal, nares patent, oropharynx clear without exudates. Moist mucosa NECK: Nontender, no stepoffs, Normal ROM, supple, no lymphadenopathy, JVD, or masses LUNGS: Breath sounds equal, clear to auscultation bilaterally. No wheezes, and no crackles HEART: Regular rate and rhythm, normal S1 and S2, no murmurs, rubs or gallops ABDOMEN: Soft, nontender, normoactive bowel sounds. No guarding, no rebound. No masses EXTREMITIES: +2 PE BLE, No clubbing or cyanosis. No cords, erythema, or tenderness NEUROLOGICAL: Cranial nerves II through XII intact. 5/5 strength and sensation in all extremities, Normal speech, normal gait, normal cerebellar function SKIN: Warm, Dry, normal turgor, no rashes or lesions noted. RECTAL: Brown stool, guaiac + - Medical Decision Making 03/21/19 13:30 88 M with h/o GI bleed presenting to ED for anemia on outpt labs. Pt with guaiac + brown stool on exam. Pt also noted to have pitting edema on exam. No SOB, no rales. Will evaluate for CHF. - Labs, T&S, trop, BNP - Transfuse as needed - GI consult DiGiorno - Cards - Lasix - Admit
[2019-03-21 13:37] LABS: ALBUMIN 2.7 g/dl (3.4-5.0); ALK PHOS 133 U/L (45-117); ANION GAP 7 MMOL/L (8-16); BILIRUBIN,TOTAL 0.6 mg/dL (0.2-1); BLOOD UREA NITROGEN 36.3 mg/dL (7-18); CHLORIDE 98 mmol/L (98-107); CO2 30 mmol/L (21-32); CREATININE 1.3 mg/dL (0.55-1.3); GLUCOSE,RANDOM 99 mg/dL (74-106); POTASSIUM 4.7 mmol/L (3.5-5.1); SGOT/AST 17 U/L (15-37); SGPT/ALT 19 U/L (13-61); SODIUM 135 mmol/L (136-145); TOT PROT 6.4 g/dl (6.4-8.2)
[2019-03-21] MEDS ORDERED: FUROSEMIDE 40 MG/4 ML INJECTABLE VIAL IVPUSH ONE (14:02)
[2019-03-21 14:03] LABS: N-TERMINAL BNP 8602.5 pg/ml (5-450)
[2019-03-21] MEDS ORDERED: PANTOPRAZOLE SODIUM 40 MG VIAL IVPUSH ONE (14:03)
--- NOTE | 2019-03-21 14:10 | PN ---
Teaching Attending Note Name of Resident: Samantha Yan ATTENDING PHYSICIAN STATEMENT I saw and evaluated the patient. I reviewed the resident's note and discussed the case with the resident. I agree with the resident's findings and plan as documented with exceptions below. SUBJECTIVE: Patient poor historian. Details from patient, [facility] at bedside[facility] 88 yom with PMhx of Chronic systolic HF, Atrial fibrillation, recently on coumadin, now off, s/p PPM, bioprosthetic valve (?aortic), CKD (baseline Cr 1.6) , reported admission with Aspiration PNA requiring intubation, then recent prolonged stay at [facility] with Sandie/hyperkalemia/acute on chronic thrombocytopenia course complicated by poor oral intake/hypernatremia, s/p EGD with duodenal ulcers and PEG placement dcced off coumadin/lasix on 02/28/2019, has been having progressive anemia at [facility]. Patient was admitted to [facility] 1.5 weeks ago with Hb in 6s, s/p 2 units PRBC, has been in the high 7 range at [facility], today noted with Hb of 6.4 and Platelets 55,sent to ED. Repeat Hb in ED 8.4 and FOBT pos. Also patient has been off his lasix since recent admission, has had progressive weight gain with leg edema, and was resumed on lasix 40 mg daily yesterday. Denies any new orthopnea and PND, but has been weak, needing 2 person assist at rehab but no new dyspnea. Minimal activity to assess for any exertional symptoms. 12 point ROS done, neg for fevers, chills, abdominal pain, dark or bloody stools , chest pain, palpitations, abdominal or urinary symptoms. OBJECTIVE: Vital Signs Period Temp Pulse Resp BP Sys/Rael Pulse Ox Last 24 Hr 97.8 F 80 16 121/50 96 Intake & Output 03/18/19 03/19/19 03/20/19 03/21/19 23:59 23:59 23:59 23:59 Weight 175 lb GENERAL: Awake, alert, oriented to self and place, in no acute distress, looks volume overloaded compared to recent admission. . HEAD: Normal with no signs of trauma. EYES: Pupils equal, round and reactive to light, extraocular movements intact, sclera anicteric, conjunctiva clear. No lid lag. EARS, NOSE, THROAT: Ears normal, nares patent, oropharynx clear without exudates. Moist mucous membranes. NECK: Soft, supple, Neck vein distension LUNGS: decreased effort, lack of full effort limiting exam, no rales or wheezing appreciated HEART: S1S2 irregular ABDOMEN: Soft, nontender, not distended, normoactive bowel sounds, no guarding, no rebound, no masses. PEG in place, no surrounding erythema or discharge, No hepatomegaly or splenomegaly appreciated. RECTAL: Felicita-rectal erythema, no active bleed or dark stools, sacral decub, unable to stage currently MUSCULOSKELETAL: Normal range of motion at all joints. No bony deformities or tenderness. No CVA tenderness. UPPER EXTREMITIES: 2+ pulses, warm, well-perfused. No cyanosis. No clubbing. No peripheral edema, ecchymotic areas. LOWER EXTREMITIES: bilateral 2+ pedal pitting edema, small superficial ulcer left medial ankle, some erythema, non tender NEUROLOGICAL: AA,oriented to self, place, facial symmetry, moves all extremities symmetrically, speech normal Gait not observed, no gross deficit noted PSYCHIATRIC: Cooperative. Good eye contact. Appropriate mood and affect. SKIN: Warm, dry, normal turgor, no rashes or lesions noted, normal capillary refill. Home Medications Medication Instructions Recorded Acetaminophen 650 mg GT Q6H PRN 03/21/19 Atorvastatin Ca [Lipitor] 10 mg GT HS 03/21/19 Cholecalciferol (Vitamin D3) 2,000 unit GT DAILY 03/21/19 [Vitamin D3] Digoxin [Lanoxin] 125 mcg GT ASDIR 03/21/19 Ferrous Sulfate 220 mg GT BID 03/21/19 Furosemide [Lasix -] 40 mg GT DAILY 03/21/19 Gabapentin [Neurontin -] 200 mg GT BID 03/21/19 Magnesium Hydrox 2400MG/30Ml [Milk 30 ml GT PRN PRN 03/21/19 of Magnesia -] Melatonin 5 mg GT HS 03/21/19 Metoprolol Tartrate [Lopressor -] 25 mg GT BID 03/21/19 Sacubitril/Valsartan [Entresto 24 1 each GT BID 03/21/19 mg-26 mg Tablet] Laboratory Results - last 24 hr 03/21/19 03/21/19 03/21/19 12:39 12:55 12:55 WBC 6.3 RBC 2.75 L Hgb 8.4 L Hct 25.2 L MCV 91.9 MCH 30.4 MCHC 33.1 RDW 18.5 H Plt Count 72 L D MPV 9.4 Absolute Neuts (auto) 4.0 Neutrophils % 62.6 Lymphocytes % 23.0 D Monocytes % 12.1 H Eosinophils % 1.4 Basophils % 0.9 Nucleated RBC % 0 PT with INR 12.50 INR 1.06 PTT (Actin FS) 33.6 Sodium 135 L Potassium 4.7 Chloride 98 Carbon Dioxide 30 Anion Gap 7 L BUN 36.3 H Creatinine 1.3 Est GFR (CKD-EPI)AfAm 56.46 Est GFR (CKD-EPI)NonAf 48.72 Random Glucose 99 Calcium 8.0 L Total Bilirubin 0.6 AST 17 ALT 19 Alkaline Phosphatase 133 H Troponin I < 0.02 B-Natriuretic Peptide 8602.5 H Total Protein 6.4 Albumin 2.7 L Stool Occult Blood 03/21/19 13:00 WBC RBC Hgb Hct MCV MCH MCHC RDW Plt Count MPV Absolute Neuts (auto) Neutrophils % Lymphocytes % Monocytes % Eosinophils % Basophils % Nucleated RBC % PT with INR INR PTT (Actin FS) Sodium Potassium Chloride Carbon Dioxide Anion Gap BUN Creatinine Est GFR (CKD-EPI)AfAm Est GFR (CKD-EPI)NonAf Random Glucose Calcium Total Bilirubin AST ALT Alkaline Phosphatase Troponin I B-Natriuretic Peptide Total Protein Albumin Stool Occult Blood Positive EKG pending CXR images reviewed, official report pending ASSESSMENT AND PLAN: 88 yom with PMhx of Chronic systolic HF, Atrial fibrillation, recently on coumadin, now off, s/p PPM, bioprosthetic valve (?aortic), CKD (baseline Cr 1.6) , reported admission with Aspiration PNA requiring intubation, then recent prolonged stay at [facility] with Sandie/hyperkalemia/acute on chronic thrombocytopenia course complicated by poor oral intake/hypernatremia, s/p EGD with duodenal ulcers and PEG placement dcced off coumadin/lasix on 02/28/2019 sent in with hb 6.4 and platelets 55 at the [facility] and progressive leg swelling. -Acute on chronic anemia, r/o slow/Occult GI bleed from known duodenal bulb ulcers on recent EGD, r/o Lower GI AVM/diverticular/mass -Acute CHF exacerbation, ?Systolic vs diastolic -Chronic thrombocytopenia -Atrial fibrillation off Anti-coagulation -s/p PPM -Bioprosthetic valve (?aortic) -CKD stage III (baseline cr around 1.6) -Recent SANDIE/hyperkalemia/poor oral intake/hypernatremia -PEG placement 02/24/2019 -Decubitus ulcers Plan: Repeat h/h, Start protonix 40 mg IV BID GI consult , monitor H/h and hemodynamics closely. Worsening edema and volume status from recent admission. Lasix just resumed yesterday at the rehab. Lasix 40 mg IV daily. 2D echo. Cardiology input. Leg elevation. Continue entresto with close renal/K monitoring. Continue metoprolol/digoxin/statin. Patient on Jevity 1.5 at 70 cc/hr from 2 pm to 6 AM as discussed with rehab. COntinue Hold per h/h, hemodynamics and GI plan for further intervention. DVTPPX SCDs Code status: DNR/DNI (on MOLST), confirmed with patient and daughter Abena Dispo admit to inpatient telemetry. Plan discussed with patient and daughter Abena at bedside in detail, all questions answered. Total admit time 65 min
--- NOTE | 2019-03-21 14:16 | HP ---
CHIEF COMPLAINT: "My blood counts are low" PCP: Dr sanz Cardio: Dr Wayne [phone] HISTORY OF PRESENT ILLNESS: This is an 88 yo M with PMH of HFREF, s/p pacemaker (dual chamber, last battery change and new wire 1 yr ago), 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 patient was hospitalized at [facility] 1.3 week ago for anemia, received 2 ransfusions and was dcd home with hgb 7.9. the cause of his anemia and thrombocytopenia was not worked up. patient waas dcd from [facility] 02/28 after treatment for malnurition and hyperkalemia. On presentation today patient complains of worsening b/l LE edema x 1w. denies cp, palpitations, sob,cogh, orthopnea, abd pain, n/v/d/c. found to be sob+ in ED , hgb 8.4 plat 72. Last colonscopy 1 yrs ago ER course was notable for: (1)cxr (2)lasix iv 40 (3)ppi iv 40 Recent Travel: denies PAST MEDICAL HISTORY: as above PAST SURGICAL HISTORY: as above Social History: Smoking: denies Alcohol:denies Drugs: denies Family History: htn Allergies No Known Allergies Allergy (Verified 03/21/19 13:43) HOME MEDICATIONS: REVIEW OF SYSTEMS CONSTITUTIONAL: Absent: fever, chills HEENT: Absent: rhinorrhea, nasal congestion, throat pain CARDIOVASCULAR: Absent: chest pain, syncope, palpitations RESPIRATORY: Absent: cough, shortness of breath GASTROINTESTINAL: Absent: abdominal pain, abdominal distension, nausea, vomiting GENITOURINARY: Absent: dysuria, hematuria MUSCULOSKELETAL: Absent: myalgia, arthralgia SKIN: Absent: rash, itching, pallor HEMATOLOGIC/IMMUNOLOGIC: Absent: easy bleeding, easy bruising ENDOCRINE: Absent: heat intolerance NEUROLOGIC: Absent: headache, focal weakness or paresthesias PSYCHIATRIC: Absent: anxiety, depression PHYSICAL EXAMINATION Vital Signs - 24 hr 03/21/19 11:02 Temperature 97.8 F Pulse Rate 80 Respiratory 16 Rate Blood Pressure 121/50 L O2 Sat by Pulse 96 Oximetry (%) GENERAL: Awake, alert, and fully oriented, in no acute distress. HEAD: Normal with no signs of trauma. EYES: Pupils equal, round and reactive to light, extraocular movements intact, sclera anicteric, conjunctiva clear. No lid lag. EARS, NOSE, THROAT: Moist mucous membranes. NECK: supple + JVD at 30 degrees recline, no mass LUNGS: Breath sounds equal, clear to auscultation bilaterally HEART: Regular rate and rhythm, normal S1 and S2 ABDOMEN: Soft, nontender, not distended, normoactive bowel sounds, no guarding, no rebound, no masses. Rectal per ED note MUSCULOSKELETAL: No CVA tenderness. LOWER EXTREMITIES: 1+ pulses, warm, well-perfused. No calf tenderness. 3+ edema up to mid calf b/l with venous statis skin discoloration , r medial disstal oglesby ulver with clean pink base. NEUROLOGICAL: Cranial nerves II-XII grossly intact. Normal speech. PSYCHIATRIC: Cooperative. Good eye contact. Appropriate mood and affect. SKIN: Warm, dry Laboratory Results - last 24 hr 03/21/19 03/21/19 03/21/19 12:39 12:55 12:55 WBC 6.3 RBC 2.75 L Hgb 8.4 L Hct 25.2 L MCV 91.9 MCH 30.4 MCHC 33.1 RDW 18.5 H Plt Count 72 L D MPV 9.4 Absolute Neuts (auto) 4.0 Neutrophils % 62.6 Lymphocytes % 23.0 D Monocytes % 12.1 H Eosinophils % 1.4 Basophils % 0.9 Nucleated RBC % 0 PT with INR 12.50 INR 1.06 PTT (Actin FS) 33.6 Sodium 135 L Potassium 4.7 Chloride 98 Carbon Dioxide 30 Anion Gap 7 L BUN 36.3 H Creatinine 1.3 Est GFR (CKD-EPI)AfAm 56.46 Est GFR (CKD-EPI)NonAf 48.72 Random Glucose 99 Calcium 8.0 L Total Bilirubin 0.6 AST 17 ALT 19 Alkaline Phosphatase 133 H Troponin I < 0.02 B-Natriuretic Peptide 8602.5 H Total Protein 6.4 Albumin 2.7 L Stool Occult Blood 03/21/19 13:00 WBC RBC Hgb Hct MCV MCH MCHC RDW Plt Count MPV Absolute Neuts (auto) Neutrophils % Lymphocytes % Monocytes % Eosinophils % Basophils % Nucleated RBC % PT with INR INR PTT (Actin FS) Sodium Potassium Chloride Carbon Dioxide Anion Gap BUN Creatinine Est GFR (CKD-EPI)AfAm Est GFR (CKD-EPI)NonAf Random Glucose Calcium Total Bilirubin AST ALT Alkaline Phosphatase Troponin I B-Natriuretic Peptide Total Protein Albumin Stool Occult Blood Positive ASSESSMENT/PLAN: This is an 88 yo M with PMH of HFREF, s/p pacemaker (dual chamber, last battery change and new wire 1 yr ago), 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 Acute on chronic anemia, blood loss component GI source thrombocytopenia HFREF exacerbation AF s/p dual chamber pacemaker s/p porcine valve HTN HLD ckd -CT a/p w/o cont 02/17 no acute pathology -repeat cbc -ppi 40 iv bid -f/u gi consult -f/u standard anemia workup -thrombocytopenia may be due to chf related splenic consumption -f/u tte -f/u cardiology -tele monotoring -strict i and o daily weights -continue home bb, entresto, statin Visit type - Emergency Visit Emergency Visit: Yes ED Registration Date: 03/21/19 Care time: The patient presented to the Emergency Department on the above date and was hospitalized for further evaluation of their emergent condition. - New Patient This patient is new to me today: Yes Date on this admission: 03/21/19 - Critical Care Critical Care patient: No
[2019-03-21] MEDS ORDERED: FUROSEMIDE 40 MG/4 ML INJECTABLE VIAL ONE (14:19)
[2019-03-21] MEDS ORDERED: PANTOPRAZOLE SODIUM 40 MG VIAL ONE (14:19)
[2019-03-21 15:53] LABS: BASO % 0.8 % (0-2.0); EOS % 1.6 % (0-4.5); HEMATOCRIT 23.3 % (35.4-49); HEMOGLOBIN 7.8 GM/dL (11.7-16.9); LYMPH % 20.1 % (8-40); MCH 30.4 pg (25.7-33.7); MCHC 33.3 g/dl (32.0-35.9); MEAN CELL VOLUME 91.4 fl (80-96); MEAN PLT VOLUME 9.1 fl (7.5-11.1); MONO % 13.9 % (3.8-10.2); NEUT % 63.6 % (42.8-82.8); PLATELET COUNT 65 K/MM3 (134-434); RBC 2.55 M/mm3 (4.00-5.60); RDW 18.3 % (11.9-15.9); WHITE BLOOD COUNT 5.2 K/mm3 (4.0-10.0)
--- NOTE | 2019-03-21 15:56 | CON.GI ---
Consult Consult Specialty:: GI Referred by:: Dr. Carrillo Roldan Reason for Consultation:: Anemia, guaiac + stool - History of Present Illness Chief Complaint: Anemia History of Present Illness: 88M transferred from rehab for evaluation of anemia. Hgb was noted to be around 6 at the [facility]. Mr. Melchor's daughter explains that he had been transfused 2 U PRBC about a week ago after he was transferred to [facility] from rehab for evaluation of anemia. He was noted guaiac + in the ED. There has been no overt bleeding and he does not recall any episodes of melena. I had evaluated him 02/26 given his food intolerance and apprehension to eat. He ultimately underwent PEG 02/24/19: PEG was placed and two duodenal ulcers with flat pigmented spots were noted in the duodenal bulb / 1st portion duodenum. Biopsies from the antrum and body of the stomach were negative for h. pylori. He last had a colonosocpy in 2013 for follow-up of diverticulitis that led to the removal of two 5mm adenomas. He is being evaluated for worsening lower extremity edema as well. He denies abdominal pain. Feedings are still being supplemented through PEG. Hgb in the ED was 8.4 prior to any transfusions. Repeat was 7.8 this afternoon. He has been off of anticoagulation. He has been on PPI therapy. He does have a baseline anemia and thrombocytopenia. - History Source History Provided By: Patient, Family Member, Medical Record - Past Medical History Cardio/Vascular: Yes: AFIB, CHF, HTN, Hyperlipdemia Pulmonary: Yes: COPD Gastrointestinal: Yes: Diverticulosis, Other (Colon polyps) Renal/: Yes: Renal Inusuff - Past Surgical History Past Surgical History: Yes: Valve Replacement (AVR (porcine)) Additional Surgical History: Gastrostomy - Alcohol/Substance Use Hx Alcohol Use: No History of Substance Use: reports: None - Smoking History Smoking history: Former smoker Have you smoked in the past 12 months: No Aproximately how many cigarettes per day: 0 If you are a former smoker, when did you quit?: 40-50yr ago - Social History Usual Living Arrangement: With Spouse (house with 2 steps to enter then 1st floor set-up) ADL: Support Services (has 24 hour x 7 day [employer]IE [employer], ambulated with walker/ w/c) Place of : [place] History of Recent Travel: No Home Medications - Allergies Allergies/Adverse Reactions: Allergies Allergy/AdvReac Type Severity Reaction Status Date / Time No Known Allergies Allergy Verified 03/21/19 13:43 - Home Medications Home Medications: Ambulatory Orders Acetaminophen 650 mg GT Q6H PRN 03/21/19 Atorvastatin Ca [Lipitor] 10 mg GT HS 03/21/19 Cholecalciferol (Vitamin D3) [Vitamin D3] 2,000 unit GT DAILY 03/21/19 Digoxin [Lanoxin] 125 mcg GT ASDIR 03/21/19 Ferrous Sulfate 220 mg GT BID 03/21/19 Furosemide [Lasix -] 40 mg GT DAILY 03/21/19 Gabapentin [Neurontin -] 200 mg GT BID 03/21/19 Magnesium Hydrox 2400MG/30Ml [Milk of Magnesia -] 30 ml GT PRN PRN 03/21/19 Melatonin 5 mg GT HS 03/21/19 Metoprolol Tartrate [Lopressor -] 25 mg GT BID 03/21/19 Sacubitril/Valsartan [Entresto 24 mg-26 mg Tablet] 1 each GT BID 03/21/19 Family Disease History - Family Disease History Other Family History: No family history of colorectal cancer Physical Exam-GI Vital Signs: Vital Signs Temperature 97.8 F 03/21/19 11:02 Pulse Rate 80 03/21/19 11:02 Respiratory Rate 16 03/21/19 11:02 Blood Pressure 121/50 L 03/21/19 11:02 O2 Sat by Pulse Oximetry (%) 96 03/21/19 11:02 Constitutional: Yes: Calm Eyes: No: Sclera Icterus Cardiovascular: Yes: Pulse Irregular (regular rate) Respiratory: Yes: Diminished (at bases bilaterally) Gastrointestinal Inspection: Yes: Distention (protuberant abdomen), Other (G- Tube in mid upper abdomen, external bolster noted at the 2cm tye at the leve of the abdominal wall.) ...Auscultate: Yes: Normoactive Bowel Sounds ...Palpate: Yes: Soft. No: Hepatomegaly, Splenomegaly, Tenderness ...Percussion: No: Tympanitic ...Rectal Exam: Yes: Other (No external lesions, no masses, formed light brown stool in rectal vault, guaiac negative.) Edema: Yes Edema: LLE: 3+, RLE: 3+ Neurological: Yes: Alert Labs: CBC, BMP 03/21/19 12:39 INR, PTT INR 1.06 (0.83-1.09) 03/21/19 12:55 Problem List - Problems (1) Anemia Assessment/Plan: Acute on chronic anemia: Guaiac + on exam Discussed findings of PUD on recent endoscopy with Mr. Melchor and his daughter. Explained that in order to exclude upper GI source of recurrent bleeding upper endoscopy could be performed. We discussed potential risks of the procedure like but not limited to bleeding, perforation requiring surgery to repair, infection , sedation medication effects all of which could be potentially life threatening. He has agreed to the procedure. If unrevealing, colonoscopy could be considered if Mr. Melchor was willing to undergo the procedure. For now: Agree with Pantoprazole 40mg IV BID NPO after midnight except meds for upper endoscopy Monitor for active bleeding Code(s): D64.9 - ANEMIA, UNSPECIFIED
[2019-03-21] MEDS ORDERED: DIGOXIN 0.125 MG TABLET (FP) GT SCH (16:15)
[2019-03-21] MEDS ORDERED: MELATONIN 5 MG TABLETS PO ONE (21:24)
[2019-03-21] MEDS ORDERED: SACUBITRIL/VALSARTAN 24 MG-26 MG TABLET PO SCH (22:00)
[2019-03-21] MEDS: ATORVASTATIN CA 10 MG TABLET (FP) GT SCH (22:21)
[2019-03-21] MEDS: PANTOPRAZOLE SODIUM 40 MG VIAL IVPUSH SCH (22:21)
[2019-03-21] MEDS: SACUBITRIL/VALSARTAN 24 MG-26 MG TABLET PO SCH (22:22)
[2019-03-21] MEDS: METOPROLOL TARTRATE 25 MG TABLET (FP) GT SCH (22:40)
[2019-03-21] MEDS: GABAPENTIN 250 MG/5 ML ORAL SOLUTION, 470 ML BOTTLE GT SCH (23:48)
[2019-03-22] MEDS ORDERED: MORPHINE SULFATE 2 MG/ML VIAL SQ ONE (01:25)
[2019-03-22] MEDS ORDERED: oxyCODONE HCL 5 MG TABLET NGT PRN (01:46)
[2019-03-22] MEDS: oxyCODONE HCL 5 MG TABLET GT PRN ×2 (02:11→23:08)
[2019-03-22 06:07] LABS: BASO % 1.1 % (0-2.0); EOS % 2.2 % (0-4.5); HEMATOCRIT 20.3 % (35.4-49); LYMPH % 23.4 % (8-40); MCH 30.5 pg (25.7-33.7); MCHC 33.6 g/dl (32.0-35.9); MEAN CELL VOLUME 90.7 fl (80-96); MEAN PLT VOLUME 9.7 fl (7.5-11.1); MONO % 13.1 % (3.8-10.2); NEUT % 60.2 % (42.8-82.8); PLATELET COUNT 56 K/MM3 (134-434); RBC 2.24 M/mm3 (4.00-5.60); RDW 17.9 % (11.9-15.9)
[2019-03-22 06:40] LABS: ALBUMIN 2.2 g/dl (3.4-5.0); BILIRUBIN,TOTAL 0.6 mg/dL (0.2-1); BLOOD UREA NITROGEN 35.7 mg/dL (7-18); CALCIUM 7.7 mg/dL (8.5-10.1); CREATININE 1.3 mg/dL (0.55-1.3); MAGNESIUM 2.1 mg/dL (1.8-2.4); PHOSPHOROUS 3.7 mg/dL (2.5-4.9); POTASSIUM 4.3 mmol/L (3.5-5.1); TOT PROT 5.2 g/dl (6.4-8.2)
[2019-03-22 06:54] LABS: HEMOGLOBIN 6.8 GM/dL (11.7-16.9)
--- NOTE | 2019-03-22 07:33 | PN ---
Physical Exam: SUBJECTIVE: Patient seen and examined resting in bed nad. no acute events afebrile hemodynamically stable. No BM since yesterday an no occult bleeding but Hgb still dropped. denies cp, sob, palpitations. denies abd pain, n/v. OBJECTIVE: Vital Signs Period Temp Pulse Resp BP Sys/Real Pulse Ox Last 24 Hr 97.8 F-98.9 F 70-88 15-18 104-131/50-72 96-100 GENERAL: Awake, alert, and fully oriented, in no acute distress. HEAD: Normal with no signs of trauma. EYES: Pupils equal, round and reactive to light, extraocular movements intact, sclera anicteric, conjunctiva clear. No lid lag. EARS, NOSE, THROAT: Moist mucous membranes. NECK: supple + JVD at 30 degrees recline, no mass LUNGS: Breath sounds equal, clear to auscultation bilaterally HEART: Regular rate and rhythm, normal S1 and S2 ABDOMEN: Soft, nontender, not distended, normoactive bowel sounds, no guarding, no rebound, no masses. Rectal per ED note MUSCULOSKELETAL: No CVA tenderness. LOWER EXTREMITIES: 1+ pulses, warm, well-perfused. No calf tenderness. 3+ edema up to mid calf b/l with venous statis skin discoloration , r medial disstal oglesby ulver with clean pink base. NEUROLOGICAL: Cranial nerves II-XII grossly intact. Normal speech. PSYCHIATRIC: Cooperative. Good eye contact. Appropriate mood and affect. SKIN: Warm, dry Laboratory Results - last 24 hr 03/21/19 03/21/19 03/21/19 12:39 12:55 12:55 WBC 6.3 RBC 2.75 L Hgb 8.4 L Hct 25.2 L MCV 91.9 MCH 30.4 MCHC 33.1 RDW 18.5 H Plt Count 72 L D MPV 9.4 Absolute Neuts (auto) 4.0 Neutrophils % 62.6 Lymphocytes % 23.0 D Monocytes % 12.1 H Eosinophils % 1.4 Basophils % 0.9 Nucleated RBC % 0 PT with INR 12.50 INR 1.06 PTT (Actin FS) 33.6 Sodium 135 L Potassium 4.7 Chloride 98 Carbon Dioxide 30 Anion Gap 7 L BUN 36.3 H Creatinine 1.3 Est GFR (CKD-EPI)AfAm 56.46 Est GFR (CKD-EPI)NonAf 48.72 Random Glucose 99 Calcium 8.0 L Phosphorus Magnesium Ferritin Total Bilirubin 0.6 AST 17 ALT 19 Alkaline Phosphatase 133 H LD Total Troponin I < 0.02 B-Natriuretic Peptide 8602.5 H Total Protein 6.4 Albumin 2.7 L Triglycerides Cholesterol Total LDL Cholesterol HDL Cholesterol TSH Free T4 Stool Occult Blood Blood Type Antibody Screen Crossmatch 03/21/19 03/21/19 03/21/19 12:55 13:00 15:30 WBC 5.2 RBC 2.55 L Hgb 7.8 L Hct 23.3 L MCV 91.4 MCH 30.4 MCHC 33.3 RDW 18.3 H Plt Count 65 L MPV 9.1 Absolute Neuts (auto) 3.3 Neutrophils % 63.6 Lymphocytes % 20.1 Monocytes % 13.9 H Eosinophils % 1.6 Basophils % 0.8 Nucleated RBC % 0 PT with INR INR PTT (Actin FS) Sodium Potassium Chloride Carbon Dioxide Anion Gap BUN Creatinine Est GFR (CKD-EPI)AfAm Est GFR (CKD-EPI)NonAf Random Glucose Calcium Phosphorus Magnesium Ferritin Total Bilirubin AST ALT Alkaline Phosphatase LD Total Troponin I B-Natriuretic Peptide Total Protein Albumin Triglycerides Cholesterol Total LDL Cholesterol HDL Cholesterol TSH Free T4 Stool Occult Blood Positive Blood Type A POSITIVE Antibody Screen Negative Crossmatch See Detail 03/22/19 03/22/19 03/22/19 05:20 05:20 05:20 WBC 4.0 RBC 2.24 L Hgb 6.8 L* Hct 20.3 L MCV 90.7 MCH 30.5 MCHC 33.6 RDW 17.9 H Plt Count 56 L MPV 9.7 Absolute Neuts (auto) 2.4 Neutrophils % 60.2 Lymphocytes % 23.4 Monocytes % 13.1 H Eosinophils % 2.2 Basophils % 1.1 Nucleated RBC % 0 PT with INR INR PTT (Actin FS) Sodium 138 Potassium 4.3 Chloride 101 Carbon Dioxide 28 Anion Gap 8 BUN 35.7 H Creatinine 1.3 Est GFR (CKD-EPI)AfAm 56.46 Est GFR (CKD-EPI)NonAf 48.72 Random Glucose 74 Calcium 7.7 L Phosphorus 3.7 Magnesium 2.1 Ferritin Total Bilirubin 0.6 AST 16 ALT 14 Alkaline Phosphatase 118 H LD Total 165 Troponin I B-Natriuretic Peptide Total Protein 5.2 L Albumin 2.2 L Triglycerides 50 Cholesterol 92 Total LDL Cholesterol 52 HDL Cholesterol 37 L TSH 2.95 D Free T4 1.20 H Stool Occult Blood Blood Type Antibody Screen Crossmatch 03/22/19 05:20 WBC RBC Hgb Hct MCV MCH MCHC RDW Plt Count MPV Absolute Neuts (auto) Neutrophils % Lymphocytes % Monocytes % Eosinophils % Basophils % Nucleated RBC % PT with INR INR PTT (Actin FS) Sodium Potassium Chloride Carbon Dioxide Anion Gap BUN Creatinine Est GFR (CKD-EPI)AfAm Est GFR (CKD-EPI)NonAf Random Glucose Calcium Phosphorus Magnesium Ferritin 110.8 Total Bilirubin AST ALT Alkaline Phosphatase LD Total Troponin I B-Natriuretic Peptide Total Protein Albumin Triglycerides Cholesterol Total LDL Cholesterol HDL Cholesterol TSH Free T4 Stool Occult Blood Blood Type Antibody Screen Crossmatch Active Medications Generic Name Dose Route Start Last Admin Trade Name Freq PRN Reason Stop Dose Admin Acetaminophen 650 mg 03/22/19 01:47 Tylenol Oral Solution - GT Q6H PRN PAIN 1-3 Atorvastatin Calcium 10 mg 03/21/19 22:00 03/21/19 22:21 Lipitor - GT 10 mg HS DARSHAN Administration Digoxin 0.125 mg 03/22/19 10:00 Lanoxin - GT DAILY DARSHAN Furosemide 40 mg 03/22/19 10:00 Lasix Injection - IVPUSH DAILY DARSHAN Gabapentin 200 mg 03/21/19 22:00 03/21/19 23:48 Neurontin Oral Liquid - GT 200 mg BID DARSHAN Administration Metoprolol Tartrate 25 mg 03/21/19 22:00 03/21/19 22:40 Lopressor - GT 25 mg BID DARSHAN Administration Oxycodone HCl 5 mg 03/22/19 02:06 03/22/19 02:11 Roxicodone - GT 5 mg Q6H PRN Administration PAIN 1-3 Pantoprazole Sodium 40 mg 03/21/19 22:00 03/21/19 22:21 Protonix Iv IVPUSH 40 mg BID DARSHAN Administration Sacubitril/Valsartan 1 tab 03/21/19 22:00 03/21/19 22:22 Entresto 24 Mg-26 Mg Tablet PO 1 tab BID DARSHAN Administration ASSESSMENT/PLAN: This is an 88 yo M with PMH of HFREF, s/p pacemaker (dual chamber, last battery change and new wire 1 yr ago), 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 Acute on chronic anemia, blood loss component GI source thrombocytopenia HFREF exacerbation AF s/p dual chamber pacemaker s/p porcine valve HTN HLD ckd -CT a/p w/o cont 02/17 no acute pathology -hgb this AM 6.8, 1 u prbcs ordered -ppi 40 iv bid -EGD planned for 3 pm today -f/u standard anemia workup -thrombocytopenia may be due to chf related splenic consumption -f/u tte -seen by cardio no change in management -tele monotoring -strict i and o daily weights -continue home bb, manuelsto, statin Visit type - Emergency Visit Emergency Visit: Yes ED Registration Date: 03/21/19 Care time: The patient presented to the Emergency Department on the above date and was hospitalized for further evaluation of their emergent condition. - New Patient This patient is new to me today: No - Critical Care Critical Care patient: No - Discharge Referral Referred to [facility] Med P.C.: No
--- NOTE | 2019-03-22 08:52 | EKG ---
Test Reason : Blood Pressure : / mmHG Vent. Rate : 086 BPM Atrial Rate : 041 BPM P-R Int : 000 ms QRS Dur : 174 ms QT Int : 446 ms P-R-T Axes : 000 265 070 degrees QTc Int : 533 ms Ventricular-paced rhythm ABNORMAL ECG WHEN COMPARED WITH ECG OF 18-FEB-2019 22:36, VENT. RATE HAS INCREASED BY 11 BPM Confirmed by REINALDO MOELLER, BRITNEY ([id number]) on 03/22/2019 8:51:53 AM Referred By: Confirmed By:BRITNEY NAJERA MD
--- NOTE | 2019-03-22 09:04 | PN ---
Teaching Attending Note Name of Resident: Samantha Yan ATTENDING PHYSICIAN STATEMENT I saw and evaluated the patient. I reviewed the resident's note and discussed the case with the resident. I agree with the resident's findings and plan as documented. SUBJECTIVE: Mr Melchor says he is feeling well today. Denies cp, sob, n/v. States he had 3 bowel movements 2 days ago but none yesterday, does not know if there was BRB or melena OBJECTIVE: Last Vital Signs Temp Pulse Resp BP Pulse Ox 37.2 C 70 17 114/53 L 98 03/22/19 05:35 03/22/19 05:38 03/22/19 05:35 03/22/19 05:35 03/22/19 05:38 Gen: nad Pulm: ctab w/o w/r/r CV: irreg irreg but rate controlled w/o m/r/g Abd: +bs, s/nt/nd, g-tube in place and no bleeding Ext: trace edema CBC, BMP 03/22/19 05:20 03/22/19 05:20 ASSESSMENT AND PLAN: Problem List - Problems (1) Anemia Assessment/Plan: -loss vs underproduction -EGD last admission showed 2 duodenal ulcers -GI consulted -on IV protonix -planning for EGD and colonoscopy -if negative, may need small bowel capsule endoscopy as an outpatient -hematology also consulted since history of thrombocytopenia, may be underproducing -transfuse today Code(s): D64.9 - ANEMIA, UNSPECIFIED (2) Dysphagia Assessment/Plan: -PEG tube in place -speech sounds stronger since last admission -speech therapy consulted Code(s): R13.10 - DYSPHAGIA, UNSPECIFIED (3) GI bleed Assessment/Plan: -as above Code(s): K92.2 - GASTROINTESTINAL HEMORRHAGE, UNSPECIFIED (4) Atrial fibrillation Assessment/Plan: -continue digoxin and metoprolol -no anticoagulation secondary to thrombocytopenia and anemia Code(s): I48.91 - UNSPECIFIED ATRIAL FIBRILLATION Qualifiers: Atrial fibrillation type: chronic Qualified Code(s): I48.2 - Chronic atrial fibrillation (5) CHF (congestive heart failure) Assessment/Plan: -cardiology consulted -ECHO being performed this am -continue entresto -receiving IV lasix Code(s): I50.9 - HEART FAILURE, UNSPECIFIED (6) Thrombocytopenia Assessment/Plan: -hematology consulted Code(s): D69.6 - THROMBOCYTOPENIA, UNSPECIFIED
--- NOTE | 2019-03-22 09:47 | CON.CARD ---
Cardiology Consult (text) - Consultation Consultation Note: Consult Consult Specialty:: Cardiology Referred by:: Medicine Reason for Consultation:: CHF - History of Present Illness Chief Complaint: anemia, leg swelling History of Present Illness: 88M h/o afib on coumadin, s/p PPM, s/p bio AVR, chronic systolic HF p/w anemia, lower ext edema. Was recently discharged from admission with SANDIE, thrombocytopenia, s/p PEG tube placement and AC and spironolactone were stopped. Was seen at [facility] for anemia for which he received transfusions, now with leg swelling and anemia, No chest pain, dyspnea, palps. Edema improving with IV lasix. Sees Dr. Wayne for cardio. - Alcohol/Substance Use Hx Alcohol Use: Yes (social) - Smoking History Smoking history: Never smoked Have you smoked in the past 12 months: No Aproximately how many cigarettes per day: 0 If you are a former smoker, when did you quit?: 40-50yr ago Home Medications - Allergies Allergies/Adverse Reactions: Allergies Allergy/AdvReac Type Severity Reaction Status Date / Time No Known Allergies Allergy Verified 03/21/19 13:43 Home Medications Medication Instructions Recorded Acetaminophen 650 mg GT Q6H PRN 03/21/19 Atorvastatin Ca [Lipitor] 10 mg GT HS 03/21/19 Cholecalciferol (Vitamin D3) 2,000 unit GT DAILY 03/21/19 [Vitamin D3] Digoxin [Lanoxin] 125 mcg GT ASDIR 03/21/19 Ferrous Sulfate 220 mg GT BID 03/21/19 Furosemide [Lasix -] 40 mg GT DAILY 03/21/19 Gabapentin [Neurontin -] 200 mg GT BID 03/21/19 Magnesium Hydrox 2400MG/30Ml [Milk 30 ml GT PRN PRN 03/21/19 of Magnesia -] Melatonin 5 mg GT HS 03/21/19 Metoprolol Tartrate [Lopressor -] 25 mg GT BID 03/21/19 Sacubitril/Valsartan [Entresto 24 1 each GT BID 03/21/19 mg-26 mg Tablet] Acetaminophen [Tylenol] 650 mg GT Q6H PRN 03/22/19 Oxycodone HCl [Roxicodone] 5 mg GT Q6H PRN 03/22/19 Family Disease History - Family Disease History Family History: Unremarkable Review of Systems - Review of Systems Constitutional: reports: No Symptoms Eyes: reports: No Symptoms HENT: reports: No Symptoms Neck: reports: No Symptoms Cardiovascular: reports: No Symptoms Respiratory: reports: No Symptoms Gastrointestinal: reports: No Symptoms Genitourinary: reports: No Symptoms Musculoskeletal: reports: No Symptoms Integumentary: reports: No Symptoms Neurological: reports: No Symptoms Endocrine: reports: No Symptoms Hematology/Lymphatic: reports: No Symptoms Psychiatric: reports: No Symptoms Vital Signs Period Temp Pulse Resp BP Sys/Real Pulse Ox Last 24 Hr 97.8 F-98.9 F 70-88 15-18 104-131/50-72 96-100 Constitutional: Yes: No Distress, Calm Eyes: Yes: Conjunctiva Clear, EOM Intact HENT: Yes: Atraumatic, Normocephalic Neck: Yes: Supple, Trachea Midline Respiratory: Yes: Regular, rales at bases bilaterally Gastrointestinal: Yes: Normal Bowel Sounds, Soft Cardiovascular: Yes: Regular Rate and Rhythm JVD: yes Carotid Bruit: No PMI: Non-Displaced Heart Sounds: Yes: S1, S2 Musculoskeletal: No: Back Pain Extremities: No: Cold Edema: 1+ lower ext bilaterally Peripheral Pulses WNL: Yes Peripheral Pulses: 2+ Left Doralis Pedis, 2+ Right Dorsalis Pedis Integumentary: No: Jaundice Neurological: Yes: Alert, Oriented Psychiatric: No: Agitated Laboratory Last Values WBC 4.0 K/mm3 (4.0-10.0) 03/22/19 05:20 RBC 2.24 M/mm3 (4.00-5.60) L 03/22/19 05:20 Hgb 6.8 GM/dL (11.7-16.9) L* 03/22/19 05:20 Hct 20.3 % (35.4-49) L 03/22/19 05:20 MCV 90.7 fl (80-96) 03/22/19 05:20 MCH 30.5 pg (25.7-33.7) 03/22/19 05:20 MCHC 33.6 g/dl (32.0-35.9) 03/22/19 05:20 RDW 17.9 % (11.9-15.9) H 03/22/19 05:20 Plt Count 56 K/MM3 (134-434) L 03/22/19 05:20 MPV 9.7 fl (7.5-11.1) 03/22/19 05:20 Absolute Neuts (auto) 2.4 K/mm3 (1.5-8.0) 03/22/19 05:20 Neutrophils % 60.2 % (42.8-82.8) 03/22/19 05:20 Lymphocytes % 23.4 % (8-40) 03/22/19 05:20 Monocytes % 13.1 % (3.8-10.2) H 03/22/19 05:20 Eosinophils % 2.2 % (0-4.5) 03/22/19 05:20 Basophils % 1.1 % (0-2.0) 03/22/19 05:20 Nucleated RBC % 0 % (0-0) 03/22/19 05:20 PT with INR 12.50 SEC (9.7-13.0) 03/21/19 12:55 INR 1.06 (0.83-1.09) 03/21/19 12:55 PTT (Actin FS) 33.6 SECONDS (25.2-36.5) 03/21/19 12:55 Sodium 138 mmol/L (136-145) 03/22/19 05:20 Potassium 4.3 mmol/L (3.5-5.1) 03/22/19 05:20 Chloride 101 mmol/L (98-107) 03/22/19 05:20 Carbon Dioxide 28 mmol/L (21-32) 03/22/19 05:20 Anion Gap 8 MMOL/L (8-16) 03/22/19 05:20 BUN 35.7 mg/dL (7-18) H 03/22/19 05:20 Creatinine 1.3 mg/dL (0.55-1.3) 03/22/19 05:20 Est GFR (CKD-EPI)AfAm 56.46 03/22/19 05:20 Est GFR (CKD-EPI)NonAf 48.72 03/22/19 05:20 Random Glucose 74 mg/dL (74-106) 03/22/19 05:20 Calcium 7.7 mg/dL (8.5-10.1) L 03/22/19 05:20 Phosphorus 3.7 mg/dL (2.5-4.9) 03/22/19 05:20 Magnesium 2.1 mg/dL (1.8-2.4) 03/22/19 05:20 Ferritin 110.8 ng/ml (8-388) 03/22/19 05:20 Total Bilirubin 0.6 mg/dL (0.2-1) 03/22/19 05:20 AST 16 U/L (15-37) 03/22/19 05:20 ALT 14 U/L (13-61) 03/22/19 05:20 Alkaline Phosphatase 118 U/L (45-117) H 03/22/19 05:20 LD Total 165 U/L (87-246) 03/22/19 05:20 Troponin I < 0.02 ng/ml (0.00-0.05) 03/21/19 12:39 B-Natriuretic Peptide 8602.5 pg/ml (5-450) H 03/21/19 12:39 Total Protein 5.2 g/dl (6.4-8.2) L 03/22/19 05:20 Albumin 2.2 g/dl (3.4-5.0) L 03/22/19 05:20 Triglycerides 50 mg/dL (0-150) 03/22/19 05:20 Cholesterol 92 mg/dL (50-200) 03/22/19 05:20 Total LDL Cholesterol 52 mg/dL (5-100) 03/22/19 05:20 HDL Cholesterol 37 mg/dL (40-60) L 03/22/19 05:20 TSH 2.95 uIU/ml (0.358-3.74) D 03/22/19 05:20 Free T4 1.20 ng/dl (0.76-1.16) H 03/22/19 05:20 Stool Occult Blood Positive (NEGATIVE) 03/21/19 13:00 Blood Type A POSITIVE 03/21/19 12:55 Antibody Screen Negative 03/21/19 12:55 Crossmatch See Detail 03/21/19 12:55 Assessment/Plan EKG: MANAGER HIV, PVC CXR: no acute process tele: MANAGER HIV, NSVT 14 bt anemia - workup per primary, GI consulted, EGD planned Acute on Chronic systolic HF - edema improving with IV lasix, Cr stable - continue IV lasix - cont entresto, metoprolol - spironolactone stopped last admission for SANDIE, hyperkalemia - monitor Cr, lytes, daily standing weights Afib - not on ac due to thrombocytopenia, anemia - continue digoxin, toprol s/p PPM - stable on EKG, outpatient monitoring h/o bio AVR - stable on recent echo - outpatient monitoring HLD - cont statin NSVT - h/o systolic HF, on metoprolol - monitor lytes with diuresis CVA: - L hemiparesis - cont statin
[2019-03-22] MEDS: FUROSEMIDE 40 MG/4 ML INJECTABLE VIAL IVPUSH SCH (11:05)
[2019-03-22] MEDS: DIGOXIN 0.125 MG TABLET (FP) GT SCH (11:08)
[2019-03-22] MEDS: SACUBITRIL/VALSARTAN 24 MG-26 MG TABLET PO SCH ×2 (11:15→21:36)
[2019-03-22] MEDS: GABAPENTIN 250 MG/5 ML ORAL SOLUTION, 470 ML BOTTLE GT SCH ×2 (11:15→21:36)
[2019-03-22] MEDS: PANTOPRAZOLE SODIUM 40 MG VIAL IVPUSH SCH (11:16)
[2019-03-22] MEDS: METOPROLOL TARTRATE 25 MG TABLET (FP) GT SCH ×2 (12:20→21:36)
--- NOTE | 2019-03-22 14:28 | ECHO ---
Name: MUNA VUONG Exam:Adult Echocardiogram Study Date: 03/22/2019 08:50 AM Age: 88 yrs Reason For Study: CHF Height: 73 in Weight: 175 lb BSA: 2.0 m2 MMode/2D Measurements & Calculations IVSd: 1.1 cm Ao root diam: 3.2 cm LVIDd: 4.6 cm LA dimension: 3.5 cm LVIDs: 2.7 cm LVPWd: 0.94 cm EDV(Teich): 96.8 ml LVOT diam: 2.0 cm ESV(Teich): 28.3 ml Doppler Measurements & Calculations MV E max harpal: 181.0 cm/sec MVA(VTI): 0.71 cm2 MV dec time: 0.56 sec MV V2 max: 224.0 cm/sec MV max P.1 mmHg MV V2 mean: 135.4 cm/sec MV mean P.4 mmHg MV V2 VTI: 70.1 cm Ao V2 max: 202.9 cm/sec AI dec slope: 300.0 cm/sec2 Ao max P.5 mmHg Ao V2 mean: 145.0 cm/sec Ao mean P.6 mmHg Ao V2 VTI: 44.0 cm SUE(I,D): 1.1 cm2 SUE(V,D): 1.2 cm2 LV V1 max P.6 mmHg SV(LVOT): 49.9 ml LV V1 mean P.5 mmHg LV V1 max: 80.3 cm/sec LV V1 mean: 57.8 cm/sec LV V1 VTI: 16.2 cm TR max harpal: 219.9 cm/sec PA V2 max: 91.8 cm/sec TR max P.5 mmHg PA max P.6 mmHg Med Peak E' Harpal: 7.0 cm/sec PI Vmax: 104.5 cm/sec Med E/e': 26.0 Lat Peak E' Harpal: 8.6 cm/sec Lat E/e': 21.1 Procedure A two-dimensional transthoracic echocardiogram with color flow and Doppler was performed. Left Ventricle The left ventricular size, thickness and function are normal. The left ventricular ejection fraction is normal. Septal motion is consistent with post-operative state. Right Ventricle The right ventricle is not well visualized. There is a pacemaker lead in the right ventricle. Atria The left atrial size is normal. Cannot exclude LA mass. Recommend DANDY to further evaluate. The right atrium is severely dilated. Mitral Valve The prosthetic mitral valve is well-seated. There is a bioprosthetic mitral valve. There is moderate mitral stenosis. There is trace mitral regurgitation. Tricuspid Valve The tricuspid valve is normal in structure and function. There is no tricuspid stenosis. There is sev ere tricuspid regurgitation. Right ventricular systolic pressure is normal. Aortic Valve The aortic valve is trileaflet. There is mild aortic valve thickening. There is mild aortic sclerosis .;. Mild valvular aortic stenosis. No aortic regurgitation is present. Pulmonic Valve The pulmonic valve is not well visualized. Great Vessels The aortic root is normal size. Pericardium/Pleura There is no pericardial effusion. Interpretation Summary Clinical correlation is recommended. A transesophageal echocardiogram is recommended. The left ventri cular size, thickness and function are normal Septal motion is consistent with post-operative state. The left ventricular ejection fraction is normal. The prosthetic mitral valve is well-seated. There is a bioprosthetic mitral valve. Right ventricular systolic pressure is normal. There is mild aortic sclerosis.; There is mild aortic valve thickening. The aortic valve is trileaflet. Mild valvular aortic stenosis. No aortic regurgitation is present. The right ventricle is not well visualized. There is a pacemaker lead in the right ventricle. There is severe tricuspid regurgitation. The left atrial size is normal. The right atrium is severely dilated. There is moderate mitral stenosis. There is trace mitral regurgitation. Cannot exclude LA mass. Recommend DANDY to further evaluate. Clinical correlation is recommended. A transesophageal echocardiogram is recommended. MD Isac Jordan 03/22/2019 02:27 PM
--- NOTE | 2019-03-22 18:32 | CONSULT ---
Consultation: REQUESTING PROVIDER: Dr Pelayo CONSULT REQUEST: We have been asked to medically evaluate this patient for ( anemia). HISTORY OF PRESENT ILLNESS: This is an 88 yo M with PMH of systolic HF, s/p pacemaker, A.Fib, off Coumadin 1 month ago due to thrombocytopenia, HTN, CKD and duodenal ulcers, s/p PEG, admitted for severe anemia and thrombocytopenia found as outpatient. He has a recent history of anemia, s/p transfusions. He was also told by his PCP that his platelets are always low, the highest in 90s. Hem/onc called for evaluation of anemia/thrombocytopenia. On presentation today the patient doesn't have any complaints. His daughter and at bedside were able to provided detailed history. He denies melena, hematuria, SOB, palpitations. REVIEW OF SYSTEMS: CONSTITUTIONAL: Absent: fever, chills, diaphoresis, generalized weakness, malaise HEENT: Absent: rhinorrhea, nasal congestion, throat pain, throat swelling, difficulty swallowing CARDIOVASCULAR: Absent: chest pain, syncope, palpitations, irregular heart rate, lightheadedness , peripheral edema RESPIRATORY: Absent: cough, shortness of breath, dyspnea with exertion, orthopnea, wheezing, stridor, hemoptysis GASTROINTESTINAL: Absent: abdominal pain, abdominal distension, nausea, vomiting, diarrhea, constipation, melena, hematochezia GENITOURINARY: Absent: dysuria, frequency, urgency, hesitancy, hematuria, flank pain, genital pain MUSCULOSKELETAL: Absent: myalgia, arthralgia, joint swelling, back pain, neck pain SKIN: Absent: rash, itching, pallor HEMATOLOGIC/IMMUNOLOGIC: Absent: easy bleeding, easy bruising ENDOCRINE: Absent: unexplained weight gain, unexplained weight loss NEUROLOGIC: Absent: headache, focal weakness or paresthesias, dizziness PSYCHIATRIC: Absent: anxiety, depression PHYSICAL EXAMINATION Vital Signs - 24 hr 03/21/19 03/21/19 03/21/19 18:55 20:00 20:44 Temperature 98.5 F 97.8 F Pulse Rate 88 71 Respiratory 18 18 18 Rate Blood Pressure 131/67 106/66 O2 Sat by Pulse 97 Oximetry (%) 03/21/19 03/22/19 03/22/19 22:00 00:00 02:00 Temperature 98 F 98.1 F Pulse Rate 80 70 Respiratory 15 18 Rate Blood Pressure 122/54 L 104/50 L O2 Sat by Pulse 97 Oximetry (%) 03/22/19 03/22/19 03/22/19 05:35 05:38 09:00 Temperature 98.9 F Pulse Rate 70 70 Respiratory 17 17 Rate Blood Pressure 114/53 L O2 Sat by Pulse 98 99 Oximetry (%) 03/22/19 03/22/19 03/22/19 11:08 14:00 17:33 Temperature 98.8 F 98.1 F Pulse Rate 70 71 73 Respiratory 18 18 Rate Blood Pressure 99/54 L 127/61 O2 Sat by Pulse Oximetry (%) GENERAL: Awake, alert, and fully oriented, in no acute distress. HEAD: Normal with no signs of trauma. EYES: Extraocular movements intact, sclera anicteric, conjunctiva clear. EARS, NOSE, THROAT: Oropharynx clear without exudates. Moist mucous membranes. NECK: Normal range of motion, supple without lymphadenopathy. LUNGS: Breath sounds equal, clear to auscultation bilaterally. No wheezes, and no crackles. No accessory muscle use. HEART: Irregular rate and rhythm, normal S1 and S2 without murmur, rub or gallop. ABDOMEN: Soft, nontender, not distended, normoactive bowel sounds, no guarding, no rebound,+PEG, no tenderness, no erythema. MUSCULOSKELETAL: Normal range of motion at all joints. No bony deformities or tenderness. UPPER EXTREMITIES: 2+ pulses, warm, no peripheral edema. LOWER EXTREMITIES: 2+ pulses, warm, 1+ peripheral edema. NEUROLOGICAL: Non focal, no facial asymmetry, gait not observed. PSYCHIATRIC: Cooperative. Good eye contact. Appropriate mood and affect. SKIN: Warm, dry, normal turgor, no rashes. TESTES: no swelling, no erythema, no masses, no tenderness, no lymphadenopathy. Laboratory Results - last 24 hr 03/21/19 03/22/19 03/22/19 12:55 05:15 05:20 WBC 4.0 RBC 2.24 L Hgb 6.8 L* Hct 20.3 L MCV 90.7 MCH 30.5 MCHC 33.6 RDW 17.9 H Plt Count 56 L MPV 9.7 Absolute Neuts (auto) 2.4 Neutrophils % 60.2 Lymphocytes % 23.4 Monocytes % 13.1 H Eosinophils % 2.2 Basophils % 1.1 Nucleated RBC % 0 Sodium Potassium Chloride Carbon Dioxide Anion Gap BUN Creatinine Est GFR (CKD-EPI)AfAm Est GFR (CKD-EPI)NonAf Random Glucose Hemoglobin A1c % 5.1 Calcium Phosphorus Magnesium Ferritin Total Bilirubin AST ALT Alkaline Phosphatase LD Total Total Protein Albumin Triglycerides Cholesterol Total LDL Cholesterol HDL Cholesterol TSH Free T4 Blood Type A POSITIVE Antibody Screen Negative Crossmatch See Detail 03/22/19 03/22/19 03/22/19 05:20 05:20 05:20 WBC RBC Hgb Hct MCV MCH MCHC RDW Plt Count MPV Absolute Neuts (auto) Neutrophils % Lymphocytes % Monocytes % Eosinophils % Basophils % Nucleated RBC % Sodium 138 Potassium 4.3 Chloride 101 Carbon Dioxide 28 Anion Gap 8 BUN 35.7 H Creatinine 1.3 Est GFR (CKD-EPI)AfAm 56.46 Est GFR (CKD-EPI)NonAf 48.72 Random Glucose 74 Hemoglobin A1c % Calcium 7.7 L Phosphorus 3.7 Magnesium 2.1 Ferritin 110.8 Total Bilirubin 0.6 AST 16 ALT 14 Alkaline Phosphatase 118 H LD Total 165 Total Protein 5.2 L Albumin 2.2 L Triglycerides 50 Cholesterol 92 Total LDL Cholesterol 52 HDL Cholesterol 37 L TSH 2.95 D Free T4 1.20 H Blood Type Antibody Screen Crossmatch Active Medications Generic Name Dose Route Start Last Admin Trade Name Freq PRN Reason Stop Dose Admin Acetaminophen 650 mg 03/22/19 01:47 Tylenol Oral Solution - GT Q6H PRN PAIN 1-3 Atorvastatin Calcium 10 mg 03/21/19 22:00 03/21/19 22:21 Lipitor - GT 10 mg HS DARSHAN Administration Digoxin 0.125 mg 03/22/19 10:00 03/22/19 11:08 Lanoxin - GT 0.125 mg DAILY DARSHAN Administration Furosemide 40 mg 03/22/19 10:00 03/22/19 11:05 Lasix Injection - IVPUSH 40 mg DAILY DARSHAN Administration Gabapentin 200 mg 03/21/19 22:00 03/22/19 11:15 Neurontin Oral Liquid - GT 200 mg BID DARSHAN Administration Metoprolol Tartrate 25 mg 03/21/19 22:00 03/22/19 12:20 Lopressor - GT Not Given BID DARSHAN Oxycodone HCl 5 mg 03/22/19 02:06 03/22/19 02:11 Roxicodone - GT 5 mg Q6H PRN Administration PAIN 1-3 Pantoprazole Sodium 40 mg 03/21/19 22:00 03/22/19 11:16 Protonix Iv IVPUSH 40 mg BID DARSHAN Administration Sacubitril/Valsartan 1 tab 03/21/19 22:00 03/22/19 11:15 Entresto 24 Mg-26 Mg Tablet PO 1 tab BID DARSHAN Administration ASSESSMENT/PLAN: This is an 88 yo M with PMH of systolic HF, s/p pacemaker, A.Fib, off Coumadin 1 month ago due to thrombocytopenia, HTN, CKD and duodenal ulcers, s/p PEG, admitted for severe anemia and thrombocytopenia found as outpatient. He has a recent history of anemia, s/p transfusions. anemia thrombocytopenia systolic HF A.fib s/p pacemaker HTN HLD ckd Plan: For thrombocytopenia we recommend to obtain liver US to r/o hepatomegaly, b12, folate levels, KASIA, RF. Thrombocytopenia also present in rheum diseases. We also agree with blood transfusion, anemia likely due to blood loss but will f /u retic. count, LDH, iron studies. Also possible anemia of chronic disease. f/u protein/immunology studies to r/o MM. Dispo: We will continue to follow the patient. Thank you for this consultative opportunity. Problem List - Problems (1) Anemia Code(s): D64.9 - ANEMIA, UNSPECIFIED (2) Atrial fibrillation Code(s): I48.91 - UNSPECIFIED ATRIAL FIBRILLATION Qualifiers: Atrial fibrillation type: chronic Qualified Code(s): I48.2 - Chronic atrial fibrillation (3) CHF (congestive heart failure) Code(s): I50.9 - HEART FAILURE, UNSPECIFIED (4) Normocytic anemia Code(s): D64.9 - ANEMIA, UNSPECIFIED (5) Thrombocytopenia Code(s): D69.6 - THROMBOCYTOPENIA, UNSPECIFIED Visit type - Emergency Visit Emergency Visit: Yes ED Registration Date: 03/21/19 Care time: The patient presented to the Emergency Department on the above date and was hospitalized for further evaluation of their emergent condition. - New Patient This patient is new to me today: Yes Date on this admission: 03/22/19 - Critical Care Critical Care patient: No
--- NOTE | 2019-03-22 20:16 | PN ---
Progress Note (short form) - Note Progress Note: EGD performed today revealing small gastric ulcer, near PEG site otherwise unremarkable and no obvious source of bleeding or explanation for significant anemia. Extensive discussion taken place with pt, pts and daughter regarding colonoscopy to further evaluate for source of anemia. Risks/benefits were discussed including potential for missed lesions if procedure not pursued. Pt/ pts family would like to consider further and discuss with their PMD. Recommend continue PPI daily, resume tube feeds and await repeat post transfusion CBC in the interim. Recommend transfuse if needed to maintain Hb >7 and plts >50. Follow up hematology recommendations.
[2019-03-22 20:22] LABS: BASO % 0.8 % (0-2.0); EOS % 2.1 % (0-4.5); HEMATOCRIT 26.7 % (35.4-49); HEMOGLOBIN 8.9 GM/dL (11.7-16.9); LYMPH % 20.4 % (8-40); MCH 30.2 pg (25.7-33.7); MCHC 33.3 g/dl (32.0-35.9); MEAN CELL VOLUME 90.6 fl (80-96); MEAN PLT VOLUME 9.2 fl (7.5-11.1); MONO % 13.9 % (3.8-10.2); NEUT % 62.8 % (42.8-82.8); PLATELET COUNT 59 K/MM3 (134-434); RBC 2.95 M/mm3 (4.00-5.60); RDW 17.6 % (11.9-15.9)
[2019-03-22] MEDS ORDERED: PT OWN MED DRAWER 7, Y5N ONE (21:29)
[2019-03-22] MEDS: ATORVASTATIN CA 10 MG TABLET (FP) GT SCH (21:36)
[2019-03-23 06:41] LABS: BASO % 1.1 % (0-2.0); EOS % 1.9 % (0-4.5); HEMOGLOBIN 8.9 GM/dL (11.7-16.9); LYMPH % 24.2 % (8-40); MCH 30.4 pg (25.7-33.7); MEAN CELL VOLUME 89.3 fl (80-96); MEAN PLT VOLUME 9.5 fl (7.5-11.1); MONO % 13.6 % (3.8-10.2); NEUT % 59.2 % (42.8-82.8); PLATELET COUNT 58 K/MM3 (134-434); RBC 2.92 M/mm3 (4.00-5.60); RDW 17.7 % (11.9-15.9); WHITE BLOOD COUNT 4.3 K/mm3 (4.0-10.0)
[2019-03-23 07:13] LABS: ALBUMIN 2.2 g/dl (3.4-5.0); BILIRUBIN,TOTAL 1.1 mg/dL (0.2-1); BLOOD UREA NITROGEN 35.1 mg/dL (7-18); CREATININE 1.2 mg/dL (0.55-1.3); MAGNESIUM 2.3 mg/dL (1.8-2.4); PHOSPHOROUS 3.4 mg/dL (2.5-4.9); POTASSIUM 4.2 mmol/L (3.5-5.1); TOT PROT 5.4 g/dl (6.4-8.2)
--- NOTE | 2019-03-23 07:39 | PN ---
Physical Exam: SUBJECTIVE: Patient seen and examined resting in bed nad. no acute events afebrile hemodynamically stable. denies cp, sob, palpitations. denies abd pain, n/v. s/p egd pod 1 OBJECTIVE: Vital Signs Period Temp Pulse Resp BP Sys/Real Pulse Ox Last 24 Hr 97.9 F-98.8 F 69-81 12-18 99-127/49-61 99-99 GENERAL: Awake, alert, and fully oriented, in no acute distress. HEAD: Normal with no signs of trauma. EYES: Pupils equal, round and reactive to light, extraocular movements intact, sclera anicteric, conjunctiva clear. No lid lag. EARS, NOSE, THROAT: Moist mucous membranes. NECK: supple + JVD at 30 degrees recline, no mass LUNGS: Breath sounds equal, clear to auscultation bilaterally HEART: Regular rate and rhythm, normal S1 and S2 ABDOMEN: Soft, nontender, not distended, normoactive bowel sounds, no guarding, no rebound, no masses. Rectal per ED note MUSCULOSKELETAL: No CVA tenderness. LOWER EXTREMITIES: 1+ pulses, warm, well-perfused. No calf tenderness. 3+ edema up to mid calf b/l with venous statis skin discoloration , r medial disstal oglesby ulver with clean pink base. NEUROLOGICAL: Cranial nerves II-XII grossly intact. Normal speech. PSYCHIATRIC: Cooperative. Good eye contact. Appropriate mood and affect. SKIN: Warm, dry Laboratory Results - last 24 hr 03/21/19 03/22/19 03/22/19 12:55 05:15 05:27 WBC RBC Hgb Hct MCV MCH MCHC RDW Plt Count MPV Absolute Neuts (auto) Neutrophils % Lymphocytes % Monocytes % Eosinophils % Basophils % Nucleated RBC % Sodium Potassium Chloride Carbon Dioxide Anion Gap BUN Creatinine Est GFR (CKD-EPI)AfAm Est GFR (CKD-EPI)NonAf Random Glucose Hemoglobin A1c % 5.1 Calcium Phosphorus Magnesium Iron 30 L TIBC 280 Iron Saturation 11 L Transferrin 212 Total Bilirubin AST ALT Alkaline Phosphatase LD Total Total Protein Albumin Blood Type A POSITIVE Antibody Screen Negative Crossmatch See Detail 03/22/19 03/23/19 03/23/19 20:00 05:40 05:40 WBC 5.0 4.3 RBC 2.95 L 2.92 L Hgb 8.9 L 8.9 L Hct 26.7 L D 26.0 L MCV 90.6 89.3 MCH 30.2 30.4 MCHC 33.3 34.0 RDW 17.6 H 17.7 H Plt Count 59 L 58 L MPV 9.2 9.5 Absolute Neuts (auto) 3.1 2.6 Neutrophils % 62.8 59.2 Lymphocytes % 20.4 24.2 Monocytes % 13.9 H 13.6 H Eosinophils % 2.1 1.9 Basophils % 0.8 1.1 Nucleated RBC % 0 0 Sodium 139 Potassium 4.2 Chloride 104 Carbon Dioxide 29 Anion Gap 7 L BUN 35.1 H Creatinine 1.2 Est GFR (CKD-EPI)AfAm 62.20 Est GFR (CKD-EPI)NonAf 53.67 Random Glucose 72 L Hemoglobin A1c % Calcium 8.0 L Phosphorus 3.4 Magnesium 2.3 Iron TIBC Iron Saturation Transferrin Total Bilirubin 1.1 H AST 16 ALT 15 Alkaline Phosphatase 121 H LD Total 179 Total Protein 5.4 L Albumin 2.2 L Blood Type Antibody Screen Crossmatch Active Medications Generic Name Dose Route Start Last Admin Trade Name Freq PRN Reason Stop Dose Admin Acetaminophen 650 mg 03/22/19 01:47 Tylenol Oral Solution - GT Q6H PRN PAIN 1-3 Atorvastatin Calcium 10 mg 03/21/19 22:00 03/22/19 21:36 Lipitor - GT 10 mg HS DARSHAN Administration Digoxin 0.125 mg 03/22/19 10:00 03/22/19 11:08 Lanoxin - GT 0.125 mg DAILY DARSHAN Administration Furosemide 40 mg 03/22/19 10:00 03/22/19 11:05 Lasix Injection - IVPUSH 40 mg DAILY DARSHAN Administration Gabapentin 200 mg 03/21/19 22:00 03/22/19 21:36 Neurontin Oral Liquid - GT 200 mg BID DARSHAN Administration Iron Sucrose 100 mg/ Sodium 100 mls @ 200 mls/hr 03/23/19 07:36 Chloride IVPB 03/23/19 08:05 ONCE ONE Metoprolol Tartrate 25 mg 03/21/19 22:00 03/22/19 21:36 Lopressor - GT 25 mg BID DARSHAN Administration Oxycodone HCl 5 mg 03/22/19 02:06 03/22/19 23:08 Roxicodone - GT 5 mg Q6H PRN Administration PAIN 1-3 Pantoprazole Sodium 40 mg 03/23/19 10:00 Protonix Iv IVPUSH DAILY DARSHAN Sacubitril/Valsartan 1 tab 03/21/19 22:00 03/22/19 21:36 Entresto 24 Mg-26 Mg Tablet PO 1 tab BID DARSHAN Administration ASSESSMENT/PLAN: This is an 88 yo M with PMH of HFREF, s/p pacemaker (dual chamber, last battery change and new wire 1 yr ago), 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 Acute on chronic anemia, blood loss component GI source thrombocytopenia HFREF exacerbation AF s/p dual chamber pacemaker s/p porcine valve HTN HLD ckd -CT a/p w/o cont / no acute pathology -hgb 8.9 plat 58 -fe panel reviewed start venofer -t bili 1.1; trend -ppi 40 iv bid -EGD POD1 small gastric ulcer no bleed. colonoscopy planned for tomorrow -f/u standard anemia workup -thrombocytopenia may be due to chf related splenic consumption -f/u tte -seen by cardio no change in management -tele monotoring -strict i and o daily weights -continue home bb, entresto, statin Visit type - Emergency Visit Emergency Visit: Yes ED Registration Date: 03/21/19 Care time: The patient presented to the Emergency Department on the above date and was hospitalized for further evaluation of their emergent condition. - New Patient This patient is new to me today: No - Critical Care Critical Care patient: No - Discharge Referral Referred to [facility] Med P.C.: No
[2019-03-23] MEDS ORDERED: IRON SUCROSE INJECTION 100 MG in SODIUM CHLORIDE 95 ML IVPB ONE (08:30)
--- NOTE | 2019-03-23 09:17 | PN ---
Teaching Attending Note Name of Resident: Samantha Yan ATTENDING PHYSICIAN STATEMENT I saw and evaluated the patient. I reviewed the resident's note and discussed the case with the resident. I agree with the resident's findings and plan as documented. SUBJECTIVE: Mr Melchor is without complaint today. Denies cp, sob, n/v. OBJECTIVE: Last Vital Signs Temp Pulse Resp BP Pulse Ox 36.7 C 81 16 119/54 L 99 03/23/19 06:00 03/23/19 06:00 03/23/19 06:00 03/23/19 06:00 03/22/19 21:00 Gen: nad Pulm: ctab w/o w/r/r CV: rrr w/o m/r/g Abd: +bs, s/nt/nd Ext: no c/c/e CBC, BMP 03/23/19 05:40 03/23/19 05:40 ASSESSMENT AND PLAN: (1) Anemia Assessment/Plan: -s/p EGD, no signs of bleeding -patient considering colonoscopy -appreciate hematology assistance -s/p transfusion with proper response Code(s): D64.9 - ANEMIA, UNSPECIFIED (2) Dysphagia Assessment/Plan: -PEG tube in place -speech sounds stronger since last admission -speech therapy consulted Code(s): R13.10 - DYSPHAGIA, UNSPECIFIED (3) GI bleed Assessment/Plan: -as above Code(s): K92.2 - GASTROINTESTINAL HEMORRHAGE, UNSPECIFIED (4) Atrial fibrillation Assessment/Plan: -continue digoxin and metoprolol -no anticoagulation secondary to thrombocytopenia and anemia Code(s): I48.91 - UNSPECIFIED ATRIAL FIBRILLATION Qualifiers: Atrial fibrillation type: chronic Qualified Code(s): I48.2 - Chronic atrial fibrillation (5) CHF (congestive heart failure) Assessment/Plan: -case d/w Dr Milner -ECHO report reviewed, Dr Milner also reviewed ECHO images -per Dr Milner, ECHO is stable and does not need DANDY -continue entresto -receiving IV lasix Code(s): I50.9 - HEART FAILURE, UNSPECIFIED (6) Thrombocytopenia Assessment/Plan: -hematology consulted and appreciate assistance Code(s): D69.6 - THROMBOCYTOPENIA, UNSPECIFIED Problem List - Problems (1) Anemia Code(s): D64.9 - ANEMIA, UNSPECIFIED (2) Dysphagia Code(s): R13.10 - DYSPHAGIA, UNSPECIFIED (3) GI bleed Code(s): K92.2 - GASTROINTESTINAL HEMORRHAGE, UNSPECIFIED (4) Atrial fibrillation Code(s): I48.91 - UNSPECIFIED ATRIAL FIBRILLATION Qualifiers: Atrial fibrillation type: chronic Qualified Code(s): I48.2 - Chronic atrial fibrillation (5) CHF (congestive heart failure) Code(s): I50.9 - HEART FAILURE, UNSPECIFIED (6) Thrombocytopenia Code(s): D69.6 - THROMBOCYTOPENIA, UNSPECIFIED
[2019-03-23] MEDS: SACUBITRIL/VALSARTAN 24 MG-26 MG TABLET PO SCH ×2 (09:53→21:18)
[2019-03-23] MEDS: FUROSEMIDE 40 MG/4 ML INJECTABLE VIAL IVPUSH SCH (09:53)
[2019-03-23] MEDS: DIGOXIN 0.125 MG TABLET (FP) GT SCH (09:53)
[2019-03-23] MEDS: GABAPENTIN 250 MG/5 ML ORAL SOLUTION, 470 ML BOTTLE GT SCH ×2 (09:54→21:22)
[2019-03-23] MEDS: METOPROLOL TARTRATE 25 MG TABLET (FP) GT SCH ×2 (09:54→21:18)
[2019-03-23] MEDS: PANTOPRAZOLE SODIUM 40 MG VIAL IVPUSH SCH (09:55)
--- NOTE | 2019-03-23 10:36 | PN ---
Progress Note (short form) - Note Progress Note: s: no cp sob palps dizzy o: Vital Signs Period Temp Pulse Resp BP Sys/Real Pulse Ox Last 24 Hr 97.9 F-98.8 F 69-81 12-18 99-127/49-61 99 Constitutional: Yes: No Distress, Calm Eyes: Yes: Conjunctiva Clear Neck: Yes: Supple, Trachea Midline Respiratory: Yes: Regular, rales at bases bilaterally Gastrointestinal: Yes: Normal Bowel Sounds, Soft Cardiovascular: Yes: Regular Rate and Rhythm JVD: yes Heart Sounds: Yes: S1, S2 Musculoskeletal: No: Back Pain Extremities: No: Cold Edema: trace lower ext bilaterally Integumentary: No: Jaundice Neurological: Yes: Alert, Oriented Psychiatric: No: Agitated Current Medications Generic Name Dose Route Start Last Admin Trade Name Freq PRN Reason Stop Dose Admin Acetaminophen 650 mg 03/22/19 01:47 Tylenol Oral Solution - GT Q6H PRN PAIN 1-3 Atorvastatin Calcium 10 mg 03/21/19 22:00 03/22/19 21:36 Lipitor - GT 10 mg HS DARSHAN Administration Digoxin 0.125 mg 03/22/19 10:00 03/23/19 09:53 Lanoxin - GT 0.125 mg DAILY DARSHAN Administration Furosemide 40 mg 03/22/19 10:00 03/23/19 09:53 Lasix Injection - IVPUSH 40 mg DAILY DARSHAN Administration Gabapentin 200 mg 03/21/19 22:00 03/23/19 09:54 Neurontin Oral Liquid - GT 200 mg BID DARSHAN Administration Metoprolol Tartrate 25 mg 03/21/19 22:00 03/23/19 09:54 Lopressor - GT 25 mg BID DARSHAN Administration Oxycodone HCl 5 mg 03/22/19 02:06 03/22/19 23:08 Roxicodone - GT 5 mg Q6H PRN Administration PAIN 1-3 Pantoprazole Sodium 40 mg 03/23/19 10:00 03/23/19 09:55 Protonix Iv IVPUSH 40 mg DAILY DARSHAN Administration Sacubitril/Valsartan 1 tab 03/21/19 22:00 03/23/19 09:53 Entresto 24 Mg-26 Mg Tablet PO 1 tab BID DARSHAN Administration CBC, BMP 03/23/19 05:40 03/23/19 05:40 Assessment/Plan 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 EGD w/o etiology of anemia. Possible foc planned, no cardiac contraindications. Acute on Chronic systolic HF: - edema improving with IV lasix, Cr stable - continue IV lasix - cont entresto, metoprolol - spironolactone stopped last admission for SANDIE, hyperkalemia - monitor Cr, lytes, daily standing weights Afib - not on ac due to thrombocytopenia, anemia - continue digoxin, toprol s/p PPM - stable on EKG/tele, routine outpatient monitoring h/o bio AVR - stable on echo - outpatient monitoring HLD - cont statin NSVT - h/o systolic HF, on metoprolol - monitor lytes with diuresis CVA: - L hemiparesis - cont statin
[2019-03-23] MEDS ORDERED: INSULIN (NOVOLOG) ASPART 100 UNITS/ML 10ML VIAL ONE (11:51)
--- NOTE | 2019-03-23 14:52 | CONSULT ---
Admitting History and Physical - Primary Care Physician PCP: Abhijit Gomez - Admission History of Present Illness: The patient is an 88 year old male with a past medical history significant for Afib (on Warfarin, D/Pavan for bleeding), CKD, CHF s/p pacemaker, s/p porcine cardiac valve replacement, HTN presents to the emergency department from [facility] for anemia requiring blood transfusion. The patients labs at [place] were significant for Hgb: 6.4, Hct: 20.7 and platelet: 55. Pt has h /o duodenal ulcers. Known to me for w/u and tx during February 2019 admission. At that time, pt had been admitted with poor PO intake. He had been on honey thickened liquids since aspiration event at [facility],upgraded at [facility] to nectar . Per MBS, pt did tolerate thin liquid during MBS, however, risk is present with 1 instance of SILENT aspiration on thin Barium with impaired sensation demonstrated. There was moderate stassis of pure with weak laryngeal swallow. Weight loss has been progressive.. We discussed the option of supplemental tube feeding if weight loss is the concern. PEG was inserted, at which point pt began to refuse po trials before d/ c to [facility]. Intensive swallowing tx was rec at STR/ use of compensatory strategies based on results of MBS/ advised to continue PO intake to maintain/improve swallowing function.. Pt counseled on need to continue eating by mouth to maintain swallowing function. Intensive swallowing tx at STR. Continue mouth care, various resistance and BOT/laryngeal exercises Per pt/family, pt was on puree/nectar thick liquids. He c/o pureed food, mostly accepting hot cereal. However, he trialed some soft solids such as meatball and pancake during swallowing tx sessions. EGD noted. Pending Colonoscopy. Pt looks stronger than May admission and I suspect he has gained weight from PEG feedings. Pt's has Dementia and needs information repeated. She appreciates being addressed and informed on her 's condition. Her questions are generally relevant however she does not retain the information. History Source: Patient, Family Member, Medical Record Limitations to Obtaining History: Clinical Condition - Past Medical History Cardiovascular: Yes: AFIB, CHF, HTN, Hyperlipdemia Pulmonary: Yes: COPD Gastrointestinal: Yes: Diverticulosis, Other (Colon polyps) Renal/: Yes: Renal Inusuff - Past Surgical History Past Surgical History: Yes: Valve Replacement (AVR (porcine)) - Smoking History Smoking history: Former smoker Have you smoked in the past 12 months: No Aproximately how many cigarettes per day: 0 If you are a former smoker, when did you quit?: 40-50yr ago - Alcohol/Substance Use Hx Alcohol Use: No History of Substance Use: reports: None - Social History ADL: Support Services (has 24 hour x 7 day [employer], ambulated with walker/ w/c) History of Recent Travel: No History - Admission Reason For Visit: GASTROINTESTINAL HEMORRHAGE,CHF - Diagnostics X-ray: Report Reviewed - General Mental Status: Alert and Oriented, Awake and Alert, Able to Follow Commands Attention: Intact Ability to Follow Directions: Good Head/Neck Control: Fair - Hearing Hearing: Impaired Hearing Aide: No Speech Evaluation - Communication Primary Language: AZERI Communication: Yes: Within Normal Limits (more precise than last admission) Oral Expression Ability: Yes: No Impairment - Speech Production Able to Make Needs Known: Yes: WNL Intelligibility: Yes: WNL - Speech Characteristics Voice Loudness: Normal Voice Pitch: Yes: Normal Voice Phonatory-based Quality: Yes: Normal Speech Clarity: < 100% Nasal Resonance: Normal Articulation: Yes: Imprecise (slight. Missing dentition. Mild left facial) - Language/Auditory Comprehension Follows: Yes: 2 Stage Simple Commands Observation: Comprehends Conversational Speech: Yes - Language/Verbal Expression Able to Respond to Simple Queries: Yes: WNL Able to Communicate Wants and Needs: Yes: WNL Functional Communication Status: Yes: WNL - Swallow Evaluation/Bedside Assessment Current Nutritional Intake: NPO (for colonoscopy. Pt was on Dys puree/nectar before NPo for testing) Oral Secretions: Yes: WFL Dentition: Yes: Missing Teeth Facial Symmetry at Rest: Facial Droop Left Facial Symmetry on Retraction: Facial Droop Left Lingual Movement: Normal Lingual Speed of Movement: Normal Lingual Movement Strgth Against Opposition: Reduced (improving) Lingual Movement Characteristics: Normal Laryngeal Movement: Able to Palpate Labial Seal: WFL Oral Prep Time: WFL A-P Transit: WFL Pocketing: None Coughing/Throat Clear: No (trial nectar thick liquid, overtly tolerated. Swallow seems more timely.) Recommendations - Speech Evaluation, Impression/Plan Impression: Pt looks stronger He would benefit from repeat MBS to provide most liberal diet that he can tolerate. This can be done before d/c or as out pt from NH. - Dysphagia Impressions/Plan Swallowing Skills: Impaired Dysphagia Impressions: Ongoing Evaluation *Silent aspiration: cannot be R/O at bedside Dysphagia Treatment Plan: Small Bites, Chin Tuck/Down, Trial Feedings, Safe Rate , 1/2 tsp. at a time, Elevate HOB during feed Recommendations: Modified Barium Swallow, Other (PO once cleared by GI.) - Recommendations Diet Consistency: Dysphagia Pureed Medication Administration: Crushed with applesauce Liquids: Mcgrew Thick Supplement: Magic Cup, Ensure Pudding, Other (2 lynda HN)
[2019-03-23 15:02] VITALS: BMI 21.6
--- NOTE | 2019-03-23 15:13 | PN ---
Physical Exam: SUBJECTIVE: Patient seen and examined. No complaints today, no nausea, vomiting , melena. OBJECTIVE: Vital Signs Period Temp Pulse Resp BP Sys/Real Pulse Ox Last 24 Hr 97.9 F-98.3 F 69-81 12-20 102-152/49-92 99-99 GENERAL: The patient is awake, alert, and fully oriented, in no acute distress. HEAD: Normal with no signs of trauma. EYES: Extraocular movements intact, sclera. ENT: Oropharynx clear without exudates, moist mucous membranes. NECK: Trachea midline, full range of motion, supple. LUNGS: Breath sounds equal, clear to auscultation bilaterally, no wheezes, no crackles. HEART: Irregular rate and rhythm, S1, S2 without murmur, rub or gallop. ABDOMEN: Soft, nontender, nondistended, normoactive bowel sounds, no guarding, no rebound, +PEG. EXTREMITIES: 2+ pulses, trace edema. NEUROLOGICAL: no facial asymmetry, no slurred speech. PSYCH: Normal mood, normal affect. SKIN: Warm, dry, normal turgor, LE venous stasis changes. Laboratory Results - last 24 hr 03/21/19 03/22/19 03/22/19 12:55 05:27 20:00 WBC 5.0 RBC 2.95 L Hgb 8.9 L Hct 26.7 L D MCV 90.6 MCH 30.2 MCHC 33.3 RDW 17.6 H Plt Count 59 L MPV 9.2 Absolute Neuts (auto) 3.1 Neutrophils % 62.8 Lymphocytes % 20.4 Monocytes % 13.9 H Eosinophils % 2.1 Basophils % 0.8 Nucleated RBC % 0 Retic Count Sodium Potassium Chloride Carbon Dioxide Anion Gap BUN Creatinine Est GFR (CKD-EPI)AfAm Est GFR (CKD-EPI)NonAf Random Glucose Calcium Phosphorus Magnesium Iron 30 L TIBC 280 Iron Saturation 11 L Transferrin 212 Total Bilirubin AST ALT Alkaline Phosphatase LD Total Total Protein Albumin Vitamin B12 Serum Folate Blood Type A POSITIVE Antibody Screen Negative Crossmatch See Detail 03/23/19 03/23/19 03/23/19 05:40 05:40 05:40 WBC 4.3 RBC 2.92 L Hgb 8.9 L Hct 26.0 L MCV 89.3 MCH 30.4 MCHC 34.0 RDW 17.7 H Plt Count 58 L MPV 9.5 Absolute Neuts (auto) 2.6 Neutrophils % 59.2 Lymphocytes % 24.2 Monocytes % 13.6 H Eosinophils % 1.9 Basophils % 1.1 Nucleated RBC % 0 Retic Count 1.41 Sodium 139 Potassium 4.2 Chloride 104 Carbon Dioxide 29 Anion Gap 7 L BUN 35.1 H Creatinine 1.2 Est GFR (CKD-EPI)AfAm 62.20 Est GFR (CKD-EPI)NonAf 53.67 Random Glucose 72 L Calcium 8.0 L Phosphorus 3.4 Magnesium 2.3 Iron TIBC Iron Saturation Transferrin Total Bilirubin 1.1 H AST 16 ALT 15 Alkaline Phosphatase 121 H LD Total 179 Total Protein 5.4 L Albumin 2.2 L Vitamin B12 Serum Folate Blood Type Antibody Screen Crossmatch 03/23/19 05:40 WBC RBC Hgb Hct MCV MCH MCHC RDW Plt Count MPV Absolute Neuts (auto) Neutrophils % Lymphocytes % Monocytes % Eosinophils % Basophils % Nucleated RBC % Retic Count Sodium Potassium Chloride Carbon Dioxide Anion Gap BUN Creatinine Est GFR (CKD-EPI)AfAm Est GFR (CKD-EPI)NonAf Random Glucose Calcium Phosphorus Magnesium Iron TIBC Iron Saturation Transferrin Total Bilirubin AST ALT Alkaline Phosphatase LD Total Total Protein Albumin Vitamin B12 839 Serum Folate 36 H Blood Type Antibody Screen Crossmatch Active Medications Generic Name Dose Route Start Last Admin Trade Name Freq PRN Reason Stop Dose Admin Acetaminophen 650 mg 03/22/19 01:47 Tylenol Oral Solution - GT Q6H PRN PAIN 1-3 Atorvastatin Calcium 10 mg 03/21/19 22:00 03/22/19 21:36 Lipitor - GT 10 mg HS DARSHAN Administration Digoxin 0.125 mg 03/22/19 10:00 03/23/19 09:53 Lanoxin - GT 0.125 mg DAILY DARSHAN Administration Furosemide 40 mg 03/22/19 10:00 03/23/19 09:53 Lasix Injection - IVPUSH 40 mg DAILY DARSHAN Administration Gabapentin 200 mg 03/21/19 22:00 03/23/19 09:54 Neurontin Oral Liquid - GT 200 mg BID DARSHAN Administration Metoprolol Tartrate 25 mg 03/21/19 22:00 03/23/19 09:54 Lopressor - GT 25 mg BID DARSHAN Administration Oxycodone HCl 5 mg 03/22/19 02:06 03/22/19 23:08 Roxicodone - GT 5 mg Q6H PRN Administration PAIN 1-3 Pantoprazole Sodium 40 mg 03/23/19 10:00 03/23/19 09:55 Protonix Iv IVPUSH 40 mg DAILY DARSHAN Administration Sacubitril/Valsartan 1 tab 03/21/19 22:00 03/23/19 09:53 Entresto 24 Mg-26 Mg Tablet PO 1 tab BID DARSHAN Administration ASSESSMENT/PLAN: This is an 88 yo M with PMH of systolic HF, s/p pacemaker, A.Fib, off Coumadin 1 month ago due to thrombocytopenia, HTN, CKD and duodenal ulcers, s/p PEG, admitted for severe anemia and thrombocytopenia found as outpatient. He has a recent history of anemia, s/p transfusions. anemia thrombocytopenia systolic HF A.fib s/p pacemaker HTN HLD ckd Plan: anemia likely due to GI bleed, monitor H/H. Plt stable, may be given platelets if actively bleeding. US reviewed, no hepatosplenomegaly. Rheumatoid factors pending, will follow. Thank you for your consultation. Problem List - Problems (1) Anemia Code(s): D64.9 - ANEMIA, UNSPECIFIED (2) Atrial fibrillation Code(s): I48.91 - UNSPECIFIED ATRIAL FIBRILLATION Qualifiers: Atrial fibrillation type: chronic Qualified Code(s): I48.2 - Chronic atrial fibrillation (3) CHF (congestive heart failure) Code(s): I50.9 - HEART FAILURE, UNSPECIFIED (4) Normocytic anemia Code(s): D64.9 - ANEMIA, UNSPECIFIED (5) Thrombocytopenia Code(s): D69.6 - THROMBOCYTOPENIA, UNSPECIFIED Visit type - Emergency Visit Emergency Visit: Yes ED Registration Date: 03/21/19 Care time: The patient presented to the Emergency Department on the above date and was hospitalized for further evaluation of their emergent condition. - New Patient This patient is new to me today: No - Critical Care Critical Care patient: No - Discharge Referral Referred to [facility] Med P.C.: No
--- NOTE | 2019-03-23 15:32 | PN.GI ---
GI Progress Note Subjective: No overt bleeding Counts stable from last night - Objective Vital Signs: Vital Signs Temperature 98.3 F 03/23/19 14:00 Pulse Rate 74 03/23/19 14:00 Respiratory Rate 20 03/23/19 14:00 Blood Pressure 113/63 03/23/19 14:00 O2 Sat by Pulse Oximetry (%) 99 03/23/19 09:00 Constitutional: Calm Eyes: No: Sclera Icterus Cardiovascular: Yes: Regular Rate and Rhythm, Murmur Respiratory: Yes: Diminished (at bases bilaterally, poor insp effort) Gastrointestinal Inspection: No: Distention ...Auscultate: Yes: Normoactive Bowel Sounds ...Palpate: Yes: Soft. No: Tenderness ...Percussion: No: Tympanitic Edema: Yes Edema: LLE: Trace, RLE: Trace Neurological: Yes: Alert Labs: CBC, BMP 03/23/19 05:40 03/23/19 05:40 INR, PTT INR 1.06 (0.83-1.09) 03/21/19 12:55 Problem List - Problems (1) Anemia Assessment/Plan: EGD failed to reveal source of ongoing overt bleeding. The [place] ulcer was small and cleaned base. Had long discussion with the patient and his family who was present at bedside. We discussed colonoscopy to exclude lower GI tract source of blood loss. We discussed potential risks of the procedure like but not limited to bleeding, perforation requiring surgery to repair, infection, sedation medication effects all of which could be potentially life threatening. He and his family have agreed to the procedure. Hold tube feeds from now NPO after midnight Golytely bowel prep this evening heme evaluation CBD dilated on recent US. Will need to monitor. Cannot have MRCP due to PPM. Can have IV Contrast CT scan of the abdomen if renal function permits. Monitor liver chemistries for development of obstructive pattern Code(s): D64.9 - ANEMIA, UNSPECIFIED Qualifiers: Anemia type: unspecified type Qualified Code(s): D64.9 - Anemia, unspecified
[2019-03-23] MEDS ORDERED: BISACODYL 5 MG TABLET.DR (FP) PO ONE ×3 (16:00→17:15)
[2019-03-23] MEDS ORDERED: PEG 3350/NA SULF BICARB CL/KCL 4000 ML SOLN.RECON PO ONE (17:00)
[2019-03-23 17:12] LABS: FREE KAPPA,SERUM 64.9 mg/L (3.3-19.4)
[2019-03-23 17:14] LABS: HEMATOCRIT 28.1 % (35.4-49); HEMOGLOBIN 9.4 GM/dL (11.7-16.9); MCH 30.3 pg (25.7-33.7); MCHC 33.6 g/dl (32.0-35.9); MEAN CELL VOLUME 90.3 fl (80-96); MEAN PLT VOLUME 8.8 fl (7.5-11.1); PLATELET COUNT 64 K/MM3 (134-434); RBC 3.11 M/mm3 (4.00-5.60); RDW 17.8 % (11.9-15.9); WHITE BLOOD COUNT 5.2 K/mm3 (4.0-10.0)
[2019-03-23] MEDS: ATORVASTATIN CA 10 MG TABLET (FP) GT SCH (21:18)
[2019-03-23] MEDS: oxyCODONE HCL 5 MG TABLET GT PRN (22:26)
[2019-03-24 06:02] LABS: EOS % 2.5 % (0-4.5); HEMATOCRIT 26.4 % (35.4-49); LYMPH % 25.4 % (8-40); MCH 30.5 pg (25.7-33.7); MEAN CELL VOLUME 89.7 fl (80-96); MONO % 16.7 % (3.8-10.2); NEUT % 54.4 % (42.8-82.8); RBC 2.95 M/mm3 (4.00-5.60); WHITE BLOOD COUNT 4.3 K/mm3 (4.0-10.0)
[2019-03-24 06:36] LABS: ALBUMIN 2.2 g/dl (3.4-5.0); BILIRUBIN,DIRECT 0.3 mg/dL (0.0-0.2); BILIRUBIN,TOTAL 0.6 mg/dL (0.2-1); BLOOD UREA NITROGEN 27.9 mg/dL (7-18); CALCIUM 8.2 mg/dL (8.5-10.1); CREATININE 1.1 mg/dL (0.55-1.3); TOT PROT 5.2 g/dl (6.4-8.2)
[2019-03-24 07:52] LABS: PLATELET COUNT 62 K/MM3 (134-434)
--- NOTE | 2019-03-24 08:58 | PN ---
Teaching Attending Note Name of Resident: Samantha Yan ATTENDING PHYSICIAN STATEMENT I saw and evaluated the patient. I reviewed the resident's note and discussed the case with the resident. I agree with the resident's findings and plan as documented. SUBJECTIVE: Mr Melchor is without complaint. Denies cp, sob, n/v. OBJECTIVE: Last Vital Signs Temp Pulse Resp BP Pulse Ox 36.6 C 70 18 113/54 L 95 03/24/19 06:00 03/24/19 08:19 03/24/19 08:19 03/24/19 08:19 03/23/19 20:09 Gen: nad Pulm: ctab w/o w/r/r CV: rrr w/o m/r/g Abd: +bs, s/nt/nd Ext: no c/c/e CBC, BMP 03/24/19 05:05 03/24/19 05:05 ASSESSMENT AND PLAN: (1) Anemia Assessment/Plan: -s/p EGD, no signs of bleeding -planning for colonoscopy today -follow up results Code(s): D64.9 - ANEMIA, UNSPECIFIED (2) Dysphagia Assessment/Plan: -PEG tube in place -speech sounds stronger since last admission -case d/w speech therapy -may need repeat barium swallow but can be done in the outpatient once stronger Code(s): R13.10 - DYSPHAGIA, UNSPECIFIED (3) GI bleed Assessment/Plan: -as above Code(s): K92.2 - GASTROINTESTINAL HEMORRHAGE, UNSPECIFIED (4) Atrial fibrillation Assessment/Plan: -continue digoxin and metoprolol -no anticoagulation secondary to thrombocytopenia and anemia Code(s): I48.91 - UNSPECIFIED ATRIAL FIBRILLATION Qualifiers: Atrial fibrillation type: chronic Qualified Code(s): I48.2 - Chronic atrial fibrillation (5) CHF (congestive heart failure) Assessment/Plan: -cardiology following -continue entresto -receiving IV lasix -change to oral lasix on discharge Code(s): I50.9 - HEART FAILURE, UNSPECIFIED (6) Thrombocytopenia Assessment/Plan: -hematology consulted and appreciate assistance Code(s): D69.6 - THROMBOCYTOPENIA, UNSPECIFIED Problem List - Problems (1) Anemia Code(s): D64.9 - ANEMIA, UNSPECIFIED Qualifiers: Anemia type: unspecified type Qualified Code(s): D64.9 - Anemia, unspecified (2) Dysphagia Code(s): R13.10 - DYSPHAGIA, UNSPECIFIED (3) GI bleed Code(s): K92.2 - GASTROINTESTINAL HEMORRHAGE, UNSPECIFIED (4) Atrial fibrillation Code(s): I48.91 - UNSPECIFIED ATRIAL FIBRILLATION Qualifiers: Atrial fibrillation type: chronic Qualified Code(s): I48.2 - Chronic atrial fibrillation (5) CHF (congestive heart failure) Code(s): I50.9 - HEART FAILURE, UNSPECIFIED (6) Thrombocytopenia Code(s): D69.6 - THROMBOCYTOPENIA, UNSPECIFIED
--- NOTE | 2019-03-24 09:47 | PN ---
Progress Note, Physician Chief Complaint: TELE: paced No chest pain. No SOB History of Present Illness: weight is down - Current Medication List Current Medications: Active Medications Acetaminophen (Tylenol Oral Solution -) 650 mg GT Q6H PRN PRN Reason: PAIN 1-3 Atorvastatin Calcium (Lipitor -) 10 mg GT HS [facility] Last Admin: 03/23/19 21:18 Dose: 10 mg Digoxin (Lanoxin -) 0.125 mg GT DAILY [facility] Last Admin: 03/23/19 09:53 Dose: 0.125 mg Furosemide (Lasix Injection -) 40 mg IVPUSH DAILY [facility] Last Admin: 03/23/19 09:53 Dose: 40 mg Gabapentin (Neurontin Oral Liquid -) 200 mg GT BID [facility] Last Admin: 03/23/19 21:22 Dose: 200 mg Metoprolol Tartrate (Lopressor -) 25 mg GT BID [facility] Last Admin: 03/23/19 21:18 Dose: 25 mg Oxycodone HCl (Roxicodone -) 5 mg GT Q6H PRN PRN Reason: PAIN 1-3 Last Admin: 03/23/19 22:26 Dose: 5 mg Pantoprazole Sodium (Protonix Iv) 40 mg IVPUSH DAILY [facility] Last Admin: 03/23/19 09:55 Dose: 40 mg Sacubitril/Valsartan (Entresto 24 Mg-26 Mg Tablet) 1 tab PO BID [facility] Last Admin: 03/23/19 21:18 Dose: 1 tab - Objective Vital Signs: Vital Signs Temperature 97.9 F 03/24/19 06:00 Pulse Rate 70 03/24/19 08:19 Respiratory Rate 18 03/24/19 08:19 Blood Pressure 113/54 L 03/24/19 08:19 O2 Sat by Pulse Oximetry (%) 95 03/23/19 20:09 Constitutional: Yes: No Distress Cardiovascular: Yes: Regular Rate and Rhythm Respiratory: Yes: CTA Bilaterally Gastrointestinal: Yes: Soft Edema: No Neurological: Yes: Alert, Oriented Labs: CBC, BMP 03/24/19 05:05 03/24/19 05:05 INR, PTT INR 1.06 (0.83-1.09) 03/21/19 12:55 Laboratory Tests 03/24/19 03/24/19 05:05 05:05 WBC 4.3 Hgb 9.0 L Plt Count 62 L Sodium 140 Potassium 4.0 Creatinine 1.1 - ....Imaging EKG: Image Reviewed Assessment/Plan Assessment/Plan 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 EGD w/o etiology of anemia. Possible foc planned, no cardiac contraindications. Acute on Chronic systolic HF: - edema improving with IV lasix, Cr stable - continue IV lasix - cont entresto, metoprolol - spironolactone stopped last admission for SANDIE, hyperkalemia - monitor Cr, lytes, daily standing weights Afib - not on ac due to thrombocytopenia, anemia - continue digoxin, toprol s/p PPM - stable on EKG/tele, routine outpatient monitoring h/o bio AVR - stable on echo - outpatient monitoring HLD - cont statin NSVT - h/o systolic HF, on metoprolol - monitor lytes with diuresis CVA: - L hemiparesis - cont statin
--- NOTE | 2019-03-24 09:58 | PN ---
Progress Note (short form) - Note Progress Note: Hospitalist to document today. Having colonoscopy.
--- NOTE | 2019-03-24 10:38 | PN ---
Physical Exam: SUBJECTIVE: Patient seen and examined resting in bed nad. s/p colonoscopy. afebrile hemodynamically stable. denies cp , sob, palpitations. denies abd pain, n/v. OBJECTIVE: Vital Signs Period Temp Pulse Resp BP Sys/Real Pulse Ox Last 24 Hr 97.9 F-98.6 F 70-74 14-20 113-122/54-63 95-95 GENERAL: Awake, alert, and fully oriented, in no acute distress. HEAD: Normal with no signs of trauma. EYES: Pupils equal, round and reactive to light, extraocular movements intact, sclera anicteric, conjunctiva clear. No lid lag. EARS, NOSE, THROAT: Moist mucous membranes. NECK: supple + JVD at 30 degrees recline, no mass LUNGS: Breath sounds equal, clear to auscultation bilaterally HEART: Regular rate and rhythm, normal S1 and S2 ABDOMEN: Soft, nontender, not distended, normoactive bowel sounds, no guarding, no rebound, no masses. Rectal per ED note MUSCULOSKELETAL: No CVA tenderness. LOWER EXTREMITIES: 1+ pulses, warm, well-perfused. No calf tenderness. 3+ edema up to mid calf b/l with venous stasis skin discoloration , r medial distal [place] ulcer with clean pink base. NEUROLOGICAL: Cranial nerves II-XII grossly intact. Normal speech. PSYCHIATRIC: Cooperative. Good eye contact. Appropriate mood and affect. SKIN: Warm, dry Laboratory Results - last 24 hr 03/22/19 03/22/19 03/23/19 05:20 05:27 05:40 WBC RBC Hgb Hct MCV MCH MCHC RDW Plt Count MPV Absolute Neuts (auto) Neutrophils % Lymphocytes % Monocytes % Eosinophils % Basophils % Nucleated RBC % Sodium Potassium Chloride Carbon Dioxide Anion Gap BUN Creatinine Est GFR (CKD-EPI)AfAm Est GFR (CKD-EPI)NonAf Random Glucose Calcium Total Bilirubin Direct Bilirubin AST ALT Alkaline Phosphatase Total Protein Total Protein (PEP) 5.1 L Albumin Albumin (PEP) 2.6 L Globulin 2.5 Albumin/Globulin Ratio 1.0 Beta Globulins 0.7 ROSA ELENA M-Samuel Not observed Rheumatoid Arth Biomark 27.1 H Free [place] LC, Quant 64.9 H Free Lambda LC, Quant 37.7 H Free [place]/Lambda Ratio 1.72 H 03/23/19 03/24/19 03/24/19 17:00 05:05 05:05 WBC 5.2 4.3 RBC 3.11 L 2.95 L Hgb 9.4 L 9.0 L Hct 28.1 L 26.4 L MCV 90.3 89.7 MCH 30.3 30.5 MCHC 33.6 34.0 RDW 17.8 H 17.0 H Plt Count 64 L 62 L MPV 8.8 9.0 Absolute Neuts (auto) 2.4 Neutrophils % 54.4 Lymphocytes % 25.4 Monocytes % 16.7 H Eosinophils % 2.5 Basophils % 1.0 Nucleated RBC % 0 Sodium 140 Potassium 4.0 Chloride 103 Carbon Dioxide 28 Anion Gap 8 BUN 27.9 H Creatinine 1.1 Est GFR (CKD-EPI)AfAm 69.10 Est GFR (CKD-EPI)NonAf 59.62 Random Glucose 78 Calcium 8.2 L Total Bilirubin 0.6 Direct Bilirubin 0.3 H AST 14 L ALT 15 Alkaline Phosphatase 112 Total Protein 5.2 L Total Protein (PEP) Albumin 2.2 L Albumin (PEP) Globulin Albumin/Globulin Ratio Beta Globulins ROSA ELENA M-Samuel Rheumatoid Arth Biomark Free [place] LC, Quant Free Lambda LC, Quant Free [place]/Lambda Ratio Active Medications Generic Name Dose Route Start Last Admin Trade Name Freq PRN Reason Stop Dose Admin Acetaminophen 650 mg 03/22/19 01:47 Tylenol Oral Solution - GT Q6H PRN PAIN 1-3 Atorvastatin Calcium 10 mg 03/21/19 22:00 03/23/19 21:18 Lipitor - GT 10 mg HS DARSHAN Administration Digoxin 0.125 mg 03/22/19 10:00 03/23/19 09:53 Lanoxin - GT 0.125 mg DAILY DARSHAN Administration Furosemide 40 mg 03/22/19 10:00 03/23/19 09:53 Lasix Injection - IVPUSH 40 mg DAILY DARSHAN Administration Gabapentin 200 mg 03/21/19 22:00 03/23/19 21:22 Neurontin Oral Liquid - GT 200 mg BID DARSHAN Administration Iron Sucrose 100 mg/ Sodium 100 mls @ 200 mls/hr 03/24/19 10:38 Chloride IVPB 03/24/19 11:07 ONCE ONE Metoprolol Tartrate 25 mg 03/21/19 22:00 03/23/19 21:18 Lopressor - GT 25 mg BID DARSHAN Administration Oxycodone HCl 5 mg 03/22/19 02:06 03/23/19 22:26 Roxicodone - GT 5 mg Q6H PRN Administration PAIN 1-3 Pantoprazole Sodium 40 mg 03/23/19 10:00 03/23/19 09:55 Protonix Iv IVPUSH 40 mg DAILY DARSHAN Administration Sacubitril/Valsartan 1 tab 03/21/19 22:00 03/23/19 21:18 Entresto 24 Mg-26 Mg Tablet PO 1 tab BID DARSHAN Administration ASSESSMENT/PLAN: This is an 88 yo M with PMH of HFREF, s/p pacemaker (dual chamber, last battery change and new wire 1 yr ago), 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 Acute on chronic anemia, blood loss component GI source thrombocytopenia HFREF exacerbation AF s/p dual chamber pacemaker s/p porcine valve HTN HLD ckd -CT a/p w/o cont 02/17 no acute pathology -hgb 9 plat 62 -t bili 1.1; trend -ppi 40 iv bid -s/p colonoscopy today, no source of bleed identified -EGD POD2 small gastric ulcer no bleed -fe panel reviewed: josué #2 -eleveted RF -thrombocytopenia may be due to chf related splenic consumption -tte normal ef, mechanical valve well positioned -seen by cardio no change in management -tele monitoring -continue home bb, entresto, statin -if hgb is stable tomorrow can dc with gi follow up for possible capsule endoscopy. f/u further gi recs. Visit type - Emergency Visit Emergency Visit: Yes ED Registration Date: 03/21/19 Care time: The patient presented to the Emergency Department on the above date and was hospitalized for further evaluation of their emergent condition. - New Patient This patient is new to me today: No - Critical Care Critical Care patient: No - Discharge Referral Referred to [facility] Med P.C.: No
--- NOTE | 2019-03-24 11:04 | PN ---
Progress Note (short form) - Note Progress Note: Colonoscopy complete. Report left in procedural section of physical chart and will be scanned into [id number] No bleeding source noted to the terminal ileum Resume prior diet Heme evaluation Problem List - Problems (1) Anemia Code(s): D64.9 - ANEMIA, UNSPECIFIED Qualifiers: Anemia type: unspecified type Qualified Code(s): D64.9 - Anemia, unspecified
[2019-03-24] MEDS ORDERED: IRON SUCROSE INJECTION 100 MG in SODIUM CHLORIDE 95 ML IVPB ONE (11:15)
[2019-03-24] MEDS: DIGOXIN 0.125 MG TABLET (FP) GT SCH (12:53)
--- NOTE | 2019-03-24 12:55 | PN ---
Physical Exam: SUBJECTIVE: Patient seen and examined after colonoscopy, complaining of left hip pain. Daughter present at bedside, questions answered. OBJECTIVE: Vital Signs Period Temp Pulse Resp BP Sys/Real Pulse Ox Last 24 Hr 97.9 F-98.8 F 70-74 14-20 109-122/54-64 95-100 GENERAL: The patient is awake, alert, and fully oriented, in no acute distress. HEAD: Normal with no signs of trauma. EYES: Extraocular movements intact, sclera. ENT: Oropharynx clear without exudates, moist mucous membranes. NECK: Trachea midline, full range of motion, supple. LUNGS: Breath sounds equal, clear to auscultation bilaterally, no wheezes, no crackles. HEART: Irregular rate and rhythm, S1, S2 without murmur, rub or gallop. ABDOMEN: Soft, nontender, nondistended, normoactive bowel sounds, no guarding, no rebound, +PEG. EXTREMITIES: 2+ pulses, trace edema. NEUROLOGICAL: no facial asymmetry, no slurred speech. PSYCH: Normal mood, normal affect. SKIN: Warm, dry, normal turgor, LE venous stasis changes. Laboratory Results - last 24 hr 03/22/19 03/22/19 03/23/19 05:20 05:27 05:40 WBC RBC Hgb Hct MCV MCH MCHC RDW Plt Count MPV Absolute Neuts (auto) Neutrophils % Lymphocytes % Monocytes % Eosinophils % Basophils % Nucleated RBC % Sodium Potassium Chloride Carbon Dioxide Anion Gap BUN Creatinine Est GFR (CKD-EPI)AfAm Est GFR (CKD-EPI)NonAf Random Glucose Calcium Total Bilirubin Direct Bilirubin AST ALT Alkaline Phosphatase Total Protein Total Protein (PEP) 5.1 L Albumin Albumin (PEP) 2.6 L Globulin 2.5 Albumin/Globulin Ratio 1.0 Beta Globulins 0.7 ROSA ELENA M-Samuel Not observed Rheumatoid Arth Biomark 27.1 H Free [place] LC, Quant 64.9 H Free Lambda LC, Quant 37.7 H Free [place]/Lambda Ratio 1.72 H 03/23/19 03/24/19 03/24/19 17:00 05:05 05:05 WBC 5.2 4.3 RBC 3.11 L 2.95 L Hgb 9.4 L 9.0 L Hct 28.1 L 26.4 L MCV 90.3 89.7 MCH 30.3 30.5 MCHC 33.6 34.0 RDW 17.8 H 17.0 H Plt Count 64 L 62 L MPV 8.8 9.0 Absolute Neuts (auto) 2.4 Neutrophils % 54.4 Lymphocytes % 25.4 Monocytes % 16.7 H Eosinophils % 2.5 Basophils % 1.0 Nucleated RBC % 0 Sodium 140 Potassium 4.0 Chloride 103 Carbon Dioxide 28 Anion Gap 8 BUN 27.9 H Creatinine 1.1 Est GFR (CKD-EPI)AfAm 69.10 Est GFR (CKD-EPI)NonAf 59.62 Random Glucose 78 Calcium 8.2 L Total Bilirubin 0.6 Direct Bilirubin 0.3 H AST 14 L ALT 15 Alkaline Phosphatase 112 Total Protein 5.2 L Total Protein (PEP) Albumin 2.2 L Albumin (PEP) Globulin Albumin/Globulin Ratio Beta Globulins ROSA ELENA M-Samuel Rheumatoid Arth Biomark Free [place] LC, Quant Free Lambda LC, Quant Free [place]/Lambda Ratio Active Medications Generic Name Dose Route Start Last Admin Trade Name Freq PRN Reason Stop Dose Admin Acetaminophen 650 mg 03/22/19 01:47 Tylenol Oral Solution - GT Q6H PRN PAIN 1-3 Atorvastatin Calcium 10 mg 03/21/19 22:00 03/23/19 21:18 Lipitor - GT 10 mg HS DARSHAN Administration Digoxin 0.125 mg 03/22/19 10:00 03/23/19 09:53 Lanoxin - GT 0.125 mg DAILY DARSHAN Administration Furosemide 40 mg 03/22/19 10:00 03/23/19 09:53 Lasix Injection - IVPUSH 40 mg DAILY DARSHAN Administration Gabapentin 200 mg 03/21/19 22:00 03/23/19 21:22 Neurontin Oral Liquid - GT 200 mg BID DARSHAN Administration Metoprolol Tartrate 25 mg 03/21/19 22:00 03/23/19 21:18 Lopressor - GT 25 mg BID DARSHAN Administration Oxycodone HCl 5 mg 03/22/19 02:06 03/23/19 22:26 Roxicodone - GT 5 mg Q6H PRN Administration PAIN 1-3 Pantoprazole Sodium 40 mg 03/23/19 10:00 03/23/19 09:55 Protonix Iv IVPUSH 40 mg DAILY DARSHAN Administration Sacubitril/Valsartan 1 tab 03/21/19 22:00 03/23/19 21:18 Entresto 24 Mg-26 Mg Tablet PO 1 tab BID DARSHAN Administration ASSESSMENT/PLAN: This is an 88 yo M with PMH of systolic HF, s/p pacemaker, A.Fib, off Coumadin 1 month ago due to thrombocytopenia, HTN, CKD and duodenal ulcers, s/p PEG, admitted for severe anemia and thrombocytopenia found as outpatient. He has a recent history of anemia, s/p transfusions. anemia thrombocytopenia systolic HF A.fib s/p pacemaker HTN HLD ckd Plan: anemia+ thrombocytopenia, possible MDS, will collect FISH, flow cytometry, cytogenetics-(ordered today) anemia less likely due to GI bleed, EGD and colonoscopy with no signs of active bleeding US reviewed, fatty liver, no hepatosplenomegaly. Rheumatoid factor 27.1, KASIA pending, added anti ds DNA, Sjogren abs, will follow. [place]/lambda 1.72, not a significant elevation for MM. Thank you for your consultation. Problem List - Problems (1) Anemia Code(s): D64.9 - ANEMIA, UNSPECIFIED Qualifiers: Anemia type: unspecified type Qualified Code(s): D64.9 - Anemia, unspecified (2) Atrial fibrillation Code(s): I48.91 - UNSPECIFIED ATRIAL FIBRILLATION Qualifiers: Atrial fibrillation type: chronic Qualified Code(s): I48.2 - Chronic atrial fibrillation (3) CHF (congestive heart failure) Code(s): I50.9 - HEART FAILURE, UNSPECIFIED (4) Normocytic anemia Code(s): D64.9 - ANEMIA, UNSPECIFIED (5) Thrombocytopenia Code(s): D69.6 - THROMBOCYTOPENIA, UNSPECIFIED Visit type - Emergency Visit Emergency Visit: Yes ED Registration Date: 03/21/19 Care time: The patient presented to the Emergency Department on the above date and was hospitalized for further evaluation of their emergent condition. - New Patient This patient is new to me today: No - Critical Care Critical Care patient: No
[2019-03-24] MEDS: METOPROLOL TARTRATE 25 MG TABLET (FP) GT SCH ×2 (12:56→21:40)
[2019-03-24] MEDS: SACUBITRIL/VALSARTAN 24 MG-26 MG TABLET PO SCH ×2 (12:56→21:40)
[2019-03-24] MEDS: FUROSEMIDE 40 MG/4 ML INJECTABLE VIAL IVPUSH SCH (12:56)
[2019-03-24] MEDS: PANTOPRAZOLE SODIUM 40 MG VIAL IVPUSH SCH (12:57)
[2019-03-24] MEDS: GABAPENTIN 250 MG/5 ML ORAL SOLUTION, 470 ML BOTTLE GT SCH ×2 (12:58→22:40)
[2019-03-24] MEDS ORDERED: INSULIN (NOVOLOG) ASPART 100 UNITS/ML 10ML VIAL ONE (12:58)
--- NOTE | 2019-03-24 12:58 | PN ---
Progress Note, BODY BUMPER - Note Progress Note: Colonoscopy results noted. Pt would like solid food. Suggested MBS prior to diet upgrade due to previous abnormal MBS, to assess for improved swallowing function, r/o aspiration/stasis, etc. Pt did not want to have MBS today. Reviewed with pt/family. Consider trial of Dys puree/nectar thick liquid daytime to include Yogurt, thick soup, Mashed potatoes with extra gravy with noctunal PEG feedings? MBS when pt is ready RD f/u
[2019-03-24] MEDS: oxyCODONE HCL 5 MG TABLET GT PRN ×2 (13:08→21:40)
[2019-03-24] MEDS: ACETAMINOPHEN 650 MG/20.3 ML ORAL SOLUTION (CUPS) GT PRN (13:12)
--- NOTE | 2019-03-24 16:04 | PN ---
Progress Note (short form) - Note Progress Note: Patient seen and examined Results of GI assessment failed to reveal obvious etiology for blood loss anemia. Fe++ studies with low Fe++ saturation suggests component of blood loss anemia. 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 Light chain studies only mildly abnorma in serum. Normal indices also suggest additional component other than iron deficiency. Will screen for MDS with flowcytometry, FISH, cytogenetic studies. Multiple questions answered from and daughter.
[2019-03-24] MEDS: ATORVASTATIN CA 10 MG TABLET (FP) GT SCH (21:40)
[2019-03-25 06:24] LABS: HEMATOCRIT 26.4 % (35.4-49); HEMOGLOBIN 9.1 GM/dL (11.7-16.9); MCH 31.2 pg (25.7-33.7); MCHC 34.6 g/dl (32.0-35.9); MEAN CELL VOLUME 90.2 fl (80-96); MEAN PLT VOLUME 8.9 fl (7.5-11.1); PLATELET COUNT 58 K/MM3 (134-434); RBC 2.93 M/mm3 (4.00-5.60); RDW 17.6 % (11.9-15.9); WHITE BLOOD COUNT 3.3 K/mm3 (4.0-10.0)
[2019-03-25 06:52] LABS: ALBUMIN 2.2 g/dl (3.4-5.0); BILIRUBIN,TOTAL 0.5 mg/dL (0.2-1); BLOOD UREA NITROGEN 27.8 mg/dL (7-18); CREATININE 1.3 mg/dL (0.55-1.3); POTASSIUM 3.8 mmol/L (3.5-5.1); TOT PROT 5.1 g/dl (6.4-8.2)
[2019-03-25] MEDS ORDERED: INSULIN (NOVOLOG) ASPART 100 UNITS/ML 10ML VIAL ONE (09:41)
[2019-03-25] MEDS: FUROSEMIDE 40 MG/4 ML INJECTABLE VIAL IVPUSH SCH (09:42)
[2019-03-25] MEDS: GABAPENTIN 250 MG/5 ML ORAL SOLUTION, 470 ML BOTTLE GT SCH ×2 (09:42→22:32)
[2019-03-25] MEDS: PANTOPRAZOLE SODIUM 40 MG VIAL IVPUSH SCH (09:42)
[2019-03-25] MEDS: DIGOXIN 0.125 MG TABLET (FP) GT SCH (09:43)
[2019-03-25] MEDS: METOPROLOL TARTRATE 25 MG TABLET (FP) GT SCH ×2 (09:44→21:49)
[2019-03-25] MEDS: SACUBITRIL/VALSARTAN 24 MG-26 MG TABLET PO SCH ×2 (09:44→21:49)
--- NOTE | 2019-03-25 10:23 | PN ---
Progress Note (short form) - Note Progress Note: s: no chest pain, palps, dyspnea Current Medications Acetaminophen (Tylenol Oral Solution -) 650 mg GT Q6H PRN PRN Reason: PAIN 1-3 Last Admin: 03/24/19 13:12 Dose: 650 mg Atorvastatin Calcium (Lipitor -) 10 mg GT HS [facility] Last Admin: 03/24/19 21:40 Dose: 10 mg Digoxin (Lanoxin -) 0.125 mg GT DAILY [facility] Last Admin: 03/25/19 09:43 Dose: 0.125 mg Furosemide (Lasix Injection -) 40 mg IVPUSH DAILY [facility] Last Admin: 03/25/19 09:42 Dose: 40 mg Gabapentin (Neurontin Oral Liquid -) 200 mg GT BID [facility] Last Admin: 03/25/19 09:42 Dose: 200 mg Metoprolol Tartrate (Lopressor -) 25 mg GT BID [facility] Last Admin: 03/25/19 09:44 Dose: 25 mg Pantoprazole Sodium (Protonix Iv) 40 mg IVPUSH DAILY [facility] Last Admin: 03/25/19 09:42 Dose: 40 mg Sacubitril/Valsartan (Entresto 24 Mg-26 Mg Tablet) 1 tab PO BID [facility] Last Admin: 03/25/19 09:44 Dose: 1 tab Vital Signs Period Temp Pulse Resp BP Sys/Real Pulse Ox Last 24 Hr 98 F-99.1 F 70-76 15-21 105-126/46-64 95-100 Constitutional: Yes: No Distress Cardiovascular: Yes: Regular Rate and Rhythm, +JVD Respiratory: Yes: CTA Bilaterally Gastrointestinal: Yes: Soft Edema: No Neurological: Yes: Alert, Oriented no jaundice, diaphoresis not agitated - ....Imaging EKG: Image Reviewed Assessment/Plan 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 EGD/colo w/o etiology of anemia - heme following Acute on Chronic systolic HF: - edema improving, wt down with IV lasix, Cr stable - continue IV lasix - cont entresto, metoprolol - spironolactone stopped last admission for SANDIE, hyperkalemia - monitor Cr, lytes, daily standing weights Afib - not on ac due to thrombocytopenia, anemia - continue digoxin, toprol s/p PPM - stable on EKG/tele, routine outpatient monitoring h/o bio AVR - stable on echo - outpatient monitoring HLD - cont statin NSVT - h/o systolic HF, on metoprolol - monitor lytes with diuresis CVA: - L hemiparesis - cont statin
--- NOTE | 2019-03-25 12:21 | PN ---
Progress Note, Physician Chief Complaint: Mr Melchor is without complaint today. Eager to go home. Denies cp, sob, n/v. - Current Medication List Current Medications: Active Medications Acetaminophen (Tylenol Oral Solution -) 650 mg GT Q6H PRN PRN Reason: PAIN 1-3 Last Admin: 03/24/19 13:12 Dose: 650 mg Atorvastatin Calcium (Lipitor -) 10 mg GT HS [facility] Last Admin: 03/24/19 21:40 Dose: 10 mg Digoxin (Lanoxin -) 0.125 mg GT DAILY [facility] Last Admin: 03/25/19 09:43 Dose: 0.125 mg Furosemide (Lasix Injection -) 40 mg IVPUSH DAILY [facility] Last Admin: 03/25/19 09:42 Dose: 40 mg Gabapentin (Neurontin Oral Liquid -) 200 mg GT BID [facility] Last Admin: 03/25/19 09:42 Dose: 200 mg Metoprolol Tartrate (Lopressor -) 25 mg GT BID [facility] Last Admin: 03/25/19 09:44 Dose: 25 mg Pantoprazole Sodium (Protonix Iv) 40 mg IVPUSH DAILY [facility] Last Admin: 03/25/19 09:42 Dose: 40 mg Sacubitril/Valsartan (Entresto 24 Mg-26 Mg Tablet) 1 tab PO BID [facility] Last Admin: 03/25/19 09:44 Dose: 1 tab - Objective Vital Signs: Vital Signs Temperature 37.0 C 03/25/19 12:00 Pulse Rate 72 03/25/19 12:00 Respiratory Rate 18 03/25/19 12:00 Blood Pressure 113/51 L 03/25/19 12:00 O2 Sat by Pulse Oximetry (%) 96 03/25/19 10:00 Constitutional: Yes: Well Nourished, No Distress, Calm Cardiovascular: Yes: Regular Rate and Rhythm, JVD. No: Gallop, Murmur, Rub Respiratory: Yes: Regular, CTA Bilaterally. No: Rales, Rhonchi, Wheezes Gastrointestinal: Yes: Normal Bowel Sounds, Soft. No: Distention, Tenderness Extremities: Yes: WNL Edema: No Labs: CBC, BMP 03/25/19 05:42 03/25/19 05:42 INR, PTT INR 1.06 (0.83-1.09) 03/21/19 12:55 Problem List - Problems (1) Anemia Code(s): D64.9 - ANEMIA, UNSPECIFIED Qualifiers: Anemia type: unspecified type Qualified Code(s): D64.9 - Anemia, unspecified (2) Dysphagia Code(s): R13.10 - DYSPHAGIA, UNSPECIFIED (3) GI bleed Code(s): K92.2 - GASTROINTESTINAL HEMORRHAGE, UNSPECIFIED (4) Atrial fibrillation Code(s): I48.91 - UNSPECIFIED ATRIAL FIBRILLATION Qualifiers: Atrial fibrillation type: chronic Qualified Code(s): I48.2 - Chronic atrial fibrillation (5) CHF (congestive heart failure) Code(s): I50.9 - HEART FAILURE, UNSPECIFIED (6) Thrombocytopenia Code(s): D69.6 - THROMBOCYTOPENIA, UNSPECIFIED Assessment/Plan (1) Anemia Assessment/Plan: -s/p EGD, no signs of bleeding -colonoscopy also did not show signs of bleeding -H/H stable -appreciate hematology assistance Code(s): D64.9 - ANEMIA, UNSPECIFIED (2) Dysphagia Assessment/Plan: -PEG tube in place -speech sounds stronger since last admission -case d/w speech therapy -may need repeat barium swallow but can be done in the outpatient once stronger Code(s): R13.10 - DYSPHAGIA, UNSPECIFIED (3) GI bleed Assessment/Plan: -as above Code(s): K92.2 - GASTROINTESTINAL HEMORRHAGE, UNSPECIFIED (4) Atrial fibrillation Assessment/Plan: -continue digoxin and metoprolol -no anticoagulation secondary to thrombocytopenia and anemia Code(s): I48.91 - UNSPECIFIED ATRIAL FIBRILLATION Qualifiers: Atrial fibrillation type: chronic Qualified Code(s): I48.2 - Chronic atrial fibrillation (5) CHF (congestive heart failure) Assessment/Plan: -cardiology following -continue entresto -receiving IV lasix -change to oral lasix on discharge -case d/w Dr Graham Code(s): I50.9 - HEART FAILURE, UNSPECIFIED (6) Thrombocytopenia Assessment/Plan: -hematology consulted and appreciate assistance Code(s): D69.6 - THROMBOCYTOPENIA, UNSPECIFIED
--- NOTE | 2019-03-25 14:02 | PN.GI ---
GI Progress Note Subjective: no melena, no rectal bleeding, HGB 9 - Objective Vital Signs: Vital Signs Temperature 98.6 F 03/25/19 12:00 Pulse Rate 72 03/25/19 12:00 Respiratory Rate 18 03/25/19 12:00 Blood Pressure 113/51 L 03/25/19 12:00 O2 Sat by Pulse Oximetry (%) 96 03/25/19 10:00 Constitutional: Well Nourished Eyes: Yes: Conjunctiva Clear HENT: Yes: Atraumatic Neck: Yes: Supple Respiratory: Yes: CTA Bilaterally ...Auscultate: No: No Bowel Sounds ...Palpate: Yes: Soft. No: Guarding, Mass, Pulsatile Mass, Splenomegaly, Tenderness, Epigastium Labs: CBC, BMP 03/25/19 05:42 03/25/19 05:42 INR, PTT INR 1.06 (0.83-1.09) 03/21/19 12:55 Problem List - Problems (1) GI bleed Assessment/Plan: stable no active bleeding noted Code(s): K92.2 - GASTROINTESTINAL HEMORRHAGE, UNSPECIFIED (2) Dilated cbd, acquired Assessment/Plan: normal lLFTS, etiology of dilated CBD unclear R> ct of the abdomen once renal function improved Code(s): K83.8 - OTHER SPECIFIED DISEASES OF BILIARY TRACT
[2019-03-25] MEDS: NYSTATIN 100,000 UNIT/GM TOPICAL CREAM 15 GM TUBE TP SCH (18:01)
[2019-03-25] MEDS ORDERED: PT OWN MED DRAWER 7, Y5N ONE (21:47)
[2019-03-25] MEDS: ATORVASTATIN CA 10 MG TABLET (FP) GT SCH (21:49)
[2019-03-25] MEDS: ACETAMINOPHEN 650 MG/20.3 ML ORAL SOLUTION (CUPS) GT PRN (22:00)
[2019-03-26] MEDS: NYSTATIN 100,000 UNIT/GM TOPICAL CREAM 15 GM TUBE TP SCH ×4 (05:19→18:45)
[2019-03-26 05:59] LABS: BASO % 0.9 % (0-2.0); HEMATOCRIT 26.4 % (35.4-49); HEMOGLOBIN 8.7 GM/dL (11.7-16.9); LYMPH % 31.5 % (8-40); MCH 29.9 pg (25.7-33.7); MEAN CELL VOLUME 90.7 fl (80-96); MEAN PLT VOLUME 8.9 fl (7.5-11.1); MONO % 14.8 % (3.8-10.2); NEUT % 49.8 % (42.8-82.8); PLATELET COUNT 51 K/MM3 (134-434); RBC 2.91 M/mm3 (4.00-5.60); WHITE BLOOD COUNT 2.9 K/mm3 (4.0-10.0)
[2019-03-26 06:19] LABS: BLOOD UREA NITROGEN 27.3 mg/dL (7-18); CALCIUM 7.7 mg/dL (8.5-10.1); CREATININE 1.1 mg/dL (0.55-1.3); PHOSPHOROUS 2.3 mg/dL (2.5-4.9); POTASSIUM 3.8 mmol/L (3.5-5.1)
--- NOTE | 2019-03-26 10:40 | PN ---
Progress Note (short form) - Note Progress Note: s: no chest pain, palps, dyspnea Current Medications Acetaminophen (Tylenol Oral Solution -) 650 mg GT Q6H PRN PRN Reason: PAIN 1-3 Last Admin: 03/25/19 22:00 Dose: 650 mg Atorvastatin Calcium (Lipitor -) 10 mg GT HS [facility] Last Admin: 03/25/19 21:49 Dose: 10 mg Digoxin (Lanoxin -) 0.125 mg GT DAILY [facility] Last Admin: 03/25/19 09:43 Dose: 0.125 mg Furosemide (Lasix Injection -) 40 mg IVPUSH DAILY [facility] Last Admin: 03/25/19 09:42 Dose: 40 mg Gabapentin (Neurontin Oral Liquid -) 200 mg GT BID [facility] Last Admin: 03/25/19 22:32 Dose: 200 mg Metoprolol Tartrate (Lopressor -) 25 mg GT BID [facility] Last Admin: 03/25/19 21:49 Dose: 25 mg Nystatin (Mycostatin Cream -) 1 applic TP Q6HPO [facility] Last Admin: 03/26/19 05:19 Dose: 1 applic Pantoprazole Sodium (Protonix Iv) 40 mg IVPUSH DAILY [facility] Last Admin: 03/25/19 09:42 Dose: 40 mg Sacubitril/Valsartan (Entresto 24 Mg-26 Mg Tablet) 1 tab PO BID [facility] Last Admin: 03/25/19 21:49 Dose: 1 tab Vital Signs Period Temp Pulse Resp BP Sys/Real Pulse Ox Last 24 Hr 97.8 F-99.1 F 70-72 14-20 100-130/42-64 96-100 Constitutional: Yes: No Distress Cardiovascular: Yes: Regular Rate and Rhythm, +JVD Respiratory: Yes: CTA Bilaterally Gastrointestinal: Yes: Soft Edema: No Neurological: Yes: Alert, Oriented no jaundice, diaphoresis not agitated - ....Imaging EKG: Image Reviewed Assessment/Plan 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 EGD/colo w/o etiology of anemia - heme following Acute on Chronic systolic HF: - edema improving, wt down with IV lasix, Cr stable - volume status improved - change to torsemide 20 mg daily - cont entresto, metoprolol - spironolactone stopped last admission for SANDIE, hyperkalemia - monitor Cr, lytes, daily standing weights Afib - not on ac due to thrombocytopenia, anemia - continue digoxin, toprol s/p PPM - stable on EKG/tele, routine outpatient monitoring h/o bio AVR - stable on echo - outpatient monitoring HLD - cont statin NSVT - h/o systolic HF, on metoprolol - monitor lytes with diuresis CVA: - L hemiparesis - cont statin
[2019-03-26] MEDS: SACUBITRIL/VALSARTAN 24 MG-26 MG TABLET PO SCH ×2 (10:53→21:48)
[2019-03-26] MEDS: METOPROLOL TARTRATE 25 MG TABLET (FP) GT SCH ×2 (10:53→21:49)
[2019-03-26] MEDS: DIGOXIN 0.125 MG TABLET (FP) GT SCH (10:53)
[2019-03-26] MEDS: PANTOPRAZOLE SODIUM 40 MG VIAL IVPUSH SCH (10:54)
[2019-03-26] MEDS ORDERED: PT OWN MED DRAWER 7, Y5N ONE (10:58)
[2019-03-26] MEDS: GABAPENTIN 250 MG/5 ML ORAL SOLUTION, 470 ML BOTTLE GT SCH ×2 (11:03→21:49)
--- NOTE | 2019-03-26 13:17 | DS ---
Physical Examination Vital Signs: Vital Signs Temperature 36.6 C 03/26/19 06:00 Pulse Rate 72 03/26/19 10:53 Respiratory Rate 14 03/26/19 08:15 Blood Pressure 100/42 L 03/26/19 08:15 O2 Sat by Pulse Oximetry (%) 100 03/26/19 03:31 Constitutional: Yes: Well Nourished, No Distress, Calm Cardiovascular: Yes: Regular Rate and Rhythm. No: Gallop, Murmur, Rub Respiratory: Yes: Regular, CTA Bilaterally. No: Rales, Rhonchi, Wheezes Gastrointestinal: Yes: Normal Bowel Sounds, Soft. No: Distention, Tenderness Extremities: Yes: WNL Edema: No Labs: CBC, BMP 03/26/19 05:18 03/26/19 05:18 Discharge Summary Reason For Visit: GASTROINTESTINAL HEMORRHAGE,CHF Current Active Problems Anemia (Acute) Dilated cbd, acquired (Acute) Hospital Course: (1) Anemia Code(s): D64.9 - ANEMIA, UNSPECIFIED Qualifiers: Anemia type: unspecified type Qualified Code(s): D64.9 - Anemia, unspecified (2) Dysphagia Code(s): R13.10 - DYSPHAGIA, UNSPECIFIED (3) GI bleed Code(s): K92.2 - GASTROINTESTINAL HEMORRHAGE, UNSPECIFIED (4) Atrial fibrillation Code(s): I48.91 - UNSPECIFIED ATRIAL FIBRILLATION Qualifiers: Atrial fibrillation type: chronic Qualified Code(s): I48.2 - Chronic atrial fibrillation (5) CHF (congestive heart failure) Code(s): I50.9 - HEART FAILURE, UNSPECIFIED (6) Thrombocytopenia Code(s): D69.6 - THROMBOCYTOPENIA, UNSPECIFIED Mr Melchor is a very pleasant 88 year old male who comes in with anemia. He was at rehab when he had routine labs done which showed anemia and thrombocytopenia. The thrombocytopenia is chronic but the anemia was new. He was admitted and transfused 2 units. He underwent EGD and colonoscopy. Both did not show any overt signs of bleeding and the EGD showed his previously seen duodenal ulcers were healing. He was seen by both GI and hematology. He had multiple labs sent, he can follow up with Dr Roldan or Dr Lyle for the results as they will take some time to result. He is also considering a capsule endoscopy as an outpatient. He currently is feeling well and is medically stable for discharge to rehab. Case d/w Dr Graham and instruction were left concerning his heart failure. 40 minutes spent in preparation of this discharge Condition: Stable - Instructions Diet, Activity, Other Instructions: Jevity 1.5 @ 80ml/hr with H2O @ 25ml/hr. Advancement of diet per speech therapy at rehab, when able to take po recommended diet should be low sodium. Weigh patient daily, if increases by 3lbs in [address] Wayne to address possible increase in torsemide. Also if has increase in edema or shortness of breath contact Dr Wayne as well. Check cbc and bmp in 5 days, contact Dr Roldan with results. Referrals: Carrillo Roldan MD [Primary Care Provider] - Disposition: [facility]ILITY - Home Medications Comprehensive Discharge Medication List: Ambulatory Orders Acetaminophen 650 mg GT Q6H PRN 03/21/19 Atorvastatin Ca [Lipitor] 10 mg GT HS 03/21/19 Cholecalciferol (Vitamin D3) [Vitamin D3] 2,000 unit GT DAILY 03/21/19 Digoxin [Lanoxin] 125 mcg GT ASDIR 03/21/19 Ferrous Sulfate 220 mg GT BID 03/21/19 Gabapentin [Neurontin -] 200 mg GT BID 03/21/19 Magnesium Hydrox 2400MG/30Ml [Milk of Magnesia -] 30 ml GT PRN PRN 03/21/19 Melatonin 5 mg GT HS 03/21/19 Metoprolol Tartrate [Lopressor -] 25 mg GT BID 03/21/19 Sacubitril/Valsartan [Entresto 24 mg-26 mg Tablet] 1 each GT BID 03/21/19 Acetaminophen [Tylenol] 650 mg GT Q6H PRN 03/22/19 Oxycodone HCl [Roxicodone] 5 mg GT Q6H PRN 03/22/19 Nystatin Cream [Mycostatin Cream -] 1 applic TP Q6HPO applic 03/26/19 Pantoprazole Suspension [Protonix Packets For Oral Suspension -] 40 mg PEG DAILY #30 packet 03/26/19 Torsemide [Demadex -] 20 mg PO DAILY tablet 03/26/19
[2019-03-26 13:45] LABS: ANISOCYTOSIS 1+; MACROCYTOSIS 0; PLATELET ESTIMATE DECREASED
[2019-03-26] MEDS: ATORVASTATIN CA 10 MG TABLET (FP) GT SCH (21:48)
[2019-03-26] MEDS: ACETAMINOPHEN 650 MG/20.3 ML ORAL SOLUTION (CUPS) GT PRN (22:15)
[2019-03-26] MEDS ORDERED: MELATONIN 5 MG TABLETS PO ONE (22:36)
[2019-03-27] MEDS: NYSTATIN 100,000 UNIT/GM TOPICAL CREAM 15 GM TUBE TP SCH ×3 (06:41→13:00)
--- NOTE | 2019-03-27 09:22 | PN ---
Progress Note, Physician Chief Complaint: leg swelling, anemia History of Present Illness: denies sob, orthopnea. no cp. legs swelling resolved. - Current Medication List Current Medications: Active Medications Acetaminophen (Tylenol Oral Solution -) 650 mg GT Q6H PRN PRN Reason: PAIN 1-3 Last Admin: 03/26/19 22:15 Dose: 650 mg Atorvastatin Calcium (Lipitor -) 10 mg GT HS [facility] Last Admin: 03/26/19 21:48 Dose: 10 mg Digoxin (Lanoxin -) 0.125 mg GT DAILY [facility] Last Admin: 03/26/19 10:53 Dose: 0.125 mg Gabapentin (Neurontin Oral Liquid -) 200 mg GT BID [facility] Last Admin: 03/26/19 21:49 Dose: 200 mg Metoprolol Tartrate (Lopressor -) 25 mg GT BID [facility] Last Admin: 03/26/19 21:49 Dose: 25 mg Nystatin (Mycostatin Cream -) 1 applic TP Q6HPO [facility] Last Admin: 03/27/19 06:41 Dose: Not Given Pantoprazole Sodium (Protonix Iv) 40 mg IVPUSH DAILY [facility] Last Admin: 03/26/19 10:54 Dose: 40 mg Sacubitril/Valsartan (Entresto 24 Mg-26 Mg Tablet) 1 tab PO BID [facility] Last Admin: 03/26/19 21:48 Dose: 1 tab Torsemide (Demadex -) 20 mg PO DAILY [facility] - Objective Vital Signs: Vital Signs Temperature 98.7 F 03/26/19 20:00 Pulse Rate 70 03/27/19 07:30 Respiratory Rate 20 03/27/19 07:30 Blood Pressure 111/58 L 03/27/19 07:30 O2 Sat by Pulse Oximetry (%) 96 03/27/19 07:30 Constitutional: Yes: Well Nourished, No Distress, Calm Cardiovascular: Yes: Regular Rate and Rhythm, Murmur (soft syst murmur LLSB), S1 , S2. No: Gallop Respiratory: Yes: Regular, CTA Bilaterally. 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 EGD/colo w/o etiology of anemia - heme following Acute on Chronic systolic HF: - edema improving, wt down with IV lasix, Cr stable- changed to torsemide 20 mg daily - cont entresto, metoprolol - spironolactone stopped last admission for SANDIE, hyperkalemia - appears euvolemic--same meds Afib - not on ac due to thrombocytopenia, anemia - continue digoxin, toprol - check dig level (was good one month ago here) s/p PPM - stable on EKG/tele, routine outpatient monitoring h/o bio AVR - stable on echo - outpatient monitoring HLD - cont statin NSVT - h/o systolic HF, on metoprolol - monitor lytes with diuresis CVA: - L hemiparesis - cont statin
[2019-03-27] MEDS ORDERED: TORSEMIDE 20 MG TABLET (FP) PO SCH (10:00)
[2019-03-27] MEDS: SACUBITRIL/VALSARTAN 24 MG-26 MG TABLET PO SCH (10:02)
[2019-03-27] MEDS: METOPROLOL TARTRATE 25 MG TABLET (FP) GT SCH (10:03)
[2019-03-27] MEDS: DIGOXIN 0.125 MG TABLET (FP) GT SCH (10:03)
[2019-03-27] MEDS: PANTOPRAZOLE SODIUM 40 MG VIAL IVPUSH SCH (10:03)
[2019-03-27] MEDS: GABAPENTIN 250 MG/5 ML ORAL SOLUTION, 470 ML BOTTLE GT SCH (10:06)
[2019-03-27 11:10] LABS: RNP ANTIBODIES <0.2 AI (0.0-0.9)
--- NOTE | 2019-03-27 12:18 | PN ---
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
[2019-03-27 12:19] VITALS: BP 116/46; PULSE 70; TEMP 98
--- NOTE | 2019-03-28 17:04 | PATH ---
Surgical Pathology Report Patient Name: MUNA VUONG [facility]. Rec. #: [id number] /Age/Gender: 1930 (Age: 88) / M Account: [id number] Location: EMERGENCY ROOM Taken: 03/24/2019 Received: 03/24/2019 Reported: 03/28/2019 Physicians: Jose M Lyle M.D. Specimen(s) Received PERIPHERAL BLOOD Clinical History 03/15 of the Anemia, thrombocytopenia Final Diagnosis [facility] [place] [place] shows the following: INTERPRETATION: IN THE SAMPLES ANALYZED, THERE IS NO EVIDENCE OF B OR T-CELL PROLIFERATIVE DISORDERS OR INCREASED BLASTS. MYELODYSPLASIA FISH PANEL performed and interpreted at [place], [place] shows the following: INTERPRETATION: NO EVIDENCE OF DELETION 5q or MONOSOMY 5 IS PRESENT. NO EVIDENCE OF DELETION 7q or MONOSOMY 7 IS PRESENT. NO EVIDENCE OF TRISOMY 8 (+8) is PRESENT. NO EVIDENCE OF DELETION 13q14.2 is PRESENT. NO EVIDENCE OF REARRANGEMENT of 11q23. NO EVIDENCE OF A DELETION OF THE P53 (17p13) LOCUS. NO EVIDENCE OF DELETION 20q12 is PRESENT See [facility] report ([id number] and [id number]) for additional details. Electronically Signed Melanie Barker M.D. Gross Description Received labelled with the patient's name are 4 green top tubes of peripheral blood which are forwarded to [facility] for ancillary testing. [facility]/03/24/2019
== END 2019-03-27 14:14 | DRG 811 ==
LOC: JER 10:58 → JERBED 14:05 → J2W 18:40
PROVIDERS: ADMIT Hospitalist; ATTEND Internal Medicine
PROC: 30233N1 Transfusion of Nonautologous Red Blood Cells into Peripheral Vein, Percutaneous Approach (ICD-10-PCS; 2019-03-22)
PROC: 0DJ08ZZ Inspection of Upper Intestinal Tract, Via Natural or Artificial Opening Endoscopic (ICD-10-PCS; principal; 2019-03-22 12:30)
PROC: 0DJD8ZZ Inspection of Lower Intestinal Tract, Via Natural or Artificial Opening Endoscopic (ICD-10-PCS; 2019-03-24)
DX: D64.9 Anemia, unspecified (principal); I50.23 Acute on chronic systolic (congestive) heart failure; K25.4 Chronic or unspecified gastric ulcer with hemorrhage; I69.354 Hemiplegia and hemiparesis following cerebral infarction affecting left non-dominant side; I13.0 Hypertensive heart and chronic kidney disease with heart failure and stage 1 through stage 4 chronic kidney disease, or unspecified chronic kidney disease; I47.2 Ventricular tachycardia; E78.00 Pure hypercholesterolemia, unspecified; D69.6 Thrombocytopenia, unspecified; N18.3 Chronic kidney disease, stage 3 (moderate); K57.90 Diverticulosis of intestine, part unspecified, without perforation or abscess without bleeding; J44.9 Chronic obstructive pulmonary disease, unspecified; R13.10 Dysphagia, unspecified; I48.2 Chronic atrial fibrillation; K44.9 Diaphragmatic hernia without obstruction or gangrene; K83.8 Other specified diseases of biliary tract; Z95.2 Presence of prosthetic heart valve; Z95.0 Presence of cardiac pacemaker; Z93.1 Gastrostomy status
CPT/HCPCS: 36415; 36430; 36511; 71045-TC-FY; 76705-TC; 80048; 80053; 80061; 80076; 80162; 82272; 82607; 82728; 82746; 83036; 83540; 83550; 83615; 83721; 83735; 83880; 83883; 84100; 84155; 84165; 84439; 84443; 84466; 84484; 85025; 85027; 85044; 85610; 85730; 86038; 86225; 86235; 86431; 86850; 86900; 86901; 86922; 88300-TC; 93005; 93010; 93306-TC; 93970-TC; 99283-25; J1756; P9038; P9058

== ENCOUNTER 2019-05-10 20:44 | Inpatient (IN) | payer OTHER, BC | END 2019-05-19 14:12 | LOC: JER 20:44 → JERBED 23:14 → J4S 05-11 01:54 ==